=== PATIENT | male | born 1940 | race American Indian/Alaskan Native ===

== ENCOUNTER 2022-05-14 04:16 | Inpatient (IN) | payer MEDICARE ==
[2022-05-14] MEDS ORDERED: SODIUM CHLORIDE 0.9% 1000 ML 1,000 ML IV ONE (05:24)
[2022-05-14] MEDS ORDERED: cefTRIAXone/NS 2 GM/100 ML 2 GM/100 ML BAG IV ONE (06:40)
[2022-05-14] MEDS ORDERED: SODIUM CHLORIDE 0.9% 1000 ML IV SOLN IV ONE (06:40)
[2022-05-14 07:14] LABS: Basophils % (Auto) 0.1 % (0.0-1.8); Lymphocytes # (Auto) 0.6 K/mm3 (1.2-5.4); Lymphocytes % (Auto) 4.7 % (13.4-35.0); Mean Corpuscular HGB Conc 32 % (32-34); Mean Corpuscular Volume 96 fl (84-94); Monocytes # (Auto) 1.5 K/mm3 (0.0-0.8); Monocytes % (Auto) 11.9 % (0.0-7.3); Platelet Count 253 K/mm3 (140-440); Red Blood Count 1.95 M/mm3 (3.65-5.03)
[2022-05-14 07:23] LABS: Hematocrit 18.7 % (35.5-45.6); INR 1.19 (0.87-1.13)
[2022-05-14] MEDS ORDERED: SODIUM CHLORIDE 0.9% 500 ML 500 ML IV ONE (07:24)
--- NOTE | 2022-05-14 07:28 | XRay Report ---
CHEST 1 VIEW INDICATION / CLINICAL INFORMATION: AMS. COMPARISON: None available. FINDINGS: SUPPORT DEVICES: None. HEART / MEDIASTINUM: Heart size is within normal limits. Mediastinal contour demonstrates no signific ant abnormality. LUNGS / PLEURA: No significant pulmonary abnormality. BONES: No significant osseous abnormality. ADDITIONAL FINDINGS: No significant additional findings. IMPRESSION: 1. No active cardiopulmonary disease. Signer Name: Don Gillespie II, MD Signed: 05/14/2022 7:23 AM Workstation Name: [id number]
[2022-05-14 07:40] LABS: Alanine Aminotransferase 23 units/L (7-56); Albumin 3.2 g/dL (3.9-5); BUN/Creatinine Ratio 22; Blood Urea Nitrogen 29 mg/dL (9-20); Calcium 8.3 mg/dL (8.4-10.2); Hemolysis Index 2
[2022-05-14 08:02] LABS: C-Reactive Protein 23.8 mg/dL (0.00-1.30)
[2022-05-14 08:12] LABS: Bilirubin,Urine Color Interference (Negative); Color,Urine Red (Yellow)
[2022-05-14 08:14] LABS: Blood,Urine Color Interference (Negative); Protein,Urine Color Interference mg/dL (Negative)
--- NOTE | 2022-05-14 08:42 | Cat Scan Report ---
CT HEAD WITHOUT CONTRAST INDICATION / CLINICAL INFORMATION: AMS. TECHNIQUE: All CT scans at this location are performed using CT dose reduction for ALARA by means of automated exposure control. COMPARISON: None available. FINDINGS: HEMORRHAGE: None. EXTRA-AXIAL SPACES: Mildly prominent likely related to cortical atrophy. VENTRICULAR SYSTEM: Mildly enlarged likely related to central atrophy. CEREBRAL PARENCHYMA: There are moderate small vessel ischemic changes, most prominent in the perivent ricular white matter. No acute territorial infarct. MIDLINE SHIFT / HERNIATION: None. CEREBELLUM / BRAINSTEM: No significant abnormality. ORBITS: There is prior bilateral cataract surgery. SOFT TISSUES: No significant abnormality. SKULL: No significant abnormality. PARANASAL SINUSES / MASTOID AIR CELLS: Normal as visualized. ADDITIONAL FINDINGS: None. IMPRESSION: No acute intracranial abnormality. Signer Name: Figueroa Garcia MD Signed: 05/14/2022 8:38 AM Workstation Name: [id number]
[2022-05-14] MEDS ORDERED: AMIODARONE 150 MG/100 ML-ED 150 MG/100 ML BAG IV ONE (10:27)
[2022-05-14] MEDS: AMIODARONE 900 MG in DEXTROSE 5% IN WATER 482 ML IV SCH (11:04)
--- NOTE | 2022-05-14 11:48 | History and Physical Report ---
History of Present Illness Chief complaint: He was found unresponsive History of present illness: 81 YO Male with Vascular Dementia, Cerebral Atherosclerosis, DM, HLD, HTN, GERD, Anemia chronic Disease, BPH with Chronic indwelling castillo catheter placed 1 week ago presents ED for evaluation. Patient is confused and lethargic at time of evaluation and is unable to provide history. Patient history taken by EMS staff, ED staff, as well as the patient's family was at the bedside during exam and interview. Patient was in his usual state of health upon awakening from sleep this morning around 0900 hrs. The patient was found unresponsive while sitting on his sofa. EMS was notified and upon arrival the patient was found to be in distress and subsequent transported to [facility] for further care and evaluation of the aforementioned symptoms. The patient was seen and evaluated in the emergency department. All lab and imaging studies reviewed. Patient found to be hypotensive with a systolic blood pressure in the 80s with a heart rate in the 150s. Patient found to have sepsis suspected secondary to urinary tract infection, toxic metabolic encephalopathy, as well as new onset atrial fibrillation with rapid ventricular response. Patient admitted to ICU due to increased risk of worsening symptoms after medical stabilization. Patient initiated on amiodarone drip in the emergency department. Critical care team consulted in ED. Cardiology team consulted in ED. patient has diminished cognition but has a positive gag reflex and is able to protect his airway at time of my evaluation. No prior admission for review. All medication listed at time of admission has been reconciled. Advanced care planning conducted in ED. Past History Past Medical History: diabetes, GERD, hypertension, hyperlipidemia, other (See HPI) Past Surgical History: No surgical history, Other (Reviewed) Social history: . denies: smoking, alcohol abuse, prescription drug abuse Family history: hypertension Medications and Allergies Allergies Allergy/AdvReac Type Severity Reaction Status Date / Time No Known Allergies Allergy Verified 05/13/22 16:50 Home Medications Medication Instructions Recorded Confirmed Last Taken Type AtorvaSTATin [Lipitor] 20 mg PO QHS 05/13/22 05/14/22 Unknown History Cyanocobalamin (Vitamin B-12) 1,000 mcg PO QDAY 05/13/22 05/14/22 Unknown History [Vitamin B-12] Doxazosin [Cardura] 1 mg PO QHS 05/13/22 05/14/22 Unknown History Ferrous Sulfate [Iron 325 MG] 325 mg PO QDAY 05/13/22 05/14/22 Unknown History Metformin HCl [metFORMIN] 1,000 mg PO QDAY 05/13/22 05/14/22 Unknown History Omeprazole 20 mg PO QDAY 05/13/22 05/14/22 Unknown History amLODIPine [Norvasc] 5 mg PO DAILY 05/13/22 05/14/22 Unknown History lisinopriL [Lisinopril] 40 mg PO QDAY 05/13/22 05/14/22 Unknown History Active Meds: Active Medications Amiodarone HCl 900 mg/ (Dextrose) 500 mls @ 33.333 mls/hr IV DIRECT KARLA; Protocol Last Admin: 05/14/22 11:04 Dose: 1 mg/min, 33.333 mls/hr Review of Systems ROS unobtainable: due to mental status Exam - Constitutional Vitals: Temp Pulse Resp BP Pulse Ox 99.2 F 128 H 22 101/61 100 05/14/22 04:16 05/14/22 11:15 05/14/22 11:15 05/14/22 11:15 05/14/22 11:15 General appearance: Present: mild distress - EENT Eyes: Present: PERRL ENT: clear oral mucosa, hearing decreased - Respiratory Respiratory effort: normal Respiratory: bilateral: diminished - Cardiovascular Rhythm: irregularly irregular Heart Sounds: Present: S1 & S2. Absent: rub, click - Extremities Extremities: pulses symmetrical, No edema Peripheral Pulses: abnormal (Capillary refill greater than 3.5 seconds) - Abdominal General gastrointestinal: Present: soft, non-tender, non-distended, normal bowel sounds Male genitourinary: Present: normal - Integumentary Integumentary: Present: clear, dry, clammy, decreased turgor - Musculoskeletal Musculoskeletal: generalized weakness - Psychiatric Psychiatric: no appropriate mood/affect, no intact judgment & insight, no memory intact - Neurologic Neurologic: CNII-XII intact, no focal deficits, moves all extremities, no gait normal HEART Score - HEART Score Troponin: Troponin T < 0.010 ng/mL (0.00-0.029) 05/14/22 06:57 Results - Labs CBC & Chem 7: 05/14/22 06:57 05/14/22 06:57 Labs: Abnormal lab results 05/14/22 05/14/22 05/14/22 Range/Units 04:59 06:57 06:57 WBC 12.5 H (4.5-11.0) K/mm3 RBC 1.95 L (3.65-5.03) M/mm3 Hgb 6.0 L (11.8-15.2) gm/dl Hct 18.7 L* (35.5-45.6) % MCV 96 H (84-94) fl RDW 13.0 L (13.2-15.2) % Lymph % (Auto) 4.7 L (13.4-35.0) % Wharton % (Auto) 11.9 H (0.0-7.3) % Lymph # (Auto) 0.6 L (1.2-5.4) K/mm3 Wharton # (Auto) 1.5 H (0.0-0.8) K/mm3 Seg Neutrophils % 83.3 H (40.0-70.0) % Seg Neutrophils # 10.4 H (1.8-7.7) K/mm3 PT (12.2-14.9) Sec. INR (0.87-1.13) Chloride 108.3 H (98-107) mmol/L Carbon Dioxide 18 L (22-30) mmol/L BUN 29 H (9-20) mg/dL Glucose 275 H (75-100) mg/dL POC Glucose 245 H (70-105) mg/dL Lactic Acid (0.7-2.0) mmol/L Calcium 8.3 L (8.4-10.2) mg/dL Total Creatine Kinase (55-170) units/L C-Reactive Protein (0.00-1.30) mg/dL Albumin 3.2 L (3.9-5) g/dL Crossmatch 05/14/22 05/14/22 05/14/22 Range/Units 06:57 06:57 06:57 WBC (4.5-11.0) K/mm3 RBC (3.65-5.03) M/mm3 Hgb (11.8-15.2) gm/dl Hct (35.5-45.6) % MCV (84-94) fl RDW (13.2-15.2) % Lymph % (Auto) (13.4-35.0) % Wharton % (Auto) (0.0-7.3) % Lymph # (Auto) (1.2-5.4) K/mm3 Wharton # (Auto) (0.0-0.8) K/mm3 Seg Neutrophils % (40.0-70.0) % Seg Neutrophils # (1.8-7.7) K/mm3 PT 16.5 H (12.2-14.9) Sec. INR 1.19 H (0.87-1.13) Chloride (98-107) mmol/L Carbon Dioxide (22-30) mmol/L BUN (9-20) mg/dL Glucose (75-100) mg/dL POC Glucose (70-105) mg/dL Lactic Acid 2.10 H* (0.7-2.0) mmol/L Calcium (8.4-10.2) mg/dL Total Creatine Kinase 774 H (55-170) units/L C-Reactive Protein 23.80 H (0.00-1.30) mg/dL Albumin (3.9-5) g/dL Crossmatch 05/14/22 Range/Units 09:54 WBC (4.5-11.0) K/mm3 RBC (3.65-5.03) M/mm3 Hgb (11.8-15.2) gm/dl Hct (35.5-45.6) % MCV (84-94) fl RDW (13.2-15.2) % Lymph % (Auto) (13.4-35.0) % Wharton % (Auto) (0.0-7.3) % Lymph # (Auto) (1.2-5.4) K/mm3 Wharton # (Auto) (0.0-0.8) K/mm3 Seg Neutrophils % (40.0-70.0) % Seg Neutrophils # (1.8-7.7) K/mm3 PT (12.2-14.9) Sec. INR (0.87-1.13) Chloride (98-107) mmol/L Carbon Dioxide (22-30) mmol/L BUN (9-20) mg/dL Glucose (75-100) mg/dL POC Glucose (70-105) mg/dL Lactic Acid (0.7-2.0) mmol/L Calcium (8.4-10.2) mg/dL Total Creatine Kinase (55-170) units/L C-Reactive Protein (0.00-1.30) mg/dL Albumin (3.9-5) g/dL Crossmatch See Detail Assessment and Plan - Patient Problems (1) Sepsis Current Visit: Yes Status: Acute Qualifiers: Severe sepsis acute organ dysfunction type: encephalopathy Plan to address problem: Sepsis protocol: Chest x-ray, CBC, urinalysis, IV antibiotic therapy, blood culture, serial lactic acid level, IV fluid resuscitation therapy, monitor fluid balance, maintain mean arterial pressure greater than equal to 65, blood culture, The high probability of a clinically significant, sudden or life threatening deterioration of the [cardiac, pulmonary, renal, , ID] system(s) required my full and direct attention, intervention and personal management. The aggregate critical care time was [95] minutes. This time is in addition to time spent performing reported procedures but includes the following: [x] Data Review and interpretation [x] Patient assessment and monitoring of vital signs [x] Documentation [x] Medication orders and management (2) Toxic metabolic encephalopathy Current Visit: Yes Status: Acute Plan to address problem: IV fluid resuscitation therapy, treat sepsis, supportive care. (3) Atrial fibrillation with RVR Current Visit: Yes Status: Acute Plan to address problem: Amiodarone drip, admit to ICU, cardiology team consulted, thyroid panel, supportive care, further care and evaluation as per cardiology team. Rate controlled. (4) UTI (urinary tract infection) Current Visit: Yes Status: Acute Qualifiers: Encounter type: initial encounter Plan to address problem: Urinalysis, CBC, IV antibiotic therapy, supportive care. (5) Diabetes Current Visit: Yes Status: Acute Plan to address problem: Consistent carbohydrate diet when awake and alert only, Accu-Chek, insulin protocol, hypoglycemia protocol. (6) Hyperlipidemia Current Visit: Yes Status: Acute Qualifiers: Hyperlipidemia type: mixed hyperlipidemia Qualified Code(s): E78.2 - Mixed hyperlipidemia Plan to address problem: Statin therapy, supportive care. (7) GERD (gastroesophageal reflux disease) Current Visit: Yes Status: Acute Qualifiers: Esophagitis presence: without esophagitis Qualified Code(s): K21.9 - Gastro-esophageal reflux disease without esophagitis Plan to address problem: PPI therapy, supportive care. (8) Obstructive uropathy Current Visit: Yes Status: Acute Plan to address problem: Outpatient urology follow-up. Patient has chronic indwelling Castillo catheter placement. Supportive care. (9) Vascular dementia Current Visit: Yes Status: Acute Qualifiers: Dementia behavioral disturbance: without behavioral disturbance Qualified Code(s): F01.50 - Vascular dementia without behavioral disturbance Plan to address problem: Verbal prompting, verbal redirection, benzodiazepine therapy as clinically indicated. (10) Cerebral atherosclerosis Current Visit: Yes Status: Acute Plan to address problem: Risk factor reduction, supportive care. Antiplatelet therapy as clinically i ndicated. (11) DVT prophylaxis Current Visit: Yes Status: Acute Plan to address problem: SCD to bilateral lower extremities while in bed (12) Advance care planning Current Visit: Yes Status: Acute Plan to address problem: Disease education data, care plan discussed, diagnoses discussed, prognosis discussed, patient is full code at this time. Patient family knowledges understanding and agreement with care plan, +30 minutes. (13) Preventative health care Current Visit: Yes Status: Acute Plan to address problem: Patient family counseled regarding prognosis, home health safety, risk factor reduction, outpatient follow-up with primary care physician regarding all age and risk factor related screening test. +30 minutes.
[2022-05-14] MEDS ORDERED: PANTOPRAZOLE 40 MG INJ IV ONE (11:52)
--- NOTE | 2022-05-14 11:54 | Emergency Department Report ---
ED General Adult HPI - General Chief complaint: Dyspnea/Respdistress Stated complaint: AMS PUI?: No Time Seen by Provider: 05/14/22 06:24 Source: family, EMS Mode of arrival: Stretcher Limitations: No Limitations - History of Present Illness Initial comments: er family got up to go to the bathroom and was found on sofa unresponsive. Arrived being bagged by EMS. Alert. Castillo was placed on Monday and gross hematuria noted. -: hour(s) Associated Symptoms: confusion, malaise, shortness of breath, weakness - Related Data Home Medications Medication Instructions Recorded Confirmed Last Taken AtorvaSTATin [Lipitor] 20 mg PO QHS 05/13/22 05/13/22 Unknown Cyanocobalamin (Vitamin B-12) 1,000 mcg PO QDAY 05/13/22 05/13/22 Unknown [Vitamin B-12] Doxazosin [Cardura] 1 mg PO QHS 05/13/22 05/13/22 Unknown Ferrous Sulfate [Iron 325 MG] 325 mg PO QDAY 05/13/22 05/13/22 Unknown Metformin HCl [metFORMIN] 1,000 mg PO QDAY 05/13/22 05/13/22 Unknown Omeprazole 20 mg PO QDAY 05/13/22 05/13/22 Unknown amLODIPine [Norvasc] 5 mg PO DAILY 05/13/22 05/13/22 Unknown lisinopriL [Lisinopril] 40 mg PO QDAY 05/13/22 05/13/22 Unknown Allergies Allergy/AdvReac Type Severity Reaction Status Date / Time No Known Allergies Allergy Verified 05/13/22 16:50 ED Review of Systems ROS: Stated complaint: AMS Other details as noted in HPI Comment: Unobtainable due to pts medical conditions ED Past Medical Hx - Past Medical History Previous Medical History?: Yes Hx Hypertension: Yes Hx Diabetes: Yes Hx GERD: Yes Hx Sickle Cell Disease: No Hx HIV: No Additional medical history: Prostate problems. High cholesterol - Surgical History Past Surgical History?: No - Social History Smoking Status: Never Smoker Substance Use Type: None - Medications Home Medications: Home Medications Medication Instructions Recorded Confirmed Last Taken Type AtorvaSTATin [Lipitor] 20 mg PO QHS 05/13/22 05/13/22 Unknown History Cyanocobalamin (Vitamin B-12) 1,000 mcg PO QDAY 05/13/22 05/13/22 Unknown History [Vitamin B-12] Doxazosin [Cardura] 1 mg PO QHS 05/13/22 05/13/22 Unknown History Ferrous Sulfate [Iron 325 MG] 325 mg PO QDAY 05/13/22 05/13/22 Unknown History Metformin HCl [metFORMIN] 1,000 mg PO QDAY 05/13/22 05/13/22 Unknown History Omeprazole 20 mg PO QDAY 05/13/22 05/13/22 Unknown History amLODIPine [Norvasc] 5 mg PO DAILY 05/13/22 05/13/22 Unknown History lisinopriL [Lisinopril] 40 mg PO QDAY 05/13/22 05/13/22 Unknown History ED Physical Exam - General Limitations: No Limitations General appearance: lethargic, in distress, cachectic, other (weak confused ) - Head Head exam: Present: atraumatic, normocephalic - Eye Eye exam: Present: normal appearance - ENT ENT exam: Present: mucous membranes moist - Neck Neck exam: Present: normal inspection - Respiratory Respiratory exam: Present: rales. Absent: respiratory distress - Cardiovascular Cardiovascular Exam: Present: tachycardia, irregular rhythm. Absent: systolic murmur, diastolic murmur, rubs, gallop - GI/Abdominal GI/Abdominal exam: Present: soft, normal bowel sounds - Rectal Rectal exam: Present: deferred, heme (+) stool - Extremities Exam Extremities exam: Present: normal inspection - Back Exam Back exam: Present: normal inspection - Expanded Neurological Exam Expanded Best Eye Response (Harjit): (3) open to voice Best Motor Response (Harjit): (6) obeys commands Best Verbal Response ([place]): (3) inappropriate words Harjit Total: 12 - Skin Skin exam: Present: intact, normal color, pallor. Absent: rash ED Course Vital Signs 05/14/22 05/14/22 05/14/22 04:16 05:05 05:16 Temperature 99.2 F Pulse Rate 147 H 142 H 141 H Respiratory 20 20 16 Rate Blood Pressure 110/62 110/62 110/62 Blood Pressure [Left] O2 Sat by Pulse 99 99 100 Oximetry 05/14/22 05/14/22 05/14/22 05:30 05:46 06:00 Temperature Pulse Rate 139 H 155 H 144 H Respiratory 16 19 17 Rate Blood Pressure 110/62 83/56 83/56 Blood Pressure [Left] O2 Sat by Pulse 100 100 100 Oximetry 05/14/22 05/14/22 05/14/22 06:16 06:30 06:37 Temperature Pulse Rate 148 H 136 H 139 H Respiratory 17 18 20 Rate Blood Pressure 88/58 88/58 Blood Pressure 90/60 [Left] O2 Sat by Pulse 100 100 100 Oximetry 05/14/22 05/14/22 05/14/22 06:46 07:00 07:16 Temperature Pulse Rate 126 H 121 H Respiratory 20 13 20 Rate Blood Pressure 90/60 90/60 89/62 Blood Pressure [Left] O2 Sat by Pulse 100 100 100 Oximetry 05/14/22 05/14/22 05/14/22 07:28 07:30 07:46 Temperature Pulse Rate 148 H 142 H Respiratory 20 22 23 Rate Blood Pressure 94/70 100/73 Blood Pressure [Left] O2 Sat by Pulse 97 99 98 Oximetry 05/14/22 05/14/22 05/14/22 08:00 08:26 08:30 Temperature Pulse Rate 147 H 143 H 144 H Respiratory 22 24 19 Rate Blood Pressure 104/76 108/70 108/70 Blood Pressure [Left] O2 Sat by Pulse 99 97 Oximetry 05/14/22 05/14/22 05/14/22 08:46 09:05 09:15 Temperature Pulse Rate 142 H 140 H 138 H Respiratory 20 25 H 16 Rate Blood Pressure 119/59 108/70 119/68 Blood Pressure [Left] O2 Sat by Pulse 99 100 Oximetry 05/14/22 05/14/22 05/14/22 09:31 09:45 10:01 Temperature Pulse Rate 132 H 141 H 128 H Respiratory 20 20 16 Rate Blood Pressure 101/67 101/67 110/58 Blood Pressure [Left] O2 Sat by Pulse 99 100 99 Oximetry 05/14/22 05/14/22 05/14/22 10:15 10:31 10:45 Temperature Pulse Rate 127 H 136 H 142 H Respiratory 19 24 24 Rate Blood Pressure 110/58 103/64 103/64 Blood Pressure [Left] O2 Sat by Pulse 98 97 100 Oximetry 05/14/22 05/14/22 11:01 11:15 Temperature Pulse Rate 109 H 128 H Respiratory 22 22 Rate Blood Pressure 99/70 101/61 Blood Pressure [Left] O2 Sat by Pulse 98 100 Oximetry ED Medical Decision Making - Lab Data Result diagrams: 05/14/22 06:57 05/14/22 06:57 - EKG Data -: EKG Interpreted by Me - EKG Data Interpretation: other (Afib rvr rate of 150 ) - Radiology Data Radiology results: report reviewed, image reviewed - Medical Decision Making sepsis work up ; - Sepsis : cultures alctic, abx and fluids - Hypotension : fluids 30 per KG - Afib rvr : Amiodarone - Anemia : PRBcs , 2 units - GI bleed : PPI dripa nd bolus - hematuria : castillo changed Critical care attestation.: If time is entered above; I have spent that time in minutes in the direct care of this critically ill patient, excluding procedure time. ED Disposition Clinical Impression: Altered mental status, Weakness, Sepsis, Hypotension, Atrial fibrillation with RVR, Anemia, Heme positive stool Disposition: ADMITTED INPATIENT Is pt being admited?: Yes Does the pt Need Aspirin: No Condition: Critical Referrals: KRISTIAN DAS MD [Primary Care Provider] - 3-5 Days
[2022-05-14] MEDS ORDERED: ACETAMINOPHEN 325 MG TAB PO PRN ×2 (12:06→12:08)
[2022-05-14] MEDS ORDERED: ALBUTEROL 2.5 MG/3 ML NEBU IH PRN (12:06)
[2022-05-14] MEDS ORDERED: HYDROmorphone 0.5 MG/0.5 ML INJ IV PRN ×2 (12:06→12:08)
[2022-05-14] MEDS ORDERED: SODIUM CHLORIDE 0.9% 500 ML 500 ML ONE (12:11)
--- NOTE | 2022-05-14 13:22 | Procedure Note ---
Date of procedure: 05/14/22 Pre-op diagnosis: Sepsis Post-op diagnosis: same Procedure: Right internal jugular vein central lumen catheter under ultrasound guidance The patient was prepped and draped in the usual sterile fashion. A timeout was taken with the patient's nurse at bedside to verify the correct patient, the correct procedure and the correct operative site. Local anesthesia obtained with 1% lidocaine. The Seldinger technique was utilized with ultrasound guidance to advance a seeker needle into the right internal jugular vein without difficulty. A guidewire was then advanced via the seeker needle into the right internal jugular vein and the seeker needle removed over the guidewire. A scalpel was used to incise the skin at the insertion site. A dilator was then passed over the guidewire into the right internal jugular vein without difficulty and subsequently removed. A preflush triple-lumen catheter was then advanced over the guidewire into the right internal jugular vein. All 3 ports flush and drawl with ease. A Biopatch was placed at the insertion site. 3-0 silk suture was utilized to suture the triple-lumen catheter in place. A sterile dressing was placed over the triple-lumen catheter. Estimated blood loss minimal complications none. Postoperative chest x-ray reveals triple-lumen catheter in expected position. No evidence of pneumothorax.
--- NOTE | 2022-05-14 15:02 | Consultation ---
History of Present Illness Consult date: 05/14/22 Requesting physician: SALMA WHITE Reason for consult: other (Sepsis with Shock; Gross Hematuria) [facility]Full dictation # [id number]) Please see dictated notes for full details Medications and Allergies Allergies Allergy/AdvReac Type Severity Reaction Status Date / Time No Known Allergies Allergy Verified 05/13/22 16:50 Home Medications Medication Instructions Recorded Confirmed Last Taken Type AtorvaSTATin [Lipitor] 20 mg PO QHS 05/13/22 05/14/22 Unknown History Cyanocobalamin (Vitamin B-12) 1,000 mcg PO QDAY 05/13/22 05/14/22 Unknown History [Vitamin B-12] Doxazosin [Cardura] 1 mg PO QHS 05/13/22 05/14/22 Unknown History Ferrous Sulfate [Iron 325 MG] 325 mg PO QDAY 05/13/22 05/14/22 Unknown History Metformin HCl [metFORMIN] 1,000 mg PO QDAY 05/13/22 05/14/22 Unknown History Omeprazole 20 mg PO QDAY 05/13/22 05/14/22 Unknown History amLODIPine [Norvasc] 5 mg PO DAILY 05/13/22 05/14/22 Unknown History lisinopriL [Lisinopril] 40 mg PO QDAY 05/13/22 05/14/22 Unknown History Active Meds: Active Medications Acetaminophen (Acetaminophen 325 Mg Tab) 650 mg PO Q6H PRN PRN Reason: Pain, Mild (1-3) Albuterol (Albuterol 2.5 Mg/3 Ml Nebu) 2.5 mg IH Q3HRT PRN PRN Reason: Shortness Of Breath Atorvastatin Calcium (Atorvastatin 20 Mg Tab) 20 mg PO QHS KARLA Cyanocobalamin (Cyanocobalamin (Vit B-12) 1000 Mcg Tab) 1,000 mcg PO QDAY KARLA Doxazosin Mesylate (Doxazosin 1 Mg Tab) 1 mg PO QHS KARLA Ferrous Sulfate (Ferrous Sulfate 325 Mg Tab) 325 mg PO QDAY KARLA Hydromorphone HCl (Hydromorphone 0.5 Mg/0.5 Ml Inj) 0.25 mg IV Q13H PRN PRN Reason: Pain, Moderate (4-6) Hydromorphone HCl (Hydromorphone 0.5 Mg/0.5 Ml Inj) 0.25 mg IV Q4H PRN PRN Reason: Pain , Severe (7-10) Amiodarone HCl 900 mg/ (Dextrose) 500 mls @ 33.333 mls/hr IV DIRECT KARLA; Protocol Last Admin: 05/14/22 11:04 Dose: 1 mg/min, 33.333 mls/hr Levofloxacin/Dextrose (Levaquin 750mg/150ml) 750 mg in 150 mls @ 100 mls/hr IV Q48H KARLA; Protocol Oxycodone/Acetaminophen (Oxycodone /Acetaminophen 5-325mg Tab) 1 tab PO Q6H PRN PRN Reason: Pain, Moderate (4-6) Pantoprazole Sodium (Pantoprazole 20 Mg Tab) 20 mg PO QDAY KARLA Sodium Chloride (Sodium Chloride 0.9% 10 Ml Flush Syringe) 10 ml IV BID KARLA Sodium Chloride (Sodium Chloride 0.9% 10 Ml Flush Syringe) 10 ml IV PRN PRN PRN Reason: LINE FLUSH Physical Examination Vital signs: Vital Signs Temp Pulse Resp BP Pulse Ox 99.2 F 147 H 20 110/62 99 05/14/22 04:16 05/14/22 04:16 05/14/22 04:16 05/14/22 04:16 05/14/22 04:16 Results - Laboratory Findings CBC and BMP: 05/14/22 06:57 05/14/22 06:57 PT/INR, D-dimer PT 16.5 Sec. (12.2-14.9) H 05/14/22 06:57 INR 1.19 (0.87-1.13) H 05/14/22 06:57 Abnormal lab findings: Abnormal Labs 05/14/22 05/14/22 05/14/22 04:59 06:57 06:57 WBC 12.5 H RBC 1.95 L Hgb 6.0 L Hct 18.7 L* MCV 96 H RDW 13.0 L Lymph % (Auto) 4.7 L Lar[place] % (Auto) 11.9 H Lymph # (Auto) 0.6 L [place] # (Auto) 1.5 H Seg Neutrophils % 83.3 H Seg Neutrophils # 10.4 H PT INR Chloride 108.3 H Carbon Dioxide 18 L BUN 29 H Glucose 275 H POC Glucose 245 H Lactic Acid Calcium 8.3 L Total Creatine Kinase C-Reactive Protein Albumin 3.2 L Crossmatch 05/14/22 05/14/22 05/14/22 06:57 06:57 06:57 WBC RBC Hgb Hct MCV RDW Lymph % (Auto) [place] % (Auto) Lymph # (Auto) [place] # (Auto) Seg Neutrophils % Seg Neutrophils # PT 16.5 H INR 1.19 H Chloride Carbon Dioxide BUN Glucose POC Glucose Lactic Acid 2.10 H* Calcium Total Creatine Kinase 774 H C-Reactive Protein 23.80 H Albumin Crossmatch 05/14/22 09:54 WBC RBC Hgb Hct MCV RDW Lymph % (Auto) [place] % (Auto) Lymph # (Auto) [place] # (Auto) Seg Neutrophils % Seg Neutrophils # PT INR Chloride Carbon Dioxide BUN Glucose POC Glucose Lactic Acid Calcium Total Creatine Kinase C-Reactive Protein Albumin Crossmatch See Detail
[2022-05-14] MEDS ORDERED: DEXTROSE 50% IN WATER (25GM) 50 ML SYRINGE IV PRN (15:19)
[2022-05-14] MEDS: INSULIN LISPRO 100 UNIT/ML SUB-Q SCH (17:41)
[2022-05-14 17:56] LABS: Bacteria,Urine 3+ /HPF (Negative); RBC,Urine > 182.0 /HPF (0.0-6.0); WBC,Urine > 182.0 /HPF (0.0-6.0)
--- NOTE | 2022-05-14 18:39 | XRay Report ---
CHEST 1 VIEW 05/14/2022 6:16 PM INDICATION / CLINICAL INFORMATION: Central line placement. COMPARISON: Earlier today at 7:06 AM. FINDINGS: SUPPORT DEVICES: There is a new right jugular CVL with the tip overlying the proximal to mid SVC. HEART / MEDIASTINUM: Unchanged. LUNGS / PLEURA: There is minimal bibasilar subsegmental atelectasis. No pleural effusion. No pneumoth orax. ADDITIONAL FINDINGS: No significant additional findings. IMPRESSION: Right jugular CVL placement without complication. Signer Name: Figueroa Garcia MD Signed: 05/14/2022 6:35 PM Workstation Name: [id number]
[2022-05-14 23:27] LABS: Hematocrit 22.9 % (35.5-45.6); Hemoglobin 7.8 gm/dl (11.8-15.2)
[2022-05-14 23:48] LABS: Free T4 (Free Thyroxine) 1.59 ng/dL (0.76-1.46)
[2022-05-15] MEDS: DOXAZOSIN 1 MG TAB PO SCH ×2 (00:12→21:48)
[2022-05-15 05:32] LABS: Basophils % (Auto) 0.1 % (0.0-1.8); Eosinophils % (Auto) 0.3 % (0.0-4.3); Hematocrit 22.8 % (35.5-45.6); Hemoglobin 7.5 gm/dl (11.8-15.2); Lymphocytes % (Auto) 8.8 % (13.4-35.0); Mean Corpuscular HGB Conc 33 % (32-34); Mean Corpuscular Volume 92 fl (84-94); Monocytes # (Auto) 1.5 K/mm3 (0.0-0.8); Monocytes % (Auto) 13.1 % (0.0-7.3); Platelet Count 216 K/mm3 (140-440); Red Blood Count 2.49 M/mm3 (3.65-5.03); Red Cell Distribution Width 14.4 % (13.2-15.2)
[2022-05-15 05:45] LABS: Alanine Aminotransferase 21 units/L (7-56); Albumin 2.7 g/dL (3.9-5); BUN/Creatinine Ratio 19; Blood Urea Nitrogen 15 mg/dL (9-20); Calcium 8.2 mg/dL (8.4-10.2); Hemolysis Index 1
[2022-05-15] MEDS: INSULIN LISPRO 100 UNIT/ML SUB-Q SCH ×4 (06:45→21:48)
[2022-05-15] MEDS ORDERED: MAGNESIUM SULFATE 4 GM/100 ML BAG IV SCH (08:00)
[2022-05-15] MEDS: CYANOCOBALAMIN (VIT B-12) 1000 MCG TAB PO SCH (09:00)
[2022-05-15] MEDS: FERROUS SULFATE 325 MG TAB PO SCH (09:00)
[2022-05-15] MEDS ORDERED: PANTOPRAZOLE 20 MG TAB PO SCH (10:00)
[2022-05-15] MEDS ORDERED: NON-FORMULARY EACH (Omeprazole [Omeprazole] 20 MG Tablet.Dr) PO SCH (10:00)
[2022-05-15] MEDS ORDERED: PANTOPRAZOLE 40 MG INJ IV SCH (10:00)
--- NOTE | 2022-05-15 10:31 | Progress Note ---
<THOM DAMON - Last Filed: 05/15/22 15:51> Assessment and Plan Assessment and plan: This is a 81-year-old male with known past medical history of vascular dementia, cerebral atherosclerosis, DM, HLD, HTN, GERD, anemia of chronic disease, and BPH and hematuria with Chronic indwelling castillo catheter placed 1 week ago admitted for AMS, acute blood loss anemia, new onset Afib with RVR, and UTI. Hospital Course to Date: 05/15: Fully AAO this am, stable on RA. With persistent gross hematuria this am, s/p 2units of PRBCs. H&H stable this am. Remains on Amiodarone gtt, SR noted on the monitor, VSS. D/W Cardio, plan to transition to PO Amio today. 2D Echo pending. Continue to trend H&H, Urology consulted. Assessment and Plan #Acute Blood Loss Anemia 2/2 #Gross Hematuria with Clots - Presented with gross hematuria and low H&H - S/p 2units of PRBCs - Gross hematuria persist, H&H stable - Per family recent castillo inserted about a week ago, hematuria noted post insertion - Patient follows with Dr. Alexander outpatient for hematuria, was scheduled for possible procedure on 05/18 - Urology consulted - Continue to trend H&H - Transfuse for Hgb less than 7 #New Onset Atrial Fibrillation #H/o HTN and HLD #Hypotension-resolved - Presented with hypotension and Afib RVR, HR in the 150s in the ED - No previous history of afib reported, probably reactive due to hypovolemia 2/2 to above - s/p blood products and IVF and Amiodarone gtt initiated in the ED - Patient converted to SR, remains in SR this am, VSS - Cardiology consulted, appreciated recommendations - D/W Cardio plan to transition to PO Amio today - Patient not candidate for AC due to active bleeding - Continue blood pressure monitor per protocol - Maintain MAP above 65 - Home statin resumed #UTI (Urinary Tract Infection) #Obstructive Uropathy #H/o BPH with Chronic Castillo Catheter #Gross Hematuria with Clots - UA significant for blood with elevated wbcs - Patient presented with hypotension, tachycardia, gross hematuria, no leukocytosis, and afebrile - Per family recent castillo inserted about a week ago, hematuria noted post insertion - Empiric IV Abx initiated - Urine and blood culture with NGTD - Urology consulted - F/U on cultures - Daily CBC monitor #Acute Metabolic Acidosis #Vascular Dementia - Probably due to acute blood loss vs infectious process - s/p blood products and IVF, empiric IV Abx initiated - Mentation improved this am. AAO, calm, and appropriate - CT head/Brain with no acute intracranial abnormality - Avoid benzodiazepine to reduce the possibility of delirium - PRN Analgesia for pain control - Maintenance of sleep-wake cycle - Verbal prompting, verbal redirection - Fall precaution #GERD (Gastroesophageal Reflux Disease) - Supportive care. - PPI- Protonix #Type 2 Diabetes Mellitus - Cardiac/Consistent carbohydrate diet - BG check and SSI ACHS - Avoid hypoglycemia #GI/DVT Prophylaxis - PPI- Protonix - SCD to bilateral lower extremities while in bed #Advance Care Planning - Disease education data, care plan, diagnoses, and prognosis were discussed with patient and patient's daughter at the bedside. Patient is a FULL code. They acknowledged understanding and agreed with current care plan. The high probability of a clinically significant, sudden or life threatening deterioration of the [multiple] system(s) required my full and direct attention, intervention and personal management. The aggregate critical care time was [60] minutes. This time is in addition to time spent performing reported procedures but includes the following: [x] Data Review and interpretation [x] Patient assessment and monitoring of vital signs [x] Documentation [x] Medication orders and management Disposition Plan: ICU Total Time Spent with Patient (Minutes): 60 History Interval history: Patient seen and examined at the bedside. Fully AAO, on RA, denied any pain nor any discomfort at this time. SR, HR in the 60- 80s noted on the monitor, VSS. Gross hematuria with clots noted in castillo bag. SOFYA overnight Hospitalist Physical - Constitutional Vitals: Temp Pulse Resp BP Pulse Ox 98.2 F 78 18 124/70 99 05/15/22 07:40 05/15/22 10:00 05/15/22 08:00 05/15/22 00:12 05/15/22 08:00 General appearance: Present: no acute distress - EENT Eyes: Present: PERRL ENT: hearing intact - Neck Neck: Present: normal ROM - Respiratory Respiratory effort: normal Respiratory: bilateral: diminished - Cardiovascular Rhythm: regular Heart Sounds: Present: S1 & S2 - Extremities Extremities: no ischemia, pulses intact, pulses symmetrical Peripheral Pulses: within normal limits - Abdominal General gastrointestinal: soft, non-distended, normal bowel sounds - Integumentary Integumentary: Present: clear, warm, dry - Psychiatric Psychiatric: appropriate mood/affect, cooperative - Neurologic Neurologic: CNII-XII intact, moves all extremities - Allied Health Allied health notes reviewed: nursing HEART Score - HEART Score Troponin: Troponin T < 0.010 ng/mL (0.00-0.029) 05/14/22 06:57 Results - Labs CBC & Chem 7: 05/15/22 05:00 05/15/22 05:00 Labs: Laboratory Last Values WBC 11.1 K/mm3 (4.5-11.0) H 05/15/22 05:00 RBC 2.49 M/mm3 (3.65-5.03) L 05/15/22 05:00 Hgb 7.5 gm/dl (11.8-15.2) L 05/15/22 05:00 Hct 22.8 % (35.5-45.6) L 05/15/22 05:00 MCV 92 fl (84-94) 05/15/22 05:00 MCH 30 pg (28-32) 05/15/22 05:00 MCHC 33 % (32-34) 05/15/22 05:00 RDW 14.4 % (13.2-15.2) 05/15/22 05:00 Plt Count 216 K/mm3 (140-440) 05/15/22 05:00 Lymph % (Auto) 8.8 % (13.4-35.0) L 05/15/22 05:00 Carter % (Auto) 13.1 % (0.0-7.3) H 05/15/22 05:00 Eos % (Auto) 0.3 % (0.0-4.3) 05/15/22 05:00 Baso % (Auto) 0.1 % (0.0-1.8) 05/15/22 05:00 Lymph # (Auto) 1.0 K/mm3 (1.2-5.4) L 05/15/22 05:00 Carter # (Auto) 1.5 K/mm3 (0.0-0.8) H 05/15/22 05:00 Eos # (Auto) 0.0 K/mm3 (0.0-0.4) 05/15/22 05:00 Baso # (Auto) 0.0 K/mm3 (0.0-0.1) 05/15/22 05:00 Seg Neutrophils % 77.7 % (40.0-70.0) H 05/15/22 05:00 Seg Neutrophils # 8.6 K/mm3 (1.8-7.7) H 05/15/22 05:00 PT 16.5 Sec. (12.2-14.9) H 05/14/22 06:57 INR 1.19 (0.87-1.13) H 05/14/22 06:57 Sodium 137 mmol/L (137-145) 05/15/22 05:00 Potassium 3.6 mmol/L (3.6-5.0) 05/15/22 05:00 Chloride 108.5 mmol/L (98-107) H 05/15/22 05:00 Carbon Dioxide 20 mmol/L (22-30) L 05/15/22 05:00 Anion Gap 12 mmol/L 05/15/22 05:00 BUN 15 mg/dL (9-20) 05/15/22 05:00 Creatinine 0.8 mg/dL (0.8-1.3) 05/15/22 05:00 Estimated GFR > 60 ml/min 05/15/22 05:00 BUN/Creatinine Ratio 19 % 05/15/22 05:00 Glucose 188 mg/dL (75-100) H 05/15/22 05:00 POC Glucose 205 mg/dL (70-105) H 05/15/22 05:52 Lactic Acid 1.00 mmol/L (0.7-2.0) 05/14/22 22:40 Calcium 8.2 mg/dL (8.4-10.2) L 05/15/22 05:00 Magnesium 1.60 mg/dL (1.7-2.3) L 05/14/22 22:40 Total Bilirubin 0.50 mg/dL (0.1-1.2) 05/15/22 05:00 AST 31 units/L (5-40) 05/15/22 05:00 ALT 21 units/L (7-56) 05/15/22 05:00 Alkaline Phosphatase 53 units/L (35-129) 05/15/22 05:00 Total Creatine Kinase 774 units/L (55-170) H 05/14/22 06:57 Troponin T < 0.010 ng/mL (0.00-0.029) 05/14/22 06:57 C-Reactive Protein 23.80 mg/dL (0.00-1.30) H 05/14/22 06:57 NT-Pro-B Natriuret Pep 705.7 pg/mL (0-900) 05/14/22 06:57 Total Protein 5.7 g/dL (6.3-8.2) L 05/15/22 05:00 Albumin 2.7 g/dL (3.9-5) L 05/15/22 05:00 Albumin/Globulin Ratio 0.9 % 05/15/22 05:00 Lipase 20 units/L (13-60) 05/14/22 06:57 TSH 1.040 mlU/mL (0.270-4.200) 05/14/22 22:40 Free T4 1.59 ng/dL (0.76-1.46) H 05/14/22 22:40 Urine Color Red (Yellow) 05/14/22 07:28 Urine Turbidity Bloody (Clear) 05/14/22 07:28 Urine Protein Color interference mg/dL (Negative) 05/14/22 07:28 Urine Glucose (UA) Color interference mg/dL (Negative) 05/14/22 07:28 Urine Ketones Color interference mg/dL (Negative) 05/14/22 07:28 Urine Blood Color interference (Negative) 05/14/22 07:28 Urine Nitrite Color interference (Negative) 05/14/22 07:28 Urine Bilirubin Color interference (Negative) 05/14/22 07:28 Urine Ictotest Not Reportable 05/14/22 07:28 Ur Leukocyte Esterase Color interference (Negative) 05/14/22 07:28 Urine WBC (Auto) > 182.0 /HPF (0.0-6.0) H 05/14/22 07:28 Urine RBC (Auto) > 182.0 /HPF (0.0-6.0) 05/14/22 07:28 U Epithel Cells (Auto) 5.0 /HPF (0-13.0) 05/14/22 07:28 Urine Bacteria (Auto) 3+ /HPF (Negative) 05/14/22 07:28 Blood Type O POSITIVE 05/14/22 09:54 Antibody Screen Negative 05/14/22 09:54 Crossmatch See Detail 05/14/22 09:54 Microbiology: Microbiology 05/14/22 06:57 Peripheral/Venous Blood Culture - Preliminary NO GROWTH AFTER 24 HOURS 05/14/22 06:57 Peripheral/Venous Blood Culture - Preliminary NO GROWTH AFTER 24 HOURS Castillo/IV: Voiding Method Indwelling Catheter Active Medications - Current Medications Current Medications: Generic Name Dose Route Start Last Admin Trade Name Freq PRN Reason Stop Dose Admin Acetaminophen 650 mg 05/14/22 12:08 Acetaminophen 325 Mg Tab PO Q6H PRN Pain, Mild (1-3) Albuterol 2.5 mg 05/14/22 12:06 Albuterol 2.5 Mg/3 Ml Nebu IH Q3HRT PRN Shortness Of Breath Atorvastatin Calcium 20 mg 05/14/22 22:00 05/15/22 00:12 Atorvastatin 20 Mg Tab PO 20 mg QHS KARLA Administration Cyanocobalamin 1,000 mcg 05/15/22 10:00 05/15/22 09:00 Cyanocobalamin (Vit B-12) 1000 Mcg Tab PO 1,000 mcg QDAY KARLA Administration Dextrose 50 ml 05/14/22 15:19 Dextrose 50% In Water (25gm) 50 Ml Syringe IV Q30MIN PRN Hypoglycemia Protocol Doxazosin Mesylate 1 mg 05/14/22 22:00 05/15/22 00:12 Doxazosin 1 Mg Tab PO 1 mg QHS KARAL Administration Ferrous Sulfate 325 mg 05/15/22 10:00 05/15/22 09:00 Ferrous Sulfate 325 Mg Tab PO 325 mg QDAY KARLA Administration Hydromorphone HCl 0.25 mg 05/14/22 12:06 Hydromorphone 0.5 Mg/0.5 Ml Inj IV Q13H PRN Pain, Moderate (4-6) Hydromorphone HCl 0.25 mg 05/14/22 12:08 Hydromorphone 0.5 Mg/0.5 Ml Inj IV Q4H PRN Pain , Severe (7-10) Amiodarone HCl 900 mg/ 500 mls @ 33.333 mls/hr 05/14/22 11:00 05/14/22 17:00 Dextrose IV 0.5 mg/min DIRECT KARLA 16.667 mls/hr Titration Protocol 1 MG/MIN Levofloxacin/Dextrose 750 mg in 150 mls @ 100 mls/hr 05/15/22 13:00 Levaquin 750mg/150ml IV Q24H KARLA Protocol Magnesium Sulfate 4 gm in 100 mls @ 25 mls/hr 05/15/22 08:00 05/15/22 08:52 Magnesium Sulfate 4gm/100ml IV 05/15/22 12:00 25 mls/hr ONCE@0800 KARLA Administration Insulin Human Lispro 0 unit 05/14/22 18:00 05/15/22 06:45 Insulin Lispro 100 Unit/Ml SUB-Q 3 unit Q6HR KARLA Administration Protocol Oxycodone/Acetaminophen 1 tab 05/14/22 12:06 Oxycodone /Acetaminophen 5-325mg Tab PO Q6H PRN Pain, Moderate (4-6) Pantoprazole Sodium 40 mg 05/15/22 10:00 05/15/22 09:00 Pantoprazole 40 Mg Inj IV 05/15/22 23:59 40 mg QDAY KARLA Administration Pantoprazole Sodium 20 mg 05/16/22 10:00 Pantoprazole 20 Mg Tab PO QDAY KARLA Sodium Chloride 10 ml 05/14/22 22:00 05/15/22 09:00 Sodium Chloride 0.9% 10 Ml Flush Syringe IV 10 ml BID KARLA Administration Sodium Chloride 10 ml 05/14/22 12:06 Sodium Chloride 0.9% 10 Ml Flush Syringe IV PRN PRN LINE FLUSH <KELVIN AGUILA - Last Filed: 05/16/22 07:06> Assessment and Plan Assessment and plan: I saw and evaluated the patient. I agree with the findings and the plan of care as documented in the Nurse Practitioner's~note, with the following corrections and additions. Hospitalist Physical - Constitutional Vitals: Temp Pulse Resp BP Pulse Ox 98.8 F 66 18 124/70 99 05/16/22 05:17 05/16/22 04:00 05/15/22 16:00 05/15/22 00:12 05/16/22 04:00 HEART Score - HEART Score Troponin: Troponin T < 0.010 ng/mL (0.00-0.029) 05/14/22 06:57 Results - Labs CBC & Chem 7: 05/16/22 04:00 05/16/22 04:00 Labs: Laboratory Last Values WBC 8.2 K/mm3 (4.5-11.0) 05/16/22 04:00 RBC 2.54 M/mm3 (3.65-5.03) L 05/16/22 04:00 Hgb 7.7 gm/dl (11.8-15.2) L 05/16/22 04:00 Hct 22.9 % (35.5-45.6) L 05/16/22 04:00 MCV 90 fl (84-94) 05/16/22 04:00 MCH 31 pg (28-32) 05/16/22 04:00 MCHC 34 % (32-34) 05/16/22 04:00 RDW 14.7 % (13.2-15.2) 05/16/22 04:00 Plt Count 207 K/mm3 (140-440) 05/16/22 04:00 Lymph % (Auto) 8.8 % (13.4-35.0) L 05/15/22 05:00 Carter % (Auto) 13.1 % (0.0-7.3) H 05/15/22 05:00 Eos % (Auto) 0.3 % (0.0-4.3) 05/15/22 05:00 Baso % (Auto) 0.1 % (0.0-1.8) 05/15/22 05:00 Lymph # (Auto) 1.0 K/mm3 (1.2-5.4) L 05/15/22 05:00 Carter # (Auto) 1.5 K/mm3 (0.0-0.8) H 05/15/22 05:00 Eos # (Auto) 0.0 K/mm3 (0.0-0.4) 05/15/22 05:00 Baso # (Auto) 0.0 K/mm3 (0.0-0.1) 05/15/22 05:00 Add Manual Diff Complete 05/15/22 19:10 Total Counted 100 05/15/22 19:10 Seg Neutrophils % 77.7 % (40.0-70.0) H 05/15/22 05:00 Seg Neuts % (Manual) 79.0 % (40.0-70.0) H 05/15/22 19:10 Band Neutrophils % 0 % 05/15/22 19:10 Lymphocytes % (Manual) 8.0 % (13.4-35.0) L 05/15/22 19:10 Reactive Lymphs % (Man) 0 % 05/15/22 19:10 Monocytes % (Manual) 13.0 % (0.0-7.3) H 05/15/22 19:10 Eosinophils % (Manual) 0 % (0.0-4.3) 05/15/22 19:10 Basophils % (Manual) 0 % (0.0-1.8) 05/15/22 19:10 Metamyelocytes % 0 % 05/15/22 19:10 Myelocytes % 0 % 05/15/22 19:10 Promyelocytes % 0 % 05/15/22 19:10 Blast Cells % 0 % 05/15/22 19:10 Nucleated RBC % Not Reportable 05/15/22 19:10 Seg Neutrophils # 8.6 K/mm3 (1.8-7.7) H 05/15/22 05:00 Seg Neutrophils # Man 6.9 K/mm3 (1.8-7.7) 05/15/22 19:10 Band Neutrophils # 0.0 K/mm3 05/15/22 19:10 Lymphocytes # (Manual) 0.7 K/mm3 (1.2-5.4) L 05/15/22 19:10 Abs React Lymphs (Man) 0.0 K/mm3 05/15/22 19:10 Monocytes # (Manual) 1.1 K/mm3 (0.0-0.8) H 05/15/22 19:10 Eosinophils # (Manual) 0.0 K/mm3 (0.0-0.4) 05/15/22 19:10 Basophils # (Manual) 0.0 K/mm3 (0.0-0.1) 05/15/22 19:10 Metamyelocytes # 0.0 K/mm3 05/15/22 19:10 Myelocytes # 0.0 K/mm3 05/15/22 19:10 Promyelocytes # 0.0 K/mm3 05/15/22 19:10 Blast Cells # 0.0 K/mm3 05/15/22 19:10 WBC Morphology Not Reportable 05/15/22 19:10 Hypersegmented Neuts Not Reportable 05/15/22 19:10 Hyposegmented Neuts Not Reportable 05/15/22 19:10 Hypogranular Neuts Not Reportable 05/15/22 19:10 Smudge Cells Not Reportable 05/15/22 19:10 Toxic Granulation Not Reportable 05/15/22 19:10 Toxic Vacuolation Not Reportable 05/15/22 19:10 Dohle Bodies Not Reportable 05/15/22 19:10 Pelger-Huet Anomaly Not Reportable 05/15/22 19:10 Jorge Rods Not Reportable 05/15/22 19:10 Platelet Estimate Consistent w auto 05/15/22 19:10 Clumped Platelets Not Reportable 05/15/22 19:10 Plt Clumps, EDTA Not Reportable 05/15/22 19:10 Large Platelets Not Reportable 05/15/22 19:10 Giant Platelets Not Reportable 05/15/22 19:10 Platelet Satelliting Not Reportable 05/15/22 19:10 Plt Morphology Comment Not Reportable 05/15/22 19:10 RBC Morphology Not Reportable 05/15/22 19:10 Dimorphic RBCs Not Reportable 05/15/22 19:10 Polychromasia Not Reportable 05/15/22 19:10 Hypochromasia Not Reportable 05/15/22 19:10 Poikilocytosis Not Reportable 05/15/22 19:10 Anisocytosis 1+ 05/15/22 19:10 Microcytosis Not Reportable 05/15/22 19:10 Macrocytosis Not Reportable 05/15/22 19:10 Spherocytes Not Reportable 05/15/22 19:10 Pappenheimer Bodies Not Reportable 05/15/22 19:10 Sickle Cells Not Reportable 05/15/22 19:10 Target Cells Not Reportable 05/15/22 19:10 Tear Drop Cells Not Reportable 05/15/22 19:10 Ovalocytes Not Reportable 05/15/22 19:10 Helmet Cells Not Reportable 05/15/22 19:10 Greene-H[place] Bodies Not Reportable 05/15/22 19:10 [place] Rings Not Reportable 05/15/22 19:10 Flip Cells Not Reportable 05/15/22 19:10 Bite Cells Not Reportable 05/15/22 19:10 Crenated Cell Not Reportable 05/15/22 19:10 Elliptocytes Not Reportable 05/15/22 19:10 Acanthocytes (Spur) Not Reportable 05/15/22 19:10 Rouleaux Not Reportable 05/15/22 19:10 Hemoglobin C Crystals Not Reportable 05/15/22 19:10 Schistocytes Not Reportable 05/15/22 19:10 Malaria parasites Not Reportable 05/15/22 19:10 Miguel Bodies Not Reportable 05/15/22 19:10 Hem Pathologist Commnt No 05/15/22 19:10 PT 16.5 Sec. (12.2-14.9) H 05/14/22 06:57 INR 1.19 (0.87-1.13) H 05/14/22 06:57 Sodium 138 mmol/L (137-145) 05/16/22 04:00 Potassium 3.6 mmol/L (3.6-5.0) 05/16/22 04:00 Chloride 105.7 mmol/L (98-107) 05/16/22 04:00 Carbon Dioxide 20 mmol/L (22-30) L 05/16/22 04:00 Anion Gap 16 mmol/L 05/16/22 04:00 BUN 9 mg/dL (9-20) 05/16/22 04:00 Creatinine 0.8 mg/dL (0.8-1.3) 05/16/22 04:00 Estimated GFR > 60 ml/min 05/16/22 04:00 BUN/Creatinine Ratio 11 % 05/16/22 04:00 Glucose 191 mg/dL (75-100) H 05/16/22 04:00 POC Glucose 222 mg/dL (70-105) H 05/15/22 21:46 Lactic Acid 1.00 mmol/L (0.7-2.0) 05/14/22 22:40 Calcium 8.3 mg/dL (8.4-10.2) L 05/16/22 04:00 Phosphorus 2.30 mg/dL (2.5-4.5) L 05/16/22 04:00 Magnesium 1.90 mg/dL (1.7-2.3) 05/16/22 04:00 Total Bilirubin 0.50 mg/dL (0.1-1.2) 05/15/22 05:00 AST 31 units/L (5-40) 05/15/22 05:00 ALT 21 units/L (7-56) 05/15/22 05:00 Alkaline Phosphatase 53 units/L (35-129) 05/15/22 05:00 Total Creatine Kinase 774 units/L (55-170) H 05/14/22 06:57 Troponin T < 0.010 ng/mL (0.00-0.029) 05/14/22 06:57 C-Reactive Protein 23.80 mg/dL (0.00-1.30) H 05/14/22 06:57 NT-Pro-B Natriuret Pep 705.7 pg/mL (0-900) 05/14/22 06:57 Total Protein 5.7 g/dL (6.3-8.2) L 05/15/22 05:00 Albumin 2.7 g/dL (3.9-5) L 05/15/22 05:00 Albumin/Globulin Ratio 0.9 % 05/15/22 05:00 Lipase 20 units/L (13-60) 05/14/22 06:57 TSH 1.040 mlU/mL (0.270-4.200) 05/14/22 22:40 Free T4 1.59 ng/dL (0.76-1.46) H 05/14/22 22:40 Urine Color Red (Yellow) 05/14/22 07:28 Urine Turbidity Bloody (Clear) 05/14/22 07:28 Urine Protein Color interference mg/dL (Negative) 05/14/22 07:28 Urine Glucose (UA) Color interference mg/dL (Negative) 05/14/22 07:28 Urine Ketones Color interference mg/dL (Negative) 05/14/22 07:28 Urine Blood Color interference (Negative) 05/14/22 07:28 Urine Nitrite Color interference (Negative) 05/14/22 07:28 Urine Bilirubin Color interference (Negative) 05/14/22 07:28 Urine Ictotest Not Reportable 05/14/22 07:28 Ur Leukocyte Esterase Color interference (Negative) 05/14/22 07:28 Urine WBC (Auto) > 182.0 /HPF (0.0-6.0) H 05/14/22 07:28 Urine RBC (Auto) > 182.0 /HPF (0.0-6.0) 05/14/22 07:28 U Epithel Cells (Auto) 5.0 /HPF (0-13.0) 05/14/22 07:28 Urine Bacteria (Auto) 3+ /HPF (Negative) 05/14/22 07:28 Blood Type O POSITIVE 05/14/22 09:54 Antibody Screen Negative 05/14/22 09:54 Crossmatch See Detail 05/14/22 09:54 Microbiology: Microbiology 05/14/22 Unknown Urine,Clean Catch Urine Culture - Preliminary NO GROWTH AFTER 24 HOURS 05/14/22 06:57 Peripheral/Venous Blood Culture - Preliminary NO GROWTH AFTER 24 HOURS 05/14/22 06:57 Peripheral/Venous Blood Culture - Preliminary NO GROWTH AFTER 24 HOURS Castillo/IV: Voiding Method Indwelling Catheter Active Medications - Current Medications Current Medications: Generic Name Dose Route Start Last Admin Trade Name Freq PRN Reason Stop Dose Admin Acetaminophen 650 mg 05/14/22 12:08 Acetaminophen 325 Mg Tab PO Q6H PRN Pain, Mild (1-3) Albuterol 2.5 mg 05/14/22 12:06 Albuterol 2.5 Mg/3 Ml Nebu IH Q3HRT PRN Shortness Of Breath Amiodarone HCl 200 mg 05/15/22 15:00 05/15/22 14:18 Amiodarone 200 Mg Tab PO 200 mg QDAY AKRLA Administration Atorvastatin Calcium 80 mg 05/15/22 22:00 05/15/22 21:49 Atorvastatin 40 Mg Tab PO 80 mg QHS KARLA Administration Cyanocobalamin 1,000 mcg 05/15/22 10:00 05/15/22 09:00 Cyanocobalamin (Vit B-12) 1000 Mcg Tab PO 1,000 mcg QDAY KARLA Administration Dextrose 50 ml 05/14/22 15:19 Dextrose 50% In Water (25gm) 50 Ml Syringe IV Q30MIN PRN Hypoglycemia Protocol Doxazosin Mesylate 1 mg 05/14/22 22:00 05/15/22 21:48 Doxazosin 1 Mg Tab PO 1 mg QHS KARLA Administration Ferrous Sulfate 325 mg 05/15/22 10:00 05/15/22 09:00 Ferrous Sulfate 325 Mg Tab PO 325 mg QDAY KARLA Administration Levofloxacin/Dextrose 750 mg in 150 mls @ 100 mls/hr 05/15/22 13:00 05/15/22 12:01 Levaquin 750mg/150ml IV 100 mls/hr Q24H KARLA Administration Protocol Insulin Human Lispro 0 unit 05/15/22 16:30 05/15/22 21:48 Insulin Lispro 100 Unit/Ml SUB-Q 3 unit ACHS KARLA Administration Protocol Metoprolol Tartrate 25 mg 05/15/22 15:00 05/16/22 06:11 Metoprolol Tartrate 25 Mg Tab PO 25 mg Q8H KARLA Administration Oxycodone/Acetaminophen 1 tab 05/14/22 12:06 Oxycodone /Acetaminophen 5-325mg Tab PO Q6H PRN Pain, Moderate (4-6) Pantoprazole Sodium 20 mg 05/16/22 10:00 Pantoprazole 20 Mg Tab PO QDAY KARLA Sodium Chloride 10 ml 05/14/22 22:00 05/15/22 21:49 Sodium Chloride 0.9% 10 Ml Flush Syringe IV 10 ml BID KARLA Administration Sodium Chloride 10 ml 05/14/22 12:06 Sodium Chloride 0.9% 10 Ml Flush Syringe IV PRN PRN LINE FLUSH Nutrition/Malnutrition Assess - Dietary Evaluation Nutrition/Malnutrition Findings: Nutrition Notes Start: 05/15/22 14:55 Freq: Status: Active Protocol: Document 05/15/22 14:55 RS (Rec: 05/15/22 15:31 RS [id number]) Nutrition Notes Need for Assessment generated from: MD Order Initial or Follow up Brief Note Current Diagnosis Diabetes,Sepsis,Hyperlipidemia Other Pertinent Diagnosis Dementia, metabolic encephalopathy, A-fib, UTI, GERD, Labs/Tests Cl: 108 CO2: 20 GlU:188 Ca:8.2 Pertinent Medications reviewed Height 5 ft 8 in Weight 81.7 kg [place] Body Weight (kg) 70.00 BMI 27.3 Weight change and time frame ELBERT wt hx Weight Status Appropriate Subjective/Other Information MD consult for malnutrition. RD noted some muscle wasting around temporal lobes w/ protroding clavical with some dark depressions around orbital region. Will need to f /u for caretakers present for intakes before adms. Pt has surgery scheduled on 05/18. Burn Absent Trauma Absent Nutrition Intervention Additional Comments F/U for intakes before adm, full nutrition assessment with caretakers
[2022-05-15] MEDS: AMIODARONE 900 MG in DEXTROSE 5% IN WATER 482 ML IV SCH (11:22)
--- NOTE | 2022-05-15 11:49 | Progress Note ---
Assessment and Plan Sepsis Acute toxic metabolic encephalopathy Possible urinary tract infection Atrial fibrillation with rapid ventricular response ABLA History of prostate enlargement Hypertension GERD DM II Leukocytosis Metabolic acidosis Lactic acidosis Elevated creatine kinase - continue to wean supplemental oxygen to keep O2 sats > 90% - bronchodilators (ADIN) with pulm hygiene per RT - urology evaluation pending - avoid nephrotoxins, renally dose all medications - continue mobility protocols to prevent pressure ulcers - PT/OT as tolerated - Wound care per RN/WCT - accuchecks with glycemic control per SSI for target blood glucose < 180 mg/dL - home oxygen evaluation at discharge - GI & VTE prophylaxis - Flu & pneumovax per protocol - Pulmonary out patient follow up for PFTs and optimization of respiratory status - prn analgesia per pain score - continue other care per attending / other consultants ... re-evaluate in am & prn Subjective Date of service: 05/15/22 Principal diagnosis: Sepsis; AMS; UTI; A-fib with RVR; ABLA; HTN; DM II; Gross Hematuria Interval history: Patient is seen today for: Sepsis; AMS; UTI; A-fib with RVR; ABLA; H/O prostate enlargement; HTN; GERD; DM II; Gross Hematuria Seen and examined at bedside; 24hour events reviewed; nursing and respiratory care staff consulted; no adverse overnight events reported to me; resting peacefully in bed; doing better clinically but still with gross hematuria; remains on IV amiodarone drip; denies N/V/F/C Objective Vital Signs - 12hr 05/15/22 05/15/22 05/15/22 00:00 00:12 04:00 Temperature Pulse Rate 82 Pulse Rate [ 87 81 From Monitor] Respiratory 21 19 Rate Blood Pressure 124/70 O2 Sat by Pulse 98 99 Oximetry 05/15/22 05/15/22 05/15/22 07:40 08:00 10:00 Temperature 98.2 F Pulse Rate 78 Pulse Rate [ 71 From Monitor] Respiratory 18 Rate Blood Pressure O2 Sat by Pulse 99 Oximetry 05/15/22 11:42 Temperature 98.1 F Pulse Rate Pulse Rate [ From Monitor] Respiratory Rate Blood Pressure O2 Sat by Pulse Oximetry Constitutional: no acute distress Eyes: non-icteric ENT: oropharynx moist Neck: supple, no lymphadenopathy, no JVD Effort: normal Ascultation: Bilateral: clear Percussion: Bilateral: not dull Cardiovascular: irregular rhythm Gastrointestinal: normoactive bowel sounds, soft, non-tender, non-distended Integumentary: normal Extremities: no cyanosis, no edema, pulses normal, no ischemia or petechiae Neurologic: normal mental status, non-focal exam (grossly), pupils equal and round, motor strength normal and Psychiatric: mood appropriate, affect normal CBC and BMP: 05/16/22 04:00 05/16/22 04:00 ABG, PT/INR, D-dimer: PT/INR, D-dimer PT 16.5 Sec. (12.2-14.9) H 05/14/22 06:57 INR 1.19 (0.87-1.13) H 05/14/22 06:57 Abnormal lab findings: Abnormal Labs 05/14/22 05/14/22 05/14/22 04:59 06:57 06:57 WBC 12.5 H RBC 1.95 L Hgb 6.0 L Hct 18.7 L* MCV 96 H RDW 13.0 L Lymph % (Auto) 4.7 L Mccormick % (Auto) 11.9 H Lymph # (Auto) 0.6 L M[place]ormick # (Auto) 1.5 H Seg Neutrophils % 83.3 H Seg Neutrophils # 10.4 H PT INR Chloride 108.3 H Carbon Dioxide 18 L BUN 29 H Glucose 275 H POC Glucose 245 H Lactic Acid Calcium 8.3 L Magnesium Total Creatine Kinase C-Reactive Protein Total Protein Albumin 3.2 L Free T4 Urine WBC (Auto) Crossmatch 05/14/22 05/14/22 05/14/22 06:57 06:57 06:57 WBC RBC Hgb Hct MCV RDW Lymph % (Auto) Mccormick % (Auto) Lymph # (Auto) M[place]ormick # (Auto) Seg Neutrophils % Seg Neutrophils # PT 16.5 H INR 1.19 H Chloride Carbon Dioxide BUN Glucose POC Glucose Lactic Acid 2.10 H* Calcium Magnesium Total Creatine Kinase 774 H C-Reactive Protein 23.80 H Total Protein Albumin Free T4 Urine WBC (Auto) Crossmatch 05/14/22 05/14/22 05/14/22 07:28 09:54 17:30 WBC RBC Hgb Hct MCV RDW Lymph % (Auto) M[place]ormick % (Auto) Lymph # (Auto) [place] # (Auto) Seg Neutrophils % Seg Neutrophils # PT INR Chloride Carbon Dioxide BUN Glucose POC Glucose 206 H Lactic Acid Calcium Magnesium Total Creatine Kinase C-Reactive Protein Total Protein Albumin Free T4 Urine WBC (Auto) > 182.0 H Crossmatch See Detail 05/14/22 05/14/22 05/14/22 22:40 22:40 22:40 WBC RBC Hgb 7.8 L Hct 22.9 L MCV RDW Lymph % (Auto) M[place]ick % (Auto) Lymph # (Auto) M[place]ormick # (Auto) Seg Neutrophils % Seg Neutrophils # PT INR Chloride Carbon Dioxide BUN Glucose POC Glucose Lactic Acid Calcium Magnesium 1.60 L Total Creatine Kinase C-Reactive Protein Total Protein Albumin Free T4 1.59 H Urine WBC (Auto) Crossmatch 05/15/22 05/15/22 05/15/22 00:10 05:00 05:00 WBC 11.1 H RBC 2.49 L Hgb 7.5 L Hct 22.8 L MCV RDW Lymph % (Auto) 8.8 L M[place]ormick % (Auto) 13.1 H Lymph # (Auto) 1.0 L [place] # (Auto) 1.5 H Seg Neutrophils % 77.7 H Seg Neutrophils # 8.6 H PT INR Chloride 108.5 H Carbon Dioxide 20 L BUN Glucose 188 H POC Glucose 218 H Lactic Acid Calcium 8.2 L Magnesium Total Creatine Kinase C-Reactive Protein Total Protein 5.7 L Albumin 2.7 L Free T4 Urine WBC (Auto) Crossmatch 05/15/22 05/15/22 05:52 11:34 WBC RBC Hgb Hct MCV RDW Lymph % (Auto) M[place]ormick % (Auto) Lymph # (Auto) [place] # (Auto) Seg Neutrophils % Seg Neutrophils # PT INR Chloride Carbon Dioxide BUN Glucose POC Glucose 205 H 163 H Lactic Acid Calcium Magnesium Total Creatine Kinase C-Reactive Protein Total Protein Albumin Free T4 Urine WBC (Auto) Crossmatch Allied health notes reviewed: nursing
[2022-05-15] MEDS: AMIODARONE 200 MG TAB PO SCH (14:18)
[2022-05-15] MEDS: METOPROLOL TARTRATE 25 MG TAB PO SCH ×2 (14:18→22:42)
--- NOTE | 2022-05-15 14:18 | Consultation ---
DATE OF CONSULTATION: 05/14/2022 PULMONARY CRITICAL CARE CONSULT NOTE CONSULTING PHYSICIAN: Dr. Renard Barrios. REASON FOR CONSULTATION: 1. Severe sepsis. 2. Acute blood loss anemia. 3. Altered mental status. CHIEF COMPLAINT AND HISTORY OF PRESENT ILLNESS: The patient is a now 81-year-old male with past medical history as far as I can tell from the records significant amongst other things for a diagnosis of diabetes, hypertension, but also I believe prostate enlargement, unclear if it is benign prostatic hyperplasia or prostate cancer who had an indwelling Sprague catheter brought into the Emergency Room after he was found on the sofa unresponsive. He arrived to the Emergency Room, elliott bagged by the [facility]. According to the Emergency Room physician, he was alert. He was not really following commands appropriately. A Sprague catheter had been placed on Monday, which is about 3-4 days before presentation and the family noted that he did have gross hematuria. He was confused. He was short of breath. We do not have any history of vomiting or overt aspiration. Evaluation in the Emergency Room quickly revealed him to be septic with lactic acidosis and the altered mental status. He was given aggressive volume resuscitation. Currently, the registered nurse says he received about 4 liters of IV fluids. He also was receiving blood transfusion at the time I presented to see him. He is also status post a right IJ central venous catheter placement. When I stopped by to see him, he was resting in bed. He was in atrial fibrillation with a rapid response. He answered my questions with yes or no answers or shaking his head. He denied any acute chest pain. Denied any other pain elsewhere. Again, very poor historian. Now, with regard to the patient's tobacco use/abuse history, that history is unknown, but he is described as a never smoker in the charts. This really is as much of the history of presentation as I have. PAST MEDICAL HISTORY: Again, significant for history of diabetes, history of prostate enlargement and history of hypertension, history of gastroesophageal reflux disease, history of hyperlipidemia. PAST SURGICAL HISTORY: Unclear. He did have an indwelling Sprague. MEDICATIONS: He was on at the time I stopped by to see him, according to the medication administration record included the following: Tylenol 650 mg p.o. q. 6 hours p.r.n. mild pain or fevers, albuterol 2.5 mg nebulized q. 3 hours p.r.n. shortness of breath, amiodarone drip was going at 1 mg per minute, Lipitor 20 mg p.o. at bedtime, vitamin B12 1000 mcg p.o. daily, doxazosin 1 mg p.o. at bedtime, ferrous sulfate 325 mg p.o. daily, Dilaudid 0.25 mg IV q. 4 hours p.r.n. severe pain, insulin via sliding scale, Levaquin 750 mg IV q. 48 hours, Percocet 1 tablet p.o. q. 6 hours p.r.n. moderate pain, 5/325 mg tablet, Protonix 20 mg p.o. daily. ALLERGIES: No known drug allergies. DIET: Well built gentleman, acute weight loss or gain history is unknown. FAMILY AND SOCIAL HISTORY: Apparently lived in the community. According to the records, no current alcohol, tobacco or illicit drug use or abuse. Remote history is unknown. FAMILY HISTORY: Otherwise unknown. REVIEW OF SYSTEMS: Unobtainable secondary to the patient's medical and mental condition. Since he has been in the Emergency Room, no gross hematochezia or melena. He had gross hematuria, no hematemesis, no hemoptysis, no witnessed seizures. Review of systems otherwise unobtainable or as in the body of history above. PHYSICAL EXAMINATION: VITAL SIGNS: At presentation in the Emergency Room, he had a low-grade fever of 99.2 degrees Fahrenheit rectally with a pulse of 147, respiratory rate of 20, blood pressure as low as 83/56, O2 sats were 99% at initial presentation on room air; however, when I saw him, O2 sats were fluctuating between 84% and 100%. GENERAL: Again, he is an elderly looking male. Normocephalic, atraumatic. Resting in bed with mildly increased respiratory effort at rest. HEAD, EYES, EARS, NOSE AND THROAT: Anicteric. No conjunctival erythema. Oropharynx was moist. NECK: No gross jugular venous distention, no thyromegaly. Grossly, there were no palpable lymph nodes in the supraclavicular or submandibular lymph node chains. He had a right IJ central venous catheter in place without significant bleeding or exudation around the stoma. No gross jugular venous distention, no thyromegaly. LUNGS: Auscultation of both lung cummings unremarkable. Good bilateral air movement. No wheezing. At the time I evaluated him, no rales. HEART: Sounds 1 and 2 are heard, irregularly irregular in rate and rhythm at the time I saw him. No rubs or murmurs. ABDOMEN: Soft, full, protuberant. Bowel sounds are positive, nontender. No palpable hepatosplenomegaly, no suprapubic fullness. EXTREMITIES: Without overt digital clubbing or cyanosis, no pedal edema. Pedal pulses were 2+ bilaterally. NEUROLOGIC: Pupils were equal, round, about 4 mm, reactive to light. Extraocular muscle movements were intact. He moves all 4 extremities spontaneously. SKIN: Normal turgor without overt cellulitis or rash in the areas I examined. Please see the wound care nurses' notes for full description of his skin. PSYCHIATRIC: Mood was normal. Affect was flat. He did not seem to have intact judgment and insight. LABORATORY DATA: From my review are as follows: Admission white cell count 12,500, hemoglobin 6000, hematocrit 18.7, and a platelet count of 253. No manual differential. INR 1.19. Serum sodium 138, potassium 4.1, chloride 108, bicarbonate 18, BUN 29, creatinine 1.3, glucose was 275. Lactic acid level was 2.1. Liver function tests essentially within normal limits. CPK was up at 774. Troponin within normal limits. CRP was elevated at 23.8. Lipase within normal limits. Urinalysis showed color interference and all other aspects were pending, it was bloody. It was red in color. It looks like gross hematuria of the urine. Two sets of blood cultures are no growth to date at this point. He had a chest x-ray as well as a CT of his head. I have reviewed the chest x-ray. Really no acute pulmonary disease, some enlargement of the right main pulmonary trunk that may suggest an element of pulmonary hypertension. His aorta appears uncoiled. A CT of the head was read as no acute intracranial abnormality. ASSESSMENT: 1. Sepsis. 2. Acute toxic metabolic encephalopathy. 3. Possible urinary tract infection. 4. Atrial fibrillation with rapid ventricular response. 5. Anemia, likely acute blood loss anemia. 6. History of prostate enlargement. 7. History of hypertension. 8. History of gastroesophageal reflux disease. 9. History of diabetes. 10. Leukocytosis. 11. Metabolic acidosis, mild. 12. Lactic acidosis. 13. Elevated creatine kinase. PLAN: I do agree with empiric antibiotic therapy. He has been treated via the sepsis protocol, received 30 mL per kilogram body weight of volume resuscitation. He has been started on amiodarone drip and is tolerating that. I have instructed the nurse to call Respiratory to put him on supplemental oxygen at 2 liters flow if his O2 sats continued to fluctuate. He has received 4 liters. He is receiving a blood transfusion and there is always the possibility of volume overload. Otherwise, oxygen will be weaned to keep as necessary to keep sats greater than or equal to 90%. Aspiration precautions will be maintained. He is having gross hematuria at this time. We will trend his H and H. Urology consultation will be in order. He may end up needing a Woo drip. He is going to be on DVT prophylaxis with SCDs. He is on GI prophylaxis with Protonix. Cardiology evaluation is in order. Flu and pneumonia vaccination will be addressed per protocol. He will be admitted to the Intensive Care Unit. He is critically ill, at risk of from cardiopulmonary and renal system decompensation. At this time, I spent about 35-40 minutes of critical care time without overlap and excluding any procedural time that may be necessary. A procalcitonin level will also be ordered to help guide clinical decision making and antibiotic de-escalation. TID: [id number] RECEIPT: [id number] SAMSON/SERGIO/SANDRA
--- NOTE | 2022-05-15 15:28 | Consultation ---
History of Present Illness Consult date: 05/15/22 Consult reason: atrial fibrillation History of present illness: The patient is an 81-year-old man with no prior cardiac history. A week ago, he was seen at [facility] where he had a Sprague catheter inserted for urinary retention. He was to follow-up with urologist later this week for a cystoscopy procedure. The patient presents now to the hospital following an episode of unresponsiveness at home, his daughter found his blood sugar was in the 300s, and there was evidence of marked bleeding with clots in his Sprague catheter. On presentation here he was more responsive, but his hematocrit was markedly decreased at 18. Blood sugar was 275 on presentation. He was also noted with rapid atrial fibrillation, heart rate 139. He was hemodynamically stable with a blood pressure in the 120s. Patient reports no prior history of atrial fibrillation, denies any chest pain, shortness of breath or palpitations. He was placed on intravenous amiodarone from the emergency room, and has reverted to a stable sinus rhythm. He has also received blood transfusion and his hematocrit is more stable in the mid 20s. His ECG in sinus rhythm is normal with no ST or T wave changes of ischemia. Chest x-ray shows normal-sized cardiac silhouette and clear lungs. TSH level is normal at 1.04. Past History Past Medical History: diabetes, GERD, hypertension, hyperlipidemia, other (See HPI) Past Surgical History: No surgical history, Other (Reviewed) Social history: . denies: smoking, alcohol abuse, prescription drug abuse Family history: hypertension Medications and Allergies Allergies Allergy/AdvReac Type Severity Reaction Status Date / Time No Known Allergies Allergy Verified 05/13/22 16:50 Home Medications Medication Instructions Recorded Confirmed Last Taken Type AtorvaSTATin [Lipitor] 20 mg PO QHS 05/13/22 05/14/22 Unknown History Cyanocobalamin (Vitamin B-12) 1,000 mcg PO QDAY 05/13/22 05/14/22 Unknown History [Vitamin B-12] Doxazosin [Cardura] 1 mg PO QHS 05/13/22 05/14/22 Unknown History Ferrous Sulfate [Iron 325 MG] 325 mg PO QDAY 05/13/22 05/14/22 Unknown History Metformin HCl [metFORMIN] 1,000 mg PO QDAY 05/13/22 05/14/22 Unknown History Omeprazole 20 mg PO QDAY 05/13/22 05/14/22 Unknown History amLODIPine [Norvasc] 5 mg PO DAILY 05/13/22 05/14/22 Unknown History lisinopriL [Lisinopril] 40 mg PO QDAY 05/13/22 05/14/22 Unknown History Active Meds: Active Medications Acetaminophen (Acetaminophen 325 Mg Tab) 650 mg PO Q6H PRN PRN Reason: Pain, Mild (1-3) Albuterol (Albuterol 2.5 Mg/3 Ml Nebu) 2.5 mg IH Q3HRT PRN PRN Reason: Shortness Of Breath Amiodarone HCl (Amiodarone 200 Mg Tab) 200 mg PO QDAY [facility] Last Admin: 05/15/22 14:18 Dose: 200 mg Atorvastatin Calcium (Atorvastatin 20 Mg Tab) 20 mg PO QHS [facility] Last Admin: 05/15/22 00:12 Dose: 20 mg Cyanocobalamin (Cyanocobalamin (Vit B-12) 1000 Mcg Tab) 1,000 mcg PO QDAY [facility] Last Admin: 05/15/22 09:00 Dose: 1,000 mcg Dextrose (Dextrose 50% In Water (25gm) 50 Ml Syringe) 50 ml IV Q30MIN PRN; Protocol PRN Reason: Hypoglycemia Doxazosin Mesylate (Doxazosin 1 Mg Tab) 1 mg PO QHS [facility] Last Admin: 05/15/22 00:12 Dose: 1 mg Ferrous Sulfate (Ferrous Sulfate 325 Mg Tab) 325 mg PO QDAY [facility] Last Admin: 05/15/22 09:00 Dose: 325 mg Hydromorphone HCl (Hydromorphone 0.5 Mg/0.5 Ml Inj) 0.25 mg IV Q13H PRN PRN Reason: Pain, Moderate (4-6) Hydromorphone HCl (Hydromorphone 0.5 Mg/0.5 Ml Inj) 0.25 mg IV Q4H PRN PRN Reason: Pain , Severe (7-10) Levofloxacin/Dextrose (Levaquin 750mg/150ml) 750 mg in 150 mls @ 100 mls/hr IV Q24H [facility]; Protocol Last Admin: 05/15/22 12:01 Dose: 100 mls/hr Insulin Human Lispro (Insulin Lispro 100 Unit/Ml) 0 unit SUB-Q Q6HR [facility]; Protocol Last Admin: 05/15/22 11:55 Dose: 2 unit Metoprolol Tartrate (Metoprolol Tartrate 25 Mg Tab) 25 mg PO Q8H [facility] Last Admin: 05/15/22 14:18 Dose: 25 mg Oxycodone/Acetaminophen (Oxycodone /Acetaminophen 5-325mg Tab) 1 tab PO Q6H PRN PRN Reason: Pain, Moderate (4-6) Pantoprazole Sodium (Pantoprazole 40 Mg Inj) 40 mg IV QDAY [facility] Stop: 05/15/22 23:59 Last Admin: 05/15/22 09:00 Dose: 40 mg Pantoprazole Sodium (Pantoprazole 20 Mg Tab) 20 mg PO QDAY [facility] Sodium Chloride (Sodium Chloride 0.9% 10 Ml Flush Syringe) 10 ml IV BID [facility] Last Admin: 05/15/22 09:00 Dose: 10 ml Sodium Chloride (Sodium Chloride 0.9% 10 Ml Flush Syringe) 10 ml IV PRN PRN PRN Reason: LINE FLUSH Review of Systems Cardiovascular: syncope, no chest pain, no orthopnea, no palpitations, no rapid/irregular heart beat, no edema, no lightheadedness, no shortness of breath Physical Examination Vital Signs Temp Pulse Resp BP Pulse Ox 99.2 F 147 H 20 110/62 99 05/14/22 04:16 05/14/22 04:16 05/14/22 04:16 05/14/22 04:16 05/14/22 04:16 General appearance: no acute distress HEENT: Positive: PERRL Neck: Positive: neck supple Cardiac: Positive: Reg Rate and Rhythm Lungs: Positive: Decreased Breath Sounds Neuro: Positive: Grossly Intact Abdomen: Positive: Soft Male genitourinary: Positive: deferred Skin: Positive: Clear Extremities: Absent: edema Results 05/15/22 05:00 05/15/22 05:00 Cardiac Enzymes 05/15/22 Range/Units 05:00 AST 31 (5-40) units/L CBC 05/14/22 05/15/22 Range/Units 22:40 05:00 WBC 11.1 H (4.5-11.0) K/mm3 RBC 2.49 L (3.65-5.03) M/mm3 Hgb 7.8 L 7.5 L (11.8-15.2) gm/dl Hct 22.9 L 22.8 L (35.5-45.6) % Plt Count 216 (140-440) K/mm3 Lymph # (Auto) 1.0 L (1.2-5.4) K/mm3 [place] # (Auto) 1.5 H (0.0-0.8) K/mm3 Eos # (Auto) 0.0 (0.0-0.4) K/mm3 Baso # (Auto) 0.0 (0.0-0.1) K/mm3 Comprehensive Metabolic Panel 05/15/22 Range/Units 05:00 Sodium 137 (137-145) mmol/L Potassium 3.6 (3.6-5.0) mmol/L Chloride 108.5 H (98-107) mmol/L Carbon Dioxide 20 L (22-30) mmol/L BUN 15 (9-20) mg/dL Creatinine 0.8 (0.8-1.3) mg/dL Glucose 188 H (75-100) mg/dL Calcium 8.2 L (8.4-10.2) mg/dL AST 31 (5-40) units/L ALT 21 (7-56) units/L Alkaline Phosphatase 53 (35-129) units/L Total Protein 5.7 L (6.3-8.2) g/dL Albumin 2.7 L (3.9-5) g/dL EKG interpretations - Telemetry EKG Rhythm: Atrial Fibrillation (With rapid ventricular rate) Assessment and Plan - Patient Problems (1) Atrial fibrillation with RVR Current Visit: Yes Status: Acute Plan to address problem: 81-year-old man who presents with profound anemia, hematocrit of 18, resulting from severe hematuria. Rapid atrial fibrillation was noted on presentation, now corrected to a stable sinus rhythm following blood transfusions and intravenous amiodarone. Will switch to amiodarone 200 mg orally daily, and add low-dose metoprolol. An echocardiogram has been ordered for left ventricular function assessment. Otherwise, conservative cardiac management of paroxysmal atrial fibrillation. Patient is not a candidate for antiplatelet therapy or anticoagulation therapy in the setting of his severe anemia and hematuria.
[2022-05-15 19:33] LABS: Hemoglobin 7.7 gm/dl (11.8-15.2); Mean Corpuscular HGB Conc 33 % (32-34); Mean Corpuscular Volume 92 fl (84-94); Platelet Count 212 K/mm3 (140-440); Red Blood Count 2.51 M/mm3 (3.65-5.03); Red Cell Distribution Width 14.7 % (13.2-15.2)
[2022-05-15 21:24] LABS: Anisocytosis 1+; Basophils % (Manual) 0 % (0.0-1.8); Eosinophils % (Manual) 0 % (0.0-4.3); Platelet Estimate Consistent w Auto; Total Cells Counted 100
[2022-05-16 05:34] LABS: Hematocrit 22.9 % (35.5-45.6); Hemoglobin 7.7 gm/dl (11.8-15.2); Mean Corpuscular HGB Conc 34 % (32-34); Mean Corpuscular Volume 90 fl (84-94); Platelet Count 207 K/mm3 (140-440); Red Blood Count 2.54 M/mm3 (3.65-5.03); Red Cell Distribution Width 14.7 % (13.2-15.2)
[2022-05-16 05:52] LABS: BUN/Creatinine Ratio 11; Blood Urea Nitrogen 9 mg/dL (9-20); Calcium 8.3 mg/dL (8.4-10.2); Hemolysis Index 3
[2022-05-16] MEDS: METOPROLOL TARTRATE 25 MG TAB PO SCH ×3 (06:11→22:17)
[2022-05-16] MEDS ORDERED: POTASSIUM PHOSPHATE 30 MMOL in SODIUM CHLORIDE 0.9% 500 ML 500 ML IV SCH (09:30)
--- NOTE | 2022-05-16 09:59 | Electrocardiograph Report ---
[facility] Test Date: 2022-05-14 Test Time: 04:31:43 Pat Name: GEORGIA LEA Department: Room: A267 Gender: M Back Stayer: HUYEN : 1940 Requested By: LAVELLE FERRO Order Number: [id number] Reading MD: Oj Stratton Measurements Intervals [place] Rate: 139 P: ID: QRS: 15 QRSD: 84 T: 52 QT: 293 QTc: 447 Interpretive Statements Atrial fibrillation No previous ECG available for comparison Electronically Signed On 05-16-2022 9:59:01 EDT by Oj Stratton
--- NOTE | 2022-05-16 10:00 | Electrocardiograph Report ---
[facility] Test Date: 2022-05-14 Test Time: 15:51:10 Pat Name: GEORGIA LEA Department: Room: A267 Gender: M Educational Technologist: MANDEEP : 1940 Requested By: THOM DAMON Order Number: [id number] Reading MD: Oj Stratton Measurements Intervals [place] Rate: 74 P: 34 IN: 188 QRS: 30 QRSD: 92 T: 36 QT: 375 QTc: 416 Interpretive Statements Sinus rhythm Left ventricular hypertrophy Compared to ECG 05/14/2022 04:31:43 Left ventricular hypertrophy now present Atrial fibrillation no longer present Electronically Signed On 05-16-2022 10:00:01 EDT by Oj Stratton
[2022-05-16] MEDS: CYANOCOBALAMIN (VIT B-12) 1000 MCG TAB PO SCH (10:11)
[2022-05-16] MEDS: AMIODARONE 200 MG TAB PO SCH (10:12)
[2022-05-16] MEDS: INSULIN LISPRO 100 UNIT/ML SUB-Q SCH ×4 (10:12→21:46)
[2022-05-16] MEDS: PANTOPRAZOLE 20 MG TAB PO SCH (10:12)
[2022-05-16] MEDS: FERROUS SULFATE 325 MG TAB PO SCH (10:12)
--- NOTE | 2022-05-16 10:52 | Progress Note ---
Assessment and Plan bleeding restarted monday admitted 2 units needs 2 more schedulled for cysto ct needed Subjective Date of service: 05/16/22 Principal diagnosis: gross heme Objective - Constitutional Vitals: Vital Signs - 12hr 05/15/22 05/16/22 05/16/22 23:09 00:07 04:00 Temperature 98.9 F Pulse Rate [ 66 66 From Monitor] O2 Sat by Pulse 99 99 Oximetry 05/16/22 05/16/22 05:17 07:18 Temperature 98.8 F 98.5 F Pulse Rate [ From Monitor] O2 Sat by Pulse Oximetry General appearance: Present: no acute distress - Neck Neck: supple - Respiratory Respiratory effort: normal Extremities: no ischemia - Gastrointestinal General gastrointestinal: Present: soft, non-tender - Genitourinary Male genitourinary: normal (castillo) - Labs CBC & Chem 7: 05/16/22 04:00 05/16/22 04:00 Labs: Abnormal lab results 05/15/22 05/15/22 05/15/22 Range/Units 11:34 16:24 19:10 RBC 2.51 L (3.65-5.03) M/mm3 Hgb 7.7 L (11.8-15.2) gm/dl Hct 23.0 L (35.5-45.6) % Seg Neuts % (Manual) 79.0 H (40.0-70.0) % Lymphocytes % (Manual) 8.0 L (13.4-35.0) % Monocytes % (Manual) 13.0 H (0.0-7.3) % Lymphocytes # (Manual) 0.7 L (1.2-5.4) K/mm3 Monocytes # (Manual) 1.1 H (0.0-0.8) K/mm3 Carbon Dioxide (22-30) mmol/L Glucose (75-100) mg/dL POC Glucose 163 H 163 H (70-105) mg/dL Calcium (8.4-10.2) mg/dL Phosphorus (2.5-4.5) mg/dL 05/15/22 05/16/22 05/16/22 Range/Units 21:46 04:00 04:00 RBC 2.54 L (3.65-5.03) M/mm3 Hgb 7.7 L (11.8-15.2) gm/dl Hct 22.9 L (35.5-45.6) % Seg Neuts % (Manual) (40.0-70.0) % Lymphocytes % (Manual) (13.4-35.0) % Monocytes % (Manual) (0.0-7.3) % Lymphocytes # (Manual) (1.2-5.4) K/mm3 Monocytes # (Manual) (0.0-0.8) K/mm3 Carbon Dioxide 20 L (22-30) mmol/L Glucose 191 H (75-100) mg/dL POC Glucose 222 H (70-105) mg/dL Calcium 8.3 L (8.4-10.2) mg/dL Phosphorus 2.30 L (2.5-4.5) mg/dL Medications & Allergies - Medications Allergies/Adverse Reactions: Allergies No Known Allergies Allergy (Verified 05/13/22 16:50) Home Medications: Home Medications Medication Instructions Recorded Confirmed Last Taken Type AtorvaSTATin [Lipitor] 80 mg PO QHS 05/13/22 05/15/22 Unknown History Cyanocobalamin (Vitamin B-12) 1,000 mcg PO QDAY 05/13/22 05/14/22 Unknown History [Vitamin B-12] Doxazosin [Cardura] 1 mg PO QHS 05/13/22 05/14/22 Unknown History Ferrous Sulfate [Iron 325 MG] 325 mg PO QDAY 05/13/22 05/14/22 Unknown History Metformin HCl [metFORMIN] 1,000 mg PO QDAY 05/13/22 05/14/22 Unknown History Omeprazole 20 mg PO QDAY 05/13/22 05/14/22 Unknown History amLODIPine [Norvasc] 5 mg PO DAILY 05/13/22 05/14/22 Unknown History lisinopriL [Lisinopril] 40 mg PO QDAY 05/13/22 05/14/22 Unknown History Active Medications: Generic Name Dose Route Start Last Admin Trade Name Freq PRN Reason Stop Dose Admin Acetaminophen 650 mg 05/14/22 12:08 Acetaminophen 325 Mg Tab PO Q6H PRN Pain, Mild (1-3) Albuterol 2.5 mg 05/14/22 12:06 Albuterol 2.5 Mg/3 Ml Nebu IH Q3HRT PRN Shortness Of Breath Amiodarone HCl 200 mg 05/15/22 15:00 05/16/22 10:12 Amiodarone 200 Mg Tab PO 200 mg QDAY KARLA Administration Atorvastatin Calcium 80 mg 05/15/22 22:00 05/15/22 21:49 Atorvastatin 40 Mg Tab PO 80 mg QHS KARLA Administration Cyanocobalamin 1,000 mcg 05/15/22 10:00 05/16/22 10:11 Cyanocobalamin (Vit B-12) 1000 Mcg Tab PO 1,000 mcg QDAY KARLA Administration Dextrose 50 ml 05/14/22 15:19 Dextrose 50% In Water (25gm) 50 Ml Syringe IV Q30MIN PRN Hypoglycemia Protocol Doxazosin Mesylate 1 mg 05/14/22 22:00 05/15/22 21:48 Doxazosin 1 Mg Tab PO 1 mg QHS KARLA Administration Ferrous Sulfate 325 mg 05/15/22 10:00 05/16/22 10:12 Ferrous Sulfate 325 Mg Tab PO 325 mg QDAY KARLA Administration Levofloxacin/Dextrose 750 mg in 150 mls @ 100 mls/hr 05/15/22 13:00 05/15/22 12:01 Levaquin 750mg/150ml IV 100 mls/hr Q24H KARLA Administration Protocol Potassium Phosphate 30 mmol/ 510 mls @ 85 mls/hr 05/16/22 09:30 05/16/22 10:34 Sodium Chloride IV 05/16/22 13:30 85 mls/hr [id number] KARLA Administration Insulin Human Lispro 0 unit 05/15/22 16:30 05/16/22 10:12 Insulin Lispro 100 Unit/Ml SUB-Q 4 unit ACHS KARLA Administration Protocol Metoprolol Tartrate 25 mg 05/15/22 15:00 05/16/22 06:11 Metoprolol Tartrate 25 Mg Tab PO 25 mg Q8H KARLA Administration Oxycodone/Acetaminophen 1 tab 05/14/22 12:06 Oxycodone /Acetaminophen 5-325mg Tab PO Q6H PRN Pain, Moderate (4-6) Pantoprazole Sodium 20 mg 05/16/22 10:00 05/16/22 10:12 Pantoprazole 20 Mg Tab PO 20 mg QDAY KARLA Administration Sodium Chloride 10 ml 05/14/22 22:00 05/16/22 10:12 Sodium Chloride 0.9% 10 Ml Flush Syringe IV 10 ml BID KARLA Administration Sodium Chloride 10 ml 07/23/22 12:06 Sodium Chloride 0.9% 10 Ml Flush Syringe IV PRN PRN LINE FLUSH HEART Score - HEART Score Troponin: Troponin T < 0.010 ng/mL (0.00-0.029) 05/14/22 06:57
[2022-05-16] MEDS ORDERED: SODIUM CHLORIDE 0.9% 500 ML 500 ML IV SCH (11:00)
--- NOTE | 2022-05-16 14:29 | Progress Note ---
Assessment and Plan Sepsis Acute toxic metabolic encephalopathy Possible urinary tract infection Atrial fibrillation with rapid ventricular response ABLA History of prostate enlargement Hypertension GERD DM II Leukocytosis Metabolic acidosis Lactic acidosis Elevated creatine kinase - continue to wean supplemental oxygen to keep O2 sats > 90% - bronchodilators (ADIN) with pulm hygiene per RT - urology evaluation pending - avoid nephrotoxins, renally dose all medications - continue mobility protocols to prevent pressure ulcers - PT/OT as tolerated - Wound care per RN/WCT - accuchecks with glycemic control per SSI for target blood glucose < 180 mg/dL - home oxygen evaluation at discharge - GI & VTE prophylaxis - Flu & pneumovax per protocol - Pulmonary out patient follow up for PFTs and optimization of respiratory status - prn analgesia per pain score - continue other care per attending / other consultants ... re-evaluate in am & prn Subjective Date of service: 05/16/22 Principal diagnosis: Sepsis; AMS; UTI; A-fib with RVR; ABLA; HTN; DM II; Gross Hematuria Interval history: Patient is seen today for: Sepsis; AMS; UTI; A-fib with RVR; ABLA; H/O prostate enlargement; HTN; GERD; DM II; Gross Hematuria Seen and examined at bedside; 24hour events reviewed; nursing and respiratory care staff consulted; no adverse overnight events reported to me; resting peacefully in bed; seen by urology and tentatively for cystoscopy; no N/V/F/C; now in sinus rhythm Objective Vital Signs - 12hr 05/16/22 05/16/22 05/16/22 04:00 05:17 07:18 Temperature 98.8 F 98.5 F Pulse Rate Pulse Rate [ 66 From Monitor] Respiratory Rate Blood Pressure O2 Sat by Pulse 99 Oximetry 05/16/22 05/16/22 05/16/22 08:00 10:00 11:48 Temperature 98.1 F Pulse Rate 70 Pulse Rate [ 68 From Monitor] Respiratory Rate Blood Pressure O2 Sat by Pulse 99 Oximetry 05/16/22 05/16/22 05/16/22 12:00 13:48 14:03 Temperature 98.6 F 98.6 F Pulse Rate 70 68 Pulse Rate [ 70 From Monitor] Respiratory 18 17 Rate Blood Pressure 121/70 127/69 O2 Sat by Pulse 99 100 99 Oximetry Constitutional: no acute distress Eyes: non-icteric ENT: oropharynx moist Neck: supple, no lymphadenopathy, no JVD Effort: normal Ascultation: Bilateral: clear Percussion: Bilateral: not dull Cardiovascular: irregular rhythm Gastrointestinal: normoactive bowel sounds, soft, non-tender, non-distended Integumentary: normal Extremities: no cyanosis, no edema, pulses normal, no ischemia or petechiae Neurologic: normal mental status, non-focal exam (grossly), pupils equal and round, motor strength normal and Psychiatric: mood appropriate, affect normal CBC and BMP: 05/17/22 04:58 05/17/22 04:37 ABG, PT/INR, D-dimer: PT/INR, D-dimer PT 16.5 Sec. (12.2-14.9) H 05/14/22 06:57 INR 1.19 (0.87-1.13) H 05/14/22 06:57 Abnormal lab findings: Abnormal Labs 05/14/22 05/14/22 05/14/22 04:59 06:57 06:57 WBC 12.5 H RBC 1.95 L Hgb 6.0 L Hct 18.7 L* MCV 96 H RDW 13.0 L Lymph % (Auto) 4.7 L Kane % (Auto) 11.9 H Lymph # (Auto) 0.6 L Kane # (Auto) 1.5 H Seg Neutrophils % 83.3 H Seg Neuts % (Manual) Lymphocytes % (Manual) Monocytes % (Manual) Seg Neutrophils # 10.4 H Lymphocytes # (Manual) Monocytes # (Manual) PT INR Chloride 108.3 H Carbon Dioxide 18 L BUN 29 H Glucose 275 H POC Glucose 245 H Lactic Acid Calcium 8.3 L Phosphorus Magnesium Total Creatine Kinase C-Reactive Protein Total Protein Albumin 3.2 L Free T4 Urine WBC (Auto) Crossmatch 05/14/22 05/14/22 05/14/22 06:57 06:57 06:57 WBC RBC Hgb Hct MCV RDW Lymph % (Auto) Kane % (Auto) Lymph # (Auto) Kane # (Auto) Seg Neutrophils % Seg Neuts % (Manual) Lymphocytes % (Manual) Monocytes % (Manual) Seg Neutrophils # Lymphocytes # (Manual) Monocytes # (Manual) PT 16.5 H INR 1.19 H Chloride Carbon Dioxide BUN Glucose POC Glucose Lactic Acid 2.10 H* Calcium Phosphorus Magnesium Total Creatine Kinase 774 H C-Reactive Protein 23.80 H Total Protein Albumin Free T4 Urine WBC (Auto) Crossmatch 05/14/22 05/14/22 05/14/22 07:28 09:54 17:30 WBC RBC Hgb Hct MCV RDW Lymph % (Auto) Kane % (Auto) Lymph # (Auto) Kane # (Auto) Seg Neutrophils % Seg Neuts % (Manual) Lymphocytes % (Manual) Monocytes % (Manual) Seg Neutrophils # Lymphocytes # (Manual) Monocytes # (Manual) PT INR Chloride Carbon Dioxide BUN Glucose POC Glucose 206 H Lactic Acid Calcium Phosphorus Magnesium Total Creatine Kinase C-Reactive Protein Total Protein Albumin Free T4 Urine WBC (Auto) > 182.0 H Crossmatch See Detail 05/14/22 05/14/22 05/14/22 22:40 22:40 22:40 WBC RBC Hgb 7.8 L Hct 22.9 L MCV RDW Lymph % (Auto) Kane % (Auto) Lymph # (Auto) Kane # (Auto) Seg Neutrophils % Seg Neuts % (Manual) Lymphocytes % (Manual) Monocytes % (Manual) Seg Neutrophils # Lymphocytes # (Manual) Monocytes # (Manual) PT INR Chloride Carbon Dioxide BUN Glucose POC Glucose Lactic Acid Calcium Phosphorus Magnesium 1.60 L Total Creatine Kinase C-Reactive Protein Total Protein Albumin Free T4 1.59 H Urine WBC (Auto) Crossmatch 05/15/22 05/15/22 05/15/22 00:10 05:00 05:00 WBC 11.1 H RBC 2.49 L Hgb 7.5 L Hct 22.8 L MCV RDW Lymph % (Auto) 8.8 L Kane % (Auto) 13.1 H Lymph # (Auto) 1.0 L Kane # (Auto) 1.5 H Seg Neutrophils % 77.7 H Seg Neuts % (Manual) Lymphocytes % (Manual) Monocytes % (Manual) Seg Neutrophils # 8.6 H Lymphocytes # (Manual) Monocytes # (Manual) PT INR Chloride 108.5 H Carbon Dioxide 20 L BUN Glucose 188 H POC Glucose 218 H Lactic Acid Calcium 8.2 L Phosphorus Magnesium Total Creatine Kinase C-Reactive Protein Total Protein 5.7 L Albumin 2.7 L Free T4 Urine WBC (Auto) Crossmatch 05/15/22 05/15/22 05/15/22 05:52 11:34 16:24 WBC RBC Hgb Hct MCV RDW Lymph % (Auto) Kane % (Auto) Lymph # (Auto) Kane # (Auto) Seg Neutrophils % Seg Neuts % (Manual) Lymphocytes % (Manual) Monocytes % (Manual) Seg Neutrophils # Lymphocytes # (Manual) Monocytes # (Manual) PT INR Chloride Carbon Dioxide BUN Glucose POC Glucose 205 H 163 H 163 H Lactic Acid Calcium Phosphorus Magnesium Total Creatine Kinase C-Reactive Protein Total Protein Albumin Free T4 Urine WBC (Auto) Crossmatch 05/15/22 05/15/22 05/16/22 19:10 21:46 04:00 WBC RBC 2.51 L 2.54 L Hgb 7.7 L 7.7 L Hct 23.0 L 22.9 L MCV RDW Lymph % (Auto) Kane % (Auto) Lymph # (Auto) Kane # (Auto) Seg Neutrophils % Seg Neuts % (Manual) 79.0 H Lymphocytes % (Manual) 8.0 L Monocytes % (Manual) 13.0 H Seg Neutrophils # Lymphocytes # (Manual) 0.7 L Monocytes # (Manual) 1.1 H PT INR Chloride Carbon Dioxide BUN Glucose POC Glucose 222 H Lactic Acid Calcium Phosphorus Magnesium Total Creatine Kinase C-Reactive Protein Total Protein Albumin Free T4 Urine WBC (Auto) Crossmatch 05/16/22 05/16/22 04:00 11:26 WBC RBC Hgb Hct MCV RDW Lymph % (Auto) Kane % (Auto) Lymph # (Auto) Kane # (Auto) Seg Neutrophils % Seg Neuts % (Manual) Lymphocytes % (Manual) Monocytes % (Manual) Seg Neutrophils # Lymphocytes # (Manual) Monocytes # (Manual) PT INR Chloride Carbon Dioxide 20 L BUN Glucose 191 H POC Glucose 204 H Lactic Acid Calcium 8.3 L Phosphorus 2.30 L Magnesium Total Creatine Kinase C-Reactive Protein Total Protein Albumin Free T4 Urine WBC (Auto) Crossmatch Allied health notes reviewed: nursing
--- NOTE | 2022-05-16 14:40 | Progress Note ---
Assessment and Plan - Patient Problems (1) Atrial fibrillation with RVR Current Visit: Yes Status: Acute Plan to address problem: 81-year-old man who presents with profound anemia, hematocrit of 18, resulting from severe hematuria. Rapid atrial fibrillation was noted on presentation, now corrected to a stable sinus rhythm following blood transfusions and intravenous amiodarone. Since the initial event, he has maintained a stable sinus rhythm, currently at 71. Echocardiogram today reported left ventricular ejection fraction well preserved at 50 to 55%. Continue rhythm control therapy. Patient is not a candidate for antiplatelet therapy or anticoagulation therapy in the setting of his severe anemia and hematuria. Subjective Date of service: 05/16/22 Principal diagnosis: Sepsis; AMS; UTI; A-fib with RVR; ABLA; HTN; DM II; Gross Hematuria Interval history: Patient is comfortable in no acute distress. On lunchroom monitor, he maintains a stable sinus rhythm currently at 71. Echocardiogram today reported left ventricular ejection fraction well preserved at 50 to 55%. Objective Vital Signs Temp Pulse Pulse Resp BP Pulse Ox 05/16/22 14:03 98.6 F 68 17 127/69 99 05/16/22 13:48 98.6 F 70 18 121/70 100 05/16/22 12:00 70 99 05/16/22 11:48 98.1 F 05/16/22 10:00 70 05/16/22 08:00 68 99 05/16/22 07:18 98.5 F 05/16/22 05:17 98.8 F 05/16/22 04:00 66 99 05/16/22 00:07 98.9 F 05/15/22 23:09 66 99 05/15/22 22:17 68 05/15/22 21:49 100 F H 05/15/22 20:00 66 99 05/15/22 16:36 98.5 F 05/15/22 16:00 66 18 99 - Physical Examination General: No Apparent Distress HEENT: Positive: PERRL Neck: Positive: neck supple Cardiac: Positive: Reg Rate and Rhythm Lungs: Positive: Decreased Breath Sounds Neuro: Positive: Grossly Intact Abdomen: Positive: Soft Skin: Positive: Clear Extremities: Absent: edema - Labs and Meds CBC 05/15/22 05/16/22 Range/Units 19:10 04:00 WBC 8.7 8.2 (4.5-11.0) K/mm3 RBC 2.51 L 2.54 L (3.65-5.03) M/mm3 Hgb 7.7 L 7.7 L (11.8-15.2) gm/dl Hct 23.0 L 22.9 L (35.5-45.6) % Plt Count 212 207 (140-440) K/mm3 Comprehensive Metabolic Panel 05/16/22 Range/Units 04:00 Sodium 138 (137-145) mmol/L Potassium 3.6 (3.6-5.0) mmol/L Chloride 105.7 (98-107) mmol/L Carbon Dioxide 20 L (22-30) mmol/L BUN 9 (9-20) mg/dL Creatinine 0.8 (0.8-1.3) mg/dL Glucose 191 H (75-100) mg/dL Calcium 8.3 L (8.4-10.2) mg/dL - Allied health notes Allied health notes reviewed: nursing
--- NOTE | 2022-05-16 15:01 | Cat Scan Report ---
CT ABDOMEN AND PELVIS WITHOUT CONTRAST INDICATION / CLINICAL INFORMATION: NEUROGENIC BLADDER LAT DEVIATION URETER. TECHNIQUE: Axial CT images were obtained through the abdomen and pelvis without IV contrast. All CT scans at [facility] location are performed using CT dose reduction for ALARA by means of automated exposure control. COMPARISON: None available. FINDINGS: LOWER CHEST: There are trace pleural effusions without other significant abnormalities. LIVER: A subcentimeter probable cyst is seen along the right hepatic lobe. No other significant abnor mality. GALLBLADDER: No significant abnormality. BILE DUCTS: No significant abnormality. PANCREAS: No significant abnormality. SPLEEN: No significant abnormality. ADRENALS: No significant abnormality. RIGHT KIDNEY/URETER: No significant abnormality. LEFT KIDNEY/URETER: No significant abnormality. STOMACH/SMALL BOWEL: No significant abnormality. COLON: No significant abnormality. APPENDIX: No significant abnormality. PERITONEUM: No free fluid. No free air. No fluid collection. LYMPH NODES: No significant adenopathy. VASCULATURE: There is mild generalized atherosclerosis. No other significant abnormality. URINARY BLADDER: The bladder is mostly decompressed by a Sprague catheter. Air within the bladder is li tara related to catheter placement. Hyperdense material in the bladder likely represents blood produc ts. A bladder mass cannot be entirely excluded. There is mild generalized bladder wall thickening. REPRODUCTIVE ORGANS: No significant abnormality. ADDITIONAL FINDINGS: None. BONES: No acute findings. There is moderate spondylosis with mild degenerative changes of the pelvis. IMPRESSION: 1. No significant abnormality of the ureters. 2. Probable blood products in the bladder. A bladder mass cannot be entirely excluded. Please correla te with cystoscopy. Mild bladder wall thickening is likely related to under distention and/or the pro vided history of neurogenic bladder. Signer Name: Johnnie Colmenares MD Signed: 05/16/2022 1:24 PM Workstation Name: [id number]
--- NOTE | 2022-05-16 19:13 | Progress Note ---
<YOELWILFRIDO - Last Filed: 05/16/22 19:12> Assessment and Plan Assessment and plan: This is a 81-year-old male with vascular dementia, cerebral arthrosclerosis, DM, HLD, HTN, GERD, anemia of chronic disease, BPH with chronic indwelling Sprague catheter and hematuria admitted with acute blood loss anemia, new onset A. fib with RVR and sepsis secondary to UTI Neuro: h/o vascular dementia, cerebral atherosclerosis -Reorientation as needed -Maintain sleep-wake cycle -aspiration/seizure precautions -As needed analgesia -CT head shows no acute intracranial abnormality -Continue supportive care Cardiac: New onset atrial fibrillation, h/o HTN and hyperlipidemia -Cardiology consulted, appreciate recommendations -Blood pressure monitoring per protocol -S/p IV amiodarone -Currently on p.o. amiodarone, p.o. metoprolol -Continue home Lipitor -Echocardiogram shows LVEF of 50 to 55%, impaired relaxation Respiratory: NAD -Pulmonary hygiene -SPO2 monitor per protocol -Supplemental oxygen as needed GI: Moderate protein calorie malnutrition, h/o GERD -24 hours -PPI -Mechanical soft diet with nutritional supplementation -BR: Colace : Obstructive uropathy, gross hematuria with clots, chronic indwelling Sprague catheter, hypophosphatemia, h/o BPH, ? Neurogenic bladder -Urology consulted, appreciate recommendations -CT abdomen/pelvis shows no significant abnormality of the ureters, probable blood products in the bladder, bladder mass cannot be entirely excluded -Cystogram pending -Continue home Cardura -Record intake and output -Renally dose medications -Avoid nephrotoxic medications -Trend BMP ID: Sepsis likely secondary to UTI (POA)- resolved -Presented with leukocytosis, hypotension, pyuria -CRP 23.8, procalcitonin 4.61 -Antibiotic therapy with Levaquin (05/11 4-04/2029) -05/14 blood cultures with no growth after 48 hours, urine culture with no growth after 48 hours -Monitor WBC and temperature curve Endo: h/o type 2 diabetes mellitus -Avoid hypoglycemia -SSI -Accu-Cheks AC at bedtime Heme: Acute on chronic anemia -Presented with H/H of 6.0/18.7 -S/p 2 units PRBC -2 units PRBC ordered 05/16 -Trend CBC -Transfuse hemoglobin less than 7 -Continue home iron -SCDs to BLE while in bed The high probability of a clinically significant, sudden or life threatening deterioration of the [multiple] system(s) required my full and direct attention, intervention and personal management. The aggregate critical care time was [60] minutes. This time is in addition to time spent performing reported procedures but includes the following: [x] Data Review and interpretation [x] Patient assessment and monitoring of vital signs [x] Documentation [x] Medication orders and management Disposition Plan: imcu Total Time Spent with Patient (Minutes): 60 History Interval history: This is 81 male with vascular dementia, cerebral arthrosclerosis, DM, HLD, HTN, GERD, anemia of chronic disease, BPH with chronic indwelling Sprague catheter placed 1 week prior to presentation who presented to the hospital on 05/14 via EMS after being found unresponsive while sitting on the sofa per family. Patient was hypotensive with systolic blood pressure in the 80s and heart rate in the 150s and lab work showed sepsis suspected secondary to UTI, toxic metabolic encephalopathy, new onset of fibrillation with RVR. Patient was admitted to the hospitalist service with consults to cardiology and [facility] [place] on amiodarone drip. Hospital Course to Date: 05/15: Fully AAO this am, stable on RA. With persistent gross hematuria this am, s/p 2units of PRBCs. H&H stable this am. Remains on Amiodarone gtt, SR noted on the monitor, VSS. D/W Cardio, plan to transition to PO Amio today. 2D Echo pending. Continue to trend H&H, Urology consulted. 05/16: Neurology will transfuse the patient with 2 units PRBC and plans to complete a CT abdomen and pelvis. Phosphorus repleted with K-Phos. Procalcitonin pending. Hospitalist Physical - Constitutional Vitals: Temp Pulse Resp BP Pulse Ox 98.8 F 82 20 150/75 100 05/16/22 18:42 05/16/22 18:42 05/16/22 18:42 05/16/22 18:42 05/16/22 18:42 General appearance: Present: no acute distress - EENT Eyes: Present: PERRL, EOM intact ENT: hearing decreased, poor dentition - Neck Neck: Present: normal ROM - Respiratory Respiratory effort: normal Respiratory: bilateral: CTA - Cardiovascular Rhythm: regular Heart Sounds: Present: S1 & S2. Absent: systolic murmur, diastolic murmur - Extremities Extremities: no ischemia, pulses intact, pulses symmetrical, No edema, normal temperature, normal color Peripheral Pulses: within normal limits - Abdominal General gastrointestinal: soft, non-tender, non-distended, normal bowel sounds - Integumentary Integumentary: Present: warm, dry - Psychiatric Psychiatric: cooperative - Neurologic Neurologic: CNII-XII intact, no focal deficits, moves all extremities - Allied Health Allied health notes reviewed: nursing, RT, social work HEART Score - HEART Score Troponin: Troponin T < 0.010 ng/mL (0.00-0.029) 05/14/22 06:57 Results - Labs CBC & Chem 7: 05/16/22 04:00 05/16/22 04:00 Labs: Laboratory Last Values WBC 8.2 K/mm3 (4.5-11.0) 05/16/22 04:00 RBC 2.54 M/mm3 (3.65-5.03) L 05/16/22 04:00 Hgb 7.7 gm/dl (11.8-15.2) L 05/16/22 04:00 Hct 22.9 % (35.5-45.6) L 05/16/22 04:00 MCV 90 fl (84-94) 05/16/22 04:00 MCH 31 pg (28-32) 05/16/22 04:00 MCHC 34 % (32-34) 05/16/22 04:00 RDW 14.7 % (13.2-15.2) 05/16/22 04:00 Plt Count 207 K/mm3 (140-440) 05/16/22 04:00 Lymph % (Auto) 8.8 % (13.4-35.0) L 05/15/22 05:00 Carroll % (Auto) 13.1 % (0.0-7.3) H 05/15/22 05:00 Eos % (Auto) 0.3 % (0.0-4.3) 05/15/22 05:00 Baso % (Auto) 0.1 % (0.0-1.8) 05/15/22 05:00 Lymph # (Auto) 1.0 K/mm3 (1.2-5.4) L 05/15/22 05:00 [place] # (Auto) 1.5 K/mm3 (0.0-0.8) H 05/15/22 05:00 Eos # (Auto) 0.0 K/mm3 (0.0-0.4) 05/15/22 05:00 Baso # (Auto) 0.0 K/mm3 (0.0-0.1) 05/15/22 05:00 Add Manual Diff Complete 05/15/22 19:10 Total Counted 100 05/15/22 19:10 Seg Neutrophils % 77.7 % (40.0-70.0) H 05/15/22 05:00 Seg Neuts % (Manual) 79.0 % (40.0-70.0) H 05/15/22 19:10 Band Neutrophils % 0 % 05/15/22 19:10 Lymphocytes % (Manual) 8.0 % (13.4-35.0) L 05/15/22 19:10 Reactive Lymphs % (Man) 0 % 05/15/22 19:10 Monocytes % (Manual) 13.0 % (0.0-7.3) H 05/15/22 19:10 Eosinophils % (Manual) 0 % (0.0-4.3) 05/15/22 19:10 Basophils % (Manual) 0 % (0.0-1.8) 05/15/22 19:10 Metamyelocytes % 0 % 05/15/22 19:10 Myelocytes % 0 % 05/15/22 19:10 Promyelocytes % 0 % 05/15/22 19:10 Blast Cells % 0 % 05/15/22 19:10 Nucleated RBC % Not Reportable 05/15/22 19:10 Seg Neutrophils # 8.6 K/mm3 (1.8-7.7) H 05/15/22 05:00 Seg Neutrophils # Man 6.9 K/mm3 (1.8-7.7) 05/15/22 19:10 Band Neutrophils # 0.0 K/mm3 05/15/22 19:10 Lymphocytes # (Manual) 0.7 K/mm3 (1.2-5.4) L 05/15/22 19:10 Abs React Lymphs (Man) 0.0 K/mm3 05/15/22 19:10 Monocytes # (Manual) 1.1 K/mm3 (0.0-0.8) H 05/15/22 19:10 Eosinophils # (Manual) 0.0 K/mm3 (0.0-0.4) 05/15/22 19:10 Basophils # (Manual) 0.0 K/mm3 (0.0-0.1) 05/15/22 19:10 Metamyelocytes # 0.0 K/mm3 05/15/22 19:10 Myelocytes # 0.0 K/mm3 05/15/22 19:10 Promyelocytes # 0.0 K/mm3 05/15/22 19:10 Blast Cells # 0.0 K/mm3 05/15/22 19:10 WBC Morphology Not Reportable 05/15/22 19:10 Hypersegmented Neuts Not Reportable 05/15/22 19:10 Hyposegmented Neuts Not Reportable 05/15/22 19:10 Hypogranular Neuts Not Reportable 05/15/22 19:10 Smudge Cells Not Reportable 05/15/22 19:10 Toxic Granulation Not Reportable 05/15/22 19:10 Toxic Vacuolation Not Reportable 05/15/22 19:10 Dohle Bodies Not Reportable 05/15/22 19:10 Pelger-Huet Anomaly Not Reportable 05/15/22 19:10 Jorge Rods Not Reportable 05/15/22 19:10 Platelet Estimate Consistent w auto 05/15/22 19:10 Clumped Platelets Not Reportable 05/15/22 19:10 Plt Clumps, EDTA Not Reportable 05/15/22 19:10 Large Platelets Not Reportable 05/15/22 19:10 Giant Platelets Not Reportable 05/15/22 19:10 Platelet Satelliting Not Reportable 05/15/22 19:10 Plt Morphology Comment Not Reportable 05/15/22 19:10 RBC Morphology Not Reportable 05/15/22 19:10 Dimorphic RBCs Not Reportable 05/15/22 19:10 Polychromasia Not Reportable 05/15/22 19:10 Hypochromasia Not Reportable 05/15/22 19:10 Poikilocytosis Not Reportable 05/15/22 19:10 Anisocytosis 1+ 05/15/22 19:10 Microcytosis Not Reportable 05/15/22 19:10 Macrocytosis Not Reportable 05/15/22 19:10 Spherocytes Not Reportable 05/15/22 19:10 Pappenheimer Bodies Not Reportable 05/15/22 19:10 Sickle Cells Not Reportable 05/15/22 19:10 Target Cells Not Reportable 05/15/22 19:10 Tear Drop Cells Not Reportable 05/15/22 19:10 Ovalocytes Not Reportable 05/15/22 19:10 Helmet Cells Not Reportable 05/15/22 19:10 [place] Bodies Not Reportable 05/15/22 19:10 [place] Rings Not Reportable 05/15/22 19:10 [place] Cells Not Reportable 05/15/22 19:10 Bite Cells Not Reportable 05/15/22 19:10 Crenated Cell Not Reportable 05/15/22 19:10 Elliptocytes Not Reportable 05/15/22 19:10 Acanthocytes (Spur) Not Reportable 05/15/22 19:10 Rouleaux Not Reportable 05/15/22 19:10 Hemoglobin C Crystals Not Reportable 05/15/22 19:10 Schistocytes Not Reportable 05/15/22 19:10 Malaria parasites Not Reportable 05/15/22 19:10 Miguel Bodies Not Reportable 05/15/22 19:10 Hem Pathologist Commnt No 05/15/22 19:10 PT 16.5 Sec. (12.2-14.9) H 05/14/22 06:57 INR 1.19 (0.87-1.13) H 05/14/22 06:57 Sodium 138 mmol/L (137-145) 05/16/22 04:00 Potassium 3.6 mmol/L (3.6-5.0) 05/16/22 04:00 Chloride 105.7 mmol/L (98-107) 05/16/22 04:00 Carbon Dioxide 20 mmol/L (22-30) L 05/16/22 04:00 Anion Gap 16 mmol/L 05/16/22 04:00 BUN 9 mg/dL (9-20) 05/16/22 04:00 Creatinine 0.8 mg/dL (0.8-1.3) 05/16/22 04:00 Estimated GFR > 60 ml/min 05/16/22 04:00 BUN/Creatinine Ratio 11 % 05/16/22 04:00 Glucose 191 mg/dL (75-100) H 05/16/22 04:00 POC Glucose 182 mg/dL (70-105) H 05/16/22 16:21 Lactic Acid 1.00 mmol/L (0.7-2.0) 05/14/22 22:40 Calcium 8.3 mg/dL (8.4-10.2) L 05/16/22 04:00 Phosphorus 2.30 mg/dL (2.5-4.5) L 05/16/22 04:00 Magnesium 1.90 mg/dL (1.7-2.3) 05/16/22 04:00 Total Bilirubin 0.50 mg/dL (0.1-1.2) 05/15/22 05:00 AST 31 units/L (5-40) 05/15/22 05:00 ALT 21 units/L (7-56) 05/15/22 05:00 Alkaline Phosphatase 53 units/L (35-129) 05/15/22 05:00 Total Creatine Kinase 774 units/L (55-170) H 05/14/22 06:57 Troponin T < 0.010 ng/mL (0.00-0.029) 05/14/22 06:57 C-Reactive Protein 23.80 mg/dL (0.00-1.30) H 05/14/22 06:57 NT-Pro-B Natriuret Pep 705.7 pg/mL (0-900) 05/14/22 06:57 Total Protein 5.7 g/dL (6.3-8.2) L 05/15/22 05:00 Albumin 2.7 g/dL (3.9-5) L 05/15/22 05:00 Albumin/Globulin Ratio 0.9 % 05/15/22 05:00 Lipase 20 units/L (13-60) 05/14/22 06:57 Procalcitonin 4.61 ng/mL (<0.15) 05/14/22 22:40 TSH 1.040 mlU/mL (0.270-4.200) 05/14/22 22:40 Free T4 1.59 ng/dL (0.76-1.46) H 05/14/22 22:40 Urine Color Red (Yellow) 05/14/22 07:28 Urine Turbidity Bloody (Clear) 05/14/22 07:28 Urine Protein Color interference mg/dL (Negative) 05/14/22 07:28 Urine Glucose (UA) Color interference mg/dL (Negative) 05/14/22 07:28 Urine Ketones Color interference mg/dL (Negative) 05/14/22 07:28 Urine Blood Color interference (Negative) 05/14/22 07:28 Urine Nitrite Color interference (Negative) 05/14/22 07:28 Urine Bilirubin Color interference (Negative) 05/14/22 07:28 Urine Ictotest Not Reportable 05/14/22 07:28 Ur Leukocyte Esterase Color interference (Negative) 05/14/22 07:28 Urine WBC (Auto) > 182.0 /HPF (0.0-6.0) H 05/14/22 07:28 Urine RBC (Auto) > 182.0 /HPF (0.0-6.0) 05/14/22 07:28 U Epithel Cells (Auto) 5.0 /HPF (0-13.0) 05/14/22 07:28 Urine Bacteria (Auto) 3+ /HPF (Negative) 05/14/22 07:28 Blood Type O POSITIVE 05/14/22 09:54 Antibody Screen Negative 05/14/22 09:54 Crossmatch See Detail 05/14/22 09:54 Microbiology: Microbiology 05/14/22 Unknown Urine,Clean Catch Urine Culture - Final NO GROWTH AFTER 48 HOURS 05/14/22 06:57 Peripheral/Venous Blood Culture - Preliminary NO GROWTH AFTER 48 HOURS 05/14/22 06:57 Peripheral/Venous Blood Culture - Preliminary NO GROWTH AFTER 48 HOURS Sprague/IV: Voiding Method Indwelling Catheter Active Medications - Current Medications Current Medications: Generic Name Dose Route Start Last Admin Trade Name Freq PRN Reason Stop Dose Admin Acetaminophen 650 mg 05/14/22 12:08 Acetaminophen 325 Mg Tab PO Q6H PRN Pain, Mild (1-3) Albuterol 2.5 mg 05/14/22 12:06 Albuterol 2.5 Mg/3 Ml Nebu IH Q3HRT PRN Shortness Of Breath Amiodarone HCl 200 mg 05/15/22 15:00 05/16/22 10:12 Amiodarone 200 Mg Tab PO 200 mg QDAY KARLA Administration Atorvastatin Calcium 80 mg 05/15/22 22:00 05/15/22 21:49 Atorvastatin 40 Mg Tab PO 80 mg QHS KARLA Administration Cyanocobalamin 1,000 mcg 05/15/22 10:00 05/16/22 10:11 Cyanocobalamin (Vit B-12) 1000 Mcg Tab PO 1,000 mcg QDAY KARLA Administration Dextrose 50 ml 05/14/22 15:19 Dextrose 50% In Water (25gm) 50 Ml Syringe IV Q30MIN PRN Hypoglycemia Protocol Docusate Sodium 100 mg 05/16/22 22:00 Docusate Sodium 100 Mg Cap PO BID KARLA Doxazosin Mesylate 1 mg 05/14/22 22:00 05/15/22 21:48 Doxazosin 1 Mg Tab PO 1 mg QHS KRALA Administration Ferrous Sulfate 325 mg 05/15/22 10:00 05/16/22 10:12 Ferrous Sulfate 325 Mg Tab PO 325 mg QDAY KARLA Administration Levofloxacin/Dextrose 750 mg in 150 mls @ 100 mls/hr 05/15/22 13:00 05/16/22 14:08 Levaquin 750mg/150ml IV 05/19/22 14:29 100 mls/hr Q24H KARLA Administration Protocol Insulin Human Lispro 0 unit 05/15/22 16:30 05/16/22 17:06 Insulin Lispro 100 Unit/Ml SUB-Q 2 unit ACHS KARLA Administration Protocol Metoprolol Tartrate 25 mg 05/15/22 15:00 05/16/22 17:05 Metoprolol Tartrate 25 Mg Tab PO 25 mg Q8H KARLA Administration Oxycodone/Acetaminophen 1 tab 05/14/22 12:06 Oxycodone /Acetaminophen 5-325mg Tab PO Q6H PRN Pain, Moderate (4-6) Pantoprazole Sodium 20 mg 05/16/22 10:00 05/16/22 10:12 Pantoprazole 20 Mg Tab PO 20 mg QDAY KARLA Administration Sodium Chloride 10 ml 05/14/22 22:00 05/16/22 10:12 Sodium Chloride 0.9% 10 Ml Flush Syringe IV 10 ml BID KARLA Administration Sodium Chloride 10 ml 05/14/22 12:06 Sodium Chloride 0.9% 10 Ml Flush Syringe IV PRN PRN LINE FLUSH Nutrition/Malnutrition Assess - Dietary Evaluation Nutrition/Malnutrition Findings: Nutrition Notes Start: 05/15/22 14:55 Freq: Status: Active Protocol: Document 05/15/22 14:55 RS (Rec: 07/24/22 15:31 RS [id number]) Nutrition Notes Need for Assessment generated from: MD Order Initial or Follow up Brief Note Current Diagnosis Diabetes,Sepsis,Hyperlipidemia Other Pertinent Diagnosis Dementia, metabolic encephalopathy, A-fib, UTI, GERD, Labs/Tests Cl: 108 CO2: 20 GlU:188 Ca:8.2 Pertinent Medications reviewed Height 5 ft 8 in Weight 81.7 kg [place] Body Weight (kg) 70.00 BMI 27.3 Weight change and time frame ELBERT wt hx Weight Status Appropriate Subjective/Other Information MD consult for malnutrition. RD noted some muscle wasting around temporal lobes w/ protroding clavical with some dark depressions around orbital region. Will need to f /u for caretakers present for intakes before adms. Pt has surgery scheduled on 05/18. Burn Absent Trauma Absent Nutrition Intervention Additional Comments F/U for intakes before adm, full nutrition assessment with caretakers <KELVIN AGUILA - Last Filed: 05/17/22 07:55> Assessment and Plan Assessment and plan: I saw and evaluated the patient. I agree with the findings and the plan of care as documented in the Nurse Practitioner's~note, with the following corrections and additions. Hospitalist Physical - Constitutional Vitals: Temp Pulse Resp BP Pulse Ox 98.2 F 51 L 11 L 141/73 97 05/17/22 07:14 05/17/22 06:00 05/17/22 06:00 05/17/22 06:00 05/17/22 06:00 HEART Score - HEART Score Troponin: Troponin T < 0.010 ng/mL (0.00-0.029) 05/14/22 06:57 Results - Labs CBC & Chem 7: 05/17/22 04:58 05/17/22 04:37 Labs: Laboratory Last Values WBC 8.6 K/mm3 (4.5-11.0) 05/17/22 04:58 RBC 3.46 M/mm3 (3.65-5.03) L 05/17/22 04:58 Hgb 10.6 gm/dl (11.8-15.2) L 05/17/22 04:58 Hct 31.2 % (35.5-45.6) L D 05/17/22 04:58 MCV 90 fl (84-94) 05/17/22 04:58 MCH 31 pg (28-32) 05/17/22 04:58 MCHC 34 % (32-34) 05/17/22 04:58 RDW 15.0 % (13.2-15.2) 05/17/22 04:58 Plt Count 204 K/mm3 (140-440) 05/17/22 04:58 Lymph % (Auto) 8.8 % (13.4-35.0) L 05/15/22 05:00 [place] % (Auto) 13.1 % (0.0-7.3) H 05/15/22 05:00 Eos % (Auto) 0.3 % (0.0-4.3) 05/15/22 05:00 Baso % (Auto) 0.1 % (0.0-1.8) 05/15/22 05:00 Lymph # (Auto) 1.0 K/mm3 (1.2-5.4) L 05/15/22 05:00 [place] # (Auto) 1.5 K/mm3 (0.0-0.8) H 05/15/22 05:00 Eos # (Auto) 0.0 K/mm3 (0.0-0.4) 05/15/22 05:00 Baso # (Auto) 0.0 K/mm3 (0.0-0.1) 05/15/22 05:00 Add Manual Diff Complete 05/15/22 19:10 Total Counted 100 05/15/22 19:10 Seg Neutrophils % 77.7 % (40.0-70.0) H 05/15/22 05:00 Seg Neuts % (Manual) 79.0 % (40.0-70.0) H 05/15/22 19:10 Band Neutrophils % 0 % 05/15/22 19:10 Lymphocytes % (Manual) 8.0 % (13.4-35.0) L 05/15/22 19:10 Reactive Lymphs % (Man) 0 % 05/15/22 19:10 Monocytes % (Manual) 13.0 % (0.0-7.3) H 05/15/22 19:10 Eosinophils % (Manual) 0 % (0.0-4.3) 05/15/22 19:10 Basophils % (Manual) 0 % (0.0-1.8) 05/15/22 19:10 Metamyelocytes % 0 % 05/15/22 19:10 Myelocytes % 0 % 05/15/22 19:10 Promyelocytes % 0 % 05/15/22 19:10 Blast Cells % 0 % 05/15/22 19:10 Nucleated RBC % Not Reportable 05/15/22 19:10 Seg Neutrophils # 8.6 K/mm3 (1.8-7.7) H 05/15/22 05:00 Seg Neutrophils # Man 6.9 K/mm3 (1.8-7.7) 05/15/22 19:10 Band Neutrophils # 0.0 K/mm3 05/15/22 19:10 Lymphocytes # (Manual) 0.7 K/mm3 (1.2-5.4) L 05/15/22 19:10 Abs React Lymphs (Man) 0.0 K/mm3 05/15/22 19:10 Monocytes # (Manual) 1.1 K/mm3 (0.0-0.8) H 05/15/22 19:10 Eosinophils # (Manual) 0.0 K/mm3 (0.0-0.4) 05/15/22 19:10 Basophils # (Manual) 0.0 K/mm3 (0.0-0.1) 05/15/22 19:10 Metamyelocytes # 0.0 K/mm3 05/15/22 19:10 Myelocytes # 0.0 K/mm3 05/15/22 19:10 Promyelocytes # 0.0 K/mm3 05/15/22 19:10 Blast Cells # 0.0 K/mm3 05/15/22 19:10 WBC Morphology Not Reportable 05/15/22 19:10 Hypersegmented Neuts Not Reportable 05/15/22 19:10 Hyposegmented Neuts Not Reportable 05/15/22 19:10 Hypogranular Neuts Not Reportable 05/15/22 19:10 Smudge Cells Not Reportable 05/15/22 19:10 Toxic Granulation Not Reportable 05/15/22 19:10 Toxic Vacuolation Not Reportable 05/15/22 19:10 Dohle Bodies Not Reportable 05/15/22 19:10 Pelger-Huet Anomaly Not Reportable 05/15/22 19:10 Jorge Rods Not Reportable 05/15/22 19:10 Platelet Estimate Consistent w auto 05/15/22 19:10 Clumped Platelets Not Reportable 05/15/22 19:10 Plt Clumps, EDTA Not Reportable 05/15/22 19:10 Large Platelets Not Reportable 05/15/22 19:10 Giant Platelets Not Reportable 05/15/22 19:10 Platelet Satelliting Not Reportable 05/15/22 19:10 Plt Morphology Comment Not Reportable 05/15/22 19:10 RBC Morphology Not Reportable 05/15/22 19:10 Dimorphic RBCs Not Reportable 05/15/22 19:10 Polychromasia Not Reportable 05/15/22 19:10 Hypochromasia Not Reportable 05/15/22 19:10 Poikilocytosis Not Reportable 05/15/22 19:10 Anisocytosis 1+ 05/15/22 19:10 Microcytosis Not Reportable 05/15/22 19:10 Macrocytosis Not Reportable 05/15/22 19:10 Spherocytes Not Reportable 05/15/22 19:10 Pappenheimer Bodies Not Reportable 05/15/22 19:10 Sickle Cells Not Reportable 05/15/22 19:10 Target Cells Not Reportable 05/15/22 19:10 Tear Drop Cells Not Reportable 05/15/22 19:10 Ovalocytes Not Reportable 05/15/22 19:10 Helmet Cells Not Reportable 05/15/22 19:10 [place] Bodies Not Reportable 05/15/22 19:10 [place] Not Reportable 05/15/22 19:10 Flip Cells Not Reportable 05/15/22 19:10 Bite Cells Not Reportable 05/15/22 19:10 Crenated Cell Not Reportable 05/15/22 19:10 Elliptocytes Not Reportable 05/15/22 19:10 Acanthocytes (Spur) Not Reportable 05/15/22 19:10 Rouleaux Not Reportable 05/15/22 19:10 Hemoglobin C Crystals Not Reportable 05/15/22 19:10 Schistocytes Not Reportable 05/15/22 19:10 Malaria parasites Not Reportable 05/15/22 19:10 Miguel Bodies Not Reportable 05/15/22 19:10 Hem Pathologist Commnt No 05/15/22 19:10 PT 16.5 Sec. (12.2-14.9) H 05/14/22 06:57 INR 1.19 (0.87-1.13) H 05/14/22 06:57 Sodium 135 mmol/L (137-145) L 05/17/22 04:37 Potassium 3.8 mmol/L (3.6-5.0) 05/17/22 04:37 Chloride 104.0 mmol/L (98-107) 05/17/22 04:37 Carbon Dioxide 22 mmol/L (22-30) 05/17/22 04:37 Anion Gap 13 mmol/L 05/17/22 04:37 BUN 11 mg/dL (9-20) 05/17/22 04:37 Creatinine 0.8 mg/dL (0.8-1.3) 05/17/22 04:37 Estimated GFR > 60 ml/min 05/17/22 04:37 BUN/Creatinine Ratio 14 % 05/17/22 04:37 Glucose 151 mg/dL (75-100) H 05/17/22 04:37 POC Glucose 124 mg/dL (70-105) H 05/17/22 07:26 Lactic Acid 1.00 mmol/L (0.7-2.0) 05/14/22 22:40 Calcium 8.8 mg/dL (8.4-10.2) 05/17/22 04:37 Phosphorus 2.80 mg/dL (2.5-4.5) D 05/17/22 04:37 Magnesium 1.80 mg/dL (1.7-2.3) 05/17/22 04:37 Total Bilirubin 0.50 mg/dL (0.1-1.2) 05/15/22 05:00 AST 31 units/L (5-40) 05/15/22 05:00 ALT 21 units/L (7-56) 05/15/22 05:00 Alkaline Phosphatase 53 units/L (35-129) 05/15/22 05:00 Total Creatine Kinase 774 units/L (55-170) H 05/14/22 06:57 Troponin T < 0.010 ng/mL (0.00-0.029) 05/14/22 06:57 C-Reactive Protein 23.80 mg/dL (0.00-1.30) H 05/14/22 06:57 NT-Pro-B Natriuret Pep 705.7 pg/mL (0-900) 05/14/22 06:57 Total Protein 5.7 g/dL (6.3-8.2) L 05/15/22 05:00 Albumin 2.7 g/dL (3.9-5) L 05/15/22 05:00 Albumin/Globulin Ratio 0.9 % 05/15/22 05:00 Lipase 20 units/L (13-60) 05/14/22 06:57 Procalcitonin 4.61 ng/mL (<0.15) 05/14/22 22:40 TSH 1.040 mlU/mL (0.270-4.200) 05/14/22 22:40 Free T4 1.59 ng/dL (0.76-1.46) H 05/14/22 22:40 Urine Color Red (Yellow) 05/14/22 07:28 Urine Turbidity Bloody (Clear) 05/14/22 07:28 Urine Protein Color interference mg/dL (Negative) 05/14/22 07:28 Urine Glucose (UA) Color interference mg/dL (Negative) 05/14/22 07:28 Urine Ketones Color interference mg/dL (Negative) 05/14/22 07:28 Urine Blood Color interference (Negative) 05/14/22 07:28 Urine Nitrite Color interference (Negative) 05/14/22 07:28 Urine Bilirubin Color interference (Negative) 05/14/22 07:28 Urine Ictotest Not Reportable 05/14/22 07:28 Ur Leukocyte Esterase Color interference (Negative) 05/14/22 07:28 Urine WBC (Auto) > 182.0 /HPF (0.0-6.0) H 05/14/22 07:28 Urine RBC (Auto) > 182.0 /HPF (0.0-6.0) 05/14/22 07:28 U Epithel Cells (Auto) 5.0 /HPF (0-13.0) 05/14/22 07:28 Urine Bacteria (Auto) 3+ /HPF (Negative) 05/14/22 07:28 Blood Type O POSITIVE 05/14/22 09:54 Antibody Screen Negative 05/14/22 09:54 Crossmatch See Detail 05/14/22 09:54 Microbiology: Microbiology 05/14/22 06:57 Peripheral/Venous Blood Culture - Preliminary NO GROWTH AFTER 72 HOURS 05/14/22 06:57 Peripheral/Venous Blood Culture - Preliminary NO GROWTH AFTER 72 HOURS 05/14/22 Unknown Urine,Clean Catch Urine Culture - Final NO GROWTH AFTER 48 HOURS Sprague/IV: Voiding Method Indwelling Catheter Active Medications - Current Medications Current Medications: Generic Name Dose Route Start Last Admin Trade Name Freq PRN Reason Stop Dose Admin Acetaminophen 650 mg 05/14/22 12:08 Acetaminophen 325 Mg Tab PO Q6H PRN Pain, Mild (1-3) Albuterol 2.5 mg 05/14/22 12:06 Albuterol 2.5 Mg/3 Ml Nebu IH Q3HRT PRN Shortness Of Breath Amiodarone HCl 200 mg 05/15/22 15:00 05/16/22 10:12 Amiodarone 200 Mg Tab PO 200 mg QDAY KARLA Administration Atorvastatin Calcium 80 mg 05/15/22 22:00 05/16/22 21:08 Atorvastatin 40 Mg Tab PO 80 mg QHS KARLA Administration Cyanocobalamin 1,000 mcg 05/15/22 10:00 05/16/22 10:11 Cyanocobalamin (Vit B-12) 1000 Mcg Tab PO 1,000 mcg QDAY KARLA Administration Dextrose 50 ml 05/14/22 15:19 Dextrose 50% In Water (25gm) 50 Ml Syringe IV Q30MIN PRN Hypoglycemia Protocol Docusate Sodium 100 mg 05/16/22 22:00 05/16/22 21:08 Docusate Sodium 100 Mg Cap PO Not Given BID KARLA Doxazosin Mesylate 1 mg 05/14/22 22:00 05/16/22 21:07 Doxazosin 1 Mg Tab PO 1 mg QHS KARLA Administration Ferrous Sulfate 325 mg 05/15/22 10:00 05/16/22 10:12 Ferrous Sulfate 325 Mg Tab PO 325 mg QDAY KARLA Administration Levofloxacin/Dextrose 750 mg in 150 mls @ 100 mls/hr 05/15/22 13:00 05/16/22 14:08 Levaquin 750mg/150ml IV 05/19/22 14:29 100 mls/hr Q24H KARLA Administration Protocol Insulin Human Lispro 0 unit 05/15/22 16:30 05/16/22 21:46 Insulin Lispro 100 Unit/Ml SUB-Q 2 unit ACHS KARLA Administration Protocol Metoprolol Tartrate 25 mg 05/15/22 15:00 05/16/22 22:17 Metoprolol Tartrate 25 Mg Tab PO 25 mg Q8H KARLA Administration Morphine Sulfate 2 mg 05/16/22 22:25 05/17/22 04:51 Morphine 2 Mg/1 Ml Inj IV 2 mg Q4H PRN Administration Pain, Moderate (4-6) Oxycodone/Acetaminophen 1 tab 05/14/22 12:06 05/16/22 20:10 Oxycodone /Acetaminophen 5-325mg Tab PO 1 tab Q6H PRN Administration Pain, Moderate (4-6) Pantoprazole Sodium 20 mg 05/16/22 10:00 05/16/22 10:12 Pantoprazole 20 Mg Tab PO 20 mg QDAY KARLA Administration Sodium Chloride 10 ml 05/14/22 22:00 05/16/22 21:08 Sodium Chloride 0.9% 10 Ml Flush Syringe IV 10 ml BID KARLA Administration Sodium Chloride 10 ml 05/14/22 12:06 Sodium Chloride 0.9% 10 Ml Flush Syringe IV PRN PRN LINE FLUSH Nutrition/Malnutrition Assess - Dietary Evaluation Nutrition/Malnutrition Findings: Nutrition Notes Start: 05/15/22 14:55 Freq: Status: Active Protocol: Document 05/15/22 14:55 RS (Rec: 05/15/22 15:31 RS [id number]) Nutrition Notes Need for Assessment generated from: MD Order Initial or Follow up Brief Note Current Diagnosis Diabetes,Sepsis,Hyperlipidemia Other Pertinent Diagnosis Dementia, metabolic encephalopathy, A-fib, UTI, GERD, Labs/Tests Cl: 108 CO2: 20 GlU:188 Ca:8.2 Pertinent Medications reviewed Height 5 ft 8 in Weight 81.7 kg [place] Body Weight (kg) 70.00 BMI 27.3 Weight change and time frame ELBERT wt hx Weight Status Appropriate Subjective/Other Information MD consult for malnutrition. RD noted some muscle wasting around temporal lobes w/ protroding clavical with some dark depressions around orbital region. Will need to f /u for caretakers present for intakes before adms. Pt has surgery scheduled on 05/18. Burn Absent Trauma Absent Nutrition Intervention Additional Comments F/U for intakes before adm, full nutrition assessment with caretakers
[2022-05-16] MEDS: oxyCODONE /ACETAMINOPHEN 5-325MG TAB PO PRN (20:10)
[2022-05-16] MEDS: DOXAZOSIN 1 MG TAB PO SCH (21:07)
[2022-05-16] MEDS: DOCUSATE SODIUM 100 MG CAP PO SCH (21:08)
[2022-05-16] MEDS: MORPHINE 2 MG/1 ML INJ IV PRN (22:42)
[2022-05-17] MEDS: MORPHINE 2 MG/1 ML INJ IV PRN ×4 (04:51→21:03)
[2022-05-17 05:25] LABS: Hematocrit 31.2 % (35.5-45.6); Hemoglobin 10.6 gm/dl (11.8-15.2); Mean Corpuscular HGB Conc 34 % (32-34); Mean Corpuscular Volume 90 fl (84-94); Platelet Count 204 K/mm3 (140-440); Red Blood Count 3.46 M/mm3 (3.65-5.03)
[2022-05-17 05:42] LABS: BUN/Creatinine Ratio 14; Blood Urea Nitrogen 11 mg/dL (9-20); Calcium 8.8 mg/dL (8.4-10.2); Hemolysis Index 3
[2022-05-17] MEDS: METOPROLOL TARTRATE 25 MG TAB PO SCH ×3 (08:26→22:09)
[2022-05-17] MEDS: INSULIN LISPRO 100 UNIT/ML SUB-Q SCH ×4 (08:31→21:21)
[2022-05-17] MEDS ORDERED: HYDROmorphone 0.5 MG/0.5 ML INJ IV PRN (08:38)
--- NOTE | 2022-05-17 08:47 | Progress Note ---
Assessment and Plan blood tinged improved for cysto tomorrow Subjective Date of service: 05/17/22 Principal diagnosis: Sepsis; AMS; UTI; A-fib with RVR; ABLA; HTN; DM II; Gross Hematuria Objective - Constitutional Vitals: Vital Signs - 12hr 05/16/22 05/16/22 05/16/22 20:51 21:00 21:11 Temperature Pulse Rate 68 68 63 Respiratory 19 18 16 Rate Blood Pressure 126/64 122/62 122/62 O2 Sat by Pulse 99 97 98 Oximetry 05/16/22 05/16/22 05/16/22 21:21 21:31 21:41 Temperature Pulse Rate 59 L 58 L 64 Respiratory 14 14 14 Rate Blood Pressure 126/62 124/65 124/65 O2 Sat by Pulse 98 98 100 Oximetry 05/16/22 05/16/22 05/16/22 21:51 22:01 22:11 Temperature Pulse Rate 86 91 H 71 Respiratory 20 16 21 Rate Blood Pressure 134/67 132/95 132/95 O2 Sat by Pulse 97 97 99 Oximetry 05/16/22 05/16/22 05/16/22 22:21 22:30 22:41 Temperature Pulse Rate 63 64 62 Respiratory 15 17 10 L Rate Blood Pressure 132/87 133/91 133/91 O2 Sat by Pulse 99 97 100 Oximetry 05/16/22 05/16/22 05/16/22 22:51 23:00 23:11 Temperature Pulse Rate 59 L 59 L 57 L Respiratory 14 12 11 L Rate Blood Pressure 134/68 128/69 128/69 O2 Sat by Pulse 98 99 99 Oximetry 05/16/22 05/16/22 05/16/22 23:21 23:30 23:33 Temperature 98.2 F Pulse Rate 59 L 61 Respiratory 12 13 Rate Blood Pressure 123/67 122/72 O2 Sat by Pulse 100 97 Oximetry 05/16/22 05/16/22 05/17/22 23:40 23:51 00:00 Temperature Pulse Rate 60 56 L 55 L Respiratory 13 12 13 Rate Blood Pressure 122/72 124/69 127/70 O2 Sat by Pulse 99 98 95 Oximetry 05/17/22 05/17/22 05/17/22 00:11 00:21 00:30 Temperature Pulse Rate 53 L 54 L 55 L Respiratory 11 L 11 L 10 L Rate Blood Pressure 127/70 124/70 132/69 O2 Sat by Pulse 98 99 97 Oximetry 05/17/22 05/17/22 05/17/22 00:41 00:51 01:00 Temperature Pulse Rate 55 L 55 L 55 L Respiratory 15 13 13 Rate Blood Pressure 132/69 133/71 134/73 O2 Sat by Pulse 99 100 97 Oximetry 05/17/22 05/17/22 05/17/22 01:11 01:21 01:31 Temperature Pulse Rate 55 L 52 L 53 L Respiratory 11 L 11 L 11 L Rate Blood Pressure 134/73 118/72 135/69 O2 Sat by Pulse 99 99 97 Oximetry 05/17/22 05/17/22 05/17/22 01:41 01:51 02:00 Temperature Pulse Rate 52 L 52 L 52 L Respiratory 12 12 12 Rate Blood Pressure 135/69 143/70 133/72 O2 Sat by Pulse 100 99 97 Oximetry 05/17/22 05/17/22 05/17/22 02:11 02:21 02:30 Temperature Pulse Rate 54 L 54 L 62 Respiratory 11 L 12 13 Rate Blood Pressure 133/72 129/69 134/73 O2 Sat by Pulse 99 99 98 Oximetry 05/17/22 05/17/22 05/17/22 02:41 02:51 03:01 Temperature Pulse Rate 60 54 L 57 L Respiratory 10 L 10 L 13 Rate Blood Pressure 133/72 135/75 140/72 O2 Sat by Pulse 99 99 98 Oximetry 05/17/22 05/17/22 05/17/22 03:11 03:21 03:30 Temperature Pulse Rate 54 L 55 L 59 L Respiratory 10 L 11 L 14 Rate Blood Pressure 140/72 140/72 145/69 O2 Sat by Pulse 99 99 98 Oximetry 05/17/22 05/17/22 05/17/22 03:41 03:51 04:00 Temperature Pulse Rate 60 61 Respiratory 14 14 Rate Blood Pressure 145/69 132/72 O2 Sat by Pulse 99 99 99 Oximetry 05/17/22 05/17/22 05/17/22 04:01 04:11 04:21 Temperature Pulse Rate 63 59 L 56 L Respiratory 14 15 9 L Rate Blood Pressure 141/78 141/78 139/76 O2 Sat by Pulse 97 99 99 Oximetry 05/17/22 05/17/22 05/17/22 04:30 04:41 04:50 Temperature 97.7 F Pulse Rate 54 L 56 L Respiratory 12 9 L Rate Blood Pressure 135/68 135/68 O2 Sat by Pulse 99 99 Oximetry 05/17/22 05/17/22 05/17/22 04:51 05:00 05:11 Temperature Pulse Rate 55 L 55 L 55 L Respiratory 13 12 11 L Rate Blood Pressure 150/80 132/75 132/75 O2 Sat by Pulse 100 98 99 Oximetry 05/17/22 05/17/22 05/17/22 05:21 05:30 05:41 Temperature Pulse Rate 54 L 53 L 53 L Respiratory 11 L 11 L 10 L Rate Blood Pressure 138/71 143/72 143/72 O2 Sat by Pulse 99 97 99 Oximetry 05/17/22 05/17/22 05/17/22 05:51 06:00 07:14 Temperature 98.2 F Pulse Rate 52 L 51 L Respiratory 10 L 11 L Rate Blood Pressure 143/73 141/73 O2 Sat by Pulse 99 97 Oximetry General appearance: Present: no acute distress - Neck Neck: supple - Gastrointestinal General gastrointestinal: Present: soft, non-tender - Labs CBC & Chem 7: 05/17/22 04:58 05/17/22 04:37 Labs: Abnormal lab results 05/14/22 05/16/22 05/16/22 Range/Units 09:54 11:26 16:21 RBC (3.65-5.03) M/mm3 Hgb (11.8-15.2) gm/dl Hct (35.5-45.6) % Sodium (137-145) mmol/L Glucose (75-100) mg/dL POC Glucose 204 H 182 H (70-105) mg/dL Crossmatch See Detail 05/16/22 05/17/22 05/17/22 Range/Units 21:29 04:37 04:58 RBC 3.46 L (3.65-5.03) M/mm3 Hgb 10.6 L (11.8-15.2) gm/dl Hct 31.2 L D (35.5-45.6) % Sodium 135 L (137-145) mmol/L Glucose 151 H (75-100) mg/dL POC Glucose 162 H (70-105) mg/dL Crossmatch 05/17/22 Range/Units 07:26 RBC (3.65-5.03) M/mm3 Hgb (11.8-15.2) gm/dl Hct (35.5-45.6) % Sodium (137-145) mmol/L Glucose (75-100) mg/dL POC Glucose 124 H (70-105) mg/dL Crossmatch Medications & Allergies - Medications Allergies/Adverse Reactions: Allergies No Known Allergies Allergy (Verified 05/13/22 16:50) Home Medications: Home Medications Medication Instructions Recorded Confirmed Last Taken Type AtorvaSTATin [Lipitor] 80 mg PO QHS 05/13/22 05/15/22 Unknown History Cyanocobalamin (Vitamin B-12) 1,000 mcg PO QDAY 05/13/22 05/14/22 Unknown History [Vitamin B-12] Doxazosin [Cardura] 1 mg PO QHS 05/13/22 05/14/22 Unknown History Ferrous Sulfate [Iron 325 MG] 325 mg PO QDAY 05/13/22 05/14/22 Unknown History Metformin HCl [metFORMIN] 1,000 mg PO QDAY 05/13/22 05/14/22 Unknown History Omeprazole 20 mg PO QDAY 05/13/22 05/14/22 Unknown History amLODIPine [Norvasc] 5 mg PO DAILY 05/13/22 05/14/22 Unknown History lisinopriL [Lisinopril] 40 mg PO QDAY 05/13/22 05/14/22 Unknown History Active Medications: Generic Name Dose Route Start Last Admin Trade Name Freq PRN Reason Stop Dose Admin Acetaminophen 650 mg 05/14/22 12:08 Acetaminophen 325 Mg Tab PO Q6H PRN Pain, Mild (1-3) Albuterol 2.5 mg 05/14/22 12:06 Albuterol 2.5 Mg/3 Ml Nebu IH Q3HRT PRN Shortness Of Breath Amiodarone HCl 200 mg 05/15/22 15:00 05/16/22 10:12 Amiodarone 200 Mg Tab PO 200 mg QDAY KARLA Administration Atorvastatin Calcium 80 mg 05/15/22 22:00 05/16/22 21:08 Atorvastatin 40 Mg Tab PO 80 mg QHS KARLA Administration Cyanocobalamin 1,000 mcg 05/15/22 10:00 05/16/22 10:11 Cyanocobalamin (Vit B-12) 1000 Mcg Tab PO 1,000 mcg QDAY KARLA Administration Dextrose 50 ml 05/14/22 15:19 Dextrose 50% In Water (25gm) 50 Ml Syringe IV Q30MIN PRN Hypoglycemia Protocol Docusate Sodium 100 mg 05/16/22 22:00 05/16/22 21:08 Docusate Sodium 100 Mg Cap PO Not Given BID KARLA Doxazosin Mesylate 1 mg 05/14/22 22:00 05/16/22 21:07 Doxazosin 1 Mg Tab PO 1 mg QHS KARLA Administration Ferrous Sulfate 325 mg 05/15/22 10:00 05/16/22 10:12 Ferrous Sulfate 325 Mg Tab PO 325 mg QDAY KARLA Administration Hydromorphone HCl 0.5 mg 05/17/22 08:38 Hydromorphone 0.5 Mg/0.5 Ml Inj IV Q4H PRN Pain , Severe (7-10) Levofloxacin/Dextrose 750 mg in 150 mls @ 100 mls/hr 05/15/22 13:00 05/16/22 14:08 Levaquin 750mg/150ml IV 05/19/22 14:29 100 mls/hr Q24H KARLA Administration Protocol Insulin Human Lispro 0 unit 05/15/22 16:30 05/17/22 08:31 Insulin Lispro 100 Unit/Ml SUB-Q Not Given ACHS [facility] Protocol Metoprolol Tartrate 25 mg 05/15/22 15:00 05/17/22 08:26 Metoprolol Tartrate 25 Mg Tab PO Not Given Q8H [facility] Morphine Sulfate 2 mg 05/16/22 22:25 05/17/22 04:51 Morphine 2 Mg/1 Ml Inj IV 2 mg Q4H PRN Administration Pain, Moderate (4-6) Oxycodone/Acetaminophen 1 tab 05/14/22 12:06 05/16/22 20:10 Oxycodone /Acetaminophen 5-325mg Tab PO 1 tab Q6H PRN Administration Pain, Moderate (4-6) Pantoprazole Sodium 20 mg 05/16/22 10:00 05/16/22 10:12 Pantoprazole 20 Mg Tab PO 20 mg QDAY KARLA Administration Sodium Chloride 10 ml 05/14/22 22:00 05/16/22 21:08 Sodium Chloride 0.9% 10 Ml Flush Syringe IV 10 ml BID KARLA Administration Sodium Chloride 10 ml 05/14/22 12:06 Sodium Chloride 0.9% 10 Ml Flush Syringe IV PRN PRN LINE FLUSH HEART Score - HEART Score Troponin: Troponin T < 0.010 ng/mL (0.00-0.029) 05/14/22 06:57
[2022-05-17] MEDS: DOCUSATE SODIUM 100 MG CAP PO SCH ×2 (09:18→21:01)
[2022-05-17] MEDS: AMIODARONE 200 MG TAB PO SCH (09:50)
[2022-05-17] MEDS: FERROUS SULFATE 325 MG TAB PO SCH (09:50)
[2022-05-17] MEDS: CYANOCOBALAMIN (VIT B-12) 1000 MCG TAB PO SCH (09:50)
[2022-05-17] MEDS: PANTOPRAZOLE 20 MG TAB PO SCH (09:50)
--- NOTE | 2022-05-17 11:17 | Progress Note ---
Assessment and Plan - Patient Problems (1) Atrial fibrillation with RVR Current Visit: Yes Status: Acute Plan to address problem: 81-year-old man who presents with profound anemia, hematocrit of 18, resulting from severe hematuria. Rapid atrial fibrillation was noted on presentation, now corrected to a stable sinus rhythm following blood transfusions and intravenous amiodarone. Since the initial event, he has maintained a stable sinus rhythm, currently at 70. Echocardiogram today reported left ventricular ejection fraction well preserved at 50 to 55%. Continue rhythm control therapy. Patient is not a candidate for antiplatelet therapy or anticoagulation therapy in the setting of his severe anemia and hematuria. Subjective Date of service: 05/17/22 Principal diagnosis: Sepsis; AMS; UTI; A-fib with RVR; ABLA; HTN; DM II; Gross Hematuria Interval history: Patient is comfortable, sitting up in a chair in his room, no acute distress. 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 Objective Vital Signs Temp Pulse Pulse Resp BP Pulse Ox 05/17/22 10:31 72 11 L 134/65 97 05/17/22 10:21 61 12 119/83 98 05/17/22 10:11 64 14 131/83 98 05/17/22 10:01 67 16 131/83 97 05/17/22 09:51 71 14 138/76 99 05/17/22 09:41 65 13 147/73 99 05/17/22 09:30 68 14 147/73 98 05/17/22 09:21 72 12 156/79 100 05/17/22 09:12 78 05/17/22 09:11 96 H 18 160/79 05/17/22 09:01 69 12 160/79 99 05/17/22 08:51 69 13 160/79 99 05/17/22 08:41 64 12 160/79 99 05/17/22 08:30 69 15 160/79 98 05/17/22 08:21 59 L 14 151/75 99 05/17/22 08:11 65 13 152/98 99 05/17/22 08:01 64 15 147/78 98 05/17/22 08:00 78 15 100 05/17/22 07:51 75 17 152/98 98 05/17/22 07:40 76 16 152/98 100 05/17/22 07:31 76 15 152/98 99 05/17/22 07:21 55 L 12 147/76 99 05/17/22 07:14 98.2 F 05/17/22 07:11 57 L 12 134/104 99 05/17/22 07:00 82 17 134/104 99 05/17/22 06:51 52 L 11 L 140/68 99 05/17/22 06:41 50 L 9 L 138/93 99 05/17/22 06:30 52 L 10 L 138/93 98 05/17/22 06:21 55 L 10 L 146/80 100 05/17/22 06:11 54 L 11 L 141/73 98 05/17/22 06:00 51 L 11 L 141/73 97 05/17/22 05:51 52 L 10 L 143/73 99 05/17/22 05:41 53 L 10 L 143/72 99 05/17/22 05:30 53 L 11 L 143/72 97 05/17/22 05:21 54 L 11 L 138/71 99 05/17/22 05:11 55 L 11 L 132/75 99 05/17/22 05:00 55 L 12 132/75 98 05/17/22 04:51 55 L 13 150/80 100 05/17/22 04:50 97.7 F 05/17/22 04:41 56 L 9 L 135/68 99 05/17/22 04:30 54 L 12 135/68 99 05/17/22 04:21 56 L 9 L 139/76 99 05/17/22 04:11 59 L 15 141/78 99 05/17/22 04:01 63 14 141/78 97 05/17/22 04:00 99 05/17/22 03:51 61 14 132/72 99 05/17/22 03:41 60 14 145/69 99 05/17/22 03:30 59 L 14 145/69 98 05/17/22 03:21 55 L 11 L 140/72 99 05/17/22 03:11 54 L 10 L 140/72 99 05/17/22 03:01 57 L 13 140/72 98 05/17/22 02:51 54 L 10 L 135/75 99 05/17/22 02:41 60 10 L 133/72 99 05/17/22 02:30 62 13 134/73 98 05/17/22 02:21 54 L 12 129/69 99 07/26/22 02:11 54 L 11 L 133/72 99 05/17/22 02:00 52 L 12 133/72 97 05/17/22 01:51 52 L 12 143/70 99 05/17/22 01:41 52 L 12 135/69 100 05/17/22 01:31 53 L 11 L 135/69 97 05/17/22 01:21 52 L 11 L 118/72 99 05/17/22 01:11 55 L 11 L 134/73 99 05/17/22 01:00 55 L 13 134/73 97 05/17/22 00:51 55 L 13 133/71 100 05/17/22 00:41 55 L 15 132/69 99 05/17/22 00:30 55 L 10 L 132/69 97 05/17/22 00:21 54 L 11 L 124/70 99 05/17/22 00:11 53 L 11 L 127/70 98 05/17/22 00:00 55 L 13 127/70 95 05/16/22 23:51 56 L 12 124/69 98 05/16/22 23:40 60 13 122/72 99 05/16/22 23:33 98.2 F 05/16/22 23:30 61 13 122/72 97 05/16/22 23:21 59 L 12 123/67 100 05/16/22 23:11 57 L 11 L 128/69 99 05/16/22 23:00 59 L 12 128/69 99 05/16/22 22:51 59 L 14 134/68 98 05/16/22 22:41 62 10 L 133/91 100 05/16/22 22:30 64 17 133/91 97 05/16/22 22:21 63 15 132/87 99 05/16/22 22:11 71 21 132/95 99 05/16/22 22:01 91 H 16 132/95 97 05/16/22 21:51 86 20 134/67 97 05/16/22 21:41 64 14 124/65 100 05/16/22 21:31 58 L 14 124/65 98 05/16/22 21:21 59 L 14 126/62 98 05/16/22 21:11 63 16 122/62 98 05/16/22 21:00 68 18 122/62 97 05/16/22 20:51 68 19 126/64 99 05/16/22 20:41 66 19 117/59 99 05/16/22 20:30 69 18 117/59 96 05/16/22 20:27 70 17 137/70 99 05/16/22 20:21 71 18 137/70 99 05/16/22 20:11 79 23 174/93 99 05/16/22 20:01 83 28 H 174/93 96 05/16/22 20:00 100.2 F H 99 05/16/22 19:51 85 18 143/79 99 05/16/22 19:41 64 21 166/88 100 05/16/22 19:31 81 23 166/88 97 05/16/22 19:21 69 23 136/73 100 05/16/22 19:11 64 19 127/73 100 05/16/22 19:00 88 19 127/73 98 05/16/22 18:51 65 23 123/73 99 05/16/22 18:42 98.8 F 82 20 150/75 100 05/16/22 18:41 66 20 127/63 100 05/16/22 18:31 80 15 127/63 98 05/16/22 18:21 69 18 112/65 100 05/16/22 18:12 98.8 F 78 20 145/80 100 05/16/22 18:11 66 17 116/71 100 05/16/22 18:05 67 20 116/71 100 05/16/22 18:03 67 18 116/71 100 05/16/22 18:01 68 19 116/71 100 05/16/22 18:00 70 22 116/71 100 05/16/22 17:59 67 18 120/66 99 05/16/22 17:57 66 18 120/66 99 05/16/22 17:55 67 18 120/66 99 05/16/22 17:53 67 18 120/66 99 05/16/22 17:51 69 17 120/66 99 05/16/22 17:49 66 15 120/66 100 05/16/22 17:47 65 15 120/66 99 05/16/22 17:46 66 17 120/66 100 05/16/22 17:45 67 19 120/66 99 05/16/22 17:43 67 18 108/73 99 05/16/22 17:41 67 19 108/73 100 05/16/22 17:39 68 17 108/73 100 05/16/22 17:37 70 19 108/73 99 05/16/22 17:35 67 21 108/73 99 05/16/22 17:33 84 18 108/73 100 05/16/22 17:31 97 H 14 108/73 99 05/16/22 17:29 70 16 151/54 99 05/16/22 17:27 69 20 151/54 100 05/16/22 17:25 74 16 151/54 99 05/16/22 17:23 71 21 151/54 98 05/16/22 17:21 69 21 151/54 99 05/16/22 17:19 77 21 151/54 99 05/16/22 17:17 72 16 151/54 98 05/16/22 17:15 80 25 H 151/54 100 05/16/22 17:13 78 18 151/54 95 05/16/22 17:11 81 16 151/54 100 05/16/22 17:09 83 18 151/54 99 05/16/22 17:07 87 22 151/54 99 05/16/22 17:05 83 22 151/54 99 05/16/22 17:03 98 H 22 151/54 97 05/16/22 17:01 76 19 151/54 99 05/16/22 16:59 76 15 149/85 99 05/16/22 16:57 98.7 F 77 17 149/85 100 05/16/22 16:55 79 14 149/85 99 05/16/22 16:53 80 15 149/85 100 05/16/22 16:51 78 20 149/85 100 05/16/22 16:49 76 18 149/85 99 05/16/22 16:47 76 18 149/85 100 05/16/22 16:45 78 22 149/85 100 05/16/22 16:43 74 14 147/88 99 05/16/22 16:41 79 11 L 147/88 99 05/16/22 16:39 76 16 147/88 100 05/16/22 16:37 77 17 147/88 100 05/16/22 16:35 70 23 147/88 99 05/16/22 16:33 77 22 147/88 100 05/16/22 16:31 76 22 147/88 98 05/16/22 16:29 75 15 143/77 100 05/16/22 16:27 77 19 143/77 98 05/16/22 16:25 77 15 143/77 98 05/16/22 16:23 84 12 143/77 100 05/16/22 16:21 65 21 143/77 100 05/16/22 16:19 65 18 143/77 99 05/16/22 16:17 62 19 143/77 99 05/16/22 16:15 65 19 143/77 99 05/16/22 16:13 66 19 141/81 99 05/16/22 16:11 65 19 141/81 99 05/16/22 16:09 75 20 141/81 100 05/16/22 16:07 71 14 141/81 100 05/16/22 16:05 75 12 141/81 100 05/16/22 16:03 81 21 141/81 100 05/16/22 16:01 72 17 141/81 99 05/16/22 16:00 98.0 F 63 67 19 141/81 100 05/16/22 15:59 62 18 140/79 100 05/16/22 15:57 64 17 140/79 100 05/16/22 15:55 67 16 140/79 100 05/16/22 15:53 69 13 140/79 100 05/16/22 15:51 61 16 140/79 100 05/16/22 15:49 67 12 140/79 100 05/16/22 15:47 62 17 141/79 100 05/16/22 15:45 67 12 141/79 100 05/16/22 15:43 67 21 146/81 100 05/16/22 15:41 66 23 146/81 100 05/16/22 15:39 61 16 146/81 100 05/16/22 15:37 62 14 146/81 100 05/16/22 15:35 64 16 146/81 100 05/16/22 15:33 63 16 146/81 100 05/16/22 15:31 65 16 146/81 100 05/16/22 15:30 66 18 146/81 100 05/16/22 15:29 65 17 139/79 100 05/16/22 15:27 65 17 139/79 100 05/16/22 15:25 63 17 139/79 100 07 15:23 63 18 139/79 100 05/16/22 15:21 62 18 139/79 100 05/16/22 15:19 63 19 139/79 100 05/16/22 15:18 63 18 140/79 100 05/16/22 15:17 63 17 139/79 100 05/16/22 15:16 63 18 140/79 100 05/16/22 15:15 64 17 140/79 100 05/16/22 15:13 64 17 139/79 100 05/16/22 15:12 66 18 139/79 100 05/16/22 15:11 65 19 139/79 100 05/16/22 15:09 66 19 139/79 100 05/16/22 15:07 65 18 139/79 100 05/16/22 15:05 65 17 139/79 05/16/22 15:03 64 17 139/79 05/16/22 14:33 98.7 F 65 16 131/69 100 05/16/22 14:03 98.6 F 68 17 127/69 99 05/16/22 13:48 98.6 F 70 18 121/70 05/16/22 12:00 70 99 05/16/22 11:48 98.1 F - Physical Examination General: No Apparent Distress HEENT: Positive: PERRL Neck: Positive: neck supple Cardiac: Positive: Reg Rate and Rhythm Lungs: Positive: Decreased Breath Sounds Neuro: Positive: Grossly Intact Abdomen: Positive: Soft Skin: Positive: Clear Extremities: Absent: edema - Labs and Meds CBC 05/17/22 Range/Units 04:58 WBC 8.6 (4.5-11.0) K/mm3 RBC 3.46 L (3.65-5.03) M/mm3 Hgb 10.6 L (11.8-15.2) gm/dl Hct 31.2 L D (35.5-45.6) % Plt Count 204 (140-440) K/mm3 Comprehensive Metabolic Panel 05/17/22 Range/Units 04:37 Sodium 135 L (137-145) mmol/L Potassium 3.8 (3.6-5.0) mmol/L Chloride 104.0 (98-107) mmol/L Carbon Dioxide 22 (22-30) mmol/L BUN 11 (9-20) mg/dL Creatinine 0.8 (0.8-1.3) mg/dL Glucose 151 H (75-100) mg/dL Calcium 8.8 (8.4-10.2) mg/dL - Allied health notes Allied health notes reviewed: nursing
--- NOTE | 2022-05-17 11:37 | Progress Note ---
Assessment and Plan Sepsis Acute toxic metabolic encephalopathy Possible urinary tract infection Atrial fibrillation with rapid ventricular response ABLA History of prostate enlargement Hypertension GERD DM II Leukocytosis Metabolic acidosis Lactic acidosis Elevated creatine kinase - awaiting cystoscopy - discontinue RIJ post procedure - rate control per cardiology - prn supplemental oxygen to keep O2 sats > 90% - prn bronchodilators (ADIN) with pulm hygiene per RT - urology evaluation pending - avoid nephrotoxins, renally dose all medications - continue mobility protocols to prevent pressure ulcers - PT/OT as tolerated - Wound care per RN/WCT - accuchecks with glycemic control per SSI for target blood glucose < 180 mg/dL - home oxygen evaluation at discharge - GI & VTE prophylaxis - Flu & pneumovax per protocol - Pulmonary out patient follow up for PFTs and optimization of respiratory status - prn analgesia per pain score - continue other care per attending / other consultants ... re-evaluate in am & prn Subjective Date of service: 05/17/22 Principal diagnosis: Sepsis; AMS; UTI; A-fib with RVR; ABLA; HTN; DM II; Gross Hematuria Interval history: Patient is seen today for: Sepsis; AMS; UTI; A-fib with RVR; ABLA; H/O prostate enlargement; HTN; GERD; DM II; Gross Hematuria Seen and examined at bedside; 24hour events reviewed; nursing and respiratory care staff consulted; no adverse overnight events reported to me; resting peacefully in bed; doing better; awaiting cystoscopy; No N/V/F/C Objective Vital Signs - 12hr 05/16/22 05/16/22 05/17/22 23:40 23:51 00:00 Temperature Pulse Rate 60 56 L 55 L Pulse Rate [ From Monitor] Respiratory 13 12 13 Rate Blood Pressure 122/72 124/69 127/70 O2 Sat by Pulse 99 98 95 Oximetry 05/17/22 05/17/22 05/17/22 00:11 00:21 00:30 Temperature Pulse Rate 53 L 54 L 55 L Pulse Rate [ From Monitor] Respiratory 11 L 11 L 10 L Rate Blood Pressure 127/70 124/70 132/69 O2 Sat by Pulse 98 99 97 Oximetry 05/17/22 05/17/22 05/17/22 00:41 00:51 01:00 Temperature Pulse Rate 55 L 55 L 55 L Pulse Rate [ From Monitor] Respiratory 15 13 13 Rate Blood Pressure 132/69 133/71 134/73 O2 Sat by Pulse 99 100 97 Oximetry 05/17/22 05/17/22 05/17/22 01:11 01:21 01:31 Temperature Pulse Rate 55 L 52 L 53 L Pulse Rate [ From Monitor] Respiratory 11 L 11 L 11 L Rate Blood Pressure 134/73 118/72 135/69 O2 Sat by Pulse 99 99 97 Oximetry 05/17/22 05/17/22 05/17/22 01:41 01:51 02:00 Temperature Pulse Rate 52 L 52 L 52 L Pulse Rate [ From Monitor] Respiratory 12 12 12 Rate Blood Pressure 135/69 143/70 133/72 O2 Sat by Pulse 100 99 97 Oximetry 05/17/22 05/17/22 05/17/22 02:11 02:21 02:30 Temperature Pulse Rate 54 L 54 L 62 Pulse Rate [ From Monitor] Respiratory 11 L 12 13 Rate Blood Pressure 133/72 129/69 134/73 O2 Sat by Pulse 99 99 98 Oximetry 05/17/22 05/17/22 05/17/22 02:41 02:51 03:01 Temperature Pulse Rate 60 54 L 57 L Pulse Rate [ From Monitor] Respiratory 10 L 10 L 13 Rate Blood Pressure 133/72 135/75 140/72 O2 Sat by Pulse 99 99 98 Oximetry 05/17/22 05/17/22 05/17/22 03:11 03:21 03:30 Temperature Pulse Rate 54 L 55 L 59 L Pulse Rate [ From Monitor] Respiratory 10 L 11 L 14 Rate Blood Pressure 140/72 140/72 145/69 O2 Sat by Pulse 99 99 98 Oximetry 05/17/22 05/17/22 05/17/22 03:41 03:51 04:00 Temperature Pulse Rate 60 61 Pulse Rate [ From Monitor] Respiratory 14 14 Rate Blood Pressure 145/69 132/72 O2 Sat by Pulse 99 99 99 Oximetry 05/17/22 05/17/22 05/17/22 04:01 04:11 04:21 Temperature Pulse Rate 63 59 L 56 L Pulse Rate [ From Monitor] Respiratory 14 15 9 L Rate Blood Pressure 141/78 141/78 139/76 O2 Sat by Pulse 97 99 99 Oximetry 05/17/22 05/17/22 05/17/22 04:30 04:41 04:50 Temperature 97.7 F Pulse Rate 54 L 56 L Pulse Rate [ From Monitor] Respiratory 12 9 L Rate Blood Pressure 135/68 135/68 O2 Sat by Pulse 99 99 Oximetry 05/17/22 05/17/22 05/17/22 04:51 05:00 05:11 Temperature Pulse Rate 55 L 55 L 55 L Pulse Rate [ From Monitor] Respiratory 13 12 11 L Rate Blood Pressure 150/80 132/75 132/75 O2 Sat by Pulse 100 98 99 Oximetry 05/17/22 05/17/22 05/17/22 05:21 05:30 05:41 Temperature Pulse Rate 54 L 53 L 53 L Pulse Rate [ From Monitor] Respiratory 11 L 11 L 10 L Rate Blood Pressure 138/71 143/72 143/72 O2 Sat by Pulse 99 97 99 Oximetry 05/17/22 05/17/22 05/17/22 05:51 06:00 06:11 Temperature Pulse Rate 52 L 51 L 54 L Pulse Rate [ From Monitor] Respiratory 10 L 11 L 11 L Rate Blood Pressure 143/73 141/73 141/73 O2 Sat by Pulse 99 97 98 Oximetry 05/17/22 05/17/22 05/17/22 06:21 06:30 06:41 Temperature Pulse Rate 55 L 52 L 50 L Pulse Rate [ From Monitor] Respiratory 10 L 10 L 9 L Rate Blood Pressure 146/80 138/93 138/93 O2 Sat by Pulse 100 98 99 Oximetry 05/17/22 05/17/22 05/17/22 06:51 07:00 07:11 Temperature Pulse Rate 52 L 82 57 L Pulse Rate [ From Monitor] Respiratory 11 L 17 12 Rate Blood Pressure 140/68 134/104 134/104 O2 Sat by Pulse 99 99 99 Oximetry 05/17/22 05/17/22 05/17/22 07:14 07:21 07:31 Temperature 98.2 F Pulse Rate 55 L 76 Pulse Rate [ From Monitor] Respiratory 12 15 Rate Blood Pressure 147/76 152/98 O2 Sat by Pulse 99 99 Oximetry 05/17/22 05/17/22 05/17/22 07:40 07:51 08:00 Temperature Pulse Rate 76 75 Pulse Rate [ 78 From Monitor] Respiratory 16 17 15 Rate Blood Pressure 152/98 152/98 O2 Sat by Pulse 100 98 100 Oximetry 05/17/22 05/17/22 05/17/22 08:01 08:11 08:21 Temperature Pulse Rate 64 65 59 L Pulse Rate [ From Monitor] Respiratory 15 13 14 Rate Blood Pressure 147/78 152/98 151/75 O2 Sat by Pulse 98 99 99 Oximetry 05/17/22 05/17/22 05/17/22 08:30 08:41 08:51 Temperature Pulse Rate 69 64 69 Pulse Rate [ From Monitor] Respiratory 15 12 13 Rate Blood Pressure 160/79 160/79 160/79 O2 Sat by Pulse 98 99 99 Oximetry 05/17/22 05/17/22 05/17/22 09:01 09:11 09:12 Temperature Pulse Rate 69 96 H 78 Pulse Rate [ From Monitor] Respiratory 12 18 Rate Blood Pressure 160/79 160/79 O2 Sat by Pulse 99 Oximetry 05/17/22 05/17/22 05/17/22 09:21 09:30 09:41 Temperature Pulse Rate 72 68 65 Pulse Rate [ From Monitor] Respiratory 12 14 13 Rate Blood Pressure 156/79 147/73 147/73 O2 Sat by Pulse 100 98 99 Oximetry 05/17/22 05/17/22 05/17/22 09:51 10:01 10:11 Temperature Pulse Rate 71 67 64 Pulse Rate [ From Monitor] Respiratory 14 16 14 Rate Blood Pressure 138/76 131/83 131/83 O2 Sat by Pulse 99 97 98 Oximetry 05/17/22 05/17/22 05/17/22 10:21 10:31 10:41 Temperature Pulse Rate 61 72 94 H Pulse Rate [ From Monitor] Respiratory 12 11 L 15 Rate Blood Pressure 119/83 134/65 134/65 O2 Sat by Pulse 98 97 99 Oximetry 05/17/22 05/17/22 05/17/22 10:50 11:00 11:11 Temperature Pulse Rate 61 68 67 Pulse Rate [ From Monitor] Respiratory 13 16 14 Rate Blood Pressure 154/82 150/80 150/80 O2 Sat by Pulse 99 100 100 Oximetry Constitutional: no acute distress Eyes: non-icteric ENT: oropharynx moist Neck: supple, no lymphadenopathy, no JVD Effort: normal Ascultation: Bilateral: clear Percussion: Bilateral: not dull Cardiovascular: regular rate and rhythm Gastrointestinal: normoactive bowel sounds, soft, non-tender, non-distended Integumentary: normal Extremities: no cyanosis, no edema, pulses normal, no ischemia or petechiae Neurologic: normal mental status, non-focal exam (grossly), pupils equal and round, motor strength normal and Psychiatric: mood appropriate, affect normal CBC and BMP: 05/17/22 04:58 05/17/22 04:37 ABG, PT/INR, D-dimer: PT/INR, D-dimer PT 16.5 Sec. (12.2-14.9) H 05/14/22 06:57 INR 1.19 (0.87-1.13) H 05/14/22 06:57 Abnormal lab findings: Abnormal Labs 05/14/22 05/14/22 05/14/22 04:59 06:57 06:57 WBC 12.5 H RBC 1.95 L Hgb 6.0 L Hct 18.7 L* MCV 96 H RDW 13.0 L Lymph % (Auto) 4.7 L Walton % (Auto) 11.9 H Lymph # (Auto) 0.6 L Walton # (Auto) 1.5 H Seg Neutrophils % 83.3 H Seg Neuts % (Manual) Lymphocytes % (Manual) Monocytes % (Manual) Seg Neutrophils # 10.4 H Lymphocytes # (Manual) Monocytes # (Manual) PT INR Sodium Chloride 108.3 H Carbon Dioxide 18 L BUN 29 H Glucose 275 H POC Glucose 245 H Lactic Acid Calcium 8.3 L Phosphorus Magnesium Total Creatine Kinase C-Reactive Protein Total Protein Albumin 3.2 L Free T4 Urine WBC (Auto) Crossmatch 05/14/22 05/14/22 05/14/22 06:57 06:57 06:57 WBC RBC Hgb Hct MCV RDW Lymph % (Auto) Walton % (Auto) Lymph # (Auto) Walton # (Auto) Seg Neutrophils % Seg Neuts % (Manual) Lymphocytes % (Manual) Monocytes % (Manual) Seg Neutrophils # Lymphocytes # (Manual) Monocytes # (Manual) PT 16.5 H INR 1.19 H Sodium Chloride Carbon Dioxide BUN Glucose POC Glucose Lactic Acid 2.10 H* Calcium Phosphorus Magnesium Total Creatine Kinase 774 H C-Reactive Protein 23.80 H Total Protein Albumin Free T4 Urine WBC (Auto) Crossmatch 05/14/22 05/14/22 05/14/22 07:28 09:54 17:30 WBC RBC Hgb Hct MCV RDW Lymph % (Auto) Walton % (Auto) Lymph # (Auto) Walton # (Auto) Seg Neutrophils % Seg Neuts % (Manual) Lymphocytes % (Manual) Monocytes % (Manual) Seg Neutrophils # Lymphocytes # (Manual) Monocytes # (Manual) PT INR Sodium Chloride Carbon Dioxide BUN Glucose POC Glucose 206 H Lactic Acid Calcium Phosphorus Magnesium Total Creatine Kinase C-Reactive Protein Total Protein Albumin Free T4 Urine WBC (Auto) > 182.0 H Crossmatch See Detail 05/14/22 05/14/22 05/14/22 22:40 22:40 22:40 WBC RBC Hgb 7.8 L Hct 22.9 L MCV RDW Lymph % (Auto) Walton % (Auto) Lymph # (Auto) Walton # (Auto) Seg Neutrophils % Seg Neuts % (Manual) Lymphocytes % (Manual) Monocytes % (Manual) Seg Neutrophils # Lymphocytes # (Manual) Monocytes # (Manual) PT INR Sodium Chloride Carbon Dioxide BUN Glucose POC Glucose Lactic Acid Calcium Phosphorus Magnesium 1.60 L Total Creatine Kinase C-Reactive Protein Total Protein Albumin Free T4 1.59 H Urine WBC (Auto) Crossmatch 05/15/22 05/15/22 05/15/22 00:10 05:00 05:00 WBC 11.1 H RBC 2.49 L Hgb 7.5 L Hct 22.8 L MCV RDW Lymph % (Auto) 8.8 L Walton % (Auto) 13.1 H Lymph # (Auto) 1.0 L Walton # (Auto) 1.5 H Seg Neutrophils % 77.7 H Seg Neuts % (Manual) Lymphocytes % (Manual) Monocytes % (Manual) Seg Neutrophils # 8.6 H Lymphocytes # (Manual) Monocytes # (Manual) PT INR Sodium Chloride 108.5 H Carbon Dioxide 20 L BUN Glucose 188 H POC Glucose 218 H Lactic Acid Calcium 8.2 L Phosphorus Magnesium Total Creatine Kinase C-Reactive Protein Total Protein 5.7 L Albumin 2.7 L Free T4 Urine WBC (Auto) Crossmatch 05/15/22 05/15/22 05/15/22 05:52 11:34 16:24 WBC RBC Hgb Hct MCV RDW Lymph % (Auto) Walton % (Auto) Lymph # (Auto) Walton # (Auto) Seg Neutrophils % Seg Neuts % (Manual) Lymphocytes % (Manual) Monocytes % (Manual) Seg Neutrophils # Lymphocytes # (Manual) Monocytes # (Manual) PT INR Sodium Chloride Carbon Dioxide BUN Glucose POC Glucose 205 H 163 H 163 H Lactic Acid Calcium Phosphorus Magnesium Total Creatine Kinase C-Reactive Protein Total Protein Albumin Free T4 Urine WBC (Auto) Crossmatch 05/15/22 05/15/22 05/16/22 19:10 21:46 04:00 WBC RBC 2.51 L 2.54 L Hgb 7.7 L 7.7 L Hct 23.0 L 22.9 L MCV RDW Lymph % (Auto) Walton % (Auto) Lymph # (Auto) [place] # (Auto) Seg Neutrophils % Seg Neuts % (Manual) 79.0 H Lymphocytes % (Manual) 8.0 L Monocytes % (Manual) 13.0 H Seg Neutrophils # Lymphocytes # (Manual) 0.7 L Monocytes # (Manual) 1.1 H PT INR Sodium Chloride Carbon Dioxide BUN Glucose POC Glucose 222 H Lactic Acid Calcium Phosphorus Magnesium Total Creatine Kinase C-Reactive Protein Total Protein Albumin Free T4 Urine WBC (Auto) Crossmatch 05/16/22 05/16/22 05/16/22 04:00 11:26 16:21 WBC RBC Hgb Hct MCV RDW Lymph % (Auto) Walton % (Auto) Lymph # (Auto) [place] # (Auto) Seg Neutrophils % Seg Neuts % (Manual) Lymphocytes % (Manual) Monocytes % (Manual) Seg Neutrophils # Lymphocytes # (Manual) Monocytes # (Manual) PT INR Sodium Chloride Carbon Dioxide 20 L BUN Glucose 191 H POC Glucose 204 H 182 H Lactic Acid Calcium 8.3 L Phosphorus 2.30 L Magnesium Total Creatine Kinase C-Reactive Protein Total Protein Albumin Free T4 Urine WBC (Auto) Crossmatch 05/16/22 05/17/22 05/17/22 21:29 04:37 04:58 WBC RBC 3.46 L Hgb 10.6 L Hct 31.2 L D MCV RDW Lymph % (Auto) Walton % (Auto) Lymph # (Auto) [place] # (Auto) Seg Neutrophils % Seg Neuts % (Manual) Lymphocytes % (Manual) Monocytes % (Manual) Seg Neutrophils # Lymphocytes # (Manual) Monocytes # (Manual) PT INR Sodium 135 L Chloride Carbon Dioxide BUN Glucose 151 H POC Glucose 162 H Lactic Acid Calcium Phosphorus Magnesium Total Creatine Kinase C-Reactive Protein Total Protein Albumin Free T4 Urine WBC (Auto) Crossmatch 05/17/22 05/17/22 07:26 11:31 WBC RBC Hgb Hct MCV RDW Lymph % (Auto) [place] % (Auto) Lymph # (Auto) [place] # (Auto) Seg Neutrophils % Seg Neuts % (Manual) Lymphocytes % (Manual) Monocytes % (Manual) Seg Neutrophils # Lymphocytes # (Manual) Monocytes # (Manual) PT INR Sodium Chloride Carbon Dioxide BUN Glucose POC Glucose 124 H 201 H Lactic Acid Calcium Phosphorus Magnesium Total Creatine Kinase C-Reactive Protein Total Protein Albumin Free T4 Urine WBC (Auto) Crossmatch Allied health notes reviewed: nursing
--- NOTE | 2022-05-17 15:37 | Progress Note ---
Assessment and Plan Assessment and plan: This is a 81-year-old male with vascular dementia, cerebral arthrosclerosis, DM, HLD, HTN, GERD, anemia of chronic disease, BPH with chronic indwelling Sprague catheter and hematuria admitted with acute blood loss anemia, new onset A. fib with RVR and sepsis secondary to UTI Neuro: h/o vascular dementia, cerebral atherosclerosis -Reorientation as needed -Maintain sleep-wake cycle -aspiration/seizure precautions -As needed analgesia -CT head shows no acute intracranial abnormality -Continue supportive care Cardiac: New onset atrial fibrillation, h/o HTN and hyperlipidemia -Cardiology consulted, appreciate recommendations -Blood pressure monitoring per protocol -S/p IV amiodarone -Currently on p.o. amiodarone, p.o. metoprolol -Continue home Lipitor -Echocardiogram shows LVEF of 50 to 55%, impaired relaxation -No anticoagulation in setting of a ABLA/hematuria Respiratory: NAD -Pulmonary hygiene -SPO2 monitor per protocol -Supplemental oxygen as needed GI: Moderate protein calorie malnutrition, h/o GERD -24 hours -1150 ml -PPI -Mechanical soft diet with nutritional supplementation -BR: Colace : Obstructive uropathy, gross hematuria with clots, chronic indwelling Sprague catheter, h/o BPH, ? Neurogenic bladder -Urology consulted, appreciate recommendations -CT abdomen/pelvis shows no significant abnormality of the ureters, probable blood products in the bladder, bladder mass cannot be entirely excluded -Cystogram pending -Continue home Cardura -Record intake and output -Renally dose medications -Avoid nephrotoxic medications -Trend BMP ID: Sepsis likely secondary to UTI (POA) -Presented with leukocytosis, hypotension, pyuria -CRP 23.8, procalcitonin 4.61 -Antibiotic therapy with Levaquin (05/15-) -05/14 blood cultures with no growth after 48 hours, urine culture with no growth after 48 hours -Monitor WBC and temperature curve Endo: h/o type 2 diabetes mellitus -Avoid hypoglycemia -SSI -Accu-Cheks AC at bedtime Heme: Acute on chronic anemia, ABLA -Presented with H/H of 6.0/18.7 -S/p 4 units PRBC -Trend CBC -Transfuse hemoglobin less than 7 -Continue home iron -No anticoagulation in setting of ABLA -SCDs to BLE while in bed The high probability of a clinically significant, sudden or life threatening deterioration of the [multiple] system(s) required my full and direct attention, intervention and personal management. The aggregate critical care time was [60] minutes. This time is in addition to time spent performing reported procedures but includes the following: [x] Data Review and interpretation [x] Patient assessment and monitoring of vital signs [x] Documentation [x] Medication orders and management Disposition Plan: imcu Total Time Spent with Patient (Minutes): 60 History Interval history: This is 81 male with vascular dementia, cerebral arthrosclerosis, DM, HLD, HTN, GERD, anemia of chronic disease, BPH with chronic indwelling Sprague catheter marii nereida 1 week prior to presentation who presented to the hospital on 05/14 via EMS after being found unresponsive while sitting on the sofa per family. Patient was hypotensive with systolic blood pressure in the 80s and heart rate in the 150s and lab work showed sepsis suspected secondary to UTI, toxic metabolic encephalopathy, new onset of fibrillation with RVR. Patient was admitted to the hospitalist service with consults to cardiology and CCM on amiodarone drip. Hospital Course to Date: 05/15: Fully AAO this am, stable on RA. With persistent gross hematuria this am, s/p 2units of PRBCs. H&H stable this am. Remains on Amiodarone gtt, SR noted on the monitor, VSS. D/W Cardio, plan to transition to PO Amio today. 2D Echo pending. Continue to trend H&H, Urology consulted. 05/16: Neurology will transfuse the patient with 2 units PRBC and plans to complete a CT abdomen and pelvis. Phosphorus repleted with Joaquín. Procalcitonin pending. 05/17: Hemoglobin has responded appropriately to blood transfusion yesterday, urology will possibly perform cysto tomorrow. We will continue right IJ 12 and a cystoscopy. Procalcitonin elevated therefore we will continue antibiotic for Hospitalist Physical - Constitutional Vitals: Temp Pulse Resp BP Pulse Ox 97.8 F 62 12 143/73 100 05/17/22 11:42 05/17/22 12:51 05/17/22 12:51 05/17/22 12:51 05/17/22 12:51 General appearance: Present: no acute distress - EENT Eyes: Present: PERRL, EOM intact ENT: hearing intact, poor dentition - Neck Neck: Present: normal ROM - Respiratory Respiratory effort: normal Respiratory: bilateral: diminished - Cardiovascular Rhythm: regular Heart Sounds: Present: S1 & S2. Absent: systolic murmur, diastolic murmur - Extremities Extremities: no ischemia, pulses intact, pulses symmetrical, No edema, normal temperature, normal color Peripheral Pulses: within normal limits - Abdominal General gastrointestinal: soft, non-tender, non-distended, normal bowel sounds - Integumentary Integumentary: Present: warm, dry - Psychiatric Psychiatric: cooperative - Neurologic Neurologic: CNII-XII intact, no focal deficits, moves all extremities - Allied Health Allied health notes reviewed: nursing, social work HEART Score - HEART Score Troponin: Troponin T < 0.010 ng/mL (0.00-0.029) 05/14/22 06:57 Results - Labs CBC & Chem 7: 05/17/22 04:58 05/17/22 04:37 Labs: Laboratory Last Values WBC 8.6 K/mm3 (4.5-11.0) 05/17/22 04:58 RBC 3.46 M/mm3 (3.65-5.03) L 05/17/22 04:58 Hgb 10.6 gm/dl (11.8-15.2) L 05/17/22 04:58 Hct 31.2 % (35.5-45.6) L D 05/17/22 04:58 MCV 90 fl (84-94) 05/17/22 04:58 MCH 31 pg (28-32) 05/17/22 04:58 MCHC 34 % (32-34) 05/17/22 04:58 RDW 15.0 % (13.2-15.2) 05/17/22 04:58 Plt Count 204 K/mm3 (140-440) 05/17/22 04:58 Lymph % (Auto) 8.8 % (13.4-35.0) L 05/15/22 05:00 [place] % (Auto) 13.1 % (0.0-7.3) H 05/15/22 05:00 Eos % (Auto) 0.3 % (0.0-4.3) 05/15/22 05:00 Baso % (Auto) 0.1 % (0.0-1.8) 05/15/22 05:00 Lymph # (Auto) 1.0 K/mm3 (1.2-5.4) L 05/15/22 05:00 [place] # (Auto) 1.5 K/mm3 (0.0-0.8) H 05/15/22 05:00 Eos # (Auto) 0.0 K/mm3 (0.0-0.4) 05/15/22 05:00 Baso # (Auto) 0.0 K/mm3 (0.0-0.1) 05/15/22 05:00 Add Manual Diff Complete 05/15/22 19:10 Total Counted 100 05/15/22 19:10 Seg Neutrophils % 77.7 % (40.0-70.0) H 05/15/22 05:00 Seg Neuts % (Manual) 79.0 % (40.0-70.0) H 05/15/22 19:10 Band Neutrophils % 0 % 05/15/22 19:10 Lymphocytes % (Manual) 8.0 % (13.4-35.0) L 05/15/22 19:10 Reactive Lymphs % (Man) 0 % 05/15/22 19:10 Monocytes % (Manual) 13.0 % (0.0-7.3) H 05/15/22 19:10 Eosinophils % (Manual) 0 % (0.0-4.3) 05/15/22 19:10 Basophils % (Manual) 0 % (0.0-1.8) 05/15/22 19:10 Metamyelocytes % 0 % 05/15/22 19:10 Myelocytes % 0 % 05/15/22 19:10 Promyelocytes % 0 % 05/15/22 19:10 Blast Cells % 0 % 05/15/22 19:10 Nucleated RBC % Not Reportable 05/15/22 19:10 Seg Neutrophils # 8.6 K/mm3 (1.8-7.7) H 05/15/22 05:00 Seg Neutrophils # Man 6.9 K/mm3 (1.8-7.7) 05/15/22 19:10 Band Neutrophils # 0.0 K/mm3 05/15/22 19:10 Lymphocytes # (Manual) 0.7 K/mm3 (1.2-5.4) L 05/15/22 19:10 Abs React Lymphs (Man) 0.0 K/mm3 07/24/22 19:10 Monocytes # (Manual) 1.1 K/mm3 (0.0-0.8) H 05/15/22 19:10 Eosinophils # (Manual) 0.0 K/mm3 (0.0-0.4) 05/15/22 19:10 Basophils # (Manual) 0.0 K/mm3 (0.0-0.1) 05/15/22 19:10 Metamyelocytes # 0.0 K/mm3 05/15/22 19:10 Myelocytes # 0.0 K/mm3 05/15/22 19:10 Promyelocytes # 0.0 K/mm3 05/15/22 19:10 Blast Cells # 0.0 K/mm3 05/15/22 19:10 WBC Morphology Not Reportable 05/15/22 19:10 Hypersegmented Neuts Not Reportable 05/15/22 19:10 Hyposegmented Neuts Not Reportable 05/15/22 19:10 Hypogranular Neuts Not Reportable 05/15/22 19:10 Smudge Cells Not Reportable 05/15/22 19:10 Toxic Granulation Not Reportable 05/15/22 19:10 Toxic Vacuolation Not Reportable 05/15/22 19:10 Dohle Bodies Not Reportable 05/15/22 19:10 Pelger-Huet Anomaly Not Reportable 05/15/22 19:10 Jorge Rods Not Reportable 05/15/22 19:10 Platelet Estimate Consistent w auto 05/15/22 19:10 Clumped Platelets Not Reportable 05/15/22 19:10 Plt Clumps, EDTA Not Reportable 05/15/22 19:10 Large Platelets Not Reportable 05/15/22 19:10 Giant Platelets Not Reportable 05/15/22 19:10 Platelet Satelliting Not Reportable 05/15/22 19:10 Plt Morphology Comment Not Reportable 05/15/22 19:10 RBC Morphology Not Reportable 05/15/22 19:10 Dimorphic RBCs Not Reportable 05/15/22 19:10 Polychromasia Not Reportable 05/15/22 19:10 Hypochromasia Not Reportable 05/15/22 19:10 Poikilocytosis Not Reportable 05/15/22 19:10 Anisocytosis 1+ 05/15/22 19:10 Microcytosis Not Reportable 05/15/22 19:10 Macrocytosis Not Reportable 05/15/22 19:10 Spherocytes Not Reportable 05/15/22 19:10 Pappenheimer Bodies Not Reportable 05/15/22 19:10 Sickle Cells Not Reportable 05/15/22 19:10 Target Cells Not Reportable 05/15/22 19:10 Tear Drop Cells Not Reportable 05/15/22 19:10 Ovalocytes Not Reportable 05/15/22 19:10 Helmet Cells Not Reportable 05/15/22 19:10 Greene-Combs Bodies Not Reportable 05/15/22 19:10 [place] Rings Not Reportable 05/15/22 19:10 Wright Cells Not Reportable 05/15/22 19:10 Bite Cells Not Reportable 05/15/22 19:10 Crenated Cell Not Reportable 05/15/22 19:10 Elliptocytes Not Reportable 05/15/22 19:10 Acanthocytes (Spur) Not Reportable 05/15/22 19:10 Rouleaux Not Reportable 05/15/22 19:10 Hemoglobin C Crystals Not Reportable 05/15/22 19:10 Schistocytes Not Reportable 05/15/22 19:10 Malaria parasites Not Reportable 05/15/22 19:10 Miguel Bodies Not Reportable 05/15/22 19:10 Hem Pathologist Commnt No 05/15/22 19:10 PT 16.5 Sec. (12.2-14.9) H 05/14/22 06:57 INR 1.19 (0.87-1.13) H 05/14/22 06:57 Sodium 135 mmol/L (137-145) L 05/17/22 04:37 Potassium 3.8 mmol/L (3.6-5.0) 05/17/22 04:37 Chloride 104.0 mmol/L (98-107) 05/17/22 04:37 Carbon Dioxide 22 mmol/L (22-30) 05/17/22 04:37 Anion Gap 13 mmol/L 05/17/22 04:37 BUN 11 mg/dL (9-20) 05/17/22 04:37 Creatinine 0.8 mg/dL (0.8-1.3) 05/17/22 04:37 Estimated GFR > 60 ml/min 05/17/22 04:37 BUN/Creatinine Ratio 14 % 05/17/22 04:37 Glucose 151 mg/dL (75-100) H 05/17/22 04:37 POC Glucose 201 mg/dL (70-105) H 05/17/22 11:31 Lactic Acid 1.00 mmol/L (0.7-2.0) 05/14/22 22:40 Calcium 8.8 mg/dL (8.4-10.2) 05/17/22 04:37 Phosphorus 2.80 mg/dL (2.5-4.5) D 05/17/22 04:37 Magnesium 1.80 mg/dL (1.7-2.3) 05/17/22 04:37 Total Bilirubin 0.50 mg/dL (0.1-1.2) 05/15/22 05:00 AST 31 units/L (5-40) 05/15/22 05:00 ALT 21 units/L (7-56) 05/15/22 05:00 Alkaline Phosphatase 53 units/L (35-129) 05/15/22 05:00 Total Creatine Kinase 774 units/L (55-170) H 05/14/22 06:57 Troponin T < 0.010 ng/mL (0.00-0.029) 05/14/22 06:57 C-Reactive Protein 23.80 mg/dL (0.00-1.30) H 05/14/22 06:57 NT-Pro-B Natriuret Pep 705.7 pg/mL (0-900) 05/14/22 06:57 Total Protein 5.7 g/dL (6.3-8.2) L 05/15/22 05:00 Albumin 2.7 g/dL (3.9-5) L 05/15/22 05:00 Albumin/Globulin Ratio 0.9 % 05/15/22 05:00 Lipase 20 units/L (13-60) 05/14/22 06:57 Procalcitonin 4.61 ng/mL (<0.15) 05/14/22 22:40 TSH 1.040 mlU/mL (0.270-4.200) 05/14/22 22:40 Free T4 1.59 ng/dL (0.76-1.46) H 05/14/22 22:40 Urine Color Red (Yellow) 05/14/22 07:28 Urine Turbidity Bloody (Clear) 05/14/22 07:28 Urine Protein Color interference mg/dL (Negative) 05/14/22 07:28 Urine Glucose (UA) Color interference mg/dL (Negative) 05/14/22 07:28 Urine Ketones Color interference mg/dL (Negative) 05/14/22 07:28 Urine Blood Color interference (Negative) 05/14/22 07:28 Urine Nitrite Color interference (Negative) 05/14/22 07:28 Urine Bilirubin Color interference (Negative) 05/14/22 07:28 Urine Ictotest Not Reportable 05/14/22 07:28 Ur Leukocyte Esterase Color interference (Negative) 05/14/22 07:28 Urine WBC (Auto) > 182.0 /HPF (0.0-6.0) H 05/14/22 07:28 Urine RBC (Auto) > 182.0 /HPF (0.0-6.0) 05/14/22 07:28 U Epithel Cells (Auto) 5.0 /HPF (0-13.0) 05/14/22 07:28 Urine Bacteria (Auto) 3+ /HPF (Negative) 05/14/22 07:28 Blood Type O POSITIVE 05/14/22 09:54 Antibody Screen Negative 05/14/22 09:54 Crossmatch See Detail 05/14/22 09:54 Microbiology: Microbiology 05/14/22 06:57 Peripheral/Venous Blood Culture - Preliminary NO GROWTH AFTER 72 HOURS 05/14/22 06:57 Peripheral/Venous Blood Culture - Preliminary NO GROWTH AFTER 72 HOURS 05/14/22 Unknown Urine,Clean Catch Urine Culture - Final NO GROWTH AFTER 48 HOURS Sprague/IV: Voiding Method Indwelling Catheter Active Medications - Current Medications Current Medications: Generic Name Dose Route Start Last Admin Trade Name Freq PRN Reason Stop Dose Admin Acetaminophen 650 mg 05/14/22 12:08 Acetaminophen 325 Mg Tab PO Q6H PRN Pain, Mild (1-3) Albuterol 2.5 mg 05/14/22 12:06 Albuterol 2.5 Mg/3 Ml Nebu IH Q3HRT PRN Shortness Of Breath Amiodarone HCl 200 mg 05/15/22 15:00 05/17/22 09:50 Amiodarone 200 Mg Tab PO 200 mg QDAY KARLA Administration Atorvastatin Calcium 80 mg 05/15/22 22:00 05/16/22 21:08 Atorvastatin 40 Mg Tab PO 80 mg QHS KARLA Administration Cyanocobalamin 1,000 mcg 05/15/22 10:00 05/17/22 09:50 Cyanocobalamin (Vit B-12) 1000 Mcg Tab PO 1,000 mcg QDAY KARLA Administration Dextrose 50 ml 05/14/22 15:19 Dextrose 50% In Water (25gm) 50 Ml Syringe IV Q30MIN PRN Hypoglycemia Protocol Docusate Sodium 100 mg 05/16/22 22:00 05/17/22 09:18 Docusate Sodium 100 Mg Cap PO Not Given BID [facility] Doxazosin Mesylate 1 mg 05/14/22 22:00 05/16/22 21:07 Doxazosin 1 Mg Tab PO 1 mg QHS KARLA Administration Ferrous Sulfate 325 mg 05/15/22 10:00 05/17/22 09:50 Ferrous Sulfate 325 Mg Tab PO 325 mg QDAY [facility] Administration Hydromorphone HCl 0.5 mg 05/17/22 08:38 Hydromorphone 0.5 Mg/0.5 Ml Inj IV Q4H PRN Pain , Severe (7-10) Levofloxacin/Dextrose 750 mg in 150 mls @ 100 mls/hr 05/15/22 13:00 05/17/22 14:18 Levaquin 750mg/150ml IV 05/19/22 14:29 Infused Q24H [facility] Infusion Protocol Insulin Human Lispro 0 unit 05/15/22 16:30 05/17/22 12:48 Insulin Lispro 100 Unit/Ml SUB-Q 3 unit ACHS [facility] Administration Protocol Metoprolol Tartrate 25 mg 05/15/22 15:00 05/17/22 08:26 Metoprolol Tartrate 25 Mg Tab PO Not Given Q8H [facility] Morphine Sulfate 2 mg 05/16/22 22:25 05/17/22 09:48 Morphine 2 Mg/1 Ml Inj IV 2 mg Q4H PRN Administration Pain, Moderate (4-6) Oxycodone/Acetaminophen 1 tab 05/14/22 12:06 05/16/22 20:10 Oxycodone /Acetaminophen 5-325mg Tab PO 1 tab Q6H PRN Administration Pain, Moderate (4-6) Pantoprazole Sodium 20 mg 05/16/22 10:00 05/17/22 09:50 Pantoprazole 20 Mg Tab PO 20 mg QDAY KARLA Administration Sodium Chloride 10 ml 05/14/22 22:00 05/17/22 09:49 Sodium Chloride 0.9% 10 Ml Flush Syringe IV 10 ml BID KARLA Administration Sodium Chloride 10 ml 05/14/22 12:06 Sodium Chloride 0.9% 10 Ml Flush Syringe IV PRN PRN LINE FLUSH Nutrition/Malnutrition Assess - Dietary Evaluation Nutrition/Malnutrition Findings: Nutrition Notes Start: 05/15/22 14:55 Freq: Status: Active Protocol: Document 05/15/22 14:55 RS (Rec: 05/15/22 15:31 RS [id number]) Nutrition Notes Need for Assessment generated from: MD Order Initial or Follow up Brief Note Current Diagnosis Diabetes,Sepsis,Hyperlipidemia Other Pertinent Diagnosis Dementia, metabolic encephalopathy, A-fib, UTI, GERD, Labs/Tests Cl: 108 CO2: 20 GlU:188 Ca:8.2 Pertinent Medications reviewed Height 5 ft 8 in Weight 81.7 kg [place] Body Weight (kg) 70.00 BMI 27.3 Weight change and time frame ELBERT wt hx Weight Status Appropriate Subjective/Other Information MD consult for malnutrition. RD noted some muscle wasting around temporal lobes w/ protroding clavical with some dark depressions around orbital region. Will need to f /u for caretakers present for intakes before adms. Pt has surgery scheduled on 05/18. Burn Absent Trauma Absent Nutrition Intervention Additional Comments F/U for intakes before adm, full nutrition assessment with caretakers
[2022-05-17] MEDS: oxyCODONE /ACETAMINOPHEN 5-325MG TAB PO PRN (19:20)
[2022-05-17] MEDS: DOXAZOSIN 1 MG TAB PO SCH (21:02)
[2022-05-18 04:29] LABS: Hematocrit 31.5 % (35.5-45.6); Hemoglobin 10.8 gm/dl (11.8-15.2); Mean Corpuscular HGB Conc 34 % (32-34); Mean Corpuscular Volume 89 fl (84-94); Platelet Count 229 K/mm3 (140-440); Red Blood Count 3.53 M/mm3 (3.65-5.03); Red Cell Distribution Width 14.4 % (13.2-15.2)
[2022-05-18 04:37] LABS: Blood Urea Nitrogen 10 mg/dL (9-20); Calcium 8.7 mg/dL (8.4-10.2); Hemolysis Index 10
[2022-05-18 05:05] LABS: BUN/Creatinine Ratio 14
[2022-05-18] MEDS: METOPROLOL TARTRATE 25 MG TAB PO SCH ×3 (08:24→23:14)
[2022-05-18] MEDS: INSULIN LISPRO 100 UNIT/ML SUB-Q SCH ×4 (08:24→22:03)
--- NOTE | 2022-05-18 11:55 | Anesthesia Consultation ---
Anesthesia Consult and Med Hx Date of service: 05/18/22 - Airway Anesthetic Teeth Evaluation: Edentulous ROM Head & Neck: Adequate Mental/Hyoid Distance: Adequate Mallampati Class: Class II Intubation Access Assessment: Probably Good - Pulmonary Exam CTA: Yes - Cardiac Exam Cardiac Exam: RRR - Pre-Operative Health Status ASA Pre-Surgery Classification: ASA3 Proposed Anesthetic Plan: General - Pulmonary Hx Smoking: No Hx Asthma: No Hx Sleep Apnea: No - Cardiovascular System Hx Hypertension: Yes (EF 50-55%) Hx Coronary Artery Disease: No Hx Cardia Arrhythmia: Yes (new onset AFib w/ RVR this admission. Currently in NSR) - Central Nervous System Hx Neuromuscular Disorder: Yes (vasscular dementia) Hx Seizures: No CVA: No Hx Psychiatric Problems: No - Gastrointestinal Hx Gastroesophageal Reflux Disease: Yes - Endocrine Hx Renal Disease: No Hx Liver Disease: No Hx Insulin Dependent Diabetes: Yes Hx Thyroid Disease: No - Hematic Hx Anemia: Yes Hx Sickle Cell Disease: No - Other Systems Hx Alcohol Use: No Hx Substance Use: No Hx Cancer: No Hx Obesity: No - Additional Comments Anesthesia Medical History Comments: no hx of anesthetic complications
--- NOTE | 2022-05-18 12:03 | Anesthesia Day of Surgery ---
Anesthesia Day of Surgery - Day of Surgery Patient Examined: Yes Patient H&P Reviewed: Yes Patient is NPO: Yes
[2022-05-18] MEDS ORDERED: LACTATED RINGERS 1,000 ML ONE (12:15)
--- NOTE | 2022-05-18 12:49 | Progress Note ---
Assessment and Plan Assessment and plan: History Interval history: This is 81 male with vascular dementia, cerebral arthrosclerosis, DM, HLD, HTN, GERD, anemia of chronic disease, BPH with chronic indwelling Sprague catheter placed 1 week prior to presentation who presented to the hospital on 05/14 via EMS after being found unresponsive while sitting on the sofa per family. Patient was hypotensive with systolic blood pressure in the 80s and heart rate in the 150s and lab work showed sepsis suspected secondary to UTI, toxic metabolic encephalopathy, new onset of fibrillation with RVR. Patient was admitted to the hospitalist service with consults to cardiology and CCM on amiodarone drip. Hospital Course to Date: 05/15: Fully AAO this am, stable on RA. With persistent gross hematuria this am, s/p 2units of PRBCs. H&H stable this am. Remains on Amiodarone gtt, SR noted on the monitor, VSS. D/W Cardio, plan to transition to PO Amio today. 2D Echo pending. Continue to trend H&H, Urology consulted. 05/16: Neurology will transfuse the patient with 2 units PRBC and plans to complete a CT abdomen and pelvis. Phosphorus repleted with K-Phos. Procalcitonin pending. 05/17: Hemoglobin has responded appropriately to blood transfusion yesterday, urology will possibly perform cysto tomorrow. We will continue right IJ 12 and a cystoscopy. Procalcitonin elevated therefore we will continue antibiotic . 05/18: To OR for cystoscopy. Will follow up post op. Sprague bag remains very blood y. Will check H/H tomorrow AM Assessment and plan: Neuro: h/o vascular dementia, cerebral atherosclerosis -Reorientation as needed -Maintain sleep-wake cycle -aspiration/seizure precautions -As needed analgesia -CT head shows no acute intracranial abnormality -Continue supportive care Cardiac: New onset atrial fibrillation, h/o HTN and hyperlipidemia -Cardiology consulted, appreciate recommendations -Blood pressure monitoring per protocol -S/p IV amiodarone -Currently on p.o. amiodarone, p.o. metoprolol -Continue home Lipitor -Echocardiogram shows LVEF of 50 to 55%, impaired relaxation -No anticoagulation in setting of a ABLA/hematuria Respiratory: NAD -Pulmonary hygiene -SPO2 monitor per protocol -Supplemental oxygen as needed GI: Moderate protein calorie malnutrition, h/o GERD -24 hours -1150 ml -PPI -Mechanical soft diet with nutritional supplementation -BR: Colace : Obstructive uropathy, gross hematuria with clots, chronic indwelling Sprague catheter, h/o BPH, ? Neurogenic bladder -Urology consulted, appreciate recommendations -CT abdomen/pelvis shows no significant abnormality of the ureters, probable blood products in the bladder, bladder mass cannot be entirely excluded -Cystogram pending -Continue home Cardura -Record intake and output -Renally dose medications -Avoid nephrotoxic medications -Trend BMP ID: Sepsis likely secondary to UTI (POA) -Presented with leukocytosis, hypotension, pyuria -CRP 23.8, procalcitonin 4.61 -Antibiotic therapy with Levaquin (05/15-) -05/14 blood cultures with no growth after 48 hours, urine culture with no growth after 48 hours -Monitor WBC and temperature curve Endo: h/o type 2 diabetes mellitus -Avoid hypoglycemia -SSI -Accu-Cheks AC at bedtime Heme: Acute on chronic anemia, ABLA -Presented with H/H of 6.0/18.7 -S/p 4 units PRBC -Trend CBC -Transfuse hemoglobin less than 7 -Continue home iron -No anticoagulation in setting of ABLA -SCDs to BLE while in bed The high probability of a clinically significant, sudden or life threatening deterioration of the [multiple] system(s) required my full and direct attention, intervention and personal management. The aggregate critical care time was [60] minutes. This time is in addition to time spent performing reported procedures but includes the following: [x] Data Review and interpretation [x] Patient assessment and monitoring of vital signs [x] Documentation [x] Medication orders and management Disposition Plan: imcu Total Time Spent with Patient (Minutes): 60 History Interval history: No acute complaints. Awaiting procedure. Hospitalist Physical - Physical exam Narrative exam: General appearance: Present: no acute distress - EENT Eyes: Present: PERRL, EOM intact ENT: hearing intact, poor dentition - Neck Neck: Present: normal ROM - Respiratory Respiratory effort: normal Respiratory: bilateral: diminished - Cardiovascular Rhythm: regular Heart Sounds: Present: S1 & S2. Absent: systolic murmur, diastolic murmur - Extremities Extremities: no ischemia, pulses intact, pulses symmetrical, No edema, normal temperature, normal color Peripheral Pulses: within normal limits - Abdominal General gastrointestinal: soft, non-tender, non-distended, normal bowel sounds - Integumentary Integumentary: Present: warm, dry - Psychiatric Psychiatric: cooperative - Neurologic Neurologic: CNII-XII intact, no focal deficits, moves all extremities - Allied Health Allied health notes reviewed: nursing, social work - Constitutional Vitals: Temp Pulse Resp BP Pulse Ox 98.2 F 64 14 146/77 100 05/18/22 08:00 05/18/22 08:00 05/18/22 08:00 05/18/22 08:00 05/18/22 08:00 General appearance: Present: no acute distress HEART Score - HEART Score Troponin: Troponin T < 0.010 ng/mL (0.00-0.029) 05/14/22 06:57 Results - Labs CBC & Chem 7: 05/18/22 04:00 05/18/22 04:00 Labs: Laboratory Last Values WBC 9.1 K/mm3 (4.5-11.0) 05/18/22 04:00 RBC 3.53 M/mm3 (3.65-5.03) L 05/18/22 04:00 Hgb 10.8 gm/dl (11.8-15.2) L 05/18/22 04:00 Hct 31.5 % (35.5-45.6) L 05/18/22 04:00 MCV 89 fl (84-94) 05/18/22 04:00 MCH 31 pg (28-32) 05/18/22 04:00 MCHC 34 % (32-34) 05/18/22 04:00 RDW 14.4 % (13.2-15.2) 05/18/22 04:00 Plt Count 229 K/mm3 (140-440) 05/18/22 04:00 Lymph % (Auto) 8.8 % (13.4-35.0) L 05/15/22 05:00 [place] % (Auto) 13.1 % (0.0-7.3) H 05/15/22 05:00 Eos % (Auto) 0.3 % (0.0-4.3) 05/15/22 05:00 Baso % (Auto) 0.1 % (0.0-1.8) 05/15/22 05:00 Lymph # (Auto) 1.0 K/mm3 (1.2-5.4) L 05/15/22 05:00 [place] # (Auto) 1.5 K/mm3 (0.0-0.8) H 05/15/22 05:00 Eos # (Auto) 0.0 K/mm3 (0.0-0.4) 05/15/22 05:00 Baso # (Auto) 0.0 K/mm3 (0.0-0.1) 05/15/22 05:00 Add Manual Diff Complete 05/15/22 19:10 Total Counted 100 05/15/22 19:10 Seg Neutrophils % 77.7 % (40.0-70.0) H 05/15/22 05:00 Seg Neuts % (Manual) 79.0 % (40.0-70.0) H 05/15/22 19:10 Band Neutrophils % 0 % 05/15/22 19:10 Lymphocytes % (Manual) 8.0 % (13.4-35.0) L 05/15/22 19:10 Reactive Lymphs % (Man) 0 % 05/15/22 19:10 Monocytes % (Manual) 13.0 % (0.0-7.3) H 05/15/22 19:10 Eosinophils % (Manual) 0 % (0.0-4.3) 05/15/22 19:10 Basophils % (Manual) 0 % (0.0-1.8) 05/15/22 19:10 Metamyelocytes % 0 % 05/15/22 19:10 Myelocytes % 0 % 05/15/22 19:10 Promyelocytes % 0 % 05/15/22 19:10 Blast Cells % 0 % 05/15/22 19:10 Nucleated RBC % Not Reportable 05/15/22 19:10 Seg Neutrophils # 8.6 K/mm3 (1.8-7.7) H 05/15/22 05:00 Seg Neutrophils # Man 6.9 K/mm3 (1.8-7.7) 05/15/22 19:10 Band Neutrophils # 0.0 K/mm3 05/15/22 19:10 Lymphocytes # (Manual) 0.7 K/mm3 (1.2-5.4) L 05/15/22 19:10 Abs React Lymphs (Man) 0.0 K/mm3 05/15/22 19:10 Monocytes # (Manual) 1.1 K/mm3 (0.0-0.8) H 05/15/22 19:10 Eosinophils # (Manual) 0.0 K/mm3 (0.0-0.4) 05/15/22 19:10 Basophils # (Manual) 0.0 K/mm3 (0.0-0.1) 05/15/22 19:10 Metamyelocytes # 0.0 K/mm3 05/15/22 19:10 Myelocytes # 0.0 K/mm3 05/15/22 19:10 Promyelocytes # 0.0 K/mm3 05/15/22 19:10 Blast Cells # 0.0 K/mm3 05/15/22 19:10 WBC Morphology Not Reportable 05/15/22 19:10 Hypersegmented Neuts Not Reportable 05/15/22 19:10 Hyposegmented Neuts Not Reportable 05/15/22 19:10 Hypogranular Neuts Not Reportable 05/15/22 19:10 Smudge Cells Not Reportable 05/15/22 19:10 Toxic Granulation Not Reportable 05/15/22 19:10 Toxic Vacuolation Not Reportable 05/15/22 19:10 Dohle Bodies Not Reportable 05/15/22 19:10 Pelger-Huet Anomaly Not Reportable 05/15/22 19:10 Jorge Rods Not Reportable 05/15/22 19:10 Platelet Estimate Consistent w auto 05/15/22 19:10 Clumped Platelets Not Reportable 05/15/22 19:10 Plt Clumps, EDTA Not Reportable 05/15/22 19:10 Large Platelets Not Reportable 05/15/22 19:10 Giant Platelets Not Reportable 05/15/22 19:10 Platelet Satelliting Not Reportable 05/15/22 19:10 Plt Morphology Comment Not Reportable 05/15/22 19:10 RBC Morphology Not Reportable 05/15/22 19:10 Dimorphic RBCs Not Reportable 05/15/22 19:10 Polychromasia Not Reportable 05/15/22 19:10 Hypochromasia Not Reportable 05/15/22 19:10 Poikilocytosis Not Reportable 05/15/22 19:10 Anisocytosis 1+ 05/15/22 19:10 Microcytosis Not Reportable 05/15/22 19:10 Macrocytosis Not Reportable 05/15/22 19:10 Spherocytes Not Reportable 05/15/22 19:10 Pappenheimer Bodies Not Reportable 05/15/22 19:10 Sickle Cells Not Reportable 05/15/22 19:10 Target Cells Not Reportable 05/15/22 19:10 Tear Drop Cells Not Reportable 05/15/22 19:10 Ovalocytes Not Reportable 05/15/22 19:10 Helmet Cells Not Reportable 05/15/22 19:10 [place] Bodies Not Reportable 05/15/22 19:10 [place] Rings Not Reportable 05/15/22 19:10 Flip Cells Not Reportable 05/15/22 19:10 Bite Cells Not Reportable 05/15/22 19:10 Crenated Cell Not Reportable 05/15/22 19:10 Elliptocytes Not Reportable 05/15/22 19:10 Acanthocytes (Spur) Not Reportable 05/15/22 19:10 Rouleaux Not Reportable 05/15/22 19:10 Hemoglobin C Crystals Not Reportable 05/15/22 19:10 Schistocytes Not Reportable 05/15/22 19:10 Malaria parasites Not Reportable 05/15/22 19:10 Miguel Bodies Not Reportable 05/15/22 19:10 Hem Pathologist Commnt No 05/15/22 19:10 PT 16.5 Sec. (12.2-14.9) H 05/14/22 06:57 INR 1.19 (0.87-1.13) H 05/14/22 06:57 Sodium 133 mmol/L (137-145) L 05/18/22 04:00 Potassium 3.7 mmol/L (3.6-5.0) 05/18/22 04:00 Chloride 102.1 mmol/L (98-107) 05/18/22 04:00 Carbon Dioxide 23 mmol/L (22-30) 05/18/22 04:00 Anion Gap 12 mmol/L 05/18/22 04:00 BUN 10 mg/dL (9-20) 05/18/22 04:00 Creatinine 0.7 mg/dL (0.8-1.3) L 05/18/22 04:00 Estimated GFR > 60 ml/min 05/18/22 04:00 BUN/Creatinine Ratio 14 % 05/18/22 04:00 Glucose 149 mg/dL (75-100) H 05/18/22 04:00 POC Glucose 158 mg/dL (70-105) H 05/18/22 12:07 Lactic Acid 1.00 mmol/L (0.7-2.0) 05/14/22 22:40 Calcium 8.7 mg/dL (8.4-10.2) 05/18/22 04:00 Phosphorus 2.80 mg/dL (2.5-4.5) D 05/17/22 04:37 Magnesium 1.80 mg/dL (1.7-2.3) 05/17/22 04:37 Total Bilirubin 0.50 mg/dL (0.1-1.2) 05/15/22 05:00 AST 31 units/L (5-40) 05/15/22 05:00 ALT 21 units/L (7-56) 05/15/22 05:00 Alkaline Phosphatase 53 units/L (35-129) 05/15/22 05:00 Total Creatine Kinase 774 units/L (55-170) H 05/14/22 06:57 Troponin T < 0.010 ng/mL (0.00-0.029) 05/14/22 06:57 C-Reactive Protein 23.80 mg/dL (0.00-1.30) H 05/14/22 06:57 NT-Pro-B Natriuret Pep 705.7 pg/mL (0-900) 05/14/22 06:57 Total Protein 5.7 g/dL (6.3-8.2) L 05/15/22 05:00 Albumin 2.7 g/dL (3.9-5) L 05/15/22 05:00 Albumin/Globulin Ratio 0.9 % 05/15/22 05:00 Lipase 20 units/L (13-60) 05/14/22 06:57 Procalcitonin 4.61 ng/mL (<0.15) 05/14/22 22:40 TSH 1.040 mlU/mL (0.270-4.200) 05/14/22 22:40 Free T4 1.59 ng/dL (0.76-1.46) H 05/14/22 22:40 Urine Color Red (Yellow) 05/14/22 07:28 Urine Turbidity Bloody (Clear) 05/14/22 07:28 Urine Protein Color interference mg/dL (Negative) 05/14/22 07:28 Urine Glucose (UA) Color interference mg/dL (Negative) 05/14/22 07:28 Urine Ketones Color interference mg/dL (Negative) 05/14/22 07:28 Urine Blood Color interference (Negative) 05/14/22 07:28 Urine Nitrite Color interference (Negative) 05/14/22 07:28 Urine Bilirubin Color interference (Negative) 05/14/22 07:28 Urine Ictotest Not Reportable 05/14/22 07:28 Ur Leukocyte Esterase Color interference (Negative) 05/14/22 07:28 Urine WBC (Auto) > 182.0 /HPF (0.0-6.0) H 05/14/22 07:28 Urine RBC (Auto) > 182.0 /HPF (0.0-6.0) 05/14/22 07:28 U Epithel Cells (Auto) 5.0 /HPF (0-13.0) 05/14/22 07:28 Urine Bacteria (Auto) 3+ /HPF (Negative) 05/14/22 07:28 Blood Type O POSITIVE 05/14/22 09:54 Antibody Screen Negative 05/14/22 09:54 Crossmatch See Detail 05/14/22 09:54 Microbiology: Microbiology 05/14/22 06:57 Peripheral/Venous Blood Culture - Preliminary NO GROWTH AFTER 4 DAYS 05/14/22 06:57 Peripheral/Venous Blood Culture - Preliminary NO GROWTH AFTER 4 DAYS Sprague/IV: Voiding Method Indwelling Catheter Active Medications - Current Medications Current Medications: Generic Name Dose Route Start Last Admin Trade Name Freq PRN Reason Stop Dose Admin Acetaminophen 650 mg 05/14/22 12:08 Acetaminophen 325 Mg Tab PO Q6H PRN Pain, Mild (1-3) Albuterol 2.5 mg 05/14/22 12:06 Albuterol 2.5 Mg/3 Ml Nebu IH Q3HRT PRN Shortness Of Breath Amiodarone HCl 200 mg 05/15/22 15:00 05/17/22 09:50 Amiodarone 200 Mg Tab PO 200 mg QDAY KARLA Administration Atorvastatin Calcium 80 mg 05/15/22 22:00 05/17/22 21:02 Atorvastatin 40 Mg Tab PO 80 mg QHS KARLA Administration Cyanocobalamin 1,000 mcg 05/15/22 10:00 05/17/22 09:50 Cyanocobalamin (Vit B-12) 1000 Mcg Tab PO 1,000 mcg QDAY KARLA Administration Dextrose 50 ml 05/14/22 15:19 Dextrose 50% In Water (25gm) 50 Ml Syringe IV Q30MIN PRN Hypoglycemia Protocol Docusate Sodium 100 mg 05/16/22 22:00 05/17/22 21:01 Docusate Sodium 100 Mg Cap PO Not Given BID KARLA Doxazosin Mesylate 1 mg 05/14/22 22:00 05/17/22 21:02 Doxazosin 1 Mg Tab PO 1 mg QHS [facility] Administration Ferrous Sulfate 325 mg 05/15/22 10:00 05/17/22 09:50 Ferrous Sulfate 325 Mg Tab PO 325 mg QDAY [facility] Administration Hydromorphone HCl 0.5 mg 05/17/22 08:38 Hydromorphone 0.5 Mg/0.5 Ml Inj IV Q4H PRN Pain , Severe (7-10) Levofloxacin/Dextrose 750 mg in 150 mls @ 100 mls/hr 05/15/22 13:00 05/17/22 14:18 Levaquin 750mg/150ml IV 05/19/22 14:29 Infused Q24H [facility] Infusion Protocol Insulin Human Lispro 0 unit 05/15/22 16:30 05/18/22 08:24 Insulin Lispro 100 Unit/Ml SUB-Q Not Given ACHS [facility] Protocol Metoprolol Tartrate 25 mg 05/15/22 15:00 05/18/22 08:24 Metoprolol Tartrate 25 Mg Tab PO Not Given Q8H [facility] Morphine Sulfate 2 mg 05/16/22 22:25 05/17/22 21:03 Morphine 2 Mg/1 Ml Inj IV 2 mg Q4H PRN Administration Pain, Moderate (4-6) Oxycodone/Acetaminophen 1 tab 05/14/22 12:06 05/17/22 19:20 Oxycodone /Acetaminophen 5-325mg Tab PO 1 tab Q6H PRN Administration Pain, Moderate (4-6) Pantoprazole Sodium 20 mg 05/16/22 10:00 05/17/22 09:50 Pantoprazole 20 Mg Tab PO 20 mg QDAY KARLA Administration Sodium Chloride 10 ml 05/14/22 22:00 05/17/22 21:02 Sodium Chloride 0.9% 10 Ml Flush Syringe IV 10 ml BID KARLA Administration Sodium Chloride 10 ml 05/14/22 12:06 Sodium Chloride 0.9% 10 Ml Flush Syringe IV PRN PRN LINE FLUSH Nutrition/Malnutrition Assess - Dietary Evaluation Nutrition/Malnutrition Findings: Nutrition Notes Start: 05/15/22 14:55 Freq: Status: Active Protocol: Document 05/15/22 14:55 RS (Rec: 05/15/22 15:31 RS [id number]) Nutrition Notes Need for Assessment generated from: MD Order Initial or Follow up Brief Note Current Diagnosis Diabetes,Sepsis,Hyperlipidemia Other Pertinent Diagnosis Dementia, metabolic encephalopathy, A-fib, UTI, GERD, Labs/Tests Cl: 108 CO2: 20 GlU:188 Ca:8.2 Pertinent Medications reviewed Height 5 ft 8 in Weight 81.7 kg [place] Body Weight (kg) 70.00 BMI 27.3 Weight change and time frame ELBERT wt hx Weight Status Appropriate Subjective/Other Information MD consult for malnutrition. RD noted some muscle wasting around temporal lobes w/ protroding clavical with some dark depressions around orbital region. Will need to f /u for caretakers present for intakes before adms. Pt has surgery scheduled on 05/18. Burn Absent Trauma Absent Nutrition Intervention Additional Comments F/U for intakes before adm, full nutrition assessment with caretakers
--- NOTE | 2022-05-18 13:19 | Progress Note ---
Assessment and Plan - Patient Problems (1) Atrial fibrillation with RVR Current Visit: Yes Status: Acute Plan to address problem: 81-year-old man who presented with profound anemia, hematocrit of 18, resulting from severe hematuria. Rapid atrial fibrillation was noted on presentation, now corrected to a stable sinus rhythm following blood transfusions and intravenous amiodarone. Since the initial event, he has maintained a stable sinus rhythm, currently at 7 0. Echocardiogram today reported left ventricular ejection fraction well preserved at 50 to 55%. Continue rhythm control management. Patient is not a candidate for antiplatelet therapy or anticoagulation therapy in the setting of his severe anemia and hematuria. Subjective Date of service: 05/18/22 Principal diagnosis: Sepsis; AMS; UTI; A-fib with RVR; ABLA; HTN; DM II; Gross Hematuria Interval history: Patient is planned for his urological procedure today, no cardiac complaints. Objective Vital Signs Temp Pulse Pulse Resp BP Pulse Ox 05/18/22 08:00 98.2 F 64 64 16 146/77 97 05/18/22 07:00 64 13 146/77 95 05/18/22 06:00 91 H 13 163/124 88 05/18/22 05:00 81 14 137/75 99 05/18/22 04:00 98.0 F 61 61 12 137/75 99 05/18/22 03:00 63 10 L 147/81 98 05/18/22 02:00 62 12 144/85 97 05/18/22 01:00 60 14 140/78 97 05/18/22 00:30 60 11 L 143/80 99 05/18/22 00:00 98.3 F 61 60 10 L 143/80 99 05/17/22 23:35 60 05/17/22 23:30 60 12 148/79 100 05/17/22 23:00 58 L 11 L 148/82 97 05/17/22 22:30 66 11 L 140/78 97 05/17/22 22:00 66 13 152/78 97 05/17/22 21:32 66 12 122/80 99 05/17/22 21:30 62 15 122/80 98 05/17/22 21:20 62 13 135/84 99 05/17/22 21:10 68 13 139/83 99 05/17/22 21:00 62 12 139/83 99 05/17/22 20:50 62 11 L 148/82 100 05/17/22 20:40 67 13 144/79 100 05/17/22 20:30 64 13 144/79 100 05/17/22 20:20 63 16 132/74 100 05/17/22 20:10 65 18 140/67 99 05/17/22 20:00 67 16 140/67 97 05/17/22 19:50 68 14 156/79 99 05/17/22 19:45 98.2 F 05/17/22 19:44 100 05/17/22 19:40 64 13 158/86 100 05/17/22 19:30 64 16 158/86 98 05/17/22 19:20 64 16 163/88 99 05/17/22 19:10 59 L 15 99 05/17/22 19:00 59 L 15 169/98 99 05/17/22 18:50 61 17 134/69 100 05/17/22 18:41 61 16 134/69 100 05/17/22 18:30 61 12 134/69 98 05/17/22 18:21 60 15 135/71 100 05/17/22 18:11 64 14 124/68 97 05/17/22 18:00 63 15 124/68 99 05/17/22 17:51 63 11 L 121/64 99 05/17/22 17:41 62 12 128/66 100 05/17/22 17:31 64 14 128/66 100 05/17/22 17:21 64 14 144/80 98 05/17/22 17:11 74 17 149/90 97 05/17/22 17:01 74 16 149/90 97 05/17/22 16:51 72 17 154/89 99 05/17/22 16:41 77 13 144/90 99 05/17/22 16:36 99.6 F 05/17/22 16:31 73 11 L 144/90 99 05/17/22 16:21 64 16 139/82 100 05/17/22 16:11 100 H 14 147/90 100 05/17/22 16:01 65 15 147/90 98 05/17/22 16:00 63 17 100 05/17/22 15:51 63 14 144/87 100 05/17/22 15:41 64 12 167/88 100 05/17/22 15:31 64 15 167/88 97 05/17/22 15:21 65 15 145/82 100 05/17/22 15:11 66 14 145/86 05/17/22 15:00 66 15 145/86 99 05/17/22 14:51 62 13 162/94 100 05/17/22 14:41 61 12 133/79 05/17/22 14:30 63 12 133/79 05/17/22 14:21 64 14 145/81 05/17/22 14:11 66 13 154/84 05/17/22 14:01 67 13 154/84 05/17/22 13:51 67 11 L 139/77 100 05/17/22 13:41 66 12 138/78 05/17/22 13:30 65 15 138/78 05/17/22 13:21 67 12 130/72 100 - Physical Examination General: No Apparent Distress HEENT: Positive: PERRL Neck: Positive: neck supple Cardiac: Positive: Reg Rate and Rhythm Lungs: Positive: Decreased Breath Sounds Neuro: Positive: Grossly Intact Abdomen: Positive: Soft Skin: Positive: Clear Extremities: Absent: edema - Labs and Meds CBC 05/18/22 Range/Units 04:00 WBC 9.1 (4.5-11.0) K/mm3 RBC 3.53 L (3.65-5.03) M/mm3 Hgb 10.8 L (11.8-15.2) gm/dl Hct 31.5 L (35.5-45.6) % Plt Count 229 (140-440) K/mm3 Comprehensive Metabolic Panel 05/18/22 Range/Units 04:00 Sodium 133 L (137-145) mmol/L Potassium 3.7 (3.6-5.0) mmol/L Chloride 102.1 (98-107) mmol/L Carbon Dioxide 23 (22-30) mmol/L BUN 10 (9-20) mg/dL Creatinine 0.7 L (0.8-1.3) mg/dL Glucose 149 H (75-100) mg/dL Calcium 8.7 (8.4-10.2) mg/dL - Allied health notes Allied health notes reviewed: nursing
--- NOTE | 2022-05-18 13:32 | Progress Note ---
Assessment and Plan 81 YO Male with Vascular Dementia, Cerebral Atherosclerosis, DM, HLD, HTN, GERD, Anemia chronic Disease, BPH with Chronic indwelling castillo catheter placed 1 week ago presents ED for evaluation. Patient is confused and lethargic at time of evaluation and is unable to provide history. Patient history taken by EMS staff, ED staff, as well as the patient's family . Patient was in his usual state of health upon awakening from sleep this morning around 0900 hrs. The patient was found unresponsive while sitting on his sofa. EMS was notified and upon arrival the patient was found to be in distress and subsequent transported to [facility] for further care and evaluation of the aforementioned symptoms. The patient was seen and evaluated in the emergency department. All lab and imaging studies reviewed. Patient found to be hypotensive with a systolic blood pressure in the 80s with a heart rate in the 150s. Patient found to have sepsis suspected secondary to urinary tract infection, toxic metabolic encephalopathy, as well as new onset atrial fibrillation with rapid ventricular response. Patient admitted to ICU due to increased risk of worsening symptoms after medical stabilization. Patient initiated on amiodarone drip in the emergency department. Critical care team consulted in ED. Cardiology team consulted in ED. patient has diminished cognition but has a positive gag reflex and is able to protect his airway . Patient has no history of smoking, alcohol or drug abuse. 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 Patient . Children 1. No known drug allergies. Patient treated for sepsis with Levafloxacin and I/V fluids. Patient started on Amiodarone for atrial fibrillation with rapid ventricular response. Patient came from Operating room. Patient undergone cystoscopy. Patient alert, awake. Eating his supper. Patient is on room air and O2 saturation running 98%. No acute respiratory distress. Denies chest pain, shortness of breath or cough. Patient afebrile. No leukocytosis. Blood pressure 165/90 , Pulse 65 Respirations 16. Chest xray reported minimal bibasilar subsegmental atelectasis. No pleural effusion. No pneumothorax. Right jugular CVL placement without complication. Patient is on albuterol inhaler, Protonix and Levaquin. Patient was seen in IMCU. Daughter is at bed side. Explained to her patients respiratory status. I spent critical care time of 40 minutes, obtaining history, review the chart, Examine the patient , review lab results, review chest xray, talking to the nursing staff and work up plan of treatment in this critically ill patient. - Patient Problems (1) Atrial fibrillation with RVR Current Visit: Yes Status: Acute Plan to address problem: Patient is on Amiodarone. Management as per cardiology. (2) Diabetes Current Visit: Yes Status: Acute Plan to address problem: Management as per primary care. (3) GERD (gastroesophageal reflux disease) Current Visit: Yes Status: Acute Qualifiers: Esophagitis presence: without esophagitis Qualified Code(s): K21.9 - Gastro-esophageal reflux disease without esophagitis Plan to address problem: Patient is on Protonix. (4) Toxic metabolic encephalopathy Current Visit: Yes Status: Acute Plan to address problem: Management as per primary care and neurology. (5) Sepsis Current Visit: Yes Status: Acute Plan to address problem: Patient is on I/V Levaquin and I/V fluids. (6) Obstructive uropathy Current Visit: Yes Status: Acute Plan to address problem: Management as per urology. Subjective Date of service: 05/18/22 Principal diagnosis: Sepsis; AMS; UTI; A-fib with RVR; ABLA; HTN; DM II; Gross Hematuria Interval history: 81 YO Male with Vascular Dementia, Cerebral Atherosclerosis, DM, HLD, HTN, GERD, Anemia chronic Disease, BPH with Chronic indwelling castillo catheter placed 1 week ago presents ED for evaluation. Patient is confused and lethargic at time of evaluation and is unable to provide history. Patient history taken by EMS staff, ED staff, as well as the patient's family . Patient was in his usual state of health upon awakening from sleep this morning around 0900 hrs. The patient was found unresponsive while sitting on his sofa. EMS was notified and upon arrival the patient was found to be in distress and subsequent transported to [facility] for further care and evaluation of the aforementioned symptoms. The patient was seen and evaluated in the emergency department. All lab and imaging studies reviewed. Patient found to be hypotensive with a systolic blood pressure in the 80s with a heart rate in the 150s. Patient found to have sepsis suspected secondary to urinary tract infection, toxic metabolic encephalopathy, as well as new onset atrial fibrillation with rapid ventricular response. Patient admitted to ICU due to increased risk of worsening symptoms after medical stabilization. Patient initiated on amiodarone drip in the emergency d epartment. Critical care team consulted in ED. Cardiology team consulted in ED. patient has diminished cognition but has a positive gag reflex and is able to protect his airway . Patient has no history of smoking, alcohol or drug abuse. 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 Patient . Children 1. No known drug allergies. Patient treated for sepsis with Levafloxacin and I/V fluids. Patient started on Amiodarone for atrial fibrillation with rapid ventricular response. Patient came from Operating room. Patient undergone cystoscopy. Patient alert, awake. Eating his supper. Patient is on room air and O2 saturation running 98%. No acute respiratory distress. Denies chest pain, shortness of breath or cough. Patient afebrile. No leukocytosis. Blood pressure 165/90 , Pulse 65 Respirations 16. Chest xray reported minimal bibasilar subsegmental atelectasis. No pleural effusion. No pneumothorax. Right jugular CVL placement without complication. Patient is on albuterol inhaler, Protonix and Levaquin. Objective Vital Signs - 12hr 05/18/22 05/18/22 05/18/22 02:00 03:00 04:00 Temperature 98.0 F Pulse Rate 62 63 61 Pulse Rate [ 61 From Monitor] Respiratory 12 10 L 12 Rate Blood Pressure 144/85 147/81 137/75 O2 Sat by Pulse 97 98 99 Oximetry 05/18/22 05/18/22 05/18/22 05:00 06:00 07:00 Temperature Pulse Rate 81 91 H 64 Pulse Rate [ From Monitor] Respiratory 14 13 13 Rate Blood Pressure 137/75 163/124 146/77 O2 Sat by Pulse 99 88 95 Oximetry 05/18/22 05/18/22 08:00 11:46 Temperature 98.2 F 99.3 F Pulse Rate 64 64 Pulse Rate [ 64 From Monitor] Respiratory 16 16 Rate Blood Pressure 146/77 148/81 O2 Sat by Pulse 97 100 Oximetry Constitutional: no acute distress, alert Eyes: non-icteric ENT: oropharynx moist Neck: supple, no lymphadenopathy, no JVD Effort: normal Ascultation: Bilateral: diminished breath sounds Percussion: Bilateral: not dull Cardiovascular: irregular rhythm Gastrointestinal: normoactive bowel sounds, soft, non-tender, non-distended Integumentary: normal Extremities: no cyanosis, no edema, pulses normal, no ischemia or petechiae Neurologic: normal mental status, non-focal exam (grossly), pupils equal and round, motor strength normal and Psychiatric: mood appropriate, affect normal CBC and BMP: 05/18/22 04:00 05/18/22 Unknown ABG, PT/INR, D-dimer: PT/INR, D-dimer PT 16.5 Sec. (12.2-14.9) H 05/14/22 06:57 INR 1.19 (0.87-1.13) H 05/14/22 06:57 Abnormal lab findings: Abnormal Labs 05/14/22 05/14/22 05/14/22 04:59 06:57 06:57 WBC 12.5 H RBC 1.95 L Hgb 6.0 L Hct 18.7 L* MCV 96 H RDW 13.0 L Lymph % (Auto) 4.7 L [place] % (Auto) 11.9 H Lymph # (Auto) 0.6 L [place] # (Auto) 1.5 H Seg Neutrophils % 83.3 H Seg Neuts % (Manual) Lymphocytes % (Manual) Monocytes % (Manual) Seg Neutrophils # 10.4 H Lymphocytes # (Manual) Monocytes # (Manual) PT INR Sodium Chloride 108.3 H Carbon Dioxide 18 L BUN 29 H Creatinine Glucose 275 H POC Glucose 245 H Lactic Acid Calcium 8.3 L Phosphorus Magnesium Total Creatine Kinase C-Reactive Protein Total Protein Albumin 3.2 L Free T4 Urine WBC (Auto) Crossmatch 05/14/22 05/14/22 05/14/22 06:57 06:57 06:57 WBC RBC Hgb Hct MCV RDW Lymph % (Auto) [place] % (Auto) Lymph # (Auto) [place] # (Auto) Seg Neutrophils % Seg Neuts % (Manual) Lymphocytes % (Manual) Monocytes % (Manual) Seg Neutrophils # Lymphocytes # (Manual) Monocytes # (Manual) PT 16.5 H INR 1.19 H Sodium Chloride Carbon Dioxide BUN Creatinine Glucose POC Glucose Lactic Acid 2.10 H* Calcium Phosphorus Magnesium Total Creatine Kinase 774 H C-Reactive Protein 23.80 H Total Protein Albumin Free T4 Urine WBC (Auto) Crossmatch 05/14/22 05/14/22 05/14/22 07:28 09:54 17:30 WBC RBC Hgb Hct MCV RDW Lymph % (Auto) [place] % (Auto) Lymph # (Auto) [place] # (Auto) Seg Neutrophils % Seg Neuts % (Manual) Lymphocytes % (Manual) Monocytes % (Manual) Seg Neutrophils # Lymphocytes # (Manual) Monocytes # (Manual) PT INR Sodium Chloride Carbon Dioxide BUN Creatinine Glucose POC Glucose 206 H Lactic Acid Calcium Phosphorus Magnesium Total Creatine Kinase C-Reactive Protein Total Protein Albumin Free T4 Urine WBC (Auto) > 182.0 H Crossmatch See Detail 05/14/22 05/14/22 05/14/22 22:40 22:40 22:40 WBC RBC Hgb 7.8 L Hct 22.9 L MCV RDW Lymph % (Auto) [place] % (Auto) Lymph # (Auto) [place] # (Auto) Seg Neutrophils % Seg Neuts % (Manual) Lymphocytes % (Manual) Monocytes % (Manual) Seg Neutrophils # Lymphocytes # (Manual) Monocytes # (Manual) PT INR Sodium Chloride Carbon Dioxide BUN Creatinine Glucose POC Glucose Lactic Acid Calcium Phosphorus Magnesium 1.60 L Total Creatine Kinase C-Reactive Protein Total Protein Albumin Free T4 1.59 H Urine WBC (Auto) Crossmatch 05/15/22 05/15/22 05/15/22 00:10 05:00 05:00 WBC 11.1 H RBC 2.49 L Hgb 7.5 L Hct 22.8 L MCV RDW Lymph % (Auto) 8.8 L [place] % (Auto) 13.1 H Lymph # (Auto) 1.0 L [place] # (Auto) 1.5 H Seg Neutrophils % 77.7 H Seg Neuts % (Manual) Lymphocytes % (Manual) Monocytes % (Manual) Seg Neutrophils # 8.6 H Lymphocytes # (Manual) Monocytes # (Manual) PT INR Sodium Chloride 108.5 H Carbon Dioxide 20 L BUN Creatinine Glucose 188 H POC Glucose 218 H Lactic Acid Calcium 8.2 L Phosphorus Magnesium Total Creatine Kinase C-Reactive Protein Total Protein 5.7 L Albumin 2.7 L Free T4 Urine WBC (Auto) Crossmatch 05/15/22 05/15/22 05/15/22 05:52 11:34 16:24 WBC RBC Hgb Hct MCV RDW Lymph % (Auto) [place] % (Auto) Lymph # (Auto) [place] # (Auto) Seg Neutrophils % Seg Neuts % (Manual) Lymphocytes % (Manual) Monocytes % (Manual) Seg Neutrophils # Lymphocytes # (Manual) Monocytes # (Manual) PT INR Sodium Chloride Carbon Dioxide BUN Creatinine Glucose POC Glucose 205 H 163 H 163 H Lactic Acid Calcium Phosphorus Magnesium Total Creatine Kinase C-Reactive Protein Total Protein Albumin Free T4 Urine WBC (Auto) Crossmatch 05/15/22 05/15/22 05/16/22 19:10 21:46 04:00 WBC RBC 2.51 L 2.54 L Hgb 7.7 L 7.7 L Hct 23.0 L 22.9 L MCV RDW Lymph % (Auto) [place] % (Auto) Lymph # (Auto) [place] # (Auto) Seg Neutrophils % Seg Neuts % (Manual) 79.0 H Lymphocytes % (Manual) 8.0 L Monocytes % (Manual) 13.0 H Seg Neutrophils # Lymphocytes # (Manual) 0.7 L Monocytes # (Manual) 1.1 H PT INR Sodium Chloride Carbon Dioxide BUN Creatinine Glucose POC Glucose 222 H Lactic Acid Calcium Phosphorus Magnesium Total Creatine Kinase C-Reactive Protein Total Protein Albumin Free T4 Urine WBC (Auto) Crossmatch 05/16/22 05/16/22 05/16/22 04:00 11:26 16:21 WBC RBC Hgb Hct MCV RDW Lymph % (Auto) [place] % (Auto) Lymph # (Auto) [place] # (Auto) Seg Neutrophils % Seg Neuts % (Manual) Lymphocytes % (Manual) Monocytes % (Manual) Seg Neutrophils # Lymphocytes # (Manual) Monocytes # (Manual) PT INR Sodium Chloride Carbon Dioxide 20 L BUN Creatinine Glucose 191 H POC Glucose 204 H 182 H Lactic Acid Calcium 8.3 L Phosphorus 2.30 L Magnesium Total Creatine Kinase C-Reactive Protein Total Protein Albumin Free T4 Urine WBC (Auto) Crossmatch 05/16/22 05/17/22 05/17/22 21:29 04:37 04:58 WBC RBC 3.46 L Hgb 10.6 L Hct 31.2 L D MCV RDW Lymph % (Auto) [place] % (Auto) Lymph # (Auto) [place] # (Auto) Seg Neutrophils % Seg Neuts % (Manual) Lymphocytes % (Manual) Monocytes % (Manual) Seg Neutrophils # Lymphocytes # (Manual) Monocytes # (Manual) PT INR Sodium 135 L Chloride Carbon Dioxide BUN Creatinine Glucose 151 H POC Glucose 162 H Lactic Acid Calcium Phosphorus Magnesium Total Creatine Kinase C-Reactive Protein Total Protein Albumin Free T4 Urine WBC (Auto) Crossmatch 05/17/22 05/17/22 05/17/22 07:26 11:31 16:21 WBC RBC Hgb Hct MCV RDW Lymph % (Auto) [place] % (Auto) Lymph # (Auto) [place] # (Auto) Seg Neutrophils % Seg Neuts % (Manual) Lymphocytes % (Manual) Monocytes % (Manual) Seg Neutrophils # Lymphocytes # (Manual) Monocytes # (Manual) PT INR Sodium Chloride Carbon Dioxide BUN Creatinine Glucose POC Glucose 124 H 201 H 141 H Lactic Acid Calcium Phosphorus Magnesium Total Creatine Kinase C-Reactive Protein Total Protein Albumin Free T4 Urine WBC (Auto) Crossmatch 05/17/22 05/18/22 05/18/22 21:09 04:00 04:00 WBC RBC 3.53 L Hgb 10.8 L Hct 31.5 L MCV RDW Lymph % (Auto) [place] % (Auto) Lymph # (Auto) [place] # (Auto) Seg Neutrophils % Seg Neuts % (Manual) Lymphocytes % (Manual) Monocytes % (Manual) Seg Neutrophils # Lymphocytes # (Manual) Monocytes # (Manual) PT INR Sodium 133 L Chloride Carbon Dioxide BUN Creatinine 0.7 L Glucose 149 H POC Glucose 193 H Lactic Acid Calcium Phosphorus Magnesium Total Creatine Kinase C-Reactive Protein Total Protein Albumin Free T4 Urine WBC (Auto) Crossmatch 05/18/22 05/18/22 05/18/22 08:13 11:38 12:07 WBC RBC Hgb Hct MCV RDW Lymph % (Auto) [place] % (Auto) Lymph # (Auto) [place] # (Auto) Seg Neutrophils % Seg Neuts % (Manual) Lymphocytes % (Manual) Monocytes % (Manual) Seg Neutrophils # Lymphocytes # (Manual) Monocytes # (Manual) PT INR Sodium Chloride Carbon Dioxide BUN Creatinine Glucose POC Glucose 147 H 177 H 158 H Lactic Acid Calcium Phosphorus Magnesium Total Creatine Kinase C-Reactive Protein Total Protein Albumin Free T4 Urine WBC (Auto) Crossmatch Chest x-ray: report reviewed, image reviewed Additional Studies: CHEST 1 VIEW 05/14/2022 6:16 PM INDICATION / CLINICAL INFORMATION: Central line placement. COMPARISON: Earlier today at 7:06 AM. FINDINGS: SUPPORT DEVICES: There is a new right jugular CVL with the tip overlying the proximal to mid SVC. HEART / MEDIASTINUM: Unchanged. LUNGS / PLEURA: There is minimal bibasilar subsegmental atelectasis. No pleural effusion. No pneumothorax. ADDITIONAL FINDINGS: No significant additional findings. IMPRESSION: Right jugular CVL placement without complication. Allied health notes reviewed: nursing
[2022-05-18] MEDS ORDERED: LACTATED RINGERS 1,000 ML IV SCH (13:35)
[2022-05-18] MEDS ORDERED: WATER FOR IRRIG STERILE 1,000 ML BOTTLE IR ONE (14:36)
[2022-05-18] MEDS ORDERED: SODIUM CHLORIDE 0.9% IRRIG SOLN 3000 ML IR ONE ×2 (14:36)
--- NOTE | 2022-05-18 15:48 | Post Operative Note ---
Pre-op diagnosis: hematuria Post-op diagnosis: same Findings: bladder cancer Procedure: cysto evac clots rpgs turbt Anesthesia: GETA Surgeon: MARCIO WASHINGTON Estimated blood loss: minimal Pathology: none (bladder tumot prostae and clots) Specimen disposition: to lab Disposition: PACU
[2022-05-18] MEDS ORDERED: ACETAMINOPHEN 325 MG TAB PO PRN (16:00)
[2022-05-18] MEDS ORDERED: oxyCODONE /ACETAMINOPHEN 5-325MG TAB PO PRN (16:00)
--- NOTE | 2022-05-18 16:32 | Fluoroscopy Report ---
4 fluoroscopic images submitted Indication: Intraoperative localization Impression: 4 images of the abdomen were submitted for documentation purposes with radiology involve ment. Bilateral retrograde pyelograms. Please refer to the operative note for complete details. Fluoroscopic time: 0.4 minutes Signer Name: Ernesto Dutton MD Signed: 05/18/2022 4:27 PM Workstation Name: [id number]
--- NOTE | 2022-05-18 16:50 | Operative Report ---
DATE OF SURGERY: 05/18/2022 PREOPERATIVE DIAGNOSES: Severe hematuria, hemorrhage, anemia. POSTOPERATIVE DIAGNOSES: Severe hematuria, hemorrhage, anemia with bladder tumor, bleeding. PROCEDURES: Cystoscopy, evacuation of clots, transurethral resection of large bladder tumor, transurethral biopsy of the prostatic urethra, retrograde. SURGEON: Damon Alexander MD ANESTHESIA: General. FINDINGS: This is a gentleman who I think had radiation for prostate cancer. He now presents with gross hematuria, large amount of clots and anemia. DESCRIPTION OF PROCEDURE: The patient was brought to operating room and placed on the operating table. Following induction of anesthesia, placed in lithotomy position, prepped and draped in usual sterile fashion. Large amount of clots approximately half a unit were obtained from the bladder. Once we cleared that out, we could see retrograde showed some J-hooking, especially on the left with little lateral deviation. We correlated this with the CT. There were no obvious masses there. Posterior wall of the bladder had a large bladder tumor, which was bleeding. There were multifocal 2 smaller tumors, which were very small at this point. We used the bipolar set at 120 and initially 30 went up to approximately 70. Resection of the tumor was meticulous because it was posterior and towards the dome. We did not want to have a big hole in the bladder. He is 81 years old. We stopped the bleeding. We resected the tumor, fulgurated any of the small papillary tumors, which were less than 4 mm. Specimen sent to pathology. Irrigation was clear. Three-way catheter was placed, it was clear. He was brought to recovery room, minimal blood loss, in stable condition. TID: [id number] RECEIPT: [id number] GREY/IDALMIS
[2022-05-18] MEDS: FERROUS SULFATE 325 MG TAB PO SCH (17:18)
[2022-05-18] MEDS: DOCUSATE SODIUM 100 MG CAP PO SCH ×2 (17:18→21:44)
[2022-05-18] MEDS: AMIODARONE 200 MG TAB PO SCH (17:19)
[2022-05-18] MEDS: CYANOCOBALAMIN (VIT B-12) 1000 MCG TAB PO SCH (17:20)
[2022-05-18 17:22] LABS: BUN/Creatinine Ratio 13; Blood Urea Nitrogen 10 mg/dL (9-20); Calcium 8.8 mg/dL (8.4-10.2); Hemolysis Index 1
[2022-05-18] MEDS: PANTOPRAZOLE 20 MG TAB PO SCH (17:23)
[2022-05-18] MEDS: D5W/0.45% NACL/KCL 20 MEQ 20 MEQ/1,000 ML BAG IV SCH ×2 (17:24→23:17)
--- NOTE | 2022-05-18 17:34 | Post Anesthesia Evaluation ---
- Post Anesthesia Evaluation Patient Participated: Yes Airway Patent: Yes Stable Respiratory Function: Yes Nausea/Vomiting: No Temp > 96.8F: Yes Pain Manageable: Yes Adequeate Hydration: Yes Anesthesia Complications: No Block Receding Appropriately: Not Applicable Patient on Ventilator: No
[2022-05-18] MEDS: SODIUM CHLORIDE 0.9% IRRIG SOLN 2000 ML IR SCH ×6 (19:07→23:17)
[2022-05-18] MEDS: MORPHINE 2 MG/1 ML INJ IV PRN (21:42)
[2022-05-18] MEDS: DOXAZOSIN 1 MG TAB PO SCH (21:43)
[2022-05-19] MEDS: SODIUM CHLORIDE 0.9% IRRIG SOLN 2000 ML IR SCH ×8 (01:12→17:32)
[2022-05-19 04:51] LABS: Basophils # (Auto) 0.1 K/mm3 (0.0-0.1); Basophils % (Auto) 0.6 % (0.0-1.8); Eosinophils % (Auto) 0.1 % (0.0-4.3); Hematocrit 32.5 % (35.5-45.6); Lymphocytes % (Auto) 9.8 % (13.4-35.0); Mean Corpuscular HGB Conc 34 % (32-34); Mean Corpuscular Volume 91 fl (84-94); Monocytes # (Auto) 0.5 K/mm3 (0.0-0.8); Platelet Count 252 K/mm3 (140-440); Red Blood Count 3.59 M/mm3 (3.65-5.03); Red Cell Distribution Width 14.5 % (13.2-15.2)
[2022-05-19] MEDS: METOPROLOL TARTRATE 25 MG TAB PO SCH ×3 (06:44→22:45)
[2022-05-19] MEDS: D5W/0.45% NACL/KCL 20 MEQ 20 MEQ/1,000 ML BAG IV SCH (09:31)
[2022-05-19] MEDS: CYANOCOBALAMIN (VIT B-12) 1000 MCG TAB PO SCH (09:35)
[2022-05-19] MEDS: DOCUSATE SODIUM 100 MG CAP PO SCH ×2 (09:35→22:37)
[2022-05-19] MEDS: FERROUS SULFATE 325 MG TAB PO SCH (09:35)
[2022-05-19] MEDS: PANTOPRAZOLE 20 MG TAB PO SCH (09:35)
[2022-05-19] MEDS: AMIODARONE 200 MG TAB PO SCH (09:36)
[2022-05-19] MEDS: INSULIN LISPRO 100 UNIT/ML SUB-Q SCH ×4 (09:38→22:42)
--- NOTE | 2022-05-19 11:26 | Progress Note ---
Assessment and Plan - Patient Problems (1) Atrial fibrillation with RVR Current Visit: Yes Status: Acute Plan to address problem: 81-year-old man who presented with profound anemia, hematocrit of 18, resulting from severe hematuria. Rapid atrial fibrillation was noted on presentation, now corrected to a stable sinus rhythm following blood transfusions and intravenous amiodarone. Since the initial event, he has maintained a stable sinus rhythm, currently at 7 0. Echocardiogram today reported left ventricular ejection fraction well preserved at 50 to 55%. Continue rhythm control management. Patient is not a candidate for antiplatelet therapy or anticoagulation therapy in the setting of his severe anemia and hematuria. Subjective Date of service: 05/19/22 Principal diagnosis: Sepsis; AMS; UTI; A-fib with RVR; ABLA; HTN; DM II; Gross Hematuria Interval history: Patient is comfortable, no cardiac complaints. Objective Vital Signs Temp Pulse Pulse Resp BP Pulse Ox 05/19/22 06:44 56 L 129/75 05/19/22 06:43 97.8 F 05/19/22 05:20 57 L 05/19/22 05:00 56 L 10 L 125/67 98 05/19/22 04:00 57 L 57 L 12 135/75 98 05/19/22 03:00 59 L 11 L 120/77 98 05/19/22 02:00 58 L 12 123/71 98 05/19/22 01:00 65 11 L 119/68 97 05/19/22 00:05 63 05/19/22 00:00 98.2 F 63 12 128/75 98 05/18/22 23:50 97 05/18/22 23:22 63 15 134/73 97 05/18/22 23:14 71 134/73 05/18/22 23:00 65 12 134/73 99 05/18/22 22:12 13 05/18/22 22:00 64 13 130/70 97 05/18/22 21:43 73 124/77 05/18/22 21:42 14 05/18/22 21:00 77 11 L 155/80 97 05/18/22 20:05 62 05/18/22 20:00 98.0 F 65 12 155/80 98 05/18/22 19:00 65 12 154/90 96 05/18/22 18:00 78 16 154/90 95 05/18/22 17:19 70 166/94 05/18/22 17:00 61 14 166/94 97 05/18/22 16:57 69 97 05/18/22 16:30 97.4 F L 65 16 165/90 98 05/18/22 16:15 63 16 164/87 97 05/18/22 16:10 68 12 163/88 98 05/18/22 16:05 65 12 152/89 97 05/18/22 15:58 97.2 F L 57 L 10 L 143/79 99 05/18/22 12:45 99.3 F 64 16 148/81 100 05/18/22 11:46 99.3 F 64 16 148/81 100 - Physical Examination General: No Apparent Distress HEENT: Positive: PERRL Neck: Positive: neck supple Cardiac: Positive: Reg Rate and Rhythm Lungs: Positive: Decreased Breath Sounds Neuro: Positive: Grossly Intact Abdomen: Positive: Soft Skin: Positive: Clear Extremities: Absent: edema - Labs and Meds CBC 05/19/22 Range/Units 04:30 WBC 9.7 (4.5-11.0) K/mm3 RBC 3.59 L (3.65-5.03) M/mm3 Hgb 11.0 L (11.8-15.2) gm/dl Hct 32.5 L (35.5-45.6) % Plt Count 252 (140-440) K/mm3 Lymph # (Auto) 1.0 L (1.2-5.4) K/mm3 [place] # (Auto) 0.5 (0.0-0.8) K/mm3 Eos # (Auto) 0.0 (0.0-0.4) K/mm3 Baso # (Auto) 0.1 (0.0-0.1) K/mm3 Comprehensive Metabolic Panel 05/18/22 Range/Units Unknown Sodium 136 L (137-145) mmol/L Potassium 3.9 (3.6-5.0) mmol/L Chloride 102.7 (98-107) mmol/L Carbon Dioxide 23 (22-30) mmol/L BUN 10 (9-20) mg/dL Creatinine 0.8 (0.8-1.3) mg/dL Glucose 165 H (75-100) mg/dL Calcium 8.8 (8.4-10.2) mg/dL - Allied health notes Allied health notes reviewed: nursing
--- NOTE | 2022-05-19 11:57 | Progress Note ---
Assessment and Plan unine clear path poending home with cast[facility] Date of service: 05/19/22 Principal diagnosis: Sepsis; AMS; UTI; A-fib with RVR; ABLA; HTN; DM II; Gross Hematuria Objective - Constitutional Vitals: Vital Signs - 12hr 05/19/22 05/19/22 05/19/22 00:00 00:05 01:00 Temperature 98.2 F Pulse Rate 63 63 65 Pulse Rate [ From Monitor] Respiratory 12 11 L Rate Blood Pressure 128/75 119/68 O2 Sat by Pulse 98 97 Oximetry 05/19/22 05/19/22 05/19/22 02:00 03:00 04:00 Temperature Pulse Rate 58 L 59 L 57 L Pulse Rate [ 57 L From Monitor] Respiratory 12 11 L 12 Rate Blood Pressure 123/71 120/77 135/75 O2 Sat by Pulse 98 98 98 Oximetry 05/19/22 05/19/22 05/19/22 05:00 05:20 06:43 Temperature 97.8 F Pulse Rate 56 L 57 L Pulse Rate [ From Monitor] Respiratory 10 L Rate Blood Pressure 125/67 O2 Sat by Pulse 98 Oximetry 05/19/22 06:44 Temperature Pulse Rate 56 L Pulse Rate [ From Monitor] Respiratory Rate Blood Pressure 129/75 O2 Sat by Pulse Oximetry General appearance: Present: no acute distress - Neck Neck: supple - Respiratory Respiratory effort: normal Extremities: no ischemia - Gastrointestinal General gastrointestinal: Present: soft, non-tender - Labs CBC & Chem 7: 05/19/22 04:30 05/18/22 Unknown Labs: Abnormal lab results 05/18/22 05/18/22 05/18/22 Range/Units 12:07 16:06 21:52 RBC (3.65-5.03) M/mm3 Hgb (11.8-15.2) gm/dl Hct (35.5-45.6) % Lymph % (Auto) (13.4-35.0) % Lymph # (Auto) (1.2-5.4) K/mm3 Seg Neutrophils % (40.0-70.0) % Seg Neutrophils # (1.8-7.7) K/mm3 Sodium (137-145) mmol/L Glucose (75-100) mg/dL POC Glucose 158 H 172 H 310 H (70-105) mg/dL 07/05/19/22 05/19/22 Range/Units Unknown 04:30 08:38 RBC 3.59 L (3.65-5.03) M/mm3 Hgb 11.0 L (11.8-15.2) gm/dl Hct 32.5 L (35.5-45.6) % Lymph % (Auto) 9.8 L (13.4-35.0) % Lymph # (Auto) 1.0 L (1.2-5.4) K/mm3 Seg Neutrophils % 84.5 H (40.0-70.0) % Seg Neutrophils # 8.2 H (1.8-7.7) K/mm3 Sodium 136 L (137-145) mmol/L Glucose 165 H (75-100) mg/dL POC Glucose 263 H (70-105) mg/dL 05/19/22 Range/Units 11:34 RBC (3.65-5.03) M/mm3 Hgb (11.8-15.2) gm/dl Hct (35.5-45.6) % Lymph % (Auto) (13.4-35.0) % Lymph # (Auto) (1.2-5.4) K/mm3 Seg Neutrophils % (40.0-70.0) % Seg Neutrophils # (1.8-7.7) K/mm3 Sodium (137-145) mmol/L Glucose (75-100) mg/dL POC Glucose 245 H (70-105) mg/dL Medications & Allergies - Medications Allergies/Adverse Reactions: Allergies No Known Allergies Allergy (Verified 05/13/22 16:50) Home Medications: Home Medications Medication Instructions Recorded Confirmed Last Taken Type AtorvaSTATin [Lipitor] 80 mg PO QHS 05/13/22 05/15/22 Unknown History Cyanocobalamin (Vitamin B-12) 1,000 mcg PO QDAY 05/13/22 05/14/22 Unknown History [Vitamin B-12] Doxazosin [Cardura] 1 mg PO QHS 05/13/22 05/14/22 Unknown History Ferrous Sulfate [Iron 325 MG] 325 mg PO QDAY 05/13/22 05/14/22 Unknown History Metformin HCl [metFORMIN] 1,000 mg PO QDAY 05/13/22 05/14/22 Unknown History Omeprazole 20 mg PO QDAY 05/13/22 05/14/22 Unknown History amLODIPine [Norvasc] 5 mg PO DAILY 05/13/22 05/14/22 Unknown History lisinopriL [Lisinopril] 40 mg PO QDAY 05/13/22 05/14/22 Unknown History Active Medications: Generic Name Dose Route Start Last Admin Trade Name Freq PRN Reason Stop Dose Admin Acetaminophen 650 mg 05/18/22 16:00 Acetaminophen 325 Mg Tab PO Q4H PRN Pain MILD(1-3)/Fever >100.5/NARVAEZ Albuterol 2.5 mg 05/14/22 12:06 Albuterol 2.5 Mg/3 Ml Nebu IH Q3HRT PRN Shortness Of Breath Amiodarone HCl 200 mg 05/15/22 15:00 05/19/22 09:36 Amiodarone 200 Mg Tab PO 200 mg QDAY KARLA Administration Atorvastatin Calcium 80 mg 05/15/22 22:00 05/18/22 21:43 Atorvastatin 40 Mg Tab PO 80 mg QHS KARLA Administration Cyanocobalamin 1,000 mcg 05/15/22 10:00 05/19/22 09:35 Cyanocobalamin (Vit B-12) 1000 Mcg Tab PO 1,000 mcg QDAY KARLA Administration Dextrose 50 ml 05/14/22 15:19 Dextrose 50% In Water (25gm) 50 Ml Syringe IV Q30MIN PRN Hypoglycemia Protocol Docusate Sodium 100 mg 05/16/22 22:00 05/19/22 09:35 Docusate Sodium 100 Mg Cap PO 100 mg BID KARLA Administration Doxazosin Mesylate 1 mg 05/14/22 22:00 05/18/22 21:43 Doxazosin 1 Mg Tab PO 1 mg QHS KARLA Administration Ferrous Sulfate 325 mg 05/15/22 10:00 05/19/22 09:35 Ferrous Sulfate 325 Mg Tab PO 325 mg QDAY KARLA Administration Hydromorphone HCl 0.5 mg 05/17/22 08:38 Hydromorphone 0.5 Mg/0.5 Ml Inj IV Q4H PRN Pain , Severe (7-10) Levofloxacin/Dextrose 750 mg in 150 mls @ 100 mls/hr 05/15/22 13:00 05/18/22 17:20 Levaquin 750mg/150ml IV 05/19/22 14:29 Not Given Q24H KARLA Protocol Potassium Chloride/Dextrose/Sod Cl 20 meq in 1,000 mls @ 125 mls/hr 05/18/22 17:00 05/19/22 09:31 D5w/0.45% Nacl/Kcl 20 Meq IV 125 mls/hr DIRECT KARLA Administration Insulin Glargine 15 units 05/19/22 22:00 Insulin Glargine 100 Units/Ml SUB-Q QHS KARLA Insulin Human Lispro 0 unit 05/15/22 16:30 05/19/22 09:38 Insulin Lispro 100 Unit/Ml SUB-Q 4 unit ACHS KARLA Administration Protocol Metoprolol Tartrate 25 mg 05/15/22 15:00 05/19/22 06:44 Metoprolol Tartrate 25 Mg Tab PO Not Given Q8H KARLA Morphine Sulfate 2 mg 05/16/22 22:25 05/18/22 21:42 Morphine 2 Mg/1 Ml Inj IV 2 mg Q4H PRN Administration Pain, Moderate (4-6) Oxycodone/Acetaminophen 1 tab 05/18/22 16:00 Oxycodone /Acetaminophen 5-325mg Tab PO Q6H PRN Pain, Moderate (4-6) Pantoprazole Sodium 20 mg 05/16/22 10:00 05/19/22 09:35 Pantoprazole 20 Mg Tab PO 20 mg QDAY KARLA Administration Sodium Chloride 10 ml 05/14/22 22:00 05/18/22 21:45 Sodium Chloride 0.9% 10 Ml Flush Syringe IV 10 ml BID KARLA Administration Sodium Chloride 10 ml 05/14/22 12:06 Sodium Chloride 0.9% 10 Ml Flush Syringe IV PRN PRN LINE FLUSH Sodium Chloride 2,000 ml 05/18/22 18:00 05/19/22 10:59 Sodium Chloride 0.9% Irrig Soln 2000 Ml IR 2,000 ml DIRECT KARLA Administration HEART Score - HEART Score Troponin: Troponin T < 0.010 ng/mL (0.00-0.029) 05/14/22 06:57
--- NOTE | 2022-05-19 13:05 | Progress Note ---
Assessment and Plan 81 YO Male with Vascular Dementia, Cerebral Atherosclerosis, DM, HLD, HTN, GERD, Anemia chronic Disease, BPH with Chronic indwelling castillo catheter placed 1 week ago presents ED for evaluation. Patient is confused and lethargic at time of evaluation and is unable to provide history. Patient history taken by EMS staff, ED staff, as well as the patient's family . Patient was in his usual state of health upon awakening from sleep this morning around 0900 hrs. The patient was found unresponsive while sitting on his sofa. EMS was notified and upon arrival the patient was found to be in distress and subsequent transported to [facility] for further care and evaluation of the aforementioned symptoms. The patient was seen and evaluated in the emergency department. All lab and imaging studies reviewed. Patient found to be hypotensive with a systolic blood pressure in the 80s with a heart rate in the 150s. Patient found to have sepsis suspected secondary to urinary tract infection, toxic metabolic encephalopathy, as well as new onset atrial fibrillation with rapid ventricular response. Patient admitted to ICU due to increased risk of worsening symptoms after medical stabilization. Patient initiated on amiodarone drip in the emergency department. Critical care team consulted in ED. Cardiology team consulted in ED. patient has diminished cognition but has a positive gag reflex and is able to protect his airway . Patient has no history of smoking, alcohol or drug abuse. 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 Also was in the . Patient . Children 1. No known drug allergies. Patient treated for sepsis with Levafloxacin and I/V fluids. Patient started on Amiodarone for atrial fibrillation with rapid ventricular response. Patient undergone cystoscopy yesterday. pathology report still pending. Patient alert, awake, resting in bed. Patient is on room air and O2 saturation running 98%. No acute respiratory distress. Denies chest pain, shortness of breath or cough. Patient afebrile. No leukocytosis. Blood pressure 139/70, Pulse 76 Respirations 16. Chest xray 04/24/22 reported minimal bibasilar subsegmental atelectasis. No pleural effusion. No pneumothorax. Right jugular CVL placement without complication. Patient is on albuterol inhaler, Protonix and Levaquin. I spent critical care time of 35 minutes, obtaining history, review the chart, Examine the patient , review lab results, review chest xray, talking to the nursing staff and work up plan of treatment in this critically ill patient. - Patient Problems (1) Atrial fibrillation with RVR Current Visit: Yes Status: Acute Plan to address problem: Patient is on Amiodarone. Management as per cardiology. (2) Diabetes Current Visit: Yes Status: Acute Plan to address problem: Management as per primary care. (3) GERD (gastroesophageal reflux disease) Current Visit: Yes Status: Acute Qualifiers: Esophagitis presence: without esophagitis Qualified Code(s): K21.9 - Gastro-esophageal reflux disease without esophagitis Plan to address problem: Patient is on Protonix. (4) Toxic metabolic encephalopathy Current Visit: Yes Status: Acute Plan to address problem: Management as per primary care and neurology. (5) Sepsis Current Visit: Yes Status: Acute Plan to address problem: Patient is on I/V Levaquin and I/V fluids. (6) Obstructive uropathy Current Visit: Yes Status: Acute Plan to address problem: Management as per urology. Subjective Date of service: 05/19/22 Principal diagnosis: Sepsis; AMS; UTI; A-fib with RVR; ABLA; HTN; DM II; Gross Hematuria Interval history: 81 YO Male with Vascular Dementia, Cerebral Atherosclerosis, DM, HLD, HTN, GERD, Anemia chronic Disease, BPH with Chronic indwelling castillo catheter placed 1 week ago presents ED for evaluation. Patient is confused and lethargic at time of evaluation and is unable to provide history. Patient history taken by EMS staff, ED staff, as well as the patient's family . Patient was in his usual state of health upon awakening from sleep this morning around 0900 hrs. The patient was found unresponsive while sitting on his sofa. EMS was notified and upon arrival the patient was found to be in distress and subsequent transported to [facility] for further care and evaluation of the aforementioned symptoms. The patient was seen and evaluated in the emergency department. All lab and imaging studies reviewed. Patient found to be hypotensive with a systolic blood pressure in the 80s with a heart rate in the 150s. Patient found to have sepsis suspected secondary to urinary tract infection, toxic metabolic encephalopathy, as well as new onset atrial fibrillation with rapid ventricular response. Patient admitted to ICU due to increased risk of worsening symptoms after medical stabilization. Patient initiated on amiodarone drip in the emergency department. Critical care team consulted in ED. Cardiology team consulted in ED. patient has diminished cognition but has a positive gag reflex and is able to protect his airway . Patient has no history of smoking, alcohol or drug abuse. 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 Also was in the . Patient . Children 1. No known drug allergies. Patient treated for sepsis with Levafloxacin and I/V fluids. Patient started on Amiodarone for atrial fibrillation with rapid ventricular response. Patient undergone cystoscopy yesterday. pathology report still pending. Patient alert, awake, resting in bed. Patient is on room air and O2 saturation running 98%. No acute respiratory distress. Denies chest pain, shortness of breath or cough. Patient afebrile. No leukocytosis. Blood pressure 139/70, Pulse 76 Respirations 16. Chest xray 04/24/22 reported minimal bibasilar subsegmental atelectasis. No pleural effusion. No pneumothorax. Right jugular CVL placement without complication. Patient is on albuterol inhaler, Protonix and Levaquin. Objective Vital Signs - 12hr 05/19/22 05/19/22 05/19/22 02:00 03:00 04:00 Temperature Pulse Rate 58 L 59 L 57 L Pulse Rate [ 57 L From Monitor] Respiratory 12 11 L 12 Rate Blood Pressure 123/71 120/77 135/75 O2 Sat by Pulse 98 98 98 Oximetry 05/19/22 05/19/22 05/19/22 05:00 05:20 06:43 Temperature 97.8 F Pulse Rate 56 L 57 L Pulse Rate [ From Monitor] Respiratory 10 L Rate Blood Pressure 125/67 O2 Sat by Pulse 98 Oximetry 05/19/22 06:44 Temperature Pulse Rate 56 L Pulse Rate [ From Monitor] Respiratory Rate Blood Pressure 129/75 O2 Sat by Pulse Oximetry Constitutional: no acute distress, alert Eyes: non-icteric ENT: oropharynx moist Neck: supple, no lymphadenopathy, no JVD Effort: normal Ascultation: Bilateral: clear Percussion: Bilateral: not dull Cardiovascular: irregular rhythm Gastrointestinal: normoactive bowel sounds, soft, non-tender, non-distended Integumentary: normal Extremities: no cyanosis, no edema, pulses normal, no ischemia or petechiae Neurologic: normal mental status, non-focal exam (grossly), pupils equal and round, motor strength normal and Psychiatric: mood appropriate, affect normal CBC and BMP: 05/19/22 04:30 05/18/22 Unknown ABG, PT/INR, D-dimer: PT/INR, D-dimer PT 16.5 Sec. (12.2-14.9) H 05/14/22 06:57 INR 1.19 (0.87-1.13) H 05/14/22 06:57 Abnormal lab findings: Abnormal Labs 05/14/22 05/14/22 05/14/22 04:59 06:57 06:57 WBC 12.5 H RBC 1.95 L Hgb 6.0 L Hct 18.7 L* MCV 96 H RDW 13.0 L Lymph % (Auto) 4.7 L [place] % (Auto) 11.9 H Lymph # (Auto) 0.6 L [place] # (Auto) 1.5 H Seg Neutrophils % 83.3 H Seg Neuts % (Manual) Lymphocytes % (Manual) Monocytes % (Manual) Seg Neutrophils # 10.4 H Lymphocytes # (Manual) Monocytes # (Manual) PT INR Sodium Chloride 108.3 H Carbon Dioxide 18 L BUN 29 H Creatinine Glucose 275 H POC Glucose 245 H Lactic Acid Calcium 8.3 L Phosphorus Magnesium Total Creatine Kinase C-Reactive Protein Total Protein Albumin 3.2 L Free T4 Urine WBC (Auto) Crossmatch 05/14/22 05/14/22 05/14/22 06:57 06:57 06:57 WBC RBC Hgb Hct MCV RDW Lymph % (Auto) [place] % (Auto) Lymph # (Auto) [place] # (Auto) Seg Neutrophils % Seg Neuts % (Manual) Lymphocytes % (Manual) Monocytes % (Manual) Seg Neutrophils # Lymphocytes # (Manual) Monocytes # (Manual) PT 16.5 H INR 1.19 H Sodium Chloride Carbon Dioxide BUN Creatinine Glucose POC Glucose Lactic Acid 2.10 H* Calcium Phosphorus Magnesium Total Creatine Kinase 774 H C-Reactive Protein 23.80 H Total Protein Albumin Free T4 Urine WBC (Auto) Crossmatch 05/14/22 05/14/22 05/14/22 07:28 09:54 17:30 WBC RBC Hgb Hct MCV RDW Lymph % (Auto) [place] % (Auto) Lymph # (Auto) [place] # (Auto) Seg Neutrophils % Seg Neuts % (Manual) Lymphocytes % (Manual) Monocytes % (Manual) Seg Neutrophils # Lymphocytes # (Manual) Monocytes # (Manual) PT INR Sodium Chloride Carbon Dioxide BUN Creatinine Glucose POC Glucose 206 H Lactic Acid Calcium Phosphorus Magnesium Total Creatine Kinase C-Reactive Protein Total Protein Albumin Free T4 Urine WBC (Auto) > 182.0 H Crossmatch See Detail 05/14/22 05/14/22 05/14/22 22:40 22:40 22:40 WBC RBC Hgb 7.8 L Hct 22.9 L MCV RDW Lymph % (Auto) [place] % (Auto) Lymph # (Auto) [place] # (Auto) Seg Neutrophils % Seg Neuts % (Manual) Lymphocytes % (Manual) Monocytes % (Manual) Seg Neutrophils # Lymphocytes # (Manual) Monocytes # (Manual) PT INR Sodium Chloride Carbon Dioxide BUN Creatinine Glucose POC Glucose Lactic Acid Calcium Phosphorus Magnesium 1.60 L Total Creatine Kinase C-Reactive Protein Total Protein Albumin Free T4 1.59 H Urine WBC (Auto) Crossmatch 05/15/22 05/15/22 05/15/22 00:10 05:00 05:00 WBC 11.1 H RBC 2.49 L Hgb 7.5 L Hct 22.8 L MCV RDW Lymph % (Auto) 8.8 L [place] % (Auto) 13.1 H Lymph # (Auto) 1.0 L [place] # (Auto) 1.5 H Seg Neutrophils % 77.7 H Seg Neuts % (Manual) Lymphocytes % (Manual) Monocytes % (Manual) Seg Neutrophils # 8.6 H Lymphocytes # (Manual) Monocytes # (Manual) PT INR Sodium Chloride 108.5 H Carbon Dioxide 20 L BUN Creatinine Glucose 188 H POC Glucose 218 H Lactic Acid Calcium 8.2 L Phosphorus Magnesium Total Creatine Kinase C-Reactive Protein Total Protein 5.7 L Albumin 2.7 L Free T4 Urine WBC (Auto) Crossmatch 05/15/22 05/15/22 05/15/22 05:52 11:34 16:24 WBC RBC Hgb Hct MCV RDW Lymph % (Auto) [place] % (Auto) Lymph # (Auto) [place] # (Auto) Seg Neutrophils % Seg Neuts % (Manual) Lymphocytes % (Manual) Monocytes % (Manual) Seg Neutrophils # Lymphocytes # (Manual) Monocytes # (Manual) PT INR Sodium Chloride Carbon Dioxide BUN Creatinine Glucose POC Glucose 205 H 163 H 163 H Lactic Acid Calcium Phosphorus Magnesium Total Creatine Kinase C-Reactive Protein Total Protein Albumin Free T4 Urine WBC (Auto) Crossmatch 05/15/22 05/15/22 05/16/22 19:10 21:46 04:00 WBC RBC 2.51 L 2.54 L Hgb 7.7 L 7.7 L Hct 23.0 L 22.9 L MCV RDW Lymph % (Auto) [place] % (Auto) Lymph # (Auto) [place] # (Auto) Seg Neutrophils % Seg Neuts % (Manual) 79.0 H Lymphocytes % (Manual) 8.0 L Monocytes % (Manual) 13.0 H Seg Neutrophils # Lymphocytes # (Manual) 0.7 L Monocytes # (Manual) 1.1 H PT INR Sodium Chloride Carbon Dioxide BUN Creatinine Glucose POC Glucose 222 H Lactic Acid Calcium Phosphorus Magnesium Total Creatine Kinase C-Reactive Protein Total Protein Albumin Free T4 Urine WBC (Auto) Crossmatch 05/16/22 05/16/22 05/16/22 04:00 11:26 16:21 WBC RBC Hgb Hct MCV RDW Lymph % (Auto) [place] % (Auto) Lymph # (Auto) [place] # (Auto) Seg Neutrophils % Seg Neuts % (Manual) Lymphocytes % (Manual) Monocytes % (Manual) Seg Neutrophils # Lymphocytes # (Manual) Monocytes # (Manual) PT INR Sodium Chloride Carbon Dioxide 20 L BUN Creatinine Glucose 191 H POC Glucose 204 H 182 H Lactic Acid Calcium 8.3 L Phosphorus 2.30 L Magnesium Total Creatine Kinase C-Reactive Protein Total Protein Albumin Free T4 Urine WBC (Auto) Crossmatch 05/16/22 05/17/22 05/17/22 21:29 04:37 04:58 WBC RBC 3.46 L Hgb 10.6 L Hct 31.2 L D MCV RDW Lymph % (Auto) [place] % (Auto) Lymph # (Auto) [place] # (Auto) Seg Neutrophils % Seg Neuts % (Manual) Lymphocytes % (Manual) Monocytes % (Manual) Seg Neutrophils # Lymphocytes # (Manual) Monocytes # (Manual) PT INR Sodium 135 L Chloride Carbon Dioxide BUN Creatinine Glucose 151 H POC Glucose 162 H Lactic Acid Calcium Phosphorus Magnesium Total Creatine Kinase C-Reactive Protein Total Protein Albumin Free T4 Urine WBC (Auto) Crossmatch 05/17/22 05/17/22 05/17/22 07:26 11:31 16:21 WBC RBC Hgb Hct MCV RDW Lymph % (Auto) [place] % (Auto) Lymph # (Auto) [place] # (Auto) Seg Neutrophils % Seg Neuts % (Manual) Lymphocytes % (Manual) Monocytes % (Manual) Seg Neutrophils # Lymphocytes # (Manual) Monocytes # (Manual) PT INR Sodium Chloride Carbon Dioxide BUN Creatinine Glucose POC Glucose 124 H 201 H 141 H Lactic Acid Calcium Phosphorus Magnesium Total Creatine Kinase C-Reactive Protein Total Protein Albumin Free T4 Urine WBC (Auto) Crossmatch 05/17/22 05/18/22 05/18/22 21:09 04:00 04:00 WBC RBC 3.53 L Hgb 10.8 L Hct 31.5 L MCV RDW Lymph % (Auto) [place] % (Auto) Lymph # (Auto) [place] # (Auto) Seg Neutrophils % Seg Neuts % (Manual) Lymphocytes % (Manual) Monocytes % (Manual) Seg Neutrophils # Lymphocytes # (Manual) Monocytes # (Manual) PT INR Sodium 133 L Chloride Carbon Dioxide BUN Creatinine 0.7 L Glucose 149 H POC Glucose 193 H Lactic Acid Calcium Phosphorus Magnesium Total Creatine Kinase C-Reactive Protein Total Protein Albumin Free T4 Urine WBC (Auto) Crossmatch 05/18/22 05/18/22 05/18/22 08:13 11:38 12:07 WBC RBC Hgb Hct MCV RDW Lymph % (Auto) [place] % (Auto) Lymph # (Auto) [place] # (Auto) Seg Neutrophils % Seg Neuts % (Manual) Lymphocytes % (Manual) Monocytes % (Manual) Seg Neutrophils # Lymphocytes # (Manual) Monocytes # (Manual) PT INR Sodium Chloride Carbon Dioxide BUN Creatinine Glucose POC Glucose 147 H 177 H 158 H Lactic Acid Calcium Phosphorus Magnesium Total Creatine Kinase C-Reactive Protein Total Protein Albumin Free T4 Urine WBC (Auto) Crossmatch 05/18/22 05/18/22 05/18/22 16:06 21:52 Unknown WBC RBC Hgb Hct MCV RDW Lymph % (Auto) [place] % (Auto) Lymph # (Auto) [place] # (Auto) Seg Neutrophils % Seg Neuts % (Manual) Lymphocytes % (Manual) Monocytes % (Manual) Seg Neutrophils # Lymphocytes # (Manual) Monocytes # (Manual) PT INR Sodium 136 L Chloride Carbon Dioxide BUN Creatinine Glucose 165 H POC Glucose 172 H 310 H Lactic Acid Calcium Phosphorus Magnesium Total Creatine Kinase C-Reactive Protein Total Protein Albumin Free T4 Urine WBC (Auto) Crossmatch 05/19/22 05/19/22 05/19/22 04:30 08:38 11:34 WBC RBC 3.59 L Hgb 11.0 L Hct 32.5 L MCV RDW Lymph % (Auto) 9.8 L [place] % (Auto) Lymph # (Auto) 1.0 L [place] # (Auto) Seg Neutrophils % 84.5 H Seg Neuts % (Manual) Lymphocytes % (Manual) Monocytes % (Manual) Seg Neutrophils # 8.2 H Lymphocytes # (Manual) Monocytes # (Manual) PT INR Sodium Chloride Carbon Dioxide BUN Creatinine Glucose POC Glucose 263 H 245 H Lactic Acid Calcium Phosphorus Magnesium Total Creatine Kinase C-Reactive Protein Total Protein Albumin Free T4 Urine WBC (Auto) Crossmatch Allied health notes reviewed: nursing
--- NOTE | 2022-05-19 14:31 | Post Anesthesia Evaluation ---
- Post Anesthesia Evaluation Patient Participated: Yes Airway Patent: Yes Stable Respiratory Function: Yes Nausea/Vomiting: No Temp > 96.8F: Yes Pain Manageable: Yes Adequeate Hydration: Yes Anesthesia Complications: No Block Receding Appropriately: Not Applicable Patient on Ventilator: No Other Comments: Patient is still in ICU, stable, minimal bleeding. Comfortable
--- NOTE | 2022-05-19 15:23 | Progress Note ---
Assessment and Plan Assessment and plan: This is a 81-year-old male with vascular dementia, cerebral arthrosclerosis, DM, HLD, HTN, GERD, anemia of chronic disease, BPH with chronic indwelling Sprague catheter and hematuria admitted with acute blood loss anemia, new onset A. fib with RVR and sepsis secondary to UTI Neuro: h/o vascular dementia, cerebral atherosclerosis -Reorientation as needed -Maintain sleep-wake cycle -aspiration/seizure precautions -As needed analgesia -CT head shows no acute intracranial abnormality -Continue supportive care Cardiac: New onset atrial fibrillation, h/o HTN and hyperlipidemia -Cardiology consulted, appreciate recommendations -Blood pressure monitoring per protocol -S/p IV amiodarone -Currently on p.o. amiodarone, p.o. metoprolol -Continue home Lipitor -Echocardiogram shows LVEF of 50 to 55%, impaired relaxation -No anticoagulation in setting of a ABLA/hematuria Respiratory: NAD -Pulmonary hygiene -SPO2 monitor per protocol -Supplemental oxygen as needed GI: Moderate protein calorie malnutrition, h/o GERD -24 hours -2137 ml -PPI -Mechanical soft diet with nutritional supplementation -BR: Colace : Obstructive uropathy, gross hematuria with clots, chronic indwelling Sprague catheter, h/o BPH, ? Neurogenic bladder -Urology consulted, appreciate recommendations -CT abdomen/pelvis shows no significant abnormality of the ureters, probable blood products in the bladder, bladder mass cannot be entirely excluded -Cystogram completed -[place] drip -Continue home Cardura -Record intake and output -Renally dose medications -Avoid nephrotoxic medications -Trend BMP ID: Sepsis likely secondary to UTI (POA) -Presented with leukocytosis, hypotension, pyuria -CRP 23.8, procalcitonin 4.61 -Antibiotic therapy with Levaquin (05/15-) -05/14 blood cultures with no growth after 48 hours, urine culture with no growth after 48 hours -Monitor WBC and temperature curve Endo: h/o type 2 diabetes mellitus -Avoid hypoglycemia -SSI -Accu-Cheks AC at bedtime Heme: Acute on chronic anemia, ABLA -Presented with H/H of 6.0/18.7 -S/p 4 units PRBC -Trend CBC -Transfuse hemoglobin less than 7 -Continue home iron -No anticoagulation in setting of ABLA -SCDs to BLE while in bed Oncology: ? Bladder Cancer -s/p TURB -Cytology pending -Will need to follow up outpatient with urology and oncology The high probability of a clinically significant, sudden or life threatening deterioration of the [multiple] system(s) required my full and direct attention, intervention and personal management. The aggregate critical care time was [60] minutes. This time is in addition to time spent performing reported procedures but includes the following: [x] Data Review and interpretation [x] Patient assessment and monitoring of vital signs [x] Documentation [x] Medication orders and management Disposition Plan: transfer to floor Total Time Spent with Patient (Minutes): 60 History Interval history: This is 81 male with vascular dementia, cerebral arthrosclerosis, DM, HLD, HTN, GERD, anemia of chronic disease, BPH with chronic indwelling Sprague catheter placed 1 week prior to presentation who presented to the hospital on 05/14 via EMS after being found unresponsive while sitting on the sofa per family. Patient was hypotensive with systolic blood pressure in the 80s and heart rate in the 150s and lab work showed sepsis suspected secondary to UTI, toxic metabolic encephalopathy, new onset of fibrillation with RVR. Patient was admitted to the hospitalist service with consults to cardiology and CCM on amiodarone drip. Hospital Course to Date: 05/15: Fully AAO this am, stable on RA. With persistent gross hematuria this am, s/p 2units of PRBCs. H&H stable this am. Remains on Amiodarone gtt, SR noted on the monitor, VSS. D/W Cardio, plan to transition to PO Amio today. 2D Echo pending. Continue to trend H&H, Urology consulted. 05/16: Neurology will transfuse the patient with 2 units PRBC and plans to complete a CT abdomen and pelvis. Phosphorus repleted with Namita-Pepe. Procalcitonin pending. 05/17: Hemoglobin has responded appropriately to blood transfusion yesterday, urology will possibly perform cysto tomorrow. We will continue right IJ 12 and a cystoscopy. Procalcitonin elevated therefore we will continue antibiotic for 05/18: To OR for cystoscopy. Will follow up post op. Sprague bag remains very bloody. Will check H/H tomorrow AM 05/19: Patient had a cystoscopy yesterday and has clots with some hematuria. Still on Woo's drip. Urology will like to send the patient home with Sprague bag. Patient will be transition to the floor. Hospitalist Physical - Constitutional Vitals: Temp Pulse Resp BP Pulse Ox 97.8 F 68 14 137/73 98 05/19/22 06:43 05/19/22 14:00 05/19/22 14:00 05/19/22 14:00 05/19/22 14:00 General appearance: Present: no acute distress - EENT Eyes: Present: PERRL, EOM intact ENT: hearing intact, poor dentition - Neck Neck: Present: normal ROM - Respiratory Respiratory effort: normal Respiratory: bilateral: diminished - Cardiovascular Rhythm: regular Heart Sounds: Present: S1 & S2. Absent: systolic murmur, diastolic murmur - Extremities Extremities: no ischemia, pulses intact, pulses symmetrical, normal temperature, normal color Peripheral Pulses: within normal limits - Abdominal General gastrointestinal: soft, non-tender, non-distended, normal bowel sounds - Integumentary Integumentary: Present: warm, dry - Psychiatric Psychiatric: cooperative - Neurologic Neurologic: CNII-XII intact, no focal deficits, moves all extremities - Allied Health Allied health notes reviewed: nursing, social work HEART Score - HEART Score Troponin: Troponin T < 0.010 ng/mL (0.00-0.029) 05/14/22 06:57 Results - Labs CBC & Chem 7: 05/19/22 04:30 05/18/22 Unknown Labs: Laboratory Last Values WBC 9.7 K/mm3 (4.5-11.0) 05/19/22 04:30 RBC 3.59 M/mm3 (3.65-5.03) L 05/19/22 04:30 Hgb 11.0 gm/dl (11.8-15.2) L 05/19/22 04:30 Hct 32.5 % (35.5-45.6) L 05/19/22 04:30 MCV 91 fl (84-94) 05/19/22 04:30 MCH 31 pg (28-32) 05/19/22 04:30 MCHC 34 % (32-34) 05/19/22 04:30 RDW 14.5 % (13.2-15.2) 05/19/22 04:30 Plt Count 252 K/mm3 (140-440) 05/19/22 04:30 Lymph % (Auto) 9.8 % (13.4-35.0) L 05/19/22 04:30 Lam[place] % (Auto) 5.0 % (0.0-7.3) 05/19/22 04:30 Eos % (Auto) 0.1 % (0.0-4.3) 05/19/22 04:30 Baso % (Auto) 0.6 % (0.0-1.8) 05/19/22 04:30 Lymph # (Auto) 1.0 K/mm3 (1.2-5.4) L 05/19/22 04:30 Lam[place] # (Auto) 0.5 K/mm3 (0.0-0.8) 05/19/22 04:30 Eos # (Auto) 0.0 K/mm3 (0.0-0.4) 05/19/22 04:30 Baso # (Auto) 0.1 K/mm3 (0.0-0.1) 05/19/22 04:30 Add Manual Diff Complete 05/15/22 19:10 Total Counted 100 05/15/22 19:10 Seg Neutrophils % 84.5 % (40.0-70.0) H 05/19/22 04:30 Seg Neuts % (Manual) 79.0 % (40.0-70.0) H 05/15/22 19:10 Band Neutrophils % 0 % 05/15/22 19:10 Lymphocytes % (Manual) 8.0 % (13.4-35.0) L 05/15/22 19:10 Reactive Lymphs % (Man) 0 % 05/15/22 19:10 Monocytes % (Manual) 13.0 % (0.0-7.3) H 05/15/22 19:10 Eosinophils % (Manual) 0 % (0.0-4.3) 05/15/22 19:10 Basophils % (Manual) 0 % (0.0-1.8) 05/15/22 19:10 Metamyelocytes % 0 % 05/15/22 19:10 Myelocytes % 0 % 05/15/22 19:10 Promyelocytes % 0 % 05/15/22 19:10 Blast Cells % 0 % 05/15/22 19:10 Nucleated RBC % Not Reportable 05/15/22 19:10 Seg Neutrophils # 8.2 K/mm3 (1.8-7.7) H 05/19/22 04:30 Seg Neutrophils # Man 6.9 K/mm3 (1.8-7.7) 05/15/22 19:10 Band Neutrophils # 0.0 K/mm3 05/15/22 19:10 Lymphocytes # (Manual) 0.7 K/mm3 (1.2-5.4) L 05/15/22 19:10 Abs React Lymphs (Man) 0.0 K/mm3 05/15/22 19:10 Monocytes # (Manual) 1.1 K/mm3 (0.0-0.8) H 05/15/22 19:10 Eosinophils # (Manual) 0.0 K/mm3 (0.0-0.4) 05/15/22 19:10 Basophils # (Manual) 0.0 K/mm3 (0.0-0.1) 05/15/22 19:10 Metamyelocytes # 0.0 K/mm3 05/15/22 19:10 Myelocytes # 0.0 K/mm3 05/15/22 19:10 Promyelocytes # 0.0 K/mm3 05/15/22 19:10 Blast Cells # 0.0 K/mm3 05/15/22 19:10 WBC Morphology Not Reportable 05/15/22 19:10 Hypersegmented Neuts Not Reportable 05/15/22 19:10 Hyposegmented Neuts Not Reportable 05/15/22 19:10 Hypogranular Neuts Not Reportable 05/15/22 19:10 Smudge Cells Not Reportable 05/15/22 19:10 Toxic Granulation Not Reportable 05/15/22 19:10 Toxic Vacuolation Not Reportable 05/15/22 19:10 Dohle Bodies Not Reportable 05/15/22 19:10 Pelger-Huet Anomaly Not Reportable 05/15/22 19:10 Jorge Rods Not Reportable 05/15/22 19:10 Platelet Estimate Consistent w auto 05/15/22 19:10 Clumped Platelets Not Reportable 05/15/22 19:10 Plt Clumps, EDTA Not Reportable 05/15/22 19:10 Large Platelets Not Reportable 05/15/22 19:10 Giant Platelets Not Reportable 05/15/22 19:10 Platelet Satelliting Not Reportable 05/15/22 19:10 Plt Morphology Comment Not Reportable 05/15/22 19:10 RBC Morphology Not Reportable 05/15/22 19:10 Dimorphic RBCs Not Reportable 05/15/22 19:10 Polychromasia Not Reportable 05/15/22 19:10 Hypochromasia Not Reportable 05/15/22 19:10 Poikilocytosis Not Reportable 05/15/22 19:10 Anisocytosis 1+ 05/15/22 19:10 Microcytosis Not Reportable 05/15/22 19:10 Macrocytosis Not Reportable 05/15/22 19:10 Spherocytes Not Reportable 05/15/22 19:10 Pappenheimer Bodies Not Reportable 05/15/22 19:10 Sickle Cells Not Reportable 05/15/22 19:10 Target Cells Not Reportable 05/15/22 19:10 Tear Drop Cells Not Reportable 05/15/22 19:10 Ovalocytes Not Reportable 05/15/22 19:10 Helmet Cells Not Reportable 05/15/22 19:10 [place] Bodies Not Reportable 05/15/22 19:10 [place] Rings Not Reportable 05/15/22 19:10 [place] Cells Not Reportable 05/15/22 19:10 Bite Cells Not Reportable 05/15/22 19:10 Crenated Cell Not Reportable 05/15/22 19:10 Elliptocytes Not Reportable 05/15/22 19:10 Acanthocytes (Spur) Not Reportable 05/15/22 19:10 Rouleaux Not Reportable 05/15/22 19:10 Hemoglobin C Crystals Not Reportable 05/15/22 19:10 Schistocytes Not Reportable 05/15/22 19:10 Malaria parasites Not Reportable 05/15/22 19:10 Miguel Bodies Not Reportable 05/15/22 19:10 Hem Pathologist Commnt No 05/15/22 19:10 PT 16.5 Sec. (12.2-14.9) H 05/14/22 06:57 INR 1.19 (0.87-1.13) H 05/14/22 06:57 Sodium 136 mmol/L (137-145) L 05/18/22 Unknown Potassium 3.9 mmol/L (3.6-5.0) 05/18/22 Unknown Chloride 102.7 mmol/L (98-107) 05/18/22 Unknown Carbon Dioxide 23 mmol/L (22-30) 05/18/22 Unknown Anion Gap 14 mmol/L 05/18/22 Unknown BUN 10 mg/dL (9-20) 05/18/22 Unknown Creatinine 0.8 mg/dL (0.8-1.3) 05/18/22 Unknown Estimated GFR > 60 ml/min 05/18/22 Unknown BUN/Creatinine Ratio 13 % 05/18/22 Unknown Glucose 165 mg/dL (75-100) H 05/18/22 Unknown POC Glucose 245 mg/dL (70-105) H 05/19/22 11:34 Lactic Acid 1.00 mmol/L (0.7-2.0) 05/14/22 22:40 Calcium 8.8 mg/dL (8.4-10.2) 05/18/22 Unknown Phosphorus 2.80 mg/dL (2.5-4.5) D 05/17/22 04:37 Magnesium 1.80 mg/dL (1.7-2.3) 05/17/22 04:37 Total Bilirubin 0.50 mg/dL (0.1-1.2) 05/15/22 05:00 AST 31 units/L (5-40) 05/15/22 05:00 ALT 21 units/L (7-56) 05/15/22 05:00 Alkaline Phosphatase 53 units/L (35-129) 05/15/22 05:00 Total Creatine Kinase 774 units/L (55-170) H 05/14/22 06:57 Troponin T < 0.010 ng/mL (0.00-0.029) 05/14/22 06:57 C-Reactive Protein 23.80 mg/dL (0.00-1.30) H 05/14/22 06:57 NT-Pro-B Natriuret Pep 705.7 pg/mL (0-900) 05/14/22 06:57 Total Protein 5.7 g/dL (6.3-8.2) L 05/15/22 05:00 Albumin 2.7 g/dL (3.9-5) L 05/15/22 05:00 Albumin/Globulin Ratio 0.9 % 05/15/22 05:00 Lipase 20 units/L (13-60) 05/14/22 06:57 Procalcitonin 4.61 ng/mL (<0.15) 05/14/22 22:40 TSH 1.040 mlU/mL (0.270-4.200) 05/14/22 22:40 Free T4 1.59 ng/dL (0.76-1.46) H 05/14/22 22:40 Urine Color Red (Yellow) 05/14/22 07:28 Urine Turbidity Bloody (Clear) 05/14/22 07:28 Urine Protein Color interference mg/dL (Negative) 05/14/22 07:28 Urine Glucose (UA) Color interference mg/dL (Negative) 05/14/22 07:28 Urine Ketones Color interference mg/dL (Negative) 05/14/22 07:28 Urine Blood Color interference (Negative) 05/14/22 07:28 Urine Nitrite Color interference (Negative) 05/14/22 07:28 Urine Bilirubin Color interference (Negative) 05/14/22 07:28 Urine Ictotest Not Reportable 05/14/22 07:28 Ur Leukocyte Esterase Color interference (Negative) 05/14/22 07:28 Urine WBC (Auto) > 182.0 /HPF (0.0-6.0) H 05/14/22 07:28 Urine RBC (Auto) > 182.0 /HPF (0.0-6.0) 05/14/22 07:28 U Epithel Cells (Auto) 5.0 /HPF (0-13.0) 05/14/22 07:28 Urine Bacteria (Auto) 3+ /HPF (Negative) 05/14/22 07:28 Blood Type O POSITIVE 05/14/22 09:54 Antibody Screen Negative 05/14/22 09:54 Crossmatch See Detail 05/14/22 09:54 Microbiology: Microbiology 05/14/22 06:57 Peripheral/Venous Blood Culture - Final NO GROWTH AFTER 5 DAYS 05/14/22 06:57 Peripheral/Venous Blood Culture - Final NO GROWTH AFTER 5 DAYS Sprague/IV: Voiding Method Indwelling Catheter Active Medications - Current Medications Current Medications: Generic Name Dose Route Start Last Admin Trade Name Freq PRN Reason Stop Dose Admin Acetaminophen 650 mg 05/18/22 16:00 Acetaminophen 325 Mg Tab PO Q4H PRN Pain MILD(1-3)/Fever >100.5/NARVAEZ Albuterol 2.5 mg 05/14/22 12:06 Albuterol 2.5 Mg/3 Ml Nebu IH Q3HRT PRN Shortness Of Breath Amiodarone HCl 200 mg 05/15/22 15:00 05/19/22 09:36 Amiodarone 200 Mg Tab PO 200 mg QDAY KARLA Administration Atorvastatin Calcium 80 mg 05/15/22 22:00 05/18/22 21:43 Atorvastatin 40 Mg Tab PO 80 mg QHS KARLA Administration Cyanocobalamin 1,000 mcg 05/15/22 10:00 05/19/22 09:35 Cyanocobalamin (Vit B-12) 1000 Mcg Tab PO 1,000 mcg QDAY KARLA Administration Dextrose 50 ml 05/14/22 15:19 Dextrose 50% In Water (25gm) 50 Ml Syringe IV Q30MIN PRN Hypoglycemia Protocol Docusate Sodium 100 mg 05/16/22 22:00 05/19/22 09:35 Docusate Sodium 100 Mg Cap PO 100 mg BID KARLA Administration Doxazosin Mesylate 1 mg 05/14/22 22:00 05/18/22 21:43 Doxazosin 1 Mg Tab PO 1 mg QHS KARLA Administration Ferrous Sulfate 325 mg 05/15/22 10:00 05/19/22 09:35 Ferrous Sulfate 325 Mg Tab PO 325 mg QDAY KARLA Administration Hydromorphone HCl 0.5 mg 05/17/22 08:38 Hydromorphone 0.5 Mg/0.5 Ml Inj IV Q4H PRN Pain , Severe (7-10) Insulin Glargine 15 units 05/19/22 22:00 Insulin Glargine 100 Units/Ml SUB-Q QHS [facility] Insulin Human Lispro 0 unit 05/15/22 16:30 05/19/22 12:30 Insulin Lispro 100 Unit/Ml SUB-Q 3 unit ACHS KARLA Administration Protocol Metoprolol Tartrate 25 mg 05/15/22 15:00 05/19/22 06:44 Metoprolol Tartrate 25 Mg Tab PO Not Given Q8H [facility] Morphine Sulfate 2 mg 05/16/22 22:25 05/18/22 21:42 Morphine 2 Mg/1 Ml Inj IV 2 mg Q4H PRN Administration Pain, Moderate (4-6) Oxycodone/Acetaminophen 1 tab 05/18/22 16:00 Oxycodone /Acetaminophen 5-325mg Tab PO Q6H PRN Pain, Moderate (4-6) Pantoprazole Sodium 20 mg 05/16/22 10:00 05/19/22 09:35 Pantoprazole 20 Mg Tab PO 20 mg QDAY KARLA Administration Sodium Chloride 10 ml 05/14/22 22:00 05/18/22 21:45 Sodium Chloride 0.9% 10 Ml Flush Syringe IV 10 ml BID KARLA Administration Sodium Chloride 10 ml 05/14/22 12:06 Sodium Chloride 0.9% 10 Ml Flush Syringe IV PRN PRN LINE FLUSH Sodium Chloride 2,000 ml 05/18/22 18:00 05/19/22 10:59 Sodium Chloride 0.9% Irrig Soln 2000 Ml IR 2,000 ml DIRECT KARLA Administration Nutrition/Malnutrition Assess - Dietary Evaluation Nutrition/Malnutrition Findings: Nutrition Notes Start: 05/15/22 14:55 Freq: Status: Active Protocol: Document 05/15/22 14:55 RS (Rec: 05/15/22 15:31 RS [id number]) Nutrition Notes Need for Assessment generated from: MD Order Initial or Follow up Brief Note Current Diagnosis Diabetes,Sepsis,Hyperlipidemia Other Pertinent Diagnosis Dementia, metabolic encephalopathy, A-fib, UTI, GERD, Labs/Tests Cl: 108 CO2: 20 GlU:188 Ca:8.2 Pertinent Medications reviewed Height 5 ft 8 in Weight 81.7 kg [place] Body Weight (kg) 70.00 BMI 27.3 Weight change and time frame ELBERT wt hx Weight Status Appropriate Subjective/Other Information MD consult for malnutrition. RD noted some muscle wasting around temporal lobes w/ protroding clavical with some dark depressions around orbital region. Will need to f /u for caretakers present for intakes before adms. Pt has surgery scheduled on 05/18. Burn Absent Trauma Absent Nutrition Intervention Additional Comments F/U for intakes before adm, full nutrition assessment with caretakers
[2022-05-19] MEDS ORDERED: INSULIN GLARGINE 100 UNITS/ML SUB-Q SCH (22:00)
[2022-05-19] MEDS: MORPHINE 2 MG/1 ML INJ IV PRN (22:37)
[2022-05-19] MEDS: DOXAZOSIN 1 MG TAB PO SCH (23:03)
[2022-05-20] MEDS: SODIUM CHLORIDE 0.9% IRRIG SOLN 2000 ML IR SCH ×2 (03:10→07:00)
[2022-05-20 06:19] LABS: Hematocrit 34.2 % (35.5-45.6); Hemoglobin 11.5 gm/dl (11.8-15.2); Mean Corpuscular HGB Conc 34 % (32-34); Mean Corpuscular Volume 91 fl (84-94); Platelet Count 302 K/mm3 (140-440); Red Blood Count 3.76 M/mm3 (3.65-5.03); Red Cell Distribution Width 14.4 % (13.2-15.2)
[2022-05-20] MEDS: MORPHINE 2 MG/1 ML INJ IV PRN ×2 (06:43→12:39)
[2022-05-20] MEDS: METOPROLOL TARTRATE 25 MG TAB PO SCH ×2 (06:43→18:31)
--- NOTE | 2022-05-20 06:44 | Discharge Summary ---
Providers - Providers Date of Admission: 05/14/22 14:13 Date of discharge: 05/20/22 Attending physician: MORALES HOLLAND MD 05/14/22 13:19 Consult to Physician [CONS] Routine Comment: Consulting Provider: JAMES LOCKHART Physician Instructions: Reason For Exam: sepsis, atrial fib/rvr 05/14/22 15:19 Consult to Dietitian/Nutrition [CONS] Routine Physician Instructions: Reason For Exam: Reason for Consult: Malnutrition 05/14/22 15:50 Consult to Physician [CONS] Routine Comment: Consulting Provider: YUNIEL HILTON Physician Instructions: Reason For Exam: Atrial fibrillation with RVR 05/15/22 10:29 Consult to Physician [CONS] Routine Comment: Consulting Provider: MARCIO WASHINGTON Physician Instructions: Reason For Exam: Hematuria with clots 05/19/22 19:49 Occupational Therapy Evaluate and Treat [CONS] Routine Comment: Reason For Exam: weakness Physical Therapy Evaluation and Treat [CONS] Routine Comment: Reason For Exam: weakness Primary care physician: KRISTIAN DAS Hospitalization Reason for admission: blood in urine Condition: Critical Hospital course: History Interval history: This is 81 male with vascular dementia, cerebral arthrosclerosis, DM, HLD, HTN, GERD, anemia of chronic disease, BPH with chronic indwelling Castillo catheter placed 1 week prior to presentation who presented to the hospital on 05/14 via EMS after being found unresponsive while sitting on the sofa per family. Patient was hypotensive with systolic blood pressure in the 80s and heart rate in the 150s and lab work showed sepsis suspected secondary to UTI, toxic metabolic encephalopathy, new onset of fibrillation with RVR. Patient was admitted to the hospitalist service with consults to cardiology and CCM on amiodarone drip. Hospital Course to Date: 05/15: Fully AAO this am, stable on RA. With persistent gross hematuria this am, s/p 2units of PRBCs. H&H stable this am. Remains on Amiodarone gtt, SR noted on the monitor, VSS. D/W Cardio, plan to transition to PO Amio today. 2D Echo pending. Continue to trend H&H, Urology consulted. 05/16: Neurology will transfuse the patient with 2 units PRBC and plans to complete a CT abdomen and pelvis. Phosphorus repleted with K-Phos. Procalcitonin pending. 05/17: Hemoglobin has responded appropriately to blood transfusion yesterday, urology will possibly perform cysto tomorrow. We will continue right IJ 12 and a cystoscopy. Procalcitonin elevated therefore we will continue antibiotic for 05/18: To OR for cystoscopy. Will follow up post op. Castillo bag remains very bloody. Will check H/H tomorrow AM 05/19: Patient had a cystoscopy yesterday and has clots with some hematuria. Still on Woo's drip. Urology will like to send the patient home with Castillo bag. Patient will be transition to the floor. 05/20: Findings consistent with bladder CA in cytoscopy op report. Hemoglobin stable at the time of d/c. VSS. Ok to d/c from urology standpoint with castillo bag. Follow up OP with urology. Assessment and plan: This is a 81-year-old male with vascular dementia, cerebral arthrosclerosis, DM, HLD, HTN, GERD, anemia of chronic disease, BPH with chronic indwelling Castillo catheter and hematuria admitted with acute blood loss anemia, new onset A. fib with RVR and sepsis secondary to UTI Neuro: h/o vascular dementia, cerebral atherosclerosis -Reorientation as needed -Maintain sleep-wake cycle -aspiration/seizure precautions -As needed analgesia -CT head shows no acute intracranial abnormality -Continue supportive care Cardiac: New onset atrial fibrillation, h/o HTN and hyperlipidemia -Cardiology consulted, appreciate recommendations -Blood pressure monitoring per protocol -S/p IV amiodarone -Currently on p.o. amiodarone, p.o. metoprolol -Continue home Lipitor -Echocardiogram shows LVEF of 50 to 55%, impaired relaxation -No anticoagulation in setting of a ABLA/hematuria Respiratory: NAD -Pulmonary hygiene -SPO2 monitor per protocol -Supplemental oxygen as needed GI: Moderate protein calorie malnutrition, h/o GERD -24 hours -2137 ml -PPI -Mechanical soft diet with nutritional supplementation -BR: Colace : Obstructive uropathy, gross hematuria with clots, chronic indwelling Castillo catheter, h/o BPH, ? Neurogenic bladder -Urology consulted, appreciate recommendations -CT abdomen/pelvis shows no significant abnormality of the ureters, probable blood products in the bladder, bladder mass cannot be entirely excluded -Cystogram completed -Luz drip -Continue home Cardura -Record intake and output -Renally dose medications -Avoid nephrotoxic medications -Trend BMP ID: Sepsis likely secondary to UTI (POA) -Presented with leukocytosis, hypotension, pyuria -CRP 23.8, procalcitonin 4.61 -Antibiotic therapy with Levaquin (05/15-) -05/14 blood cultures with no growth after 48 hours, urine culture with no growth after 48 hours -Monitor WBC and temperature curve Endo: h/o type 2 diabetes mellitus -Avoid hypoglycemia -SSI -Accu-Cheks AC at bedtime Heme: Acute on chronic anemia, ABLA -Presented with H/H of 6.0/18.7 -S/p 4 units PRBC -Trend CBC -Transfuse hemoglobin less than 7 -Continue home iron -No anticoagulation in setting of ABLA -SCDs to BLE while in bed Oncology: ? Bladder Cancer -s/p TURB -Cytology pending -Will need to follow up outpatient with urology and oncology Disposition: 01 HOME / SELF CARE / HOMELESS Final Discharge Diagnosis (Prints w/discharge instructions): Hematuria, Bladder malignancy Time spent for discharge: 35 Core Measure Documentation - Palliative Care Palliative Care/ Comfort Measures: Not Applicable - Core Measures Any of the following diagnoses?: none Exam - Physical Exam Narrative exam: General appearance: Present: no acute distress - EENT Eyes: Present: PERRL, EOM intact ENT: hearing intact, poor dentition - Neck Neck: Present: normal ROM - Respiratory Respiratory effort: normal Respiratory: bilateral: diminished - Cardiovascular Rhythm: regular Heart Sounds: Present: S1 & S2. Absent: systolic murmur, diastolic murmur - Extremities Extremities: no ischemia, pulses intact, pulses symmetrical, No edema, normal temperature, normal color Peripheral Pulses: within normal limits - Abdominal General gastrointestinal: soft, non-tender, non-distended, normal bowel sounds - Integumentary Integumentary: Present: warm, dry - Psychiatric Psychiatric: cooperative - Neurologic Neurologic: CNII-XII intact, no focal deficits, moves all extremities - Allied Health Allied health notes reviewed: nursing, social work - Constitutional Vitals: Temp Pulse Resp BP Pulse Ox 97.6 F 60 20 174/89 97 05/20/22 05:18 05/20/22 05:18 05/20/22 05:18 05/20/22 05:18 05/20/22 05:18 Plan Follow up with: KRISTIAN DAS MD [Primary Care Provider] - 3-5 Days
--- NOTE | 2022-05-20 09:12 | Progress Note ---
Assessment and Plan - Patient Problems (1) Atrial fibrillation with RVR Current Visit: Yes Status: Acute Plan to address problem: 81-year-old man who presented with profound anemia, hematocrit of 18, resulting from severe hematuria. Rapid atrial fibrillation was noted on presentation, now corrected to a stable sinus rhythm following blood transfusions and intravenous amiodarone. Since the initial event, he has maintained a stable sinus rhythm. Echocardiogra m reported left ventricular ejection fraction well preserved at 50 to 55%. Continue rhythm control management. Patient is not a candidate for antiplatelet therapy or anticoagulation therapy in the setting of his severe anemia and hematuria. Subjective Date of service: 05/20/22 Principal diagnosis: Sepsis; AMS; UTI; A-fib with RVR; ABLA; HTN; DM II; Gross Hematuria Interval history: Patient is comfortable, no acute distress, looks and feels well. 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 Objective Vital Signs Temp Pulse Pulse Resp BP Pulse Ox 05/20/22 06:43 61 171/91 05/20/22 05:18 97.6 F 60 20 174/89 97 05/20/22 01:00 65 05/20/22 00:00 98 05/19/22 23:03 65 153/75 05/19/22 22:45 65 153/75 05/19/22 21:39 98.9 F 65 20 153/75 99 05/19/22 21:00 65 05/19/22 18:02 98.8 F 72 22 140/89 95 05/19/22 17:30 68 18 144/86 95 05/19/22 17:20 68 13 144/86 100 05/19/22 17:10 76 17 144/86 98 05/19/22 17:00 77 17 144/86 97 05/19/22 16:58 60 135/72 05/19/22 16:00 64 10 L 141/77 99 05/19/22 15:00 65 13 141/77 98 05/19/22 14:00 98.2 F 68 14 137/73 98 05/19/22 13:00 61 18 139/70 98 05/19/22 12:00 70 61 13 119/68 98 05/19/22 11:00 64 12 121/68 98 05/19/22 10:00 98.0 F 61 11 L 125/66 97 - Physical Examination General: No Apparent Distress HEENT: Positive: PERRL Neck: Positive: neck supple Cardiac: Positive: Reg Rate and Rhythm Lungs: Positive: Decreased Breath Sounds Neuro: Positive: Grossly Intact Abdomen: Positive: Soft Skin: Positive: Clear Extremities: Absent: edema - Labs and Meds CBC 05/20/22 Range/Units 05:42 WBC 11.7 H (4.5-11.0) K/mm3 RBC 3.76 (3.65-5.03) M/mm3 Hgb 11.5 L (11.8-15.2) gm/dl Hct 34.2 L (35.5-45.6) % Plt Count 302 (140-440) K/mm3 - Allied health notes Allied health notes reviewed: nursing
[2022-05-20] MEDS: AMIODARONE 200 MG TAB PO SCH (10:09)
[2022-05-20] MEDS: DOCUSATE SODIUM 100 MG CAP PO SCH (10:09)
[2022-05-20] MEDS: FERROUS SULFATE 325 MG TAB PO SCH (10:09)
[2022-05-20] MEDS: PANTOPRAZOLE 20 MG TAB PO SCH (10:09)
[2022-05-20] MEDS: CYANOCOBALAMIN (VIT B-12) 1000 MCG TAB PO SCH (10:09)
--- NOTE | 2022-05-20 12:51 | Progress Note ---
Assessment and Plan 81 YO Male with Vascular Dementia, Cerebral Atherosclerosis, DM, HLD, HTN, GERD, Anemia chronic Disease, BPH with Chronic indwelling castillo catheter placed 1 week ago presents ED for evaluation. Patient is confused and lethargic at time of evaluation and is unable to provide history. Patient history taken by EMS staff, ED staff, as well as the patient's family . Patient was in his usual state of health upon awakening from sleep this morning around 0900 hrs. The patient was found unresponsive while sitting on his sofa. EMS was notified and upon arrival the patient was found to be in distress and subsequent transported to [facility] for further care and evaluation of the aforementioned symptoms. The patient was seen and evaluated in the emergency department. All lab and imaging studies reviewed. Patient found to be hypotensive with a systolic blood pressure in the 80s with a heart rate in the 150s. Patient found to have sepsis suspected secondary to urinary tract infection, toxic metabolic encephalopathy, as well as new onset atrial fibrillation with rapid ventricular response. Patient admitted to ICU due to increased risk of worsening symptoms after medical stabilization. Patient initiated on amiodarone drip in the emergency department. Critical care team consulted in ED. Cardiology team consulted in ED. patient has diminished cognition but has a positive gag reflex and is able to protect his airway . Patient has no history of smoking, alcohol or drug abuse. 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 Patient . Children 1. No known drug allergies. Patient treated for sepsis with Levafloxacin and I/V fluids. Patient started on Amiodarone for atrial fibrillation with rapid ventricular response. Patient undergone cystoscopy yesterday. pathology report still pending. Patient complaining of pain in his lower abdomen today. Patient still on bladder irrigation. Daughter was siting bedside. Patient is on room air and O2 saturation running 96%. No acute respiratory distress. Denies chest pain, shortness of breath or cough. talked to the nurse taking care of the patient and asked her to provide pain medication and also told her to contact the urologist on the case. Patient afebrile. mild leukocytosis. Blood pressure 136/79, Pulse 57 Respirations 22. Chest xray 04/24/22 reported minimal bibasilar subsegmental atelectasis. No pleural effusion. No pneumothorax. Right jugular CVL placement without complication. Patient is on albuterol inhaler, Protonix - Patient Problems (1) Atrial fibrillation with RVR Current Visit: Yes Status: Acute Plan to address problem: Patient is on Amiodarone. Management as per cardiology. (2) Diabetes Current Visit: Yes Status: Acute Plan to address problem: Management as per primary care. (3) GERD (gastroesophageal reflux disease) Current Visit: Yes Status: Acute Qualifiers: Esophagitis presence: without esophagitis Qualified Code(s): K21.9 - Gastro-esophageal reflux disease without esophagitis Plan to address problem: Patient is on Protonix. (4) Toxic metabolic encephalopathy Current Visit: Yes Status: Acute Plan to address problem: Management as per primary care and neurology. (5) Sepsis Current Visit: Yes Status: Acute Plan to address problem: Patient was on I/V Levaquin and I/V fluids. (6) Obstructive uropathy Current Visit: Yes Status: Acute Plan to address problem: Management as per urology. Subjective Date of service: 05/20/22 Principal diagnosis: Sepsis; AMS; UTI; A-fib with RVR; ABLA; HTN; DM II; Gross Hematuria Interval history: 81 YO Male with Vascular Dementia, Cerebral Atherosclerosis, DM, HLD, HTN, GERD, Anemia chronic Disease, BPH with Chronic indwelling castillo catheter placed 1 week ago presents ED for evaluation. Patient is confused and lethargic at time of evaluation and is unable to provide history. Patient history taken by EMS staff, ED staff, as well as the patient's family . Patient was in his usual state of health upon awakening from sleep this morning around 0900 hrs. The patient was found unresponsive while sitting on his sofa. EMS was notified and upon arrival the patient was found to be in distress and subsequent transported to [facility] for further care and evaluation of the aforementioned symptoms. The patient was seen and evaluated in the emergency department. All lab and imaging studies reviewed. Patient found to be hypotensive with a systolic blood pressure in the 80s with a heart rate in the 150s. Patient found to have sepsis suspected secondary to urinary tract infection, toxic metabolic encephalopathy, as well as new onset atrial fibrillation with rapid ventricular response. Patient admitted to ICU due to increased risk of worsening symptoms after medical stabilization. Patient initiated on amiodarone drip in the emergency de partment. Critical care team consulted in ED. Cardiology team consulted in ED. patient has diminished cognition but has a positive gag reflex and is able to protect his airway . Patient has no history of smoking, alcohol or drug abuse. 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 Patient . Children 1. No known drug allergies. Patient treated for sepsis with Levafloxacin and I/V fluids. Patient started on Amiodarone for atrial fibrillation with rapid ventricular response. Patient undergone cystoscopy yesterday. pathology report still pending. Patient complaining of pain in his lower abdomen today. Patient still on bladder irrigation. Daughter was siting bedside. Patient is on room air and O2 saturation running 96%. No acute respiratory distress. Denies chest pain, shortness of breath or cough. talked to the nurse taking care of the patient and asked her to provide pain medication and also told her to contact the urologist on the case. Patient afebrile. mild leukocytosis. Blood pressure 136/79, Pulse 57 Respirations 22. Chest xray 04/24/22 reported minimal bibasilar subsegmental atelectasis. No pleural effusion. No pneumothorax. Right jugular CVL placement without complication. Patient is on albuterol inhaler, Protonix Objective Vital Signs - 12hr 05/20/22 05/20/22 05/20/22 01:00 05:18 06:43 Temperature 97.6 F Pulse Rate 65 60 61 Respiratory 20 Rate Blood Pressure 174/89 171/91 O2 Sat by Pulse 97 Oximetry Constitutional: alert, appears uncomfortable Eyes: non-icteric ENT: oropharynx moist Neck: supple, no lymphadenopathy, no JVD Effort: normal Ascultation: Bilateral: diminished breath sounds Percussion: Bilateral: not dull Cardiovascular: irregular rhythm Gastrointestinal: normoactive bowel sounds, soft, non-tender, non-distended Integumentary: normal Extremities: no cyanosis, no edema, pulses normal, no ischemia or petechiae Neurologic: normal mental status, non-focal exam (grossly), pupils equal and round, motor strength normal and Psychiatric: anxious, other (complaining of pain in his lower abdomen) CBC and BMP: 05/20/22 05:42 05/18/22 Unknown ABG, PT/INR, D-dimer: PT/INR, D-dimer PT 16.5 Sec. (12.2-14.9) H 05/14/22 06:57 INR 1.19 (0.87-1.13) H 05/14/22 06:57 Abnormal lab findings: Abnormal Labs 05/14/22 05/14/22 05/14/22 04:59 06:57 06:57 WBC 12.5 H RBC 1.95 L Hgb 6.0 L Hct 18.7 L* MCV 96 H RDW 13.0 L Lymph % (Auto) 4.7 L Ramsey % (Auto) 11.9 H Lymph # (Auto) 0.6 L Ramsey # (Auto) 1.5 H Seg Neutrophils % 83.3 H Seg Neuts % (Manual) Lymphocytes % (Manual) Monocytes % (Manual) Seg Neutrophils # 10.4 H Lymphocytes # (Manual) Monocytes # (Manual) PT INR Sodium Chloride 108.3 H Carbon Dioxide 18 L BUN 29 H Creatinine Glucose 275 H POC Glucose 245 H Lactic Acid Calcium 8.3 L Phosphorus Magnesium Total Creatine Kinase C-Reactive Protein Total Protein Albumin 3.2 L Free T4 Urine WBC (Auto) Crossmatch 05/14/22 05/14/22 05/14/22 06:57 06:57 06:57 WBC RBC Hgb Hct MCV RDW Lymph % (Auto) Ramsey % (Auto) Lymph # (Auto) Ramsey # (Auto) Seg Neutrophils % Seg Neuts % (Manual) Lymphocytes % (Manual) Monocytes % (Manual) Seg Neutrophils # Lymphocytes # (Manual) Monocytes # (Manual) PT 16.5 H INR 1.19 H Sodium Chloride Carbon Dioxide BUN Creatinine Glucose POC Glucose Lactic Acid 2.10 H* Calcium Phosphorus Magnesium Total Creatine Kinase 774 H C-Reactive Protein 23.80 H Total Protein Albumin Free T4 Urine WBC (Auto) Crossmatch 05/14/22 05/14/22 05/14/22 07:28 09:54 17:30 WBC RBC Hgb Hct MCV RDW Lymph % (Auto) Ramsey % (Auto) Lymph # (Auto) Ramsey # (Auto) Seg Neutrophils % Seg Neuts % (Manual) Lymphocytes % (Manual) Monocytes % (Manual) Seg Neutrophils # Lymphocytes # (Manual) Monocytes # (Manual) PT INR Sodium Chloride Carbon Dioxide BUN Creatinine Glucose POC Glucose 206 H Lactic Acid Calcium Phosphorus Magnesium Total Creatine Kinase C-Reactive Protein Total Protein Albumin Free T4 Urine WBC (Auto) > 182.0 H Crossmatch See Detail 05/14/22 05/14/22 05/14/22 22:40 22:40 22:40 WBC RBC Hgb 7.8 L Hct 22.9 L MCV RDW Lymph % (Auto) Ramsey % (Auto) Lymph # (Auto) Ramsey # (Auto) Seg Neutrophils % Seg Neuts % (Manual) Lymphocytes % (Manual) Monocytes % (Manual) Seg Neutrophils # Lymphocytes # (Manual) Monocytes # (Manual) PT INR Sodium Chloride Carbon Dioxide BUN Creatinine Glucose POC Glucose Lactic Acid Calcium Phosphorus Magnesium 1.60 L Total Creatine Kinase C-Reactive Protein Total Protein Albumin Free T4 1.59 H Urine WBC (Auto) Crossmatch 05/15/22 05/15/22 05/15/22 00:10 05:00 05:00 WBC 11.1 H RBC 2.49 L Hgb 7.5 L Hct 22.8 L MCV RDW Lymph % (Auto) 8.8 L Ramsey % (Auto) 13.1 H Lymph # (Auto) 1.0 L Ramsey # (Auto) 1.5 H Seg Neutrophils % 77.7 H Seg Neuts % (Manual) Lymphocytes % (Manual) Monocytes % (Manual) Seg Neutrophils # 8.6 H Lymphocytes # (Manual) Monocytes # (Manual) PT INR Sodium Chloride 108.5 H Carbon Dioxide 20 L BUN Creatinine Glucose 188 H POC Glucose 218 H Lactic Acid Calcium 8.2 L Phosphorus Magnesium Total Creatine Kinase C-Reactive Protein Total Protein 5.7 L Albumin 2.7 L Free T4 Urine WBC (Auto) Crossmatch 05/15/22 05/15/22 05/15/22 05:52 11:34 16:24 WBC RBC Hgb Hct MCV RDW Lymph % (Auto) Ramsey % (Auto) Lymph # (Auto) Ramsey # (Auto) Seg Neutrophils % Seg Neuts % (Manual) Lymphocytes % (Manual) Monocytes % (Manual) Seg Neutrophils # Lymphocytes # (Manual) Monocytes # (Manual) PT INR Sodium Chloride Carbon Dioxide BUN Creatinine Glucose POC Glucose 205 H 163 H 163 H Lactic Acid Calcium Phosphorus Magnesium Total Creatine Kinase C-Reactive Protein Total Protein Albumin Free T4 Urine WBC (Auto) Crossmatch 05/15/22 05/15/22 05/16/22 19:10 21:46 04:00 WBC RBC 2.51 L 2.54 L Hgb 7.7 L 7.7 L Hct 23.0 L 22.9 L MCV RDW Lymph % (Auto) Ramsey % (Auto) Lymph # (Auto) Ramsey # (Auto) Seg Neutrophils % Seg Neuts % (Manual) 79.0 H Lymphocytes % (Manual) 8.0 L Monocytes % (Manual) 13.0 H Seg Neutrophils # Lymphocytes # (Manual) 0.7 L Monocytes # (Manual) 1.1 H PT INR Sodium Chloride Carbon Dioxide BUN Creatinine Glucose POC Glucose 222 H Lactic Acid Calcium Phosphorus Magnesium Total Creatine Kinase C-Reactive Protein Total Protein Albumin Free T4 Urine WBC (Auto) Crossmatch 05/16/22 05/16/22 05/16/22 04:00 11:26 16:21 WBC RBC Hgb Hct MCV RDW Lymph % (Auto) Ramsey % (Auto) Lymph # (Auto) Ramsey # (Auto) Seg Neutrophils % Seg Neuts % (Manual) Lymphocytes % (Manual) Monocytes % (Manual) Seg Neutrophils # Lymphocytes # (Manual) Monocytes # (Manual) PT INR Sodium Chloride Carbon Dioxide 20 L BUN Creatinine Glucose 191 H POC Glucose 204 H 182 H Lactic Acid Calcium 8.3 L Phosphorus 2.30 L Magnesium Total Creatine Kinase C-Reactive Protein Total Protein Albumin Free T4 Urine WBC (Auto) Crossmatch 05/16/22 05/17/22 05/17/22 21:29 04:37 04:58 WBC RBC 3.46 L Hgb 10.6 L Hct 31.2 L D MCV RDW Lymph % (Auto) Ramsey % (Auto) Lymph # (Auto) Ramsey # (Auto) Seg Neutrophils % Seg Neuts % (Manual) Lymphocytes % (Manual) Monocytes % (Manual) Seg Neutrophils # Lymphocytes # (Manual) Monocytes # (Manual) PT INR Sodium 135 L Chloride Carbon Dioxide BUN Creatinine Glucose 151 H POC Glucose 162 H Lactic Acid Calcium Phosphorus Magnesium Total Creatine Kinase C-Reactive Protein Total Protein Albumin Free T4 Urine WBC (Auto) Crossmatch 05/17/22 05/17/22 05/17/22 07:26 11:31 16:21 WBC RBC Hgb Hct MCV RDW Lymph % (Auto) Ramsey % (Auto) Lymph # (Auto) Ramsey # (Auto) Seg Neutrophils % Seg Neuts % (Manual) Lymphocytes % (Manual) Monocytes % (Manual) Seg Neutrophils # Lymphocytes # (Manual) Monocytes # (Manual) PT INR Sodium Chloride Carbon Dioxide BUN Creatinine Glucose POC Glucose 124 H 201 H 141 H Lactic Acid Calcium Phosphorus Magnesium Total Creatine Kinase C-Reactive Protein Total Protein Albumin Free T4 Urine WBC (Auto) Crossmatch 07/05/18/22 05/18/22 21:09 04:00 04:00 WBC RBC 3.53 L Hgb 10.8 L Hct 31.5 L MCV RDW Lymph % (Auto) Ramsey % (Auto) Lymph # (Auto) Ramsey # (Auto) Seg Neutrophils % Seg Neuts % (Manual) Lymphocytes % (Manual) Monocytes % (Manual) Seg Neutrophils # Lymphocytes # (Manual) Monocytes # (Manual) PT INR Sodium 133 L Chloride Carbon Dioxide BUN Creatinine 0.7 L Glucose 149 H POC Glucose 193 H Lactic Acid Calcium Phosphorus Magnesium Total Creatine Kinase C-Reactive Protein Total Protein Albumin Free T4 Urine WBC (Auto) Crossmatch 05/18/22 05/18/22 05/18/22 08:13 11:38 12:07 WBC RBC Hgb Hct MCV RDW Lymph % (Auto) Ramsey % (Auto) Lymph # (Auto) Ramsey # (Auto) Seg Neutrophils % Seg Neuts % (Manual) Lymphocytes % (Manual) Monocytes % (Manual) Seg Neutrophils # Lymphocytes # (Manual) Monocytes # (Manual) PT INR Sodium Chloride Carbon Dioxide BUN Creatinine Glucose POC Glucose 147 H 177 H 158 H Lactic Acid Calcium Phosphorus Magnesium Total Creatine Kinase C-Reactive Protein Total Protein Albumin Free T4 Urine WBC (Auto) Crossmatch 05/18/22 05/18/22 05/18/22 16:06 21:52 Unknown WBC RBC Hgb Hct MCV RDW Lymph % (Auto) Ramsey % (Auto) Lymph # (Auto) Ramsey # (Auto) Seg Neutrophils % Seg Neuts % (Manual) Lymphocytes % (Manual) Monocytes % (Manual) Seg Neutrophils # Lymphocytes # (Manual) Monocytes # (Manual) PT INR Sodium 136 L Chloride Carbon Dioxide BUN Creatinine Glucose 165 H POC Glucose 172 H 310 H Lactic Acid Calcium Phosphorus Magnesium Total Creatine Kinase C-Reactive Protein Total Protein Albumin Free T4 Urine WBC (Auto) Crossmatch 05/19/22 05/19/22 05/19/22 04:30 08:38 11:34 WBC RBC 3.59 L Hgb 11.0 L Hct 32.5 L MCV RDW Lymph % (Auto) 9.8 L Ramsey % (Auto) Lymph # (Auto) 1.0 L Ramsey # (Auto) Seg Neutrophils % 84.5 H Seg Neuts % (Manual) Lymphocytes % (Manual) Monocytes % (Manual) Seg Neutrophils # 8.2 H Lymphocytes # (Manual) Monocytes # (Manual) PT INR Sodium Chloride Carbon Dioxide BUN Creatinine Glucose POC Glucose 263 H 245 H Lactic Acid Calcium Phosphorus Magnesium Total Creatine Kinase C-Reactive Protein Total Protein Albumin Free T4 Urine WBC (Auto) Crossmatch 05/19/22 05/19/22 05/20/22 17:09 21:37 05:42 WBC 11.7 H RBC Hgb 11.5 L Hct 34.2 L MCV RDW Lymph % (Auto) Ramsey % (Auto) Lymph # (Auto) Ramsey # (Auto) Seg Neutrophils % Seg Neuts % (Manual) Lymphocytes % (Manual) Monocytes % (Manual) Seg Neutrophils # Lymphocytes # (Manual) Monocytes # (Manual) PT INR Sodium Chloride Carbon Dioxide BUN Creatinine Glucose POC Glucose 300 H 154 H Lactic Acid Calcium Phosphorus Magnesium Total Creatine Kinase C-Reactive Protein Total Protein Albumin Free T4 Urine WBC (Auto) Crossmatch 05/20/22 05/20/22 08:02 12:02 WBC RBC Hgb Hct MCV RDW Lymph % (Auto) Ramsey % (Auto) Lymph # (Auto) Ramsey # (Auto) Seg Neutrophils % Seg Neuts % (Manual) Lymphocytes % (Manual) Monocytes % (Manual) Seg Neutrophils # Lymphocytes # (Manual) Monocytes # (Manual) PT INR Sodium Chloride Carbon Dioxide BUN Creatinine Glucose POC Glucose 122 H 186 H Lactic Acid Calcium Phosphorus Magnesium Total Creatine Kinase C-Reactive Protein Total Protein Albumin Free T4 Urine WBC (Auto) Crossmatch Allied health notes reviewed: nursing
[2022-05-20] MEDS ORDERED: SODIUM CHLORIDE 0.9% IRR 500 ML BOTTLE IR PRN (13:41)
[2022-05-20 13:46] VITALS: BP 136/79
--- NOTE | 2022-05-20 15:10 | Progress Note ---
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 Lester -[place] IRRIGATES WELL---PLUG [address] WAY --- HOME WITH [place] TO LEG BAG --F/U DR. Lester Objective - Constitutional Vitals: Vital Signs - 12hr 05/20/22 05/20/22 05/20/22 05:18 06:43 12:03 Temperature 97.6 F 98.5 F Pulse Rate 60 61 57 L Respiratory 20 22 Rate Blood Pressure 174/89 171/91 136/79 O2 Sat by Pulse 97 96 Oximetry - Labs CBC & Chem 7: 05/20/22 05:42 05/18/22 Unknown Labs: Abnormal lab results 05/19/22 05/19/22 05/20/22 Range/Units 17:09 21:37 05:42 WBC 11.7 H (4.5-11.0) K/mm3 Hgb 11.5 L (11.8-15.2) gm/dl Hct 34.2 L (35.5-45.6) % POC Glucose 300 H 154 H (70-105) mg/dL 05/20/22 05/20/22 Range/Units 08:02 12:02 WBC (4.5-11.0) K/mm3 Hgb (11.8-15.2) gm/dl Hct (35.5-45.6) % POC Glucose 122 H 186 H (70-105) mg/dL Medications & Allergies - Medications Allergies/Adverse Reactions: Allergies No Known Allergies Allergy (Verified 05/13/22 16:50) Home Medications: Home Medications Medication Instructions Recorded Confirmed Last Taken Type AtorvaSTATin [Lipitor] 80 mg PO QHS 05/13/22 05/15/22 Unknown History Cyanocobalamin (Vitamin B-12) 1,000 mcg PO QDAY 05/13/22 05/14/22 Unknown History [Vitamin B-12] Doxazosin [Cardura] 1 mg PO QHS 05/13/22 05/14/22 Unknown History Ferrous Sulfate [Iron 325 MG] 325 mg PO QDAY 05/13/22 05/14/22 Unknown History Metformin HCl [metFORMIN] 1,000 mg PO QDAY 05/13/22 05/14/22 Unknown History Omeprazole 20 mg PO QDAY 05/13/22 05/14/22 Unknown History amLODIPine [Norvasc] 5 mg PO DAILY 05/13/22 05/14/22 Unknown History lisinopriL [Lisinopril] 40 mg PO QDAY 05/13/22 05/14/22 Unknown History oxyCODONE /ACETAMINOPHEN [Percocet 1 tab PO Q6H PRN 8 Days #32 tablet 05/20/22 Unknown Rx 5/325 mg] Active Medications: Generic Name Dose Route Start Last Admin Trade Name Freq PRN Reason Stop Dose Admin Acetaminophen 650 mg 05/18/22 16:00 Acetaminophen 325 Mg Tab PO Q4H PRN Pain MILD(1-3)/Fever >100.5/NARVAEZ Albuterol 2.5 mg 05/14/22 12:06 Albuterol 2.5 Mg/3 Ml Nebu IH Q3HRT PRN Shortness Of Breath Amiodarone HCl 200 mg 05/15/22 15:00 05/20/22 10:09 Amiodarone 200 Mg Tab PO 200 mg QDAY KARLA Administration Atorvastatin Calcium 80 mg 05/15/22 22:00 05/19/22 22:35 Atorvastatin 40 Mg Tab PO 80 mg QHS KARLA Administration Cyanocobalamin 1,000 mcg 05/15/22 10:00 05/20/22 10:09 Cyanocobalamin (Vit B-12) 1000 Mcg Tab PO 1,000 mcg QDAY KARLA Administration Dextrose 50 ml 05/14/22 15:19 Dextrose 50% In Water (25gm) 50 Ml Syringe IV Q30MIN PRN Hypoglycemia Protocol Docusate Sodium 100 mg 05/16/22 22:00 05/20/22 10:09 Docusate Sodium 100 Mg Cap PO 100 mg BID KARLA Administration Doxazosin Mesylate 1 mg 05/14/22 22:00 05/19/22 23:03 Doxazosin 1 Mg Tab PO 1 mg QHS KARLA Administration Ferrous Sulfate 325 mg 05/15/22 10:00 05/20/22 10:09 Ferrous Sulfate 325 Mg Tab PO 325 mg QDAY KARLA Administration Hydromorphone HCl 0.5 mg 05/17/22 08:38 Hydromorphone 0.5 Mg/0.5 Ml Inj IV Q4H PRN Pain , Severe (7-10) Insulin Glargine 15 units 05/19/22 22:00 05/19/22 22:48 Insulin Glargine 100 Units/Ml SUB-Q 15 units QHS KARLA Administration Insulin Human Lispro 0 unit 05/15/22 16:30 05/19/22 22:42 Insulin Lispro 100 Unit/Ml SUB-Q 2 unit ACHS KARLA Administration Protocol Metoprolol Tartrate 25 mg 05/15/22 15:00 05/20/22 06:43 Metoprolol Tartrate 25 Mg Tab PO 25 mg Q8H KARLA Administration Morphine Sulfate 2 mg 05/16/22 22:25 05/20/22 12:39 Morphine 2 Mg/1 Ml Inj IV 2 mg Q4H PRN Administration Pain, Moderate (4-6) Oxycodone/Acetaminophen 1 tab 05/18/22 16:00 05/20/22 10:09 Oxycodone /Acetaminophen 5-325mg Tab PO 1 tab Q6H PRN Administration Pain, Moderate (4-6) Pantoprazole Sodium 20 mg 05/16/22 10:00 05/20/22 10:09 Pantoprazole 20 Mg Tab PO 20 mg QDAY KARLA Administration Sodium Chloride 10 ml 05/14/22 22:00 05/19/22 22:38 Sodium Chloride 0.9% 10 Ml Flush Syringe IV Not Given BID KARLA Sodium Chloride 10 ml 05/14/22 12:06 Sodium Chloride 0.9% 10 Ml Flush Syringe IV PRN PRN LINE FLUSH Sodium Chloride 2,000 ml 05/18/22 18:00 05/20/22 07:00 Sodium Chloride 0.9% Irrig Soln 2000 Ml IR 2,000 ml DIRECT KARLA Administration Sodium Chloride 500 ml 05/20/22 13:41 Sodium Chloride 0.9% Irr 500 Ml Bottle IR DIRECT PRN Wound Care HEART Score - HEART Score Troponin: Troponin T < 0.010 ng/mL (0.00-0.029) 05/14/22 06:57
[2022-05-20] MEDS: INSULIN LISPRO 100 UNIT/ML SUB-Q SCH (18:30)
== END 2022-05-20 17:30 | disposition home or self-care (01) | DRG 853 ==
LOC: ED 04:16 → CC1 14:13 → IMCU 05-15 16:49 → 3A 05-19 17:55 → UNDODISIN 05-20 16:27
PROVIDERS: ADMIT Internal Medicine; ATTEND Internal Medicine
PROC: 30233N1 Transfusion of Nonautologous Red Blood Cells into Peripheral Vein, Percutaneous Approach (ICD-10-PCS; 2022-05-14)
PROC: 02HV33Z Insertion of Infusion Device into Superior Vena Cava, Percutaneous Approach (ICD-10-PCS; 2022-05-14)
PROC: B548ZZA Ultrasonography of Superior Vena Cava, Guidance (ICD-10-PCS; 2022-05-14)
PROC: 0TBB8ZZ Excision of Bladder, Via Natural or Artificial Opening Endoscopic (ICD-10-PCS; principal; 2022-05-18)
PROC: BT141ZZ Fluoroscopy of Kidneys, Ureters and Bladder using Low Osmolar Contrast (ICD-10-PCS; 2022-05-18)
PROC: 0TCB8ZZ Extirpation of Matter from Bladder, Via Natural or Artificial Opening Endoscopic (ICD-10-PCS; 2022-05-18)
DX: A41.9 Sepsis, unspecified organism (principal); G92.8 Other toxic encephalopathy; D62 Acute posthemorrhagic anemia; E44.0 Moderate protein-calorie malnutrition; I48.20 Chronic atrial fibrillation, unspecified; N13.8 Other obstructive and reflux uropathy; N39.0 Urinary tract infection, site not specified; C67.9 Malignant neoplasm of bladder, unspecified; R31.0 Gross hematuria; K21.9 Gastro-esophageal reflux disease without esophagitis; Z68.27 Body mass index [BMI] 27.0-27.9, adult; E78.00 Pure hypercholesterolemia, unspecified; I10 Essential (primary) hypertension; F01.50 Vascular dementia, unspecified severity, without behavioral disturbance, psychotic disturbance, mood disturbance, and anxiety; I67.2 Cerebral atherosclerosis; D63.8 Anemia in other chronic diseases classified elsewhere; N40.1 Benign prostatic hyperplasia with lower urinary tract symptoms; E78.2 Mixed hyperlipidemia; Z82.49 Family history of ischemic heart disease and other diseases of the circulatory system; Z79.899 Other long term (current) drug therapy; Z79.84 Long term (current) use of oral hypoglycemic drugs
CPT/HCPCS: 36415; 70450; 71045; 74176; 74420; 80048; 80053; 81001; 82140; 82550; 82962; 83690; 83735; 83880; 84100; 84145; 84439; 84443; 84484; 85007; 85014; 85018; 85025; 85027; 85610; 86140; 86850; 86900; 86901; 86920; 87040; 87086; 88307; 93005; 93306; G0378; J3480; J7060; J7510; Q9967; C8929; C9113; J0282; J0696; J1815; J1956; J2270; J3475; J7030; J7040; J7120; P9016

== ENCOUNTER 2022-06-06 07:02 | Inpatient (IN) | payer MEDICARE ==
[~2022-06-06 07:02] MED LIST: LACTATED RINGERS 1,000 ML IV SCH
[2022-06-06] MEDS ORDERED: fentaNYL 100 MCG/2 ML INJ ONE (07:47)
[2022-06-06] MEDS ORDERED: propofoL 200 MG/20 ML VIAL IV ONE (07:47)
[2022-06-06] MEDS ORDERED: LIDOCAINE MPF (2%) 20 MG/1 ML VIAL 5 ML ONE (07:47)
[2022-06-06] MEDS ORDERED: MIDAZOLAM 2 MG/2 ML INJ ONE (07:47)
--- NOTE | 2022-06-06 08:07 | Anesthesia Consultation ---
Anesthesia Consult and Med Hx - Airway Anesthetic Teeth Evaluation: Edentulous ROM Head & Neck: Adequate (mild restricted extension) Mental/Hyoid Distance: Adequate Mallampati Class: Class II Intubation Access Assessment: Probably Good (previouos LMA 4) - Pulmonary Exam CTA: Yes - Cardiac Exam Cardiac Exam: RRR - Pre-Operative Health Status ASA Pre-Surgery Classification: ASA3 Proposed Anesthetic Plan: General - Pulmonary Hx Smoking: No Hx Respiratory Symptoms: No Hx Sleep Apnea: No (TRE PRE SCREEN HIGH RISK) - Cardiovascular System Hx Hypertension: Yes (took antihypertensive today) Hx Heart Attack/AMI: No ( EF 50-55%) Hx Percutaneous Transluminal Coronary Angioplasty (PTCA): No Hx Cardia Arrhythmia: Yes (a-fib; no anticoagulation) Hx Pacemaker: No Hx Internal Defibrillator: No - Central Nervous System CVA: No - Gastrointestinal Hx Gastroesophageal Reflux Disease: Yes (took antacid this morning) - Endocrine Hx Renal Disease: No Hx Liver Disease: No Hx Non-Insulin Dependent Diabetes: Yes Hx Thyroid Disease: No - Hematic Hx Anemia: Yes - Other Systems Hx Obesity: No
--- NOTE | 2022-06-06 08:07 | Anesthesia Day of Surgery ---
Anesthesia Day of Surgery - Day of Surgery Patient Examined: Yes Patient H&P Reviewed: Yes Patient is NPO: Yes
[2022-06-06] MEDS ORDERED: ceFAZolin/Water 2 GM/20 ML 2 GM/20 ML SYRINGE IV ONE (09:57)
--- NOTE | 2022-06-06 10:10 | Post Operative Note ---
Date of procedure: 06/06/22 Pre-op diagnosis: bladder cancer Post-op diagnosis: same Findings: bladder ca Procedure: cyto turbt Anesthesia: GETA Surgeon: MARCIO WASHINGTON Estimated blood loss: minimal Pathology: list (helena) Specimen disposition: to lab Condition: stable Disposition: PACU
[2022-06-06 10:37] LABS: Hematocrit 22.6 % (35.5-45.6); Hemoglobin 7.5 gm/dl (11.8-15.2); Mean Corpuscular HGB Conc 33 % (32-34); Mean Corpuscular Volume 88 fl (84-94); Platelet Count 346 K/mm3 (140-440); Red Blood Count 2.56 M/mm3 (3.65-5.03); Red Cell Distribution Width 14.9 % (13.2-15.2)
[2022-06-06] MEDS ORDERED: MANNITOL/SORBITOL SOLUTION 3,000 ML IRRIG.SOLN IR ONE (10:37)
[2022-06-06] MEDS ORDERED: WATER FOR IRRIG STERILE 2000 ML IR ONE ×2 (10:37)
[2022-06-06] MEDS ORDERED: IOHEXOL 300 MG/ML 50ML IV ONE (10:37)
[2022-06-06] MEDS ORDERED: SODIUM CHLORIDE 0.9% 500 ML 500 ML IV ONE ×4 (10:45→21:34)
[2022-06-06] MEDS ORDERED: ceFAZolin/STERILE WATER 2 GM/20 ML SYRINGE IV NR (11:00)
[2022-06-06] MEDS ORDERED: ONDANSETRON 4 MG/2 ML INJ ONE (12:14)
--- NOTE | 2022-06-06 12:40 | Operative Report ---
DATE OF SURGERY: 06/06/2022 PREOPERATIVE DIAGNOSIS: Large invasive bladder tumor. POSTOPERATIVE DIAGNOSIS: Large invasive bladder tumor, with recurrent hematuria and anemia. PROCEDURE: Cystoscopy, fulguration of bleeding sites, resection of more tumor in deeper sections and insertion of catheter and evacuation of clots. SURGEON: Damon Alexander MD. ANESTHESIA: General. FINDINGS: This is a gentleman with recurrent bleeding, severe anemia. He now presents with recurrent bleeding for deeper biopsies to get muscle and fulguration. DESCRIPTION OF PROCEDURE: The patient was brought to the operating room and placed on the operating table. Following induction of anesthesia, placed in lithotomy position, prepped and draped in usual sterile fashion. Once we got in the bladder, large number of clots were evacuated out. The tumor of posterior wall was re-resected. Deeper biopsies were given. There was necrotic tissue in the prostatic urethra, which had to be removed as well and a big defect right before the bladder neck where the catheter would always get held up. The patient tolerated the procedure well. No bleeding during the procedure. His hemoglobin was 7.2. We gave him 2 units during the surgery. He was brought to recovery in stable condition. Irrigation was clear. TID: [id number] RECEIPT: SILVIO
[2022-06-06] MEDS: HYDROmorphone 0.5 MG/0.5 ML INJ IV PRN ×4 (13:00→21:15)
[2022-06-06] MEDS ORDERED: WATER FOR IRRIG STERILE 1,000 ML BOTTLE ONE ×3 (14:16→21:52)
[2022-06-06] MEDS ORDERED: ACETAMINOPHEN 325 MG TAB PO PRN (15:00)
[2022-06-06] MEDS ORDERED: oxyCODONE /ACETAMINOPHEN 5-325MG TAB PO PRN (15:00)
--- NOTE | 2022-06-06 15:40 | Consultation ---
History of Present Illness - Reason for Consult Consult date: 06/06/22 medical management Requesting physician: MARCIO WASHINGTON - History of Present Illness 81 YO Male with Vascular Dementia, Cerebral Atherosclerosis, DM, HLD, HTN, GERD, Anemia of Chronic Disease, BPH with Chronic indwelling castillo catheter, Bladder Cancer admitted for elective urologic surgery. Consult placed by Dr. Washington for medical management. Patient resting comfortable. No reported nursing events. Patient denies fever, chills, chest pain, palpitation, productive cough, skin rash Past History Past Medical History: anemia, cancer, diabetes, GERD, hypertension, hyperlipidemia Past Surgical History: Other (Bladder surgery) Social history: . denies: smoking, alcohol abuse, prescription drug abuse Family history: diabetes, hypertension Medications and Allergies Allergies Allergy/AdvReac Type Severity Reaction Status Date / Time No Known Allergies Allergy Verified 05/13/22 16:50 Home Medications Medication Instructions Recorded Confirmed Last Taken Type AtorvaSTATin [Lipitor] 80 mg PO QHS 05/13/22 06/02/22 06/05/22 History Cyanocobalamin (Vitamin B-12) 1,000 mcg PO QDAY 05/13/22 06/02/22 06/05/22 History [Vitamin B-12] Doxazosin [Cardura] 1 mg PO QHS 05/13/22 06/02/22 06/05/22 History Ferrous Sulfate [Iron 325 MG] 325 mg PO QDAY 05/13/22 06/02/22 06/05/22 History Metformin HCl [metFORMIN] 1,000 mg PO QDAY 05/13/22 06/02/22 06/05/22 History Omeprazole 20 mg PO QDAY 05/13/22 06/06/22 06/06/22 History amLODIPine [Norvasc] 5 mg PO DAILY 05/13/22 06/02/22 06/05/22 History lisinopriL [Lisinopril] 40 mg PO QDAY 05/13/22 06/02/22 06/05/22 History Active Meds: Active Medications Acetaminophen (Acetaminophen 325 Mg Tab) 650 mg PO Q4H PRN PRN Reason: Pain, Mild (1-3)/Fever > 100.5 Cefazolin Sodium (Cefazolin/Sterile Water 2 Gm/20 Ml Syringe) 2 gm IV PREOP NR Stop: 06/06/22 20:00 Hydromorphone HCl (Hydromorphone 0.5 Mg/0.5 Ml Inj) 0.25 mg IV Q10MIN PRN PRN Reason: Pain, Moderate (4-6) Stop: 06/06/22 19:00 Last Admin: 06/06/22 13:50 Dose: 0.25 mg Lactated Ringer's (Lactated Ringers) 1,000 mls @ 100 mls/hr IV DIRECT KARLA Stop: 06/06/22 23:59 Last Admin: 06/06/22 08:45 Dose: 100 mls/hr Oxycodone/Acetaminophen (Oxycodone /Acetaminophen 5-325mg Tab) 2 tab PO Q6H PRN PRN Reason: Pain, Moderate (4-6) Review of Systems Constitutional: no weight loss, no weight gain, no chills Ears, nose, mouth and throat: no ear pain, no nose pain, no nasal discharge Cardiovascular: no chest pain, no palpitations Respiratory: no cough, no cough with sputum, no excessive sputum, no shortness of breath Gastrointestinal: no nausea, no vomiting, no change in bowel habits Genitourinary Male: no hematuria, no flank pain, no genital pain Rectal: no pain, no incontinence, no bleeding Musculoskeletal: no neck stiffness, no shooting arm pain Integumentary: no rash, no redness Neurological: no head injury, no parathesias, no tingling, no tremors Psychiatric: no insomnia, no hypersomnia, no change in appetite, no change in libido Endocrine: no heat intolerance, no excessive thirst, no polydipsia, no flushing Hematologic/Lymphatic: no easy bruising, no easy bleeding Allergic/Immunologic: no urticaria, no allergic rhinitis Exam - Constitutional Vitals: Temp Pulse Resp BP Pulse Ox 97.4 F L 67 14 137/72 98 06/06/22 14:05 06/06/22 15:20 06/06/22 15:20 06/06/22 15:20 06/06/22 15:20 General appearance: Present: no acute distress - EENT Eyes: Present: PERRL ENT: hearing intact, clear oral mucosa - Neck Neck: Present: supple, normal ROM - Respiratory Respiratory effort: normal Respiratory: bilateral: CTA - Cardiovascular Heart Sounds: Present: S1 & S2. Absent: rub, click - Extremities Extremities: pulses symmetrical, No edema Peripheral Pulses: within normal limits - Abdominal General gastrointestinal: Present: soft, non-tender, non-distended, normal bowel sounds Male genitourinary: Present: normal - Integumentary Integumentary: Present: clear, warm, dry - Musculoskeletal Musculoskeletal: gait normal, strength equal bilaterally - Psychiatric Psychiatric: appropriate mood/affect, intact judgment & insight - Neurologic Neurologic: CNII-XII intact, moves all extremities Results - Labs CBC & Chem 7: 06/06/22 Unknown 06/06/22 Unknown Labs: Abnormal lab results 06/06/22 06/06/22 06/06/22 Range/Units 08:28 12:29 Unknown WBC 13.0 H (4.5-11.0) K/mm3 RBC 2.56 L (3.65-5.03) M/mm3 Hgb 7.5 L (11.8-15.2) gm/dl Hct 22.6 L (35.5-45.6) % POC Glucose 143 H 153 H (70-105) mg/dL Crossmatch 06/06/22 Range/Units Unknown WBC (4.5-11.0) K/mm3 RBC (3.65-5.03) M/mm3 Hgb (11.8-15.2) gm/dl Hct (35.5-45.6) % POC Glucose (70-105) mg/dL Crossmatch See Detail Assessment and Plan - Patient Problems (1) Hypertension Current Visit: Yes Status: Acute Qualifiers: Hypertension type: primary hypertension Qualified Code(s): I10 - Essential (primary) hypertension Plan to address problem: Monitor blood pressure every shift, continue medical management. (2) Cerebral atherosclerosis Current Visit: No Status: Acute Plan to address problem: Risk factor reduction, antiplatelet therapy as clinically indicated. (3) Diabetes Current Visit: No Status: Acute Plan to address problem: Consistent carbohydrate diet, Accu-Chek, insulin protocol, hypoglycemia protocol. (4) Hyperlipidemia Current Visit: No Status: Acute Qualifiers: Hyperlipidemia type: mixed hyperlipidemia Qualified Code(s): E78.2 - Mixed hyperlipidemia Plan to address problem: Statin therapy, supportive care, low-cholesterol diet (5) Vascular dementia Current Visit: No Status: Acute Qualifiers: Dementia behavioral disturbance: without behavioral disturbance Qualified Code(s): F01.50 - Vascular dementia without behavioral disturbance Plan to address problem: For prompt, verbal redirection, benzodiazepine therapy as clinically indicated. (6) GERD (gastroesophageal reflux disease) Current Visit: Yes Status: Acute Qualifiers: Esophagitis presence: without esophagitis Qualified Code(s): K21.9 - Gastro-esophageal reflux disease without esophagitis Plan to address problem: PPI therapy, supportive care, continue medical management. (7) Advance care planning Current Visit: No Status: Acute Plan to address problem: Disease education done, care plan discussed, diagnoses discussed, prognosis discussed, patient is full code. +30 minutes. (8) Preventative health care Current Visit: No Status: Acute Plan to address problem: Home safety discussed, patient structured to follow-up primary care physician for all age and risk factor appropriate screening test. +30 minutes.
--- NOTE | 2022-06-06 15:58 | Fluoroscopy Report ---
INTRAOPERATIVE FLUOROSCOPY: PELVIS INDICATION: Intraoperative guidance for cystoscopy and TURP. TECHNIQUE: Intraoperative spot images were obtained during the procedure. FINDINGS: The urinary bladder is partially opacified by contrast injected through a Sprague catheter. Filling def ects seen superiorly along the bladder and along the right lateral aspect of the bladder could be rel ated to under distention. Please correlate with intraoperative findings. Fluoroscopy Time: 23 seconds. Fluoroscopy Images: 2. Signer Name: Johnnie Colmenares MD Signed: 06/06/2022 3:54 PM Workstation Name: [id number]
--- NOTE | 2022-06-06 16:43 | Event Note ---
Date: 06/06/22 Pt with a history of non-operable left bladder cancer and radiation for prostate cancer with recurrent bleeding. Currently being transfused. S/P cysto. Will obtain CTA ab and pelvis bleeding protocol and make NPO in case patient needs embolization
[2022-06-06 18:05] LABS: Blood Urea Nitrogen 9 mg/dL (9-20); Calcium 8.4 mg/dL (8.4-10.2); Hemolysis Index 7
[2022-06-06 18:26] LABS: BUN/Creatinine Ratio 15
[2022-06-06] MEDS ORDERED: SODIUM CHLORIDE 0.9% 1000 ML 1,000 ML ONE (18:33)
--- NOTE | 2022-06-06 19:19 | Post Anesthesia Evaluation ---
- Post Anesthesia Evaluation Patient Participated: Yes Airway Patent: Yes Stable Respiratory Function: Yes Nausea/Vomiting: No Temp > 96.8F: Yes Pain Manageable: Yes Adequeate Hydration: Yes Anesthesia Complications: No Other Comments: Patient noted to have hematuria w/ clots requiring frequent flushing of arriola drip. Although HD stable, has required multiple units pRBCs for anemia. Examined at bedside by urologist and ultimately decision made to transfer to [facility] for close monitoring. Repeat CBC ordered and will go for CT scan prior to transfer. Additional large bore access placed.
[2022-06-06 19:56] LABS: Hematocrit 33.8 % (35.5-45.6); Hemoglobin 11.1 gm/dl (11.8-15.2); Mean Corpuscular HGB Conc 33 % (32-34); Mean Corpuscular Volume 90 fl (84-94); Platelet Count 333 K/mm3 (140-440); Red Blood Count 3.76 M/mm3 (3.65-5.03); Red Cell Distribution Width 14.9 % (13.2-15.2)
[2022-06-06] MEDS ORDERED: SODIUM CHLORIDE IRRI 1000 ML 1,000 ML IR ONE (20:49)
--- NOTE | 2022-06-06 20:59 | Cat Scan Report ---
CTA ABDOMEN AND PELVIS WITHOUT AND WITH IV CONTRAST INDICATION: left bladder cancer, unspecified bleeding. 100ml of [id number]. TECHNIQUE: Axial CT images were obtained through the abdomen and pelvis before and after injection of IV contras t. 3 plane MIP reconstructions were produced. All CT scans at this location are performed using CT do se reduction for ALARA by means of automated exposure control. COMPARISON: CT abdomen and pelvis without contrast from 05/16/2022. FINDINGS: VASCULAR FINDINGS: AORTA: There is mild atherosclerosis without other significant abnormalities. CELIAC TRUNK: There is mild atherosclerosis without other significant abnormalities. SUPERIOR MESENTERIC ARTERY: No significant abnormality. RENAL ARTERIES: No significant abnormality. INFERIOR MESENTERIC ARTERY: No significant abnormality. RIGHT ILIAC ARTERIES: There is mild nonobstructive atherosclerosis without other significant abnormal ities. LEFT ILIAC ARTERIES: There is mild nonobstructive atherosclerosis without other significant abnormali ties. FEMORAL ARTERIES: Mild nonobstructive atherosclerosis is seen bilaterally. No other significant abnor mality. NONTARGET STRUCTURES: ABDOMEN: A probable cyst is seen posteriorly along the right hepatic lobe measuring up to 1.3 cm on i mage 22 of series 7. Inflamed colonic diverticulosis is again seen. No other significant abnormality. PELVIS: The bladder is mildly distended with mild wall thickening and mild perivesical fat stranding. A Sprague catheter is in expected position. Probable blood products are again noted within the bladder . Air in the bladder is likely related to catheterization and/or interval instrumentation. Active con trast extravasation is seen along the left anterior and superior aspect of the bladder, which likely accounts for the patient's reported bleeding. A feeding vessel likely responsible for this bleeding a rises from the anterior division of the left internal iliac artery on image 68 of series 7 and travel s anteriorly to the bladder at the site of active contrast extravasation. Air seen along the prostate gland/prostatic urethra is likely related to recent catheterization/instrumentation. No other acute findings. SKELETAL: No significant interval changes. ADDITIONAL FINDINGS: No other sites of active contrast extravasation are identified. IMPRESSION: 1. Active contrast extravasation in the bladder as above likely accounts for the patient's reported b leeding. 2. No other acute findings in the abdomen or pelvis. Signer Name: Johnnie Colmenares MD Signed: 06/06/2022 8:55 PM Workstation Name: [id number]
[2022-06-06] MEDS ORDERED: DOXAZOSIN 1 MG TAB PO SCH (22:00)
[2022-06-06] MEDS ORDERED: DEXTROSE 50% IN WATER (25GM) 50 ML SYRINGE IV PRN (22:30)
[2022-06-06] MEDS ORDERED: SODIUM CHLORIDE 0.9% 1000 ML 2,000 ML ONE (22:46)
[2022-06-06] MEDS ORDERED: LIDOCAINE (2%) 20 MG/1 ML VIAL 50 ML MDV INFILTRATI ONE (22:47)
[2022-06-06] MEDS: INSULIN LISPRO 100 UNIT/ML SUB-Q SCH (23:43)
--- NOTE | 2022-06-07 01:18 | Consultation ---
History of Present Illness - Reason for Consult Consult date: 06/07/22 Bleeding from vesicular artery - History of Present Illness Patient with a history of BPH and unresectable bladder cancer who underwent cystoscopy for persistent hematuria. Patient was noted to have a hemoglobin of 7.5 on arrival and was transfused 2 units with repeat drop of his hemoglobin. On examination, the patient has a Sprague with bloody drainage in his Woo bag. Patient is awake alert and vital signs are stable. Past History Past Medical History: anemia, cancer, diabetes, GERD, hypertension, hyperlipidemia Past Surgical History: Other (Bladder surgery) Social history: . denies: smoking, alcohol abuse, prescription drug abuse Family history: diabetes, hypertension Medications and Allergies Allergies Allergy/AdvReac Type Severity Reaction Status Date / Time No Known Allergies Allergy Verified 05/13/22 16:50 Home Medications Medication Instructions Recorded Confirmed Last Taken Type AtorvaSTATin [Lipitor] 80 mg PO QHS 05/13/22 06/02/22 06/05/22 History Cyanocobalamin (Vitamin B-12) 1,000 mcg PO QDAY 05/13/22 06/02/22 06/05/22 History [Vitamin B-12] Doxazosin [Cardura] 1 mg PO QHS 05/13/22 06/02/22 06/05/22 History Ferrous Sulfate [Iron 325 MG] 325 mg PO QDAY 05/13/22 06/02/22 06/05/22 History Metformin HCl [metFORMIN] 1,000 mg PO QDAY 05/13/22 06/02/22 06/05/22 History Omeprazole 20 mg PO QDAY 05/13/22 06/06/22 06/06/22 History amLODIPine [Norvasc] 5 mg PO DAILY 05/13/22 06/02/22 06/05/22 History lisinopriL [Lisinopril] 40 mg PO QDAY 05/13/22 06/02/22 06/05/22 History Active Meds: Active Medications Acetaminophen (Acetaminophen 325 Mg Tab) 650 mg PO Q4H PRN PRN Reason: Pain, Mild (1-3)/Fever > 100.5 Dextrose (Dextrose 50% In Water (25gm) 50 Ml Syringe) 50 ml IV Q30MIN PRN; Protocol PRN Reason: Hypoglycemia Ferrous Sulfate (Ferrous Sulfate 325 Mg Tab) 325 mg PO QDAY KARLA Hydromorphone HCl (Hydromorphone 0.5 Mg/0.5 Ml Inj) 0.5 mg IV Q10MIN PRN PRN Reason: Pain , Severe (7-10) Last Admin: 06/06/22 21:15 Dose: 0.5 mg Insulin Human Lispro (Insulin Lispro 100 Unit/Ml) 0 unit SUB-Q ACHS KARLA; Protocol Last Admin: 06/06/22 23:43 Dose: Not Given Lisinopril (Lisinopril 20 Mg Tab) 40 mg PO QDAY KARLA Oxycodone/Acetaminophen (Oxycodone /Acetaminophen 5-325mg Tab) 2 tab PO Q6H PRN PRN Reason: Pain, Moderate (4-6) Pantoprazole Sodium (Pantoprazole 20 Mg Tab) 20 mg PO QDAY KARLA Review of Systems All systems: negative Exam - Constitutional Vitals: Temp Pulse Resp BP Pulse Ox 98.2 F 99 H 16 162/93 96 06/06/22 22:00 06/06/22 22:50 06/06/22 22:50 06/06/22 22:50 06/06/22 22:50 General appearance: Present: no acute distress - EENT ENT: hearing intact - Neck Neck: Present: supple, normal ROM - Respiratory Respiratory effort: normal - Extremities Extremities: No edema - Abdominal General gastrointestinal: Present: deferred Male genitourinary: Present: deferred - Rectal Rectal Exam: deferred - Psychiatric Psychiatric: appropriate mood/affect, cooperative Results - Labs CBC & Chem 7: 06/06/22 Unknown 06/06/22 Unknown Labs: Abnormal lab results 06/06/22 06/06/22 06/06/22 Range/Units 08:28 12:29 19:13 WBC 13.2 H (4.5-11.0) K/mm3 RBC (3.65-5.03) M/mm3 Hgb 11.1 L D (11.8-15.2) gm/dl Hct 33.8 L D (35.5-45.6) % Creatinine (0.8-1.3) mg/dL Glucose (75-100) mg/dL POC Glucose 143 H 153 H (70-105) mg/dL Crossmatch 06/06/22 06/06/22 06/06/22 Range/Units Unknown Unknown Unknown WBC 13.0 H (4.5-11.0) K/mm3 RBC 2.56 L (3.65-5.03) M/mm3 Hgb 7.5 L (11.8-15.2) gm/dl Hct 22.6 L (35.5-45.6) % Creatinine 0.6 L (0.8-1.3) mg/dL Glucose 143 H (75-100) mg/dL POC Glucose (70-105) mg/dL Crossmatch See Detail Assessment and Plan CTA of the abdomen and pelvis was ordered which demonstrates that the patient rubio s bleeding arising from distal branches of the superior vesicular artery on the left. Active extravasation was noted at the time of the CTA and the patient was therefore brought down to the cardiac Special Collections Librarian for embolization
--- NOTE | 2022-06-07 01:26 | Operative Report ---
Operative Report Operative Report: Exam: Aortogram, left lower extremity angiogram, embolization of branches of the anterior and posterior division of the left internal iliac artery Clinical indication: Patient with a history of bladder cancer and persistent hematuria with active extravasation noted on CT scan Date: 06/07/2022 Procedure: Following an explanation of the risk, benefits and alternatives; written informed consent was obtained. The patient was brought to the angiographic suite and placed in supine position on the examination table. His bilateral groins were prepped and draped in the usual sterile fashion. Initial ultrasound evaluation of his right groin demonstrated dilation of his right common femoral artery to 12 to 14 mm in diameter. An appropriate access site was chosen. 2% lidocaine was used for anesthesia. Under ultrasound guidance, the right common femoral artery was cannulated with a 7 cm 21-gauge needle. A 0.018 guidewire was advanced centrally. The needle was removed and a micro sheath placed. The 0.018 guidewire was exchanged for a 0.035 guidewire and the micro sheath exchanged for a 5 Chadian vascular sheath. An Omni Flush catheter was advanced over the guidewire and aortography performed. The distal abdominal aorta, bilateral common iliac, bilateral external iliac and bilateral internal iliac arteries all demonstrate hypertrophy. With the Omni Flush catheter above the bifurcation. A 0.035 guidewire was advanced however, the Omni Flush catheter would not advance over the bifurcation given the degree of hypertrophy. A variety of catheters were utilized and ultimately, a similar 1 catheter was used to cross the bifurcation to allow interrogation of the left arterial system. Again noted is the patulous size of all visualized vessels. Angiography was performed and different obliquities obtained of the internal iliac artery on the left. There is only faint visualization of the branches arising from anterior and posterior division and the decision was made to access the patient from the left groin. Ultrasound evaluation of the left groin demonstrated dilation the left common femoral artery to 12 to 14 mm in diameter. An appropriate access site was chosen. 2% lidocaine was used for anesthesia. Under ultrasound guidance the left common femoral artery was cannulated with a 7 cm 21-gauge needle. A 0.018 guidewire was advanced centrally. The needle was removed and a micro sheath placed. The 0.018 guidewire was exchanged for a 0.035 guidewire and the micro sheath exchanged for 5 Chadian catheter sheath. Initially, a Sos Omni catheter was advanced over the guidewire and a formed in the distal abdominal aorta. The catheter and guidewire were then proximal lysed into the common iliac artery on the left. Angiography was performed which demonstrates the bifurcation of internal and external iliac arteries. The Sos Omni catheter was then used to cannulate the origin of the internal iliac artery over the guidewire. Additional angiography was performed and multiple obliquities obtained. The superior vesicular artery was noted to be arising just distal to the origin of the anterior division of the internal iliac artery. A variety of catheters and guidewires were utilized in an attempt to cannulate the origin however, ultimately catheters guidewires were only be able to be advanced to the bifurcation of anterior and posterior division. A decision was made to perform Blan Gelfoam embolization at this point in order to allow Gelfoam to extend out to vesicular branches. A Gelfoam slurry was made and then aliquots of Gelfoam injected. Gelfoam was injected until there was nonvisualization of the superior vesicular artery on the left. The inferior vesicular arteries remained visible. At this point, the Sos Omni catheter was removed over a guidewire. Hemostasis was achieved in bilateral groins using Angio-Seal arterial closure device and pressure dressings. Sterile dressings were applied. The patient tolerated the procedure well. The patient however was unable to be sedated significantly which prolonged the procedure. Impression: 1) Aortogram and bilateral lower extremity angiogram demonstrating origin of the bleeding superior vesicular artery on the left arising from just distal to the bifurcation of anterior and posterior divisions of the internal iliac artery on the left. 2) Lamar Gelfoam embolization of the internal iliac artery as described with nonvisualization of the superior fascicular artery at the conclusion of the procedure. 3) If the patient requires repeat embolization, he will require deeper sedation with anesthesia services.
[2022-06-07] MEDS: SODIUM CHLORIDE 0.9% IRRIG SOLN 2000 ML IR SCH ×15 (04:15→23:39)
[2022-06-07] MEDS: INSULIN LISPRO 100 UNIT/ML SUB-Q SCH ×4 (08:10→23:46)
[2022-06-07] MEDS: [UNRECOGNIZED DRUG - REMARK] IR SCH ×2 (08:25→10:15)
[2022-06-07 08:44] LABS: Hematocrit 39.6 % (35.5-45.6); Mean Corpuscular HGB Conc 33 % (32-34); Mean Corpuscular Volume 89 fl (84-94); Platelet Count 270 K/mm3 (140-440); Red Blood Count 4.47 M/mm3 (3.65-5.03); Red Cell Distribution Width 15.2 % (13.2-15.2)
--- NOTE | 2022-06-07 08:49 | Progress Note ---
Assessment and Plan few old clots irrrigated out path pending ct massive vessels post radiation partially embolized left side spoke with dr thi lott infusing hemoglobin over 11 hopefully wont need second embolization not good candidate for radical cystectomy ?? partial may need if this continues Subjective Date of service: 06/07/22 Principal diagnosis: hematuria bladder cancer Objective - Constitutional Vitals: Vital Signs - 12hr 06/06/22 06/06/22 06/06/22 20:55 21:10 21:25 Temperature 98.6 F Pulse Rate 99 H 98 H 98 H Pulse Rate [ From Monitor] Respiratory 15 15 12 Rate Blood Pressure 183/93 169/99 156/91 O2 Sat by Pulse 98 98 98 Oximetry 06/06/22 06/06/22 06/06/22 21:50 21:52 22:00 Temperature 98.2 F Pulse Rate 117 H 109 H Pulse Rate [ 108 H From Monitor] Respiratory 15 12 Rate Blood Pressure 141/83 147/83 O2 Sat by Pulse 99 97 95 Oximetry 06/06/22 06/06/22 06/06/22 22:10 22:20 22:30 Temperature Pulse Rate 108 H 102 H 121 H Pulse Rate [ From Monitor] Respiratory 18 12 13 Rate Blood Pressure 162/93 162/93 162/93 O2 Sat by Pulse 94 95 97 Oximetry 06/06/22 06/06/22 06/07/22 22:40 22:50 04:17 Temperature Pulse Rate 103 H 99 H Pulse Rate [ 108 H From Monitor] Respiratory 13 16 Rate Blood Pressure 162/93 162/93 O2 Sat by Pulse 94 96 95 Oximetry 06/07/22 06/07/22 04:47 07:27 Temperature 97.7 F 99.8 F H Pulse Rate Pulse Rate [ From Monitor] Respiratory Rate Blood Pressure O2 Sat by Pulse Oximetry General appearance: Present: no acute distress Extremities: no ischemia - Gastrointestinal General gastrointestinal: Present: soft, non-tender - Labs CBC & Chem 7: 06/07/22 08:27 06/06/22 Unknown Labs: Abnormal lab results 06/06/22 06/06/22 06/06/22 Range/Units 12:29 19:13 Unknown WBC 13.2 H 13.0 H (4.5-11.0) K/mm3 RBC 2.56 L (3.65-5.03) M/mm3 Hgb 11.1 L D 7.5 L (11.8-15.2) gm/dl Hct 33.8 L D 22.6 L (35.5-45.6) % Creatinine (0.8-1.3) mg/dL Glucose (75-100) mg/dL POC Glucose 153 H (70-105) mg/dL Crossmatch 06/06/22 06/06/22 06/07/22 Range/Units Unknown Unknown 06:17 WBC (4.5-11.0) K/mm3 RBC (3.65-5.03) M/mm3 Hgb (11.8-15.2) gm/dl Hct (35.5-45.6) % Creatinine 0.6 L (0.8-1.3) mg/dL Glucose 143 H (75-100) mg/dL POC Glucose 212 H (70-105) mg/dL Crossmatch See Detail 06/07/22 06/07/22 Range/Units 07:34 08:27 WBC 17.6 H (4.5-11.0) K/mm3 RBC (3.65-5.03) M/mm3 Hgb (11.8-15.2) gm/dl Hct (35.5-45.6) % Creatinine (0.8-1.3) mg/dL Glucose (75-100) mg/dL POC Glucose 175 H (70-105) mg/dL Crossmatch Medications & Allergies - Medications Allergies/Adverse Reactions: Allergies No Known Allergies Allergy (Verified 05/13/22 16:50) Home Medications: Home Medications Medication Instructions Recorded Confirmed Last Taken Type AtorvaSTATin [Lipitor] 80 mg PO QHS 05/13/22 06/02/22 06/05/22 History Cyanocobalamin (Vitamin B-12) 1,000 mcg PO QDAY 05/13/22 06/02/22 06/05/22 History [Vitamin B-12] Doxazosin [Cardura] 1 mg PO QHS 05/13/22 06/02/22 06/05/22 History Ferrous Sulfate [Iron 325 MG] 325 mg PO QDAY 05/13/22 06/02/22 06/05/22 History Metformin HCl [metFORMIN] 1,000 mg PO QDAY 05/13/22 06/02/22 06/05/22 History Omeprazole 20 mg PO QDAY 05/13/22 06/06/22 06/06/22 History amLODIPine [Norvasc] 5 mg PO DAILY 05/13/22 06/02/22 06/05/22 History lisinopriL [Lisinopril] 40 mg PO QDAY 05/13/22 06/02/22 06/05/22 History Active Medications: Generic Name Dose Route Start Last Admin Trade Name Freq PRN Reason Stop Dose Admin Acetaminophen 650 mg 06/06/22 15:00 Acetaminophen 325 Mg Tab PO Q4H PRN Pain, Mild (1-3)/Fever > 100.5 Dextrose 50 ml 06/06/22 22:30 Dextrose 50% In Water (25gm) 50 Ml Syringe IV Q30MIN PRN Hypoglycemia Protocol Ferrous Sulfate 325 mg 06/07/22 10:00 Ferrous Sulfate 325 Mg Tab PO QDAY [facility] Hydromorphone HCl 0.5 mg 06/06/22 18:50 06/06/22 21:15 Hydromorphone 0.5 Mg/0.5 Ml Inj IV 0.5 mg Q10MIN PRN Administration Pain , Severe (7-10) Insulin Human Lispro 0 unit 06/06/22 22:30 06/07/22 08:10 Insulin Lispro 100 Unit/Ml SUB-Q Not Given ACHS [facility] Protocol Lisinopril 40 mg 06/07/22 10:00 Lisinopril 20 Mg Tab PO QDAY [facility] Oxycodone/Acetaminophen 2 tab 06/06/22 15:00 Oxycodone /Acetaminophen 5-325mg Tab PO Q6H PRN Pain, Moderate (4-6) Pantoprazole Sodium 20 mg 06/07/22 10:00 Pantoprazole 20 Mg Tab PO QDAY [facility] Sodium Chloride 2,000 ml 06/07/22 05:00 06/07/22 08:24 Sodium Chloride 0.9% Irrig Soln 2000 Ml IR 2,000 ml DIRECT [facility]ARLA Administration
[2022-06-07] MEDS: HYDROmorphone 0.5 MG/0.5 ML INJ IV PRN ×3 (09:38→23:39)
[2022-06-07] MEDS: FERROUS SULFATE 325 MG TAB PO SCH (09:42)
[2022-06-07] MEDS: PANTOPRAZOLE 20 MG TAB PO SCH (09:42)
[2022-06-07] MEDS: LISINOPRIL 20 MG TAB PO SCH (09:42)
[2022-06-07] MEDS ORDERED: amLODIPine 5 MG TAB PO SCH (10:00)
[2022-06-07] MEDS ORDERED: NON-FORMULARY EACH (Omeprazole [Omeprazole] 20 MG Tablet.Dr) PO SCH (10:00)
[2022-06-07] MEDS ORDERED: CYANOCOBALAMIN (VIT B-12) 1000 MCG TAB PO SCH (10:00)
--- NOTE | 2022-06-07 11:25 | Progress Note ---
Assessment and Plan Assessment and plan: 81 YO Male with Vascular Dementia, Cerebral Atherosclerosis, DM, HLD, HTN, GERD, Anemia of Chronic Disease, BPH with Chronic indwelling castillo catheter, Bladder Cancer admitted for elective urologic surgery. Consult placed by Dr. Alexander for medical management. Patient resting comfortable. No reported nursing events. Patient denies fever, chills, chest pain, palpitation, productive cough, skin rash 06/07: Patient evaluated by urology at this time. No pseudoaneurysm noted. Pulses distal to site of procedure intact. We will continue to monitor H&H closely. Patient noted with leukocytosis worse from time of admission. We will start patient on empiric antibiotics while awaiting cultures. Low-grade fever noted as a result blood cultures also ordered. Patient is planned for attempted embolization from left radial approach of the left superior vascular artery with Embospheres. Advanced care planning discussed with the patient 30 minutes confirmed full CODE STATUS. Recheck labs in a.m. (1) Hypertension Current Visit: Yes Status: Acute Qualifiers: Hypertension type: primary hypertension Qualified Code(s): I10 - Essential (primary) hypertension Plan to address problem: Monitor blood pressure every shift, continue medical management. (2) Cerebral atherosclerosis Current Visit: No Status: Acute Plan to address problem: Risk factor reduction, antiplatelet therapy as clinically indicated. (3) Diabetes Current Visit: No Status: Acute Plan to address problem: Consistent carbohydrate diet, Accu-Chek, insulin protocol, hypoglycemia protocol. (4) Hyperlipidemia Current Visit: No Status: Acute Qualifiers: Hyperlipidemia type: mixed hyperlipidemia Qualified Code(s): E78.2 - Mixed hyperlipidemia Plan to address problem: Statin therapy, supportive care, low-cholesterol diet (5) Vascular dementia Current Visit: No Status: Acute Qualifiers: Dementia behavioral disturbance: without behavioral disturbance Qualified Code(s): F01.50 - Vascular dementia without behavioral disturbance Plan to address problem: For prompt, verbal redirection, benzodiazepine therapy as clinically indicated. (6) GERD (gastroesophageal reflux disease) Current Visit: Yes Status: Acute Qualifiers: Esophagitis presence: without esophagitis Qualified Code(s): K21.9 - Gastro-esophageal reflux disease without esophagitis Plan to address problem: PPI therapy, supportive care, continue medical management. (7) systemic inflammatory response syndrome (8) Leukocytosis (9) advance care planning Current Visit: No Status: Acute Plan to address problem: Disease education done, care plan discussed, diagnoses discussed, prognosis discussed, patient is full code. +30 minutes. (8) Preventative health care Current Visit: No Status: Acute Plan to address problem: Home safety discussed, patient structured to follow-up primary care physician for all age and risk factor appropriate screening test. +30 minutes. History Interval history: Patient seen and examined resting comfortably no new complaints at this time. Hospitalist Physical - Physical exam Narrative exam: VITAL SIGNS: Reviewed. GENERAL: The patient appears normally developed, Vital signs as documented. HEAD: No signs of head trauma. EYES: Pupils are equal. Extraocular motions intact. EARS: Hearing grossly intact. MOUTH: Oropharynx is normal. NECK: No adenopathy, no JVD. CHEST: Chest with clear breath sounds bilaterally. No wheezes, rales, or rhonchi. CARDIAC: Regular rate and rhythm. S1 and S2, without murmurs, gallops, or rubs. VASCULAR: No Edema. Peripheral pulses normal and equal in all extremities. ABDOMEN: Soft, non tender and non distended. No rebound or guarding, and no masses palpated. Bowel Sounds normal. : Castillo catheter in place MUSCULOSKELETAL: Good range of motion of all major joints. Extremities without clubbing, cyanosis or edema. NEUROLOGIC EXAM: Alert and oriented x 3 No focal sensory or strength deficits. Speech normal. Follows commands. PSYCHIATRIC: Mood normal. SKIN: detail exam as documented in skin assessment - Constitutional Vitals: Temp Pulse Resp BP Pulse Ox 99.8 F H 102 H 17 185/98 95 06/07/22 07:27 06/07/22 09:42 06/07/22 09:38 06/07/22 09:42 06/07/22 04:17 General appearance: Present: no acute distress Results - Labs CBC & Chem 7: 06/07/22 08:27 06/06/22 Unknown Labs: Laboratory Last Values WBC 17.6 K/mm3 (4.5-11.0) H 06/07/22 08:27 RBC 4.47 M/mm3 (3.65-5.03) 06/07/22 08:27 Hgb 13.0 gm/dl (11.8-15.2) 06/07/22 08:27 Hct 39.6 % (35.5-45.6) 06/07/22 08:27 MCV 89 fl (84-94) 06/07/22 08:27 MCH 29 pg (28-32) 06/07/22 08:27 MCHC 33 % (32-34) 06/07/22 08:27 RDW 15.2 % (13.2-15.2) 06/07/22 08:27 Plt Count 270 K/mm3 (140-440) 06/07/22 08:27 Sodium 138 mmol/L (137-145) 06/06/22 Unknown Potassium 4.1 mmol/L (3.6-5.0) 06/06/22 Unknown Chloride 105.5 mmol/L (98-107) 06/06/22 Unknown Carbon Dioxide 22 mmol/L (22-30) 06/06/22 Unknown Anion Gap 15 mmol/L 06/06/22 Unknown BUN 9 mg/dL (9-20) 06/06/22 Unknown Creatinine 0.6 mg/dL (0.8-1.3) L 06/06/22 Unknown Estimated GFR > 60 ml/min 06/06/22 Unknown BUN/Creatinine Ratio 15 % 06/06/22 Unknown Glucose 143 mg/dL (75-100) H 06/06/22 Unknown POC Glucose 175 mg/dL (70-105) H 06/07/22 07:34 Calcium 8.4 mg/dL (8.4-10.2) 06/06/22 Unknown Blood Type O POSITIVE 06/06/22 Unknown Antibody Screen Negative 06/06/22 Unknown Crossmatch See Detail 06/06/22 Unknown Castillo/IV: Voiding Method Indwelling Catheter Active Medications - Current Medications Current Medications: Generic Name Dose Route Start Last Admin Trade Name Freq PRN Reason Stop Dose Admin Acetaminophen 650 mg 06/06/22 15:00 Acetaminophen 325 Mg Tab PO Q4H PRN Pain, Mild (1-3)/Fever > 100.5 Dextrose 50 ml 06/06/22 22:30 Dextrose 50% In Water (25gm) 50 Ml Syringe IV Q30MIN PRN Hypoglycemia Protocol Ferrous Sulfate 325 mg 06/07/22 10:00 06/07/22 09:42 Ferrous Sulfate 325 Mg Tab PO 325 mg QDAY [facility] Administration Hydromorphone HCl 0.5 mg 06/06/22 18:50 06/07/22 09:38 Hydromorphone 0.5 Mg/0.5 Ml Inj IV 0.5 mg Q10MIN PRN Administration Pain , Severe (7-10) Insulin Human Lispro 0 unit 06/06/22 22:30 06/07/22 08:10 Insulin Lispro 100 Unit/Ml SUB-Q Not Given ACHS [facility] Protocol Lisinopril 40 mg 06/07/22 10:00 06/07/22 09:42 Lisinopril 20 Mg Tab PO 40 mg QDAY [facility] Administration Oxycodone/Acetaminophen 2 tab 06/06/22 15:00 Oxycodone /Acetaminophen 5-325mg Tab PO Q6H PRN Pain, Moderate (4-6) Pantoprazole Sodium 20 mg 06/07/22 10:00 06/07/22 09:42 Pantoprazole 20 Mg Tab PO 20 mg QDAY [facility] Administration Sodium Chloride 2,000 ml 06/07/22 05:00 06/07/22 09:43 Sodium Chloride 0.9% Irrig Soln 2000 Ml IR 2,000 ml DIRECT [facility] Administration
[2022-06-07] MEDS ORDERED: hydrALAZINE 20 MG/1 ML INJ IV PRN (11:28)
--- NOTE | 2022-06-07 11:52 | Progress Note ---
Assessment and Plan Had a long discussion with Dr. Alexander. Patient has significant bleeding from bladder which is intermittently controlled with subsequent recurrent bleeding. Although the patient is improving, the patient is at high risk for recurrent bl eeding. Discussed situation with Dr. Gonzalez. After discussion with Dr. Gonzalez and Dr. Alexander, plan for attempted reembolization from a left radial approach of the left superior vesiclar artery with Embospheres. Plan for only a small amount of Embosphere injection. Will need anesthesia assistance as patient continuously moves during procedure despite requests not to. Daughter told me that he has always done this. Subjective Date of service: 06/07/22 Principal diagnosis: hematuria bladder cancer Interval history: Had a long discussion with urology. Discussed with patient. Groins are intact with no hematoma or pseudoaneurysm. Palpable left radial and ulnar artery. Urine is myles red. Clots noted. Objective - Constitutional Vitals: Vital Signs - 12hr 06/07/22 06/07/22 06/07/22 04:17 04:47 07:27 Temperature 97.7 F 99.8 F H Pulse Rate Pulse Rate [ 108 H From Monitor] Respiratory Rate [Abdomen] Blood Pressure O2 Sat by Pulse 95 Oximetry 06/07/22 06/07/22 09:38 09:42 Temperature Pulse Rate 102 H Pulse Rate [ From Monitor] Respiratory 17 Rate [Abdomen] Blood Pressure 185/98 O2 Sat by Pulse Oximetry General appearance: Present: no acute distress - EENT Eyes: EOM intact ENT: hearing intact - Respiratory Respiratory effort: normal Extremities: normal temperature, normal color - Gastrointestinal General gastrointestinal: Present: soft, non-tender - Psychiatric Psychiatric: appropriate mood/affect, cooperative - Labs CBC & Chem 7: 06/07/22 08:27 06/06/22 Unknown Labs: Abnormal lab results 06/06/22 06/06/22 06/06/22 Range/Units 12:29 19:13 Unknown WBC 13.2 H (4.5-11.0) K/mm3 Hgb 11.1 L D (11.8-15.2) gm/dl Hct 33.8 L D (35.5-45.6) % Creatinine (0.8-1.3) mg/dL Glucose (75-100) mg/dL POC Glucose 153 H (70-105) mg/dL Crossmatch See Detail 06/06/22 06/07/22 06/07/22 Range/Units Unknown 06:17 07:34 WBC (4.5-11.0) K/mm3 Hgb (11.8-15.2) gm/dl Hct (35.5-45.6) % Creatinine 0.6 L (0.8-1.3) mg/dL Glucose 143 H (75-100) mg/dL POC Glucose 212 H 175 H (70-105) mg/dL Crossmatch 06/07/22 Range/Units 08:27 WBC 17.6 H (4.5-11.0) K/mm3 Hgb (11.8-15.2) gm/dl Hct (35.5-45.6) % Creatinine (0.8-1.3) mg/dL Glucose (75-100) mg/dL POC Glucose (70-105) mg/dL Crossmatch Medications & Allergies - Medications Allergies/Adverse Reactions: Allergies No Known Allergies Allergy (Verified 05/13/22 16:50) Home Medications: Home Medications Medication Instructions Recorded Confirmed Last Taken Type AtorvaSTATin [Lipitor] 80 mg PO QHS 05/13/22 06/02/22 06/05/22 History Cyanocobalamin (Vitamin B-12) 1,000 mcg PO QDAY 05/13/22 06/02/22 06/05/22 History [Vitamin B-12] Doxazosin [Cardura] 1 mg PO QHS 05/13/22 06/02/22 06/05/22 History Ferrous Sulfate [Iron 325 MG] 325 mg PO QDAY 05/13/22 06/02/22 06/05/22 History Metformin HCl [metFORMIN] 1,000 mg PO QDAY 05/13/22 06/02/22 06/05/22 History Omeprazole 20 mg PO QDAY 05/13/22 06/06/22 06/06/22 History amLODIPine [Norvasc] 5 mg PO DAILY 05/13/22 06/02/22 06/05/22 History lisinopriL [Lisinopril] 40 mg PO QDAY 05/13/22 06/02/22 06/05/22 History Active Medications: Generic Name Dose Route Start Last Admin Trade Name Freq PRN Reason Stop Dose Admin Acetaminophen 650 mg 06/06/22 15:00 Acetaminophen 325 Mg Tab PO Q4H PRN Pain, Mild (1-3)/Fever > 100.5 Dextrose 50 ml 06/06/22 22:30 Dextrose 50% In Water (25gm) 50 Ml Syringe IV Q30MIN PRN Hypoglycemia Protocol Ferrous Sulfate 325 mg 06/07/22 10:00 06/07/22 09:42 Ferrous Sulfate 325 Mg Tab PO 325 mg QDAY [facility]ARLA Administration Hydralazine HCl 10 mg 06/07/22 11:28 Hydralazine 20 Mg/1 Ml Inj IV Q4HR PRN Hypertension Hydromorphone HCl 0.5 mg 06/06/22 18:50 06/07/22 09:38 Hydromorphone 0.5 Mg/0.5 Ml Inj IV 0.5 mg Q10MIN PRN Administration Pain , Severe (7-10) Cefepime HCl 1 gm in 100 mls @ 200 mls/hr 06/07/22 12:00 Cefepime/Ns 1 Gm/100 Ml IV Q8H [facility] Protocol Insulin Human Lispro 0 unit 06/06/22 22:30 06/07/22 08:10 Insulin Lispro 100 Unit/Ml SUB-Q Not Given ACHS [facility] Protocol Lisinopril 40 mg 06/07/22 10:00 06/07/22 09:42 Lisinopril 20 Mg Tab PO 40 mg QDAY [facility] Administration Oxycodone/Acetaminophen 2 tab 06/06/22 15:00 Oxycodone /Acetaminophen 5-325mg Tab PO Q6H PRN Pain, Moderate (4-6) Pantoprazole Sodium 20 mg 06/07/22 10:00 06/07/22 09:42 Pantoprazole 20 Mg Tab PO 20 mg QDAY [facility] Administration Sodium Chloride 2,000 ml 06/07/22 05:00 06/07/22 09:43 Sodium Chloride 0.9% Irrig Soln 2000 Ml IR 2,000 ml DIRECT KARLA Administration
[2022-06-07] MEDS: CEFEPIME/NS 2 GM/100 ML 2 GM/100 ML BAG IV SCH (13:36)
--- NOTE | 2022-06-07 13:54 | Anesthesia Day of Surgery ---
Anesthesia Day of Surgery - Day of Surgery Patient Examined: Yes Patient H&P Reviewed: Yes Patient is NPO: Yes
[2022-06-07] MEDS ORDERED: MIDAZOLAM 2 MG/2 ML INJ ONE (14:11)
[2022-06-07] MEDS ORDERED: fentaNYL 100 MCG/2 ML INJ ONE (14:11)
[2022-06-07] MEDS ORDERED: ePHEDrine SULFATE 50 MG/1 ML INJ ONE (14:12)
[2022-06-07] MEDS ORDERED: ceFAZolin/Water 2 GM/20 ML 2 GM/20 ML SYRINGE IV ONE (14:59)
[2022-06-07] MEDS ORDERED: KETAMINE/STERILE WATER 50 MG/ML SYRINGE ONE (15:52)
[2022-06-07] MEDS ORDERED: SODIUM CHLORIDE 0.9% 1000 ML 1,000 ML ONE (17:32)
--- NOTE | 2022-06-07 17:33 | Operative Report ---
Operative Report Operative Report: EXAM: 1. Ultrasound guided access of the left radial artery 2. Selection of the descending thoracic aorta 3. Selection of the left internal iliac artery with angiography 4. Selection of the inferior gluteal artery with angiography 5. Selection of the left internal pudendal artery with angiography 6. Selection of the left common vesicular artery with angiography 7. Embolization of the left common vesicular artery with 0.5 vial of 500-700 micron embospheres 8. Selection of the left superior vesicular artery with angiography 9. Embolization of the left superior vesicular artery with 0.25 vial of 500-700 micron embospheres 10. Post embolization angiography 11. TR band application to the left radial artery DATE: 06/07/2022 INDICATION: Intractable hematuria from bladder carcinoma resistent to cystoscopic control. MEDICATIONS: Please see nursing report for full details. ANESTHESIA: MAC DEVICES: Truselect microcatheter 500-700 micron embospheres PRODUCT TEST ENGINEER: AMY HANDLEY MD CONTRAST: Please see catholic priest report for full details PROCEDURE: The risks, benefits, and alternatives were discussed and informed consent was obtained. The patient was transported to the angiography suite in satisfactory/stable condition and was transported onto the angiography table. The patient's left wrist and radial artery was assessed with ultrasound and determined to be patent prior to procedure. The patient was prepped and draped in a sterile fashion. The puncture site was anesthetized. The left radial artery was patent on ultrasound. Under sonographic guidance, the left radial artery was punctured with a 21-gauge micropuncture needle and a 0.018 inch wire was advanced through the needle. Needle was exchanged for a 4/5 [employer] slender. Wire and catheter were then used to select the descending thoracic aorta, and left internal iliac artery. Digital subtraction angiography was performed demonstrating an ectatic tortuous posterior segment of the internal iliac artery with the takeoff of the inferior gluteal artery and the internal pudendal artery all from the same area. The internal pudendal artery was much smaller than the other 2 vessels and there is severe tortuosity with ectasia of the posterior division. From the internal pudendal artery, a common vesicular artery with an inferior and superior vessel was noted. The left posterior division of the internal iliac artery was easily selected but was not attempted to be selected. This required multiple catheter exchanges and microcatheter exchanges. The left inferior gluteal artery was then selected and digital subtraction angiography was performed demonstrating the takeoff of the common vesicular artery. Multiple catheter and wire exchanges were required but ultimately the left common vesicular artery was selected and digital subtraction angiography was performed confirming position. I originally selected the common vesicular artery which provided flow to both the superior and inferior vesicular artery. Half a vial of 500 to 700 m Embosphere's was deployed at this location. Digital subtraction angiography demonstrated mildly decreased flow in both vessels. The left superior vesicular artery was then selected. Digital subtraction angiography was performed confirming position from this location. A cortical vial of 500 to 700 m Embosphere's was deployed at this location. There is decreased flow through the left superior vesicular artery. I considered Gelfoam and further Embosphere embolization at this location, but was concerned about tumor necrosis. The flow had significantly decreased and I believe the intervention was complete. All wires, catheters, and sheaths were removed and TR band was applied. Patient tolerated the procedure well. No immediate postprocedural complications. The patient was transferred from the angiography suite back to the floor in stable condition. FINDINGS: Please see catholic priest report for full details IMPRESSION: Embolization as described above.
--- NOTE | 2022-06-07 17:33 | Post Operative Note ---
Date of procedure: 06/07/22 Pre-op diagnosis: Gross hematuria from bladder carcinoma Post-op diagnosis: same Procedure: 1. Ultrasound guided access of the left radial artery 2. Selection of the descending thoracic aorta 3. Selection of the left internal iliac artery with angiography 4. Selection of the inferior gluteal artery with angiography 5. Selection of the left internal pudendal artery with angiography 6. Selection of the left common vesicular artery with angiography 7. Embolization of the left common vesicular artery with 0.5 vial of 500-700 micron embospheres 8. Selection of the left superior vesicular artery with angiography 9. Embolization of the left superior vesicular artery with 0.25 vial of 500-700 micron embospheres 10. Post embolization angiography 11. TR band application to the left radial artery Anesthesia: MAC Surgeon: AMY HANDLEY Estimated blood loss: minimal Condition: stable Disposition: floor
[2022-06-07] MEDS ORDERED: PHENYLEPHRINE/NS 1,000 MCG/10 ML SYRINGE (OR USE) IV ONE ×2 (17:50→18:19)
[2022-06-07] MEDS ORDERED: ONDANSETRON 4 MG/2 ML INJ IV PRN (18:00)
[2022-06-07] MEDS ORDERED: LIDOCAINE MPF (2%) 20 MG/1 ML VIAL 5 ML ONE (18:21)
[2022-06-07 19:16] LABS: Color,Urine Red (Yellow); RBC,Urine > 182.0 /HPF (0.0-6.0)
[2022-06-07] MEDS: oxyCODONE /ACETAMINOPHEN 5-325MG TAB PO PRN (20:25)
[2022-06-08] MEDS: oxyCODONE /ACETAMINOPHEN 5-325MG TAB PO PRN (01:41)
[2022-06-08] MEDS: CEFEPIME/NS 2 GM/100 ML 2 GM/100 ML BAG IV SCH ×2 (01:42→12:55)
[2022-06-08] MEDS: SODIUM CHLORIDE 0.9% IRRIG SOLN 2000 ML IR SCH ×11 (02:03→15:14)
[2022-06-08] MEDS: HYDROmorphone 0.5 MG/0.5 ML INJ IV PRN ×4 (04:21→20:36)
[2022-06-08 05:21] LABS: Hematocrit 31.3 % (35.5-45.6); Hemoglobin 10.5 gm/dl (11.8-15.2); Mean Corpuscular HGB Conc 34 % (32-34); Mean Corpuscular Volume 88 fl (84-94); Platelet Count 262 K/mm3 (140-440); Red Blood Count 3.55 M/mm3 (3.65-5.03); Red Cell Distribution Width 15.4 % (13.2-15.2)
[2022-06-08 05:46] LABS: BUN/Creatinine Ratio 14; Blood Urea Nitrogen 11 mg/dL (9-20); Calcium 8.1 mg/dL (8.4-10.2); Hemolysis Index 5
[2022-06-08] MEDS: INSULIN LISPRO 100 UNIT/ML SUB-Q SCH ×4 (09:23→21:42)
[2022-06-08] MEDS: LISINOPRIL 20 MG TAB PO SCH (09:23)
[2022-06-08] MEDS: PANTOPRAZOLE 20 MG TAB PO SCH (09:24)
[2022-06-08] MEDS: FERROUS SULFATE 325 MG TAB PO SCH (09:24)
[2022-06-08] MEDS ORDERED: SODIUM CHLORIDE 0.9% IRR 1,000 ML BOTTLE IR ONE (14:15)
--- NOTE | 2022-06-08 14:23 | Progress Note ---
Assessment and Plan lots of old clots evacuated clear now likley formed during transport observe x 24 hrs cysto tomorrow if clots recur py npo p midnight all discomfort gone Subjective Date of service: 06/08/22 Principal diagnosis: hematuria bladder cancer Objective - Constitutional Vitals: Vital Signs - 12hr 06/08/22 06/08/22 06/08/22 02:41 03:00 04:00 Pulse Rate 96 H 93 H Pulse Rate [ From Monitor] Respiratory 12 14 11 L Rate Blood Pressure 148/89 112/71 O2 Sat by Pulse 99 99 Oximetry 06/08/22 06/08/22 06/08/22 05:00 06:00 07:00 Pulse Rate 85 85 80 Pulse Rate [ 85 From Monitor] Respiratory 11 L 12 12 Rate Blood Pressure 99/56 121/71 117/64 O2 Sat by Pulse 98 100 99 Oximetry 06/08/22 06/08/22 06/08/22 08:00 09:00 09:23 Pulse Rate 84 86 101 H Pulse Rate [ From Monitor] Respiratory 11 L 10 L Rate Blood Pressure 135/75 103/58 103/56 O2 Sat by Pulse 98 88 Oximetry 06/08/22 06/08/22 10:00 11:00 Pulse Rate 89 99 H Pulse Rate [ 89 From Monitor] Respiratory 16 16 Rate Blood Pressure 122/77 161/89 O2 Sat by Pulse 93 99 Oximetry General appearance: Present: no acute distress - Neck Neck: supple - Respiratory Respiratory effort: normal Extremities: no ischemia - Gastrointestinal General gastrointestinal: Present: tender, non-distended - Labs CBC & Chem 7: 06/08/22 04:53 06/08/22 04:53 Labs: Abnormal lab results 06/07/22 06/07/22 06/08/22 Range/Units 18:30 21:58 04:53 WBC 17.2 H (4.5-11.0) K/mm3 RBC 3.55 L (3.65-5.03) M/mm3 Hgb 10.5 L (11.8-15.2) gm/dl Hct 31.3 L D (35.5-45.6) % RDW 15.4 H (13.2-15.2) % Sodium (137-145) mmol/L Carbon Dioxide (22-30) mmol/L Glucose (75-100) mg/dL POC Glucose 238 H (70-105) mg/dL Calcium (8.4-10.2) mg/dL Urine WBC (Auto) 94.0 H (0.0-6.0) /HPF 06/08/22 Range/Units 04:53 WBC (4.5-11.0) K/mm3 RBC (3.65-5.03) M/mm3 Hgb (11.8-15.2) gm/dl Hct (35.5-45.6) % RDW (13.2-15.2) % Sodium 134 L (137-145) mmol/L Carbon Dioxide 21 L (22-30) mmol/L Glucose 138 H (75-100) mg/dL POC Glucose (70-105) mg/dL Calcium 8.1 L (8.4-10.2) mg/dL Urine WBC (Auto) (0.0-6.0) /HPF Medications & Allergies - Medications Allergies/Adverse Reactions: Allergies No Known Allergies Allergy (Verified 05/13/22 16:50) Home Medications: Home Medications Medication Instructions Recorded Confirmed Last Taken Type AtorvaSTATin [Lipitor] 80 mg PO QHS 05/13/22 06/02/22 06/05/22 History Cyanocobalamin (Vitamin B-12) 1,000 mcg PO QDAY 05/13/22 06/02/22 06/05/22 Hi story [Vitamin B-12] Doxazosin [Cardura] 1 mg PO QHS 05/13/22 06/02/22 06/05/22 History Ferrous Sulfate [Iron 325 MG] 325 mg PO QDAY 05/13/22 06/02/22 06/05/22 History Metformin HCl [metFORMIN] 1,000 mg PO QDAY 05/13/22 06/02/22 06/05/22 History Omeprazole 20 mg PO QDAY 05/13/22 06/06/22 06/06/22 History amLODIPine [Norvasc] 5 mg PO DAILY 05/13/22 06/02/22 06/05/22 History lisinopriL [Lisinopril] 40 mg PO QDAY 05/13/22 06/02/22 06/05/22 History Active Medications: Generic Name Dose Route Start Last Admin Trade Name Freq PRN Reason Stop Dose Admin Acetaminophen 650 mg 06/06/22 15:00 Acetaminophen 325 Mg Tab PO Q4H PRN Pain, Mild (1-3)/Fever > 100.5 Dextrose 50 ml 06/06/22 22:30 Dextrose 50% In Water (25gm) 50 Ml Syringe IV Q30MIN PRN Hypoglycemia Protocol Ferrous Sulfate 325 mg 06/07/22 10:00 06/08/22 09:24 Ferrous Sulfate 325 Mg Tab PO 325 mg QDAY KARLA Administration Hydralazine HCl 10 mg 06/07/22 11:28 Hydralazine 20 Mg/1 Ml Inj IV Q4HR PRN Hypertension Hydromorphone HCl 0.5 mg 06/07/22 18:00 06/08/22 09:23 Hydromorphone 0.5 Mg/0.5 Ml Inj IV 0.5 mg Q3H PRN Administration Pain , Severe (7-10) Cefepime HCl 2 gm in 100 mls @ 200 mls/hr 06/07/22 13:00 06/08/22 12:55 Cefepime/Ns 2 Gm/100 Ml IV 200 mls/hr Q12H KARLA Administration Protocol Levofloxacin/Dextrose 500 mg in 100 mls @ 100 mls/hr 06/07/22 18:00 06/07/22 18:56 Levaquin 500mg/100ml IV 06/14/22 17:59 100 mls/hr Q24H KARLA Administration Protocol Insulin Human Lispro 0 unit 06/06/22 22:30 06/08/22 12:55 Insulin Lispro 100 Unit/Ml SUB-Q 2 unit ACHS KARLA Administration Protocol Lisinopril 40 mg 06/07/22 10:00 06/08/22 09:23 Lisinopril 20 Mg Tab PO 40 mg QDAY KARLA Administration Ondansetron HCl 4 mg 06/07/22 18:00 Ondansetron 4 Mg/2 Ml Inj IV Q4H PRN Nausea And Vomiting Oxycodone/Acetaminophen 1 tab 06/07/22 18:00 06/08/22 01:41 Oxycodone /Acetaminophen 5-325mg Tab PO 1 tab Q4H PRN Administration Pain, Moderate (4-6) Pantoprazole Sodium 20 mg 06/07/22 10:00 06/08/22 09:24 Pantoprazole 20 Mg Tab PO 20 mg QDAY KARLA Administration Sodium Chloride 2,000 ml 06/07/22 05:00 06/08/22 12:55 Sodium Chloride 0.9% Irrig Soln 2000 Ml IR 2,000 ml DIRECT KARLA Administration
--- NOTE | 2022-06-08 15:37 | Progress Note ---
Assessment and Plan irrigated clear Subjective Date of service: 06/08/22 Principal diagnosis: hematuria bladder cancer Objective - Constitutional Vitals: Vital Signs - 12hr 06/08/22 06/08/22 06/08/22 04:00 05:00 06:00 Pulse Rate 93 H 85 85 Pulse Rate [ 85 From Monitor] Respiratory 11 L 11 L 12 Rate Blood Pressure 112/71 99/56 121/71 O2 Sat by Pulse 99 98 100 Oximetry 06/08/22 06/08/22 06/08/22 07:00 08:00 09:00 Pulse Rate 80 84 86 Pulse Rate [ From Monitor] Respiratory 12 11 L 10 L Rate Blood Pressure 117/64 135/75 103/58 O2 Sat by Pulse 99 98 88 Oximetry 06/08/22 06/08/22 06/08/22 09:23 10:00 11:00 Pulse Rate 101 H 89 99 H Pulse Rate [ 89 From Monitor] Respiratory 16 16 Rate Blood Pressure 103/56 122/77 161/89 O2 Sat by Pulse 93 99 Oximetry 06/08/22 06/08/22 06/08/22 12:00 13:00 14:00 Pulse Rate 81 95 H 109 H Pulse Rate [ From Monitor] Respiratory 15 15 17 Rate Blood Pressure 102/57 157/86 172/103 O2 Sat by Pulse 96 97 95 Oximetry 06/08/22 15:00 Pulse Rate 91 H Pulse Rate [ From Monitor] Respiratory 11 L Rate Blood Pressure 145/88 O2 Sat by Pulse 98 Oximetry - Labs CBC & Chem 7: 06/08/22 04:53 06/08/22 04:53 Labs: Abnormal lab results 06/07/22 06/07/22 06/08/22 Range/Units 18:30 21:58 04:53 WBC 17.2 H (4.5-11.0) K/mm3 RBC 3.55 L (3.65-5.03) M/mm3 Hgb 10.5 L (11.8-15.2) gm/dl Hct 31.3 L D (35.5-45.6) % RDW 15.4 H (13.2-15.2) % Sodium (137-145) mmol/L Carbon Dioxide (22-30) mmol/L Glucose (75-100) mg/dL POC Glucose 238 H (70-105) mg/dL Calcium (8.4-10.2) mg/dL Urine WBC (Auto) 94.0 H (0.0-6.0) /HPF 06/08/22 Range/Units 04:53 WBC (4.5-11.0) K/mm3 RBC (3.65-5.03) M/mm3 Hgb (11.8-15.2) gm/dl Hct (35.5-45.6) % RDW (13.2-15.2) % Sodium 134 L (137-145) mmol/L Carbon Dioxide 21 L (22-30) mmol/L Glucose 138 H (75-100) mg/dL POC Glucose (70-105) mg/dL Calcium 8.1 L (8.4-10.2) mg/dL Urine WBC (Auto) (0.0-6.0) /HPF Medications & Allergies - Medications Allergies/Adverse Reactions: Allergies No Known Allergies Allergy (Verified 05/13/22 16:50) Home Medications: Home Medications Medication Instructions Recorded Confirmed Last Taken Type AtorvaSTATin [Lipitor] 80 mg PO QHS 05/13/22 06/02/22 06/05/22 History Cyanocobalamin (Vitamin B-12) 1,000 mcg PO QDAY 05/13/22 06/02/22 06/05/22 History [Vitamin B-12] Doxazosin [Cardura] 1 mg PO QHS 05/13/22 06/02/22 06/05/22 History Ferrous Sulfate [Iron 325 MG] 325 mg PO QDAY 05/13/22 06/02/22 06/05/22 History Metformin HCl [metFORMIN] 1,000 mg PO QDAY 05/13/22 06/02/22 06/05/22 History Omeprazole 20 mg PO QDAY 05/13/22 06/06/22 06/06/22 History amLODIPine [Norvasc] 5 mg PO DAILY 05/13/22 06/02/22 06/05/22 History lisinopriL [Lisinopril] 40 mg PO QDAY 05/13/22 06/02/22 06/05/22 History Active Medications: Generic Name Dose Route Start Last Admin Trade Name Freq PRN Reason Stop Dose Admin Acetaminophen 650 mg 06/06/22 15:00 Acetaminophen 325 Mg Tab PO Q4H PRN Pain, Mild (1-3)/Fever > 100.5 Dextrose 50 ml 06/06/22 22:30 Dextrose 50% In Water (25gm) 50 Ml Syringe IV Q30MIN PRN Hypoglycemia Protocol Ferrous Sulfate 325 mg 06/07/22 10:00 06/08/22 09:24 Ferrous Sulfate 325 Mg Tab PO 325 mg QDAY KARLA Administration Hydralazine HCl 10 mg 06/07/22 11:28 Hydralazine 20 Mg/1 Ml Inj IV Q4HR PRN Hypertension Hydromorphone HCl 0.5 mg 06/07/22 18:00 06/08/22 09:23 Hydromorphone 0.5 Mg/0.5 Ml Inj IV 0.5 mg Q3H PRN Administration Pain , Severe (7-10) Cefepime HCl 2 gm in 100 mls @ 200 mls/hr 06/07/22 13:00 06/08/22 12:55 Cefepime/Ns 2 Gm/100 Ml IV 200 mls/hr Q12H KARLA Administration Protocol Levofloxacin/Dextrose 500 mg in 100 mls @ 100 mls/hr 06/07/22 18:00 06/07/22 18:56 Levaquin 500mg/100ml IV 06/14/22 17:59 100 mls/hr Q24H KARLA Administration Protocol Insulin Human Lispro 0 unit 06/06/22 22:30 06/08/22 12:55 Insulin Lispro 100 Unit/Ml SUB-Q 2 unit ACHS KARLA Administration Protocol Lisinopril 40 mg 06/07/22 10:00 06/08/22 09:23 Lisinopril 20 Mg Tab PO 40 mg QDAY KARLA Administration Ondansetron HCl 4 mg 06/07/22 18:00 Ondansetron 4 Mg/2 Ml Inj IV Q4H PRN Nausea And Vomiting Oxycodone/Acetaminophen 1 tab 06/07/22 18:00 06/08/22 01:41 Oxycodone /Acetaminophen 5-325mg Tab PO 1 tab Q4H PRN Administration Pain, Moderate (4-6) Pantoprazole Sodium 20 mg 06/07/22 10:00 06/08/22 09:24 Pantoprazole 20 Mg Tab PO 20 mg QDAY KARLA Administration
--- NOTE | 2022-06-08 16:50 | Progress Note ---
Assessment and Plan Assessment and plan: 81 YO Male with Vascular Dementia, Cerebral Atherosclerosis, DM, HLD, HTN, GERD, Anemia of Chronic Disease, BPH with Chronic indwelling castillo catheter, Bladder Cancer admitted for elective urologic surgery. Consult placed by Dr. Alexander for medical management. Patient resting comfortable. No reported nursing events. Patient denies fever, chills, chest pain, palpitation, productive cough, skin rash 06/07: Patient evaluated by urology at this time. No pseudoaneurysm noted. Pulses distal to site of procedure intact. We will continue to monitor H&H closely. Patient noted with leukocytosis worse from time of admission. We will start patient on empiric antibiotics while awaiting cultures. Low-grade fever noted as a result blood cultures also ordered. Patient is planned for attempted embolization from left radial approach of the left superior vascular artery with Embospheres. Advanced care planning discussed with the patient 30 minutes confirmed full CODE STATUS. Recheck labs in a.m. 06/08: Patient seen and examined, continues to have hematuria, clearing up, Urinalysis returns showing cystits, at this point complex due to instrumentation. Patient will continue abx, Plans for cystoscopy in the am. (1) Hypertension Current Visit: Yes Status: Acute Qualifiers: Hypertension type: primary hypertension Qualified Code(s): I10 - Essential (primary) hypertension Plan to address problem: Monitor blood pressure every shift, continue medical management. (2) Cerebral atherosclerosis Current Visit: No Status: Acute Plan to address problem: Risk factor reduction, antiplatelet therapy as clinically indicated. (3) Diabetes Current Visit: No Status: Acute Plan to address problem: Consistent carbohydrate diet, Accu-Chek, insulin protocol, hypoglycemia protocol. (4) Hyperlipidemia Current Visit: No Status: Acute Qualifiers: Hyperlipidemia type: mixed hyperlipidemia Qualified Code(s): E78.2 - Mixed hyperlipidemia Plan to address problem: Statin therapy, supportive care, low-cholesterol diet (5) Vascular dementia Current Visit: No Status: Acute Qualifiers: Dementia behavioral disturbance: without behavioral disturbance Qualified Code(s): F01.50 - Vascular dementia without behavioral disturbance Plan to address problem: For prompt, verbal redirection, benzodiazepine therapy as clinically indicated. (6) GERD (gastroesophageal reflux disease) Current Visit: Yes Status: Acute Qualifiers: Esophagitis presence: without esophagitis Qualified Code(s): K21.9 - G sedrick-esophageal reflux disease without esophagitis Plan to address problem: PPI therapy, supportive care, continue medical management. (7) Systemic inflammatory response syndrome (8) Acute Cystitis (9) advance care planning Current Visit: No Status: Acute Plan to address problem: Disease education done, care plan discussed, diagnoses discussed, prognosis discussed, patient is full code. +30 minutes. (8) Preventative health care Current Visit: No Status: Acute Plan to address problem: Home safety discussed, patient structured to follow-up primary care physician for all age and risk factor appropriate screening test. +30 minutes. History Interval history: Patient seen and examined resting comfortably no new complaints at this time. Hospitalist Physical - Physical exam Narrative exam: VITAL SIGNS: Reviewed. GENERAL: The patient appears normally developed, Vital signs as documented. HEAD: No signs of head trauma. EYES: Pupils are equal. Extraocular motions intact. EARS: Hearing grossly intact. MOUTH: Oropharynx is normal. NECK: No adenopathy, no JVD. CHEST: Chest with clear breath sounds bilaterally. No wheezes, rales, or rhon chi. CARDIAC: Regular rate and rhythm. S1 and S2, without murmurs, gallops, or rubs. VASCULAR: No Edema. Peripheral pulses normal and equal in all extremities. ABDOMEN: Soft, non tender and non distended. No rebound or guarding, and no masses palpated. Bowel Sounds normal. : Castillo catheter in place MUSCULOSKELETAL: Good range of motion of all major joints. Extremities without clubbing, cyanosis or edema. NEUROLOGIC EXAM: Alert and oriented x 3 No focal sensory or strength def icits. Speech normal. Follows commands. PSYCHIATRIC: Mood normal. SKIN: detail exam as documented in skin assessment - Constitutional Vitals: Temp Pulse Resp BP Pulse Ox 99.3 F 91 H 11 L 145/88 98 06/08/22 00:00 06/08/22 15:00 06/08/22 15:00 06/08/22 15:00 06/08/22 15:00 General appearance: Present: no acute distress Results - Labs CBC & Chem 7: 06/08/22 04:53 06/08/22 04:53 Labs: Laboratory Last Values WBC 17.2 K/mm3 (4.5-11.0) H 06/08/22 04:53 RBC 3.55 M/mm3 (3.65-5.03) L 06/08/22 04:53 Hgb 10.5 gm/dl (11.8-15.2) L 06/08/22 04:53 Hct 31.3 % (35.5-45.6) L D 06/08/22 04:53 MCV 88 fl (84-94) 06/08/22 04:53 MCH 30 pg (28-32) 06/08/22 04:53 MCHC 34 % (32-34) 06/08/22 04:53 RDW 15.4 % (13.2-15.2) H 06/08/22 04:53 Plt Count 262 K/mm3 (140-440) 06/08/22 04:53 Sodium 134 mmol/L (137-145) L 06/08/22 04:53 Potassium 3.9 mmol/L (3.6-5.0) 06/08/22 04:53 Chloride 102.1 mmol/L (98-107) 06/08/22 04:53 Carbon Dioxide 21 mmol/L (22-30) L 06/08/22 04:53 Anion Gap 15 mmol/L 06/08/22 04:53 BUN 11 mg/dL (9-20) 06/08/22 04:53 Creatinine 0.8 mg/dL (0.8-1.3) 06/08/22 04:53 Estimated GFR > 60 ml/min 06/08/22 04:53 BUN/Creatinine Ratio 14 % 06/08/22 04:53 Glucose 138 mg/dL (75-100) H 06/08/22 04:53 POC Glucose 162 mg/dL (70-105) H 06/08/22 12:21 Calcium 8.1 mg/dL (8.4-10.2) L 06/08/22 04:53 Urine Color Red (Yellow) 06/07/22 18:30 Urine Turbidity Cloudy (Clear) 06/07/22 18:30 Urine pH 6.0 (5.0-7.0) 06/07/22 18:30 Specific [place] (Man) 1.010 (1.003-1.030) 06/07/22 18:30 Urine Protein 30 mg/dl mg/dL (Negative) 06/07/22 18:30 Ur Protein (Man) 2+ mg/dL (Negative) 06/07/22 18:30 Urine Glucose (UA) Negative mg/dL (Negative) 06/07/22 18:30 Urine Ketones 5 mg/dL (Negative) 06/07/22 18:30 Ur Ketones (Man) 5 (Negative) 06/07/22 18:30 Urine Blood 4+ (Negative) 06/07/22 18:30 Urine Nitrite Negative (Negative) 06/07/22 18:30 Urine Bilirubin Negative (Negative) 06/07/22 18:30 Urine Bilirubin (Man) Negative (Negative) 06/07/22 18:30 Urine Urobilinogen 0.2 mg/dL (<2.0) 06/07/22 18:30 Ur Leukocyte Esterase 1+ (Negative) 06/07/22 18:30 Urine WBC (Auto) 94.0 /HPF (0.0-6.0) H 06/07/22 18:30 Urine RBC (Auto) > 182.0 /HPF (0.0-6.0) 06/07/22 18:30 Urine RBC (Manual) 5+ (Negative) 06/07/22 18:30 Blood Type O POSITIVE 06/06/22 Unknown Antibody Screen Negative 06/06/22 Unknown Crossmatch See Detail 06/06/22 Unknown Microbiology: Microbiology 06/07/22 20:42 Peripheral/Venous Blood Culture - Preliminary Culture in Progress 06/07/22 20:42 Peripheral/Venous Blood Culture - Preliminary Culture in Progress Castillo/IV: Voiding Method Indwelling Catheter Active Medications - Current Medications Current Medications: Generic Name Dose Route Start Last Admin Trade Name Freq PRN Reason Stop Dose Admin Acetaminophen 650 mg 06/06/22 15:00 Acetaminophen 325 Mg Tab PO Q4H PRN Pain, Mild (1-3)/Fever > 100.5 Dextrose 50 ml 06/06/22 22:30 Dextrose 50% In Water (25gm) 50 Ml Syringe IV Q30MIN PRN Hypoglycemia Protocol Ferrous Sulfate 325 mg 06/07/22 10:00 06/08/22 09:24 Ferrous Sulfate 325 Mg Tab PO 325 mg QDAY KARLA Administration Hydralazine HCl 10 mg 06/07/22 11:28 Hydralazine 20 Mg/1 Ml Inj IV Q4HR PRN Hypertension Hydromorphone HCl 0.5 mg 06/07/22 18:00 06/08/22 09:23 Hydromorphone 0.5 Mg/0.5 Ml Inj IV 0.5 mg Q3H PRN Administration Pain , Severe (7-10) Cefepime HCl 2 gm in 100 mls @ 200 mls/hr 06/07/22 13:00 06/08/22 12:55 Cefepime/Ns 2 Gm/100 Ml IV 200 mls/hr Q12H KARLA Administration Protocol Levofloxacin/Dextrose 500 mg in 100 mls @ 100 mls/hr 06/07/22 18:00 06/07/22 18:56 Levaquin 500mg/100ml IV 06/14/22 17:59 100 mls/hr Q24H KARLA Administration Protocol Insulin Human Lispro 0 unit 06/06/22 22:30 06/08/22 12:55 Insulin Lispro 100 Unit/Ml SUB-Q 2 unit ACHS KARLA Administration Protocol Lisinopril 40 mg 06/07/22 10:00 06/08/22 09:23 Lisinopril 20 Mg Tab PO 40 mg QDAY KARLA Administration Ondansetron HCl 4 mg 06/07/22 18:00 Ondansetron 4 Mg/2 Ml Inj IV Q4H PRN Nausea And Vomiting Oxycodone/Acetaminophen 1 tab 06/07/22 18:00 06/08/22 01:41 Oxycodone /Acetaminophen 5-325mg Tab PO 1 tab Q4H PRN Administration Pain, Moderate (4-6) Pantoprazole Sodium 20 mg 06/07/22 10:00 06/08/22 09:24 Pantoprazole 20 Mg Tab PO 20 mg QDAY KALRA Administration
[2022-06-09] MEDS: HYDROmorphone 0.5 MG/0.5 ML INJ IV PRN ×2 (01:20→07:09)
[2022-06-09] MEDS: CEFEPIME/NS 2 GM/100 ML 2 GM/100 ML BAG IV SCH (01:53)
--- NOTE | 2022-06-09 09:50 | Progress Note ---
Assessment and Plan Assessment and plan: 81 YO Male with Vascular Dementia, Cerebral Atherosclerosis, DM, HLD, HTN, GERD, Anemia of Chronic Disease, BPH with Chronic indwelling castillo catheter, Bladder Cancer admitted for elective urologic surgery. Consult placed by Dr. Alexander for medical management. Patient resting comfortable. No reported nursing events. Patient denies fever, chills, chest pain, palpitation, productive cough, skin rash 06/07: Patient evaluated by urology at this time. No pseudoaneurysm noted. Pulses distal to site of procedure intact. We will continue to monitor H&H closely. Patient noted with leukocytosis worse from time of admission. We will start patient on empiric antibiotics while awaiting cultures. Low-grade fever noted as a result blood cultures also ordered. Patient is planned for attempted embolization from left radial approach of the left superior vascular artery with Embospheres. Advanced care planning discussed with the patient 30 minutes confirmed full CODE STATUS. Recheck labs in a.m. 06/08: Patient seen and examined, continues to have hematuria, clearing up, Urinalysis returns showing cystits, at this point complex due to instrumentation. Patient will continue abx, Plans for cystoscopy in the am. 06/09: Patient seen and examined, still with gross clotting and gross hematuria, Discussed with Urologist, they plan to take the patient back to the OR for further evaluation. Continue to monitor H/H, continue pain medications. Continue IMCU CARE. (1) Hypertension Current Visit: Yes Status: Acute Qualifiers: Hypertension type: primary hypertension Qualified Code(s): I10 - Essential (primary) hypertension Plan to address problem: Monitor blood pressure every shift, continue medical management. (2) Cerebral atherosclerosis Current Visit: No Status: Acute Plan to address problem: Risk factor reduction, antiplatelet therapy as clinically indicated. (3) Diabetes Current Visit: No Status: Acute Plan to address problem: Consistent carbohydrate diet, Accu-Chek, insulin protocol, hypoglycemia protocol. (4) Hyperlipidemia Current Visit: No Status: Acute Qualifiers: Hyperlipidemia type: mixed hyperlipidemia Qualified Code(s): E78.2 - Mixed hyperlipidemia Plan to address problem: Statin therapy, supportive care, low-cholesterol diet (5) Vascular dementia Current Visit: No Status: Acute Qualifiers: Dementia behavioral disturbance: without behavioral disturbance Qualified Code(s): F01.50 - Vascular dementia without behavioral disturbance Plan to address problem: For prompt, verbal redirection, benzodiazepine therapy as clinically indicated. (6) GERD (gastroesophageal reflux disease) Current Visit: Yes Status: Acute Qualifiers: Esophagitis presence: without esophagitis Qualified Code(s): K21.9 - Gastro-esophageal reflux disease without esophagitis Plan to address problem: PPI therapy, supportive care, continue medical management. (7) Systemic inflammatory response syndrome (8) Acute Cystitis (9) advance care planning Current Visit: No Status: Acute Plan to address problem: Disease education done, care plan discussed, diagnoses discussed, prognosis discussed, patient is full code. +30 minutes. (8) Preventative health care Current Visit: No Status: Acute Plan to address problem: Home safety discussed, patient structured to follow-up primary care physician for all age and risk factor appropriate screening test. +30 minutes. History Interval history: Patient seen and examined, Discussed with Nursing staff and patient noted to have continued gross hematuria and per nursing staff with clots, Urologist at bedside irrigating. Hospitalist Physical - Physical exam Narrative exam: VITAL SIGNS: Reviewed. GENERAL: The patient appears normally developed, Vital signs as documented. HEAD: No signs of head trauma. EYES: Pupils are equal. Extraocular motions intact. EARS: Hearing grossly intact. MOUTH: Oropharynx is normal. NECK: No adenopathy, no JVD. CHEST: Chest with clear breath sounds bilaterally. No wheezes, rales, or rhonchi. CARDIAC: Regular rate and rhythm. S1 and S2, without murmurs, gallops, or rubs. VASCULAR: No Edema. Peripheral pulses normal and equal in all extremities. ABDOMEN: Soft, non tender and non distended. No rebound or guarding, and no masses palpated. Bowel Sounds normal. : Castillo catheter in place MUSCULOSKELETAL: Good range of motion of all major joints. Extremities without clubbing, cyanosis or edema. NEUROLOGIC EXAM: Alert and oriented x 3 No focal sensory or strength deficits. Speech normal. Follows commands. PSYCHIATRIC: Mood normal. SKIN: detail exam as documented in skin assessment - Constitutional Vitals: Temp Pulse Resp BP Pulse Ox 96.7 F L 94 H 15 151/86 96 06/09/22 05:00 06/09/22 07:00 06/09/22 07:00 06/09/22 07:00 06/09/22 07:00 General appearance: Present: no acute distress Results - Labs CBC & Chem 7: 06/08/22 04:53 06/08/22 04:53 Labs: Laboratory Last Values WBC 17.2 K/mm3 (4.5-11.0) H 06/08/22 04:53 RBC 3.55 M/mm3 (3.65-5.03) L 06/08/22 04:53 Hgb 10.5 gm/dl (11.8-15.2) L 06/08/22 04:53 Hct 31.3 % (35.5-45.6) L D 06/08/22 04:53 MCV 88 fl (84-94) 06/08/22 04:53 MCH 30 pg (28-32) 06/08/22 04:53 MCHC 34 % (32-34) 06/08/22 04:53 RDW 15.4 % (13.2-15.2) H 06/08/22 04:53 Plt Count 262 K/mm3 (140-440) 06/08/22 04:53 Sodium 134 mmol/L (137-145) L 06/08/22 04:53 Potassium 3.9 mmol/L (3.6-5.0) 06/08/22 04:53 Chloride 102.1 mmol/L (98-107) 06/08/22 04:53 Carbon Dioxide 21 mmol/L (22-30) L 06/08/22 04:53 Anion Gap 15 mmol/L 06/08/22 04:53 BUN 11 mg/dL (9-20) 06/08/22 04:53 Creatinine 0.8 mg/dL (0.8-1.3) 06/08/22 04:53 Estimated GFR > 60 ml/min 06/08/22 04:53 BUN/Creatinine Ratio 14 % 06/08/22 04:53 Glucose 138 mg/dL (75-100) H 06/08/22 04:53 POC Glucose 155 mg/dL (70-105) H 06/08/22 21:39 Calcium 8.1 mg/dL (8.4-10.2) L 06/08/22 04:53 Urine Color Red (Yellow) 06/07/22 18:30 Urine Turbidity Cloudy (Clear) 06/07/22 18:30 Urine pH 6.0 (5.0-7.0) 06/07/22 18:30 Specific Morris (Man) 1.010 (1.003-1.030) 06/07/22 18:30 Urine Protein 30 mg/dl mg/dL (Negative) 06/07/22 18:30 Ur Protein (Man) 2+ mg/dL (Negative) 06/07/22 18:30 Urine Glucose (UA) Negative mg/dL (Negative) 06/07/22 18:30 Urine Ketones 5 mg/dL (Negative) 06/07/22 18:30 Ur Ketones (Man) 5 (Negative) 06/07/22 18:30 Urine Blood 4+ (Negative) 06/07/22 18:30 Urine Nitrite Negative (Negative) 06/07/22 18:30 Urine Bilirubin Negative (Negative) 06/07/22 18:30 Urine Bilirubin (Man) Negative (Negative) 06/07/22 18:30 Urine Urobilinogen 0.2 mg/dL (<2.0) 06/07/22 18:30 Ur Leukocyte Esterase 1+ (Negative) 06/07/22 18:30 Urine WBC (Auto) 94.0 /HPF (0.0-6.0) H 06/07/22 18:30 Urine RBC (Auto) > 182.0 /HPF (0.0-6.0) 06/07/22 18:30 Urine RBC (Manual) 5+ (Negative) 06/07/22 18:30 Blood Type O POSITIVE 06/06/22 Unknown Antibody Screen Negative 06/06/22 Unknown Crossmatch See Detail 06/06/22 Unknown Microbiology: Microbiology 06/07/22 20:42 Peripheral/Venous Blood Culture - Preliminary NO GROWTH AFTER 24 HOURS 06/07/22 20:42 Peripheral/Venous Blood Culture - Preliminary NO GROWTH AFTER 24 HOURS Castillo/IV: Voiding Method Indwelling Catheter Active Medications - Current Medications Current Medications: Generic Name Dose Route Start Last Admin Trade Name Freq PRN Reason Stop Dose Admin Acetaminophen 650 mg 06/06/22 15:00 Acetaminophen 325 Mg Tab PO Q4H PRN Pain, Mild (1-3)/Fever > 100.5 Dextrose 50 ml 06/06/22 22:30 Dextrose 50% In Water (25gm) 50 Ml Syringe IV Q30MIN PRN Hypoglycemia Protocol Ferrous Sulfate 325 mg 06/07/22 10:00 06/08/22 09:24 Ferrous Sulfate 325 Mg Tab PO 325 mg QDAY KARLA Administration Hydralazine HCl 10 mg 06/07/22 11:28 Hydralazine 20 Mg/1 Ml Inj IV Q4HR PRN Hypertension Hydromorphone HCl 0.5 mg 06/07/22 18:00 06/09/22 07:09 Hydromorphone 0.5 Mg/0.5 Ml Inj IV 0.5 mg Q3H PRN Administration Pain , Severe (7-10) Cefepime HCl 2 gm in 100 mls @ 200 mls/hr 06/07/22 13:00 06/09/22 01:53 Cefepime/Ns 2 Gm/100 Ml IV 200 mls/hr Q12H KARLA Administration Protocol Levofloxacin/Dextrose 500 mg in 100 mls @ 100 mls/hr 06/07/22 18:00 06/08/22 17:08 Levaquin 500mg/100ml IV 06/14/22 17:59 100 mls/hr Q24H KARLA Administration Protocol Insulin Human Lispro 0 unit 06/06/22 22:30 06/08/22 21:42 Insulin Lispro 100 Unit/Ml SUB-Q Not Given ACHS [facility] Protocol Lisinopril 40 mg 06/07/22 10:00 06/08/22 09:23 Lisinopril 20 Mg Tab PO 40 mg QDAY KARLA Administration Ondansetron HCl 4 mg 06/07/22 18:00 Ondansetron 4 Mg/2 Ml Inj IV Q4H PRN Nausea And Vomiting Oxycodone/Acetaminophen 1 tab 06/07/22 18:00 06/08/22 01:41 Oxycodone /Acetaminophen 5-325mg Tab PO 1 tab Q4H PRN Administration Pain, Moderate (4-6) Pantoprazole Sodium 20 mg 06/07/22 10:00 06/08/22 09:24 Pantoprazole 20 Mg Tab PO 20 mg QDAY KARLA Administration
[2022-06-09] MEDS: LISINOPRIL 20 MG TAB PO SCH (10:43)
[2022-06-09] MEDS: INSULIN LISPRO 100 UNIT/ML SUB-Q SCH ×3 (10:43→22:12)
[2022-06-09] MEDS: PANTOPRAZOLE 20 MG TAB PO SCH (10:44)
[2022-06-09] MEDS: FERROUS SULFATE 325 MG TAB PO SCH (10:44)
--- NOTE | 2022-06-09 10:54 | Progress Note ---
Subjective Date of service: 06/09/22 Principal diagnosis: hematuria bladder cancer Interval history: 81 YO Male with Vascular Dementia, Cerebral Atherosclerosis, DM, HLD, HTN, GERD, Anemia of Chronic Disease, BPH with Chronic indwelling castillo catheter, Bladder Cancer admitted for cysto with Dr. Dean Patient resting comfortable. Objective - Constitutional Vitals: Vital Signs - 12hr 06/08/22 06/09/22 06/09/22 23:00 00:00 00:10 Temperature Pulse Rate 99 H 97 H 87 Pulse Rate [ From Monitor] Respiratory 13 15 Rate Blood Pressure 140/77 120/81 O2 Sat by Pulse 96 96 Oximetry 06/09/22 06/09/22 06/09/22 01:00 02:00 03:00 Temperature Pulse Rate 94 H 94 H 86 Pulse Rate [ From Monitor] Respiratory 12 13 10 L Rate Blood Pressure 140/80 143/75 149/76 O2 Sat by Pulse 97 96 96 Oximetry 06/09/22 06/09/22 06/09/22 04:00 04:05 05:00 Temperature 96.7 F L Pulse Rate 95 H 90 90 Pulse Rate [ 95 H From Monitor] Respiratory 13 12 Rate Blood Pressure 141/66 140/80 O2 Sat by Pulse 96 94 Oximetry 06/09/22 06/09/22 06/09/22 06:00 07:00 10:43 Temperature Pulse Rate 95 H 94 H 95 H Pulse Rate [ From Monitor] Respiratory 11 L 15 Rate Blood Pressure 162/86 151/86 143/83 O2 Sat by Pulse 96 96 Oximetry - Labs CBC & Chem 7: 06/08/22 04:53 06/08/22 04:53 Labs: Abnormal lab results 06/06/22 06/08/22 06/08/22 Range/Units Unknown 08:51 12:21 POC Glucose 133 H 162 H (70-105) mg/dL Crossmatch See Detail 06/08/22 Range/Units 21:39 POC Glucose 155 H (70-105) mg/dL Crossmatch Medications & Allergies - Medications Allergies/Adverse Reactions: Allergies No Known Allergies Allergy (Verified 05/13/22 16:50) Home Medications: Home Medications Medication Instructions Recorded Confirmed Last Taken Type AtorvaSTATin [Lipitor] 80 mg PO QHS 05/13/22 06/02/22 06/05/22 History Cyanocobalamin (Vitamin B-12) 1,000 mcg PO QDAY 05/13/22 06/02/22 06/05/22 Hist ory [Vitamin B-12] Doxazosin [Cardura] 1 mg PO QHS 05/13/22 06/02/22 06/05/22 History Ferrous Sulfate [Iron 325 MG] 325 mg PO QDAY 05/13/22 06/02/22 06/05/22 History Metformin HCl [metFORMIN] 1,000 mg PO QDAY 05/13/22 06/02/22 06/05/22 History Omeprazole 20 mg PO QDAY 05/13/22 06/06/22 06/06/22 History amLODIPine [Norvasc] 5 mg PO DAILY 05/13/22 06/02/22 06/05/22 History lisinopriL [Lisinopril] 40 mg PO QDAY 05/13/22 06/02/22 06/05/22 History Active Medications: Generic Name Dose Route Start Last Admin Trade Name Freq PRN Reason Stop Dose Admin Acetaminophen 650 mg 06/06/22 15:00 Acetaminophen 325 Mg Tab PO Q4H PRN Pain, Mild (1-3)/Fever > 100.5 Dextrose 50 ml 06/06/22 22:30 Dextrose 50% In Water (25gm) 50 Ml Syringe IV Q30MIN PRN Hypoglycemia Protocol Ferrous Sulfate 325 mg 06/07/22 10:00 06/09/22 10:44 Ferrous Sulfate 325 Mg Tab PO 325 mg QDAY KARLA Administration Hydralazine HCl 10 mg 06/07/22 11:28 Hydralazine 20 Mg/1 Ml Inj IV Q4HR PRN Hypertension Hydromorphone HCl 0.5 mg 06/07/22 18:00 06/09/22 07:09 Hydromorphone 0.5 Mg/0.5 Ml Inj IV 0.5 mg Q3H PRN Administration Pain , Severe (7-10) Cefepime HCl 2 gm in 100 mls @ 200 mls/hr 06/07/22 13:00 06/09/22 01:53 Cefepime/Ns 2 Gm/100 Ml IV 200 mls/hr Q12H KARLA Administration Protocol Levofloxacin/Dextrose 500 mg in 100 mls @ 100 mls/hr 06/07/22 18:00 06/08/22 17:08 Levaquin 500mg/100ml IV 06/14/22 17:59 100 mls/hr Q24H KARLA Administration Protocol Insulin Human Lispro 0 unit 06/06/22 22:30 06/09/22 10:43 Insulin Lispro 100 Unit/Ml SUB-Q Not Given ACHS KARLA Protocol Lisinopril 40 mg 06/07/22 10:00 06/09/22 10:43 Lisinopril 20 Mg Tab PO 40 mg QDAY KARLA Administration Ondansetron HCl 4 mg 06/07/22 18:00 Ondansetron 4 Mg/2 Ml Inj IV Q4H PRN Nausea And Vomiting Oxycodone/Acetaminophen 1 tab 06/07/22 18:00 06/08/22 01:41 Oxycodone /Acetaminophen 5-325mg Tab PO 1 tab Q4H PRN Administration Pain, Moderate (4-6) Pantoprazole Sodium 20 mg 06/07/22 10:00 06/09/22 10:44 Pantoprazole 20 Mg Tab PO 20 mg QDAY KARLA Administration
[2022-06-09] MEDS ORDERED: SODIUM CHLORIDE IRRI 1000 ML 1,000 ML IR ONE ×3 (11:18→11:21)
[2022-06-09] MEDS ORDERED: SODIUM CHLORIDE 0.9% IRR 1,000 ML BOTTLE IR ONE (11:30)
[2022-06-09] MEDS ORDERED: propofoL 200 MG/20 ML VIAL IV ONE (16:46)
[2022-06-09] MEDS ORDERED: HYDROmorphone 1 MG/1 ML INJ ONE (16:46)
[2022-06-09] MEDS ORDERED: LIDOCAINE MPF (2%) 20 MG/1 ML VIAL 5 ML ONE (16:46)
[2022-06-09] MEDS ORDERED: ceFAZolin 1 GM VIAL ONE ×2 (17:23)
[2022-06-09] MEDS ORDERED: SODIUM CHLORIDE 0.9% 1000 ML 1,000 ML ONE (17:27)
[2022-06-09] MEDS ORDERED: WATER FOR IRRIG STERILE 2000 ML IR ONE (17:45)
[2022-06-09] MEDS ORDERED: MANNITOL/SORBITOL SOLUTION 3,000 ML IRRIG.SOLN IR ONE (17:45)
--- NOTE | 2022-06-09 17:45 | Anesthesia Day of Surgery ---
Anesthesia Day of Surgery - Day of Surgery Patient Examined: Yes Patient H&P Reviewed: Yes Patient is NPO: Yes
[2022-06-09] MEDS ORDERED: ONDANSETRON 4 MG/2 ML INJ ONE (18:01)
--- NOTE | 2022-06-09 18:08 | Post Operative Note ---
Date of procedure: 06/09/22 Pre-op diagnosis: gross hematuria Post-op diagnosis: same Findings: clot Procedure: cysto, clot evacuation, 24f 3way castillo Anesthesia: JASA Surgeon: KENNEDI STONE Estimated blood loss: minimal Pathology: none Specimen disposition: to lab (clot) Condition: stable Disposition: PACU
--- NOTE | 2022-06-09 18:10 | Event Note ---
Date: 06/09/22 spoke with daughter post op
--- NOTE | 2022-06-09 18:30 | Fluoroscopy Report ---
FL CYSTOGRAM STATIC-OR INDICATION / CLINICAL INFORMATION: CYSTOGRAM W/ BLOOD CLOT REMOVAL. COMPARISON: 06/06/22. FINDINGS: There is a cystoscope on the first image. There appears to be a Sprague catheter in urinary bladder on the second image. There is faint contrast in a nondistended urinary bladder. No filling defect or oth er abnormality is seen. No complication of surgery is identified. Fluoroscopy time: 11 seconds. Fluoroscopic images: 2. Signer Name: Figueroa Garcia MD Signed: 06/09/2022 6:26 PM Workstation Name: [email or web address]
[2022-06-09] MEDS ORDERED: hydrALAZINE 20 MG/1 ML INJ IV PRN (18:34)
--- NOTE | 2022-06-09 19:08 | Post Anesthesia Evaluation ---
- Post Anesthesia Evaluation Patient Participated: Yes Airway Patent: Yes Stable Respiratory Function: Yes Nausea/Vomiting: No Temp > 96.8F: Yes Pain Manageable: Yes Adequeate Hydration: Yes Anesthesia Complications: No
--- NOTE | 2022-06-09 21:30 | Operative Report ---
DATE OF SURGERY: 06/09/2022 PREOPERATIVE DIAGNOSES: Gross hematuria, clot retention, history of bladder tumor and radiation. POSTOPERATIVE DIAGNOSES: Gross hematuria, clot retention, history of bladder tumor and radiation. PROCEDURES: Cystoscopy, fulguration of bleeding sites, clot evacuation, insertion of 24-Wallisian 3-way catheter. SURGEON: Kody Maria MD ANESTHESIA: General. ESTIMATED BLOOD LOSS: At time of procedure, minimal. FLUIDS: Crystalloid. COMPLICATIONS: No complications. FINDINGS: Large approximately half a unit of clot in the bladder. INDICATIONS: This patient is an 81-year-old gentleman known to our service with recently underwent diagnosed with a bladder tumor and resection, had hematuria. He also has had radiation therapy in the past for prostate cancer. He was on the floor, developed more bleeding and difficult to irrigate his catheter. He has also undergone embolization of the iliac vessels going to the bladder. At this point, it was prudent to proceed with clot evacuation. Risks, benefits and complications were explained. DESCRIPTION OF PROCEDURE: The patient was taken to the operating room and placed in a supine position. After adequate general anesthesia, placed in the dorsal lithotomy position, prepped and draped in a sterile fashion. Cystoscopy with a 22-Wallisian scope attempts to visualize could not see anything and therefore a 24-Wallisian resectoscope sheath was placed. We evacuated out a large amount of clot using a yellow loop. There were small areas of erythema at the bladder base and then different areas of the bladder, this was all fulgurated, all the clot was evacuated out. The tumor bases on the left posterior left wall, no signs of bleeding at the end of the procedure. A 24-Wallisian 3-way catheter was placed to continuous bladder irrigation. The patient tolerated the procedure well. We will continue Woo's drip. At this time, the patient had a hemoglobin of 10. TID: [id number] RECEIPT: [id number] [facility]
[2022-06-10 04:52] LABS: Hematocrit 29.1 % (35.5-45.6); Hemoglobin 9.9 gm/dl (11.8-15.2); Mean Corpuscular HGB Conc 34 % (32-34); Mean Corpuscular Volume 87 fl (84-94); Platelet Count 282 K/mm3 (140-440); Red Blood Count 3.35 M/mm3 (3.65-5.03)
[2022-06-10 05:06] LABS: Blood Urea Nitrogen 8 mg/dL (9-20); Calcium 8.1 mg/dL (8.4-10.2); Hemolysis Index 20
[2022-06-10 05:33] LABS: BUN/Creatinine Ratio 13
[2022-06-10] MEDS: LISINOPRIL 20 MG TAB PO SCH (11:04)
[2022-06-10] MEDS: FERROUS SULFATE 325 MG TAB PO SCH (11:04)
[2022-06-10] MEDS: PANTOPRAZOLE 20 MG TAB PO SCH (11:05)
[2022-06-10] MEDS: INSULIN LISPRO 100 UNIT/ML SUB-Q SCH ×4 (11:05→21:56)
--- NOTE | 2022-06-10 13:00 | Progress Note ---
Subjective Principal diagnosis: hematuria bladder cancer Interval history: s/p cysto, clot evacuation, & fulgeration (06-09-22)- tumor bed with irritation 81 YO Male with Vascular Dementia, Cerebral Atherosclerosis, DM, HLD, HTN, GERD, Anemia of Chronic Disease, BPH with Chronic indwelling castillo catheter, Bladder Cancer admitted for cysto with Dr. Dean Patient resting comfortable. abd soft 24F 3way with clear urine (irrigated ---no clots) a/p bladder tumor---resected (tumor bed with irritation) continue arriola drip monitor vitals & blood count Objective - Constitutional Vitals: Vital Signs - 12hr 06/10/22 06/10/22 06/10/22 01:00 02:00 03:00 Temperature Pulse Rate 86 98 H 109 H Pulse Rate [ From Monitor] Respiratory 11 L 15 20 Rate Blood Pressure 128/72 105/65 112/61 O2 Sat by Pulse 96 95 97 Oximetry 06/10/22 06/10/22 06/10/22 03:25 04:00 05:01 Temperature 99.2 F Pulse Rate 86 80 Pulse Rate [ 86 From Monitor] Respiratory 16 14 Rate Blood Pressure 104/57 128/65 O2 Sat by Pulse 96 94 Oximetry 06/10/22 06/10/22 06/10/22 06:00 07:00 08:00 Temperature Pulse Rate 80 75 77 Pulse Rate [ From Monitor] Respiratory 14 14 15 Rate Blood Pressure 106/55 112/59 114/62 O2 Sat by Pulse 95 79 L 94 Oximetry 06/10/22 06/10/22 06/10/22 08:27 09:00 10:00 Temperature Pulse Rate 71 77 Pulse Rate [ From Monitor] Respiratory 13 14 Rate Blood Pressure 120/61 114/58 O2 Sat by Pulse 97 97 97 Oximetry 06/10/22 06/10/22 06/10/22 11:01 11:04 12:00 Temperature Pulse Rate 99 H 82 Pulse Rate [ From Monitor] Respiratory Rate Blood Pressure 119/63 119/63 O2 Sat by Pulse 97 Oximetry 06/10/22 12:01 Temperature Pulse Rate 109 H Pulse Rate [ From Monitor] Respiratory 25 H Rate Blood Pressure 130/77 O2 Sat by Pulse 98 Oximetry - Labs CBC & Chem 7: 06/10/22 04:35 06/10/22 04:35 Labs: Abnormal lab results 06/09/22 06/09/2206/10/22 Range/Units 18:19 21:06 04:35 WBC 15.5 H (4.5-11.0) K/mm3 RBC 3.35 L (3.65-5.03) M/mm3 Hgb 9.9 L (11.8-15.2) gm/dl Hct 29.1 L (35.5-45.6) % Sodium (137-145) mmol/L BUN (9-20) mg/dL Creatinine (0.8-1.3) mg/dL Glucose (75-100) mg/dL POC Glucose 143 H 146 H (70-105) mg/dL Calcium (8.4-10.2) mg/dL 06/10/22 Range/Units 04:35 WBC (4.5-11.0) K/mm3 RBC (3.65-5.03) M/mm3 Hgb (11.8-15.2) gm/dl Hct (35.5-45.6) % Sodium 132 L (137-145) mmol/L BUN 8 L (9-20) mg/dL Creatinine 0.6 L (0.8-1.3) mg/dL Glucose 147 H (75-100) mg/dL POC Glucose (70-105) mg/dL Calcium 8.1 L (8.4-10.2) mg/dL Medications & Allergies - Medications Allergies/Adverse Reactions: Allergies No Known Allergies Allergy (Verified 05/13/22 16:50) Home Medications: Home Medications Medication Instructions Recorded Confirmed Last Taken Type AtorvaSTATin [Lipitor] 80 mg PO QHS 05/13/22 06/02/22 06/05/22 History Cyanocobalamin (Vitamin B-12) 1,000 mcg PO QDAY 05/13/22 06/02/22 06/05/22 History [Vitamin B-12] Doxazosin [Cardura] 1 mg PO QHS 05/13/22 06/02/22 06/05/22 History Ferrous Sulfate [Iron 325 MG] 325 mg PO QDAY 05/13/22 06/02/22 06/05/22 History Metformin HCl [metFORMIN] 1,000 mg PO QDAY 05/13/22 06/02/22 06/05/22 History Omeprazole 20 mg PO QDAY 05/13/22 06/06/22 06/06/22 History amLODIPine [Norvasc] 5 mg PO DAILY 05/13/22 06/02/22 06/05/22 History lisinopriL [Lisinopril] 40 mg PO QDAY 05/13/22 06/02/22 06/05/22 History Active Medications: Generic Name Dose Route Start Last Admin Trade Name Freq PRN Reason Stop Dose Admin Acetaminophen 650 mg 06/06/22 15:00 Acetaminophen 325 Mg Tab PO Q4H PRN Pain, Mild (1-3)/Fever > 100.5 Dextrose 50 ml 06/06/22 22:30 Dextrose 50% In Water (25gm) 50 Ml Syringe IV Q30MIN PRN Hypoglycemia Protocol Ferrous Sulfate 325 mg 06/07/22 10:00 06/10/22 11:04 Ferrous Sulfate 325 Mg Tab PO 325 mg QDAY KARLA Administration Hydralazine HCl 10 mg 06/07/22 11:28 Hydralazine 20 Mg/1 Ml Inj IV Q4HR PRN Hypertension Hydralazine HCl 10 mg 06/09/22 18:34 06/09/22 18:35 Hydralazine 20 Mg/1 Ml Inj IV 10 mg Q20M PRN Administration Hypertension Hydromorphone HCl 0.5 mg 06/07/22 18:00 06/09/22 07:09 Hydromorphone 0.5 Mg/0.5 Ml Inj IV 0.5 mg Q3H PRN Administration Pain , Severe (7-10) Levofloxacin/Dextrose 500 mg in 100 mls @ 100 mls/hr 06/07/22 18:00 06/09/22 22:14 Levaquin 500mg/100ml IV 06/13/22 18:59 100 mls/hr Q24H KARLA Administration Protocol Insulin Human Lispro 0 unit 06/06/22 22:30 06/10/22 12:28 Insulin Lispro 100 Unit/Ml SUB-Q 2 unit ACHS KARLA Administration Protocol Lisinopril 40 mg 06/07/22 10:00 06/10/22 11:04 Lisinopril 20 Mg Tab PO 40 mg QDAY KARLA Administration Ondansetron HCl 4 mg 06/07/22 18:00 Ondansetron 4 Mg/2 Ml Inj IV Q4H PRN Nausea And Vomiting Oxycodone/Acetaminophen 1 tab 06/07/22 18:00 06/08/22 01:41 Oxycodone /Acetaminophen 5-325mg Tab PO 1 tab Q4H PRN Administration Pain, Moderate (4-6) Pantoprazole Sodium 20 mg 06/07/22 10:00 06/10/22 11:05 Pantoprazole 20 Mg Tab PO 20 mg QDAY KARLA Administration Sodium Chloride 2,000 ml 06/09/22 19:00 Sodium Chloride 0.9% Irrig Soln 2000 Ml IR DIRECT KARLA
--- NOTE | 2022-06-10 17:02 | Progress Note ---
Assessment and Plan Assessment and plan: 81 YO Male with Vascular Dementia, Cerebral Atherosclerosis, DM, HLD, HTN, GERD, Anemia of Chronic Disease, BPH with Chronic indwelling castillo catheter, Bladder Cancer admitted for elective urologic surgery. Consult placed by Dr. Alexander for medical management. Patient resting comfortable. No reported nursing events. Patient denies fever, chills, chest pain, palpitation, productive cough, skin rash 06/07: Patient evaluated by urology at this time. No pseudoaneurysm noted. Pulses distal to site of procedure intact. We will continue to monitor H&H closely. Patient noted with leukocytosis worse from time of admission. We will start patient on empiric antibiotics while awaiting cultures. Low-grade fever noted as a result blood cultures also ordered. Patient is planned for attempted embolization from left radial approach of the left superior vascular artery with Embospheres. Advanced care planning discussed with the patient 30 minutes confirmed full CODE STATUS. Recheck labs in a.m. 06/08: Patient seen and examined, continues to have hematuria, clearing up, Urinalysis returns showing cystits, at this point complex due to instrumentation. Patient will continue abx, Plans for cystoscopy in the am. 06/09: Patient seen and examined, still with gross clotting and gross hematuria, Discussed with Urologist, they plan to take the patient back to the OR for further evaluation. Continue to monitor H/H, continue pain medications. Continue IMCU CARE. 06/10: Patient seen and examined, continues on 3 way with clear urine noted and no clots. Management per Urology team. Monitor H.H (1) Hypertension Current Visit: Yes Status: Acute Qualifiers: Hypertension type: primary hypertension Qualified Code(s): I10 - Essential (primary) hypertension Plan to address problem: Monitor blood pressure every shift, continue medical management. (2) Cerebral atherosclerosis Current Visit: No Status: Acute Plan to address problem: Risk factor reduction, antiplatelet therapy as clinically indicated. (3) Diabetes Current Visit: No Status: Acute Plan to address problem: Consistent carbohydrate diet, Accu-Chek, insulin protocol, hypoglycemia protocol. (4) Hyperlipidemia Current Visit: No Status: Acute Qualifiers: Hyperlipidemia type: mixed hyperlipidemia Qualified Code(s): E78.2 - Mixed hyperlipidemia Plan to address problem: Statin therapy, supportive care, low-cholesterol diet (5) Vascular dementia Current Visit: No Status: Acute Qualifiers: Dementia behavioral disturbance: without behavioral disturbance Qualified Code(s): F01.50 - Vascular dementia without behavioral disturbance Plan to address problem: For prompt, verbal redirection, benzodiazepine therapy as clinically indicated. (6) GERD (gastroesophageal reflux disease) Current Visit: Yes Status: Acute Qualifiers: Esophagitis presence: without esophagitis Qualified Code(s): K21.9 - Gastro-esophageal reflux disease without esophagitis Plan to address problem: PPI therapy, supportive care, continue medical management. (7) Systemic inflammatory response syndrome (8) Acute Cystitis (9) advance care planning Current Visit: No Status: Acute Plan to address problem: Disease education done, care plan discussed, diagnoses discussed, prognosis discussed, patient is full code. +30 minutes. (8) Preventative health care Current Visit: No Status: Acute Plan to address problem: Home safety discussed, patient structured to follow-up primary care physician for all age and risk factor appropriate screening test. +30 minutes. History Interval history: Patient seen and examined, no new complaints at this time no new clots noted in urine, 3 way irrigation ongoing Hospitalist Physical - Physical exam Narrative exam: VITAL SIGNS: Reviewed. GENERAL: The patient appears normally developed, Vital signs as documented. HEAD: No signs of head trauma. EYES: Pupils are equal. Extraocular motions intact. EARS: Hearing grossly intact. MOUTH: Oropharynx is normal. NECK: No adenopathy, no JVD. CHEST: Chest with clear breath sounds bilaterally. No wheezes, rales, or rhonchi. CARDIAC: Regular rate and rhythm. S1 and S2, without murmurs, gallops, or rub s. VASCULAR: No Edema. Peripheral pulses normal and equal in all extremities. ABDOMEN: Soft, non tender and non distended. No rebound or guarding, and no masses palpated. Bowel Sounds normal. : Castillo catheter in place MUSCULOSKELETAL: Good range of motion of all major joints. Extremities without clubbing, cyanosis or edema. NEUROLOGIC EXAM: Alert and oriented x 3 No focal sensory or strength deficits. Speech normal. Follows commands. PSYCHIATRIC: Mood normal. SKIN: detail exam as documented in skin assessment - Constitutional Vitals: Temp Pulse Resp BP Pulse Ox 99.2 F 109 H 25 H 130/77 98 06/10/22 03:25 06/10/22 12:01 06/10/22 12:01 06/10/22 12:01 06/10/22 12:01 General appearance: Present: no acute distress Results - Labs CBC & Chem 7: 06/10/22 04:35 06/10/22 04:35 Labs: Laboratory Last Values WBC 15.5 K/mm3 (4.5-11.0) H 06/10/22 04:35 RBC 3.35 M/mm3 (3.65-5.03) L 06/10/22 04:35 Hgb 9.9 gm/dl (11.8-15.2) L 06/10/22 04:35 Hct 29.1 % (35.5-45.6) L 06/10/22 04:35 MCV 87 fl (84-94) 06/10/22 04:35 MCH 30 pg (28-32) 06/10/22 04:35 MCHC 34 % (32-34) 06/10/22 04:35 RDW 15.0 % (13.2-15.2) 06/10/22 04:35 Plt Count 282 K/mm3 (140-440) 06/10/22 04:35 Sodium 132 mmol/L (137-145) L 06/10/22 04:35 Potassium 4.0 mmol/L (3.6-5.0) 06/10/22 04:35 Chloride 99.4 mmol/L (98-107) 06/10/22 04:35 Carbon Dioxide 22 mmol/L (22-30) 06/10/22 04:35 Anion Gap 15 mmol/L 06/10/22 04:35 BUN 8 mg/dL (9-20) L 06/10/22 04:35 Creatinine 0.6 mg/dL (0.8-1.3) L 06/10/22 04:35 Estimated GFR > 60 ml/min 06/10/22 04:35 BUN/Creatinine Ratio 13 % 06/10/22 04:35 Glucose 147 mg/dL (75-100) H 06/10/22 04:35 POC Glucose 146 mg/dL (70-105) H 06/09/22 21:06 Calcium 8.1 mg/dL (8.4-10.2) L 06/10/22 04:35 Urine Color Red (Yellow) 06/07/22 18:30 Urine Turbidity Cloudy (Clear) 06/07/22 18:30 Urine pH 6.0 (5.0-7.0) 06/07/22 18:30 Specific [place] (Man) 1.010 (1.003-1.030) 06/07/22 18:30 Urine Protein 30 mg/dl mg/dL (Negative) 06/07/22 18:30 Ur Protein (Man) 2+ mg/dL (Negative) 06/07/22 18:30 Urine Glucose (UA) Negative mg/dL (Negative) 06/07/22 18:30 Urine Ketones 5 mg/dL (Negative) 06/07/22 18:30 Ur Ketones (Man) 5 (Negative) 06/07/22 18:30 Urine Blood 4+ (Negative) 06/07/22 18:30 Urine Nitrite Negative (Negative) 06/07/22 18:30 Urine Bilirubin Negative (Negative) 06/07/22 18:30 Urine Bilirubin (Man) Negative (Negative) 06/07/22 18:30 Urine Urobilinogen 0.2 mg/dL (<2.0) 06/07/22 18:30 Ur Leukocyte Esterase 1+ (Negative) 06/07/22 18:30 Urine WBC (Auto) 94.0 /HPF (0.0-6.0) H 06/07/22 18:30 Urine RBC (Auto) > 182.0 /HPF (0.0-6.0) 06/07/22 18:30 Urine RBC (Manual) 5+ (Negative) 06/07/22 18:30 Blood Type O POSITIVE 06/06/22 Unknown Antibody Screen Negative 06/06/22 Unknown Crossmatch See Detail 06/06/22 Unknown Microbiology: Microbiology 06/07/22 20:42 Peripheral/Venous Blood Culture - Preliminary NO GROWTH AFTER 48 HOURS 06/07/22 20:42 Peripheral/Venous Blood Culture - Preliminary NO GROWTH AFTER 48 HOURS Castillo/IV: Voiding Method Indwelling Catheter Active Medications - Current Medications Current Medications: Generic Name Dose Route Start Last Admin Trade Name Freq PRN Reason Stop Dose Admin Acetaminophen 650 mg 06/06/22 15:00 Acetaminophen 325 Mg Tab PO Q4H PRN Pain, Mild (1-3)/Fever > 100.5 Dextrose 50 ml 06/06/22 22:30 Dextrose 50% In Water (25gm) 50 Ml Syringe IV Q30MIN PRN Hypoglycemia Protocol Ferrous Sulfate 325 mg 06/07/22 10:00 06/10/22 11:04 Ferrous Sulfate 325 Mg Tab PO 325 mg QDAY KARLA Administration Hydralazine HCl 10 mg 06/07/22 11:28 Hydralazine 20 Mg/1 Ml Inj IV Q4HR PRN Hypertension Hydralazine HCl 10 mg 06/09/22 18:34 06/09/22 18:35 Hydralazine 20 Mg/1 Ml Inj IV 10 mg Q20M PRN Administration Hypertension Hydromorphone HCl 0.5 mg 06/07/22 18:00 06/09/22 07:09 Hydromorphone 0.5 Mg/0.5 Ml Inj IV 0.5 mg Q3H PRN Administration Pain , Severe (7-10) Levofloxacin/Dextrose 500 mg in 100 mls @ 100 mls/hr 06/07/22 18:00 06/09/22 22:14 Levaquin 500mg/100ml IV 06/13/22 18:59 100 mls/hr Q24H KARLA Administration Protocol Insulin Human Lispro 0 unit 06/06/22 22:30 06/10/22 12:28 Insulin Lispro 100 Unit/Ml SUB-Q 2 unit ACHS KARLA Administration Protocol Lisinopril 40 mg 06/07/22 10:00 06/10/22 11:04 Lisinopril 20 Mg Tab PO 40 mg QDAY KARLA Administration Ondansetron HCl 4 mg 06/07/22 18:00 Ondansetron 4 Mg/2 Ml Inj IV Q4H PRN Nausea And Vomiting Oxycodone/Acetaminophen 1 tab 06/07/22 18:00 06/08/22 01:41 Oxycodone /Acetaminophen 5-325mg Tab PO 1 tab Q4H PRN Administration Pain, Moderate (4-6) Pantoprazole Sodium 20 mg 06/07/22 10:00 06/10/22 11:05 Pantoprazole 20 Mg Tab PO 20 mg QDAY KARLA Administration Sodium Chloride 2,000 ml 06/09/22 19:00 Sodium Chloride 0.9% Irrig Soln 2000 Ml IR DIRECT KARLA
[2022-06-10] MEDS: oxyCODONE /ACETAMINOPHEN 5-325MG TAB PO PRN (17:22)
[2022-06-11] MEDS: SODIUM CHLORIDE 0.9% IRRIG SOLN 2000 ML IR SCH ×4 (08:10→19:28)
[2022-06-11] MEDS: INSULIN LISPRO 100 UNIT/ML SUB-Q SCH ×4 (08:28→22:57)
[2022-06-11] MEDS: oxyCODONE /ACETAMINOPHEN 5-325MG TAB PO PRN ×2 (08:55→16:53)
[2022-06-11] MEDS: FERROUS SULFATE 325 MG TAB PO SCH (09:01)
[2022-06-11] MEDS: PANTOPRAZOLE 20 MG TAB PO SCH (09:02)
[2022-06-11] MEDS: LISINOPRIL 20 MG TAB PO SCH (09:02)
--- NOTE | 2022-06-11 09:30 | Progress Note ---
Assessment and Plan Assessment and plan: 81 YO Male with Vascular Dementia, Cerebral Atherosclerosis, DM, HLD, HTN, GERD, Anemia of Chronic Disease, BPH with Chronic indwelling castillo catheter, Bladder Cancer admitted for elective urologic surgery. Consult placed by Dr. Alexander for medical management. Patient resting comfortable. No reported nursing events. Patient denies fever, chills, chest pain, palpitation, productive cough, skin rash 06/07: Patient evaluated by urology at this time. No pseudoaneurysm noted. Pulses distal to site of procedure intact. We will continue to monitor H&H closely. Patient noted with leukocytosis worse from time of admission. We will start patient on empiric antibiotics while awaiting cultures. Low-grade fever noted as a result blood cultures also ordered. Patient is planned for attempted embolization from left radial approach of the left superior vascular artery with Embospheres. Advanced care planning discussed with the patient 30 minutes confirmed full CODE STATUS. Recheck labs in a.m. 06/08: Patient seen and examined, continues to have hematuria, clearing up, Urinalysis returns showing cystits, at this point complex due to instrumentation. Patient will continue abx, Plans for cystoscopy in the am. 06/09: Patient seen and examined, still with gross clotting and gross hematuria, Discussed with Urologist, they plan to take the patient back to the OR for further evaluation. Continue to monitor H/H, continue pain medications. Continue IMCU CARE. 06/10: Patient seen and examined, continues on 3 way with clear urine noted and no clots. Management per Urology team. Monitor H.H 06/11: Patient seen and examined no new complaints and no pain in the bladder area. Three-way with urine [place] done yesterday no gross blood noted on the mild pink tinge today . (1) Hypertension Current Visit: Yes Status: Acute Qualifiers: Hypertension type: primary hypertension Qualified Code(s): I10 - Essential (primary) hypertension Plan to address problem: Monitor blood pressure every shift, continue medical management. (2) Cerebral atherosclerosis Current Visit: No Status: Acute Plan to address problem: Risk factor reduction, antiplatelet therapy as clinically indicated. (3) Diabetes Current Visit: No Status: Acute Plan to address problem: Consistent carbohydrate diet, Accu-Chek, insulin protocol, hypoglycemia protocol. (4) Hyperlipidemia Current Visit: No Status: Acute Qualifiers: Hyperlipidemia type: mixed hyperlipidemia Qualified Code(s): E78.2 - Mixed hyperlipidemia Plan to address problem: Statin therapy, supportive care, low-cholesterol diet (5) Vascular dementia Current Visit: No Status: Acute Qualifiers: Dementia behavioral disturbance: without behavioral disturbance Qualified Code(s): F01.50 - Vascular dementia without behavioral disturbance Plan to address problem: For prompt, verbal redirection, benzodiazepine therapy as clinically indicated. (6) GERD (gastroesophageal reflux disease) Current Visit: Yes Status: Acute Qualifiers: Esophagitis presence: without esophagitis Qualified Code(s): K21.9 - Gastro-esophageal reflux disease without esophagitis Plan to address problem: PPI therapy, supportive care, continue medical management. (7) Systemic inflammatory response syndrome (8) Acute Cystitis (9) advance care planning Current Visit: No Status: Acute Plan to address problem: Disease education done, care plan discussed, diagnoses discussed, prognosis discussed, patient is full code. +30 minutes. (8) Preventative health care Current Visit: No Status: Acute Plan to address problem: Home safety discussed, patient structured to follow-up primary care physician for all age and risk factor appropriate screening test. +30 minutes. History Interval history: Patient seen and examined, no new complaints at this time no new clots noted in urine, 3 way irrigation ongoing, much clearer urine output today. Hospitalist Physical - Physical exam Narrative exam: VITAL SIGNS: Reviewed. GENERAL: The patient appears normally developed, Vital signs as documented. HEAD: No signs of head trauma. EYES: Pupils are equal. Extraocular motions intact. EARS: Hearing grossly intact. MOUTH: Oropharynx is normal. NECK: No adenopathy, no JVD. CHEST: Chest with clear breath sounds bilaterally. No wheezes, rales, or rhonchi. CARDIAC: Regular rate and rhythm. S1 and S2, without murmurs, gallops, or rubs. VASCULAR: No Edema. Peripheral pulses normal and equal in all extremities. ABDOMEN: Soft, non tender and non distended. No rebound or guarding, and no masses palpated. Bowel Sounds normal. : Castillo catheter in place MUSCULOSKELETAL: Good range of motion of all major joints. Extremities without clubbing, cyanosis or edema. NEUROLOGIC EXAM: Alert and oriented x 3 No focal sensory or strength deficits. Speech normal. Follows commands. PSYCHIATRIC: Mood normal. SKIN: detail exam as documented in skin assessment - Constitutional Vitals: Temp Pulse Resp BP Pulse Ox 99.6 F 91 H 16 159/87 98 06/11/22 08:00 06/11/22 09:02 06/11/22 09:00 06/11/22 09:02 06/11/22 09:00 General appearance: Present: no acute distress Results - Labs CBC & Chem 7: 06/10/22 04:35 06/10/22 04:35 Labs: Laboratory Last Values WBC 15.5 K/mm3 (4.5-11.0) H 06/10/22 04:35 RBC 3.35 M/mm3 (3.65-5.03) L 06/10/22 04:35 Hgb 9.9 gm/dl (11.8-15.2) L 06/10/22 04:35 Hct 29.1 % (35.5-45.6) L 06/10/22 04:35 MCV 87 fl (84-94) 06/10/22 04:35 MCH 30 pg (28-32) 06/10/22 04:35 MCHC 34 % (32-34) 06/10/22 04:35 RDW 15.0 % (13.2-15.2) 06/10/22 04:35 Plt Count 282 K/mm3 (140-440) 06/10/22 04:35 Sodium 132 mmol/L (137-145) L 06/10/22 04:35 Potassium 4.0 mmol/L (3.6-5.0) 06/10/22 04:35 Chloride 99.4 mmol/L (98-107) 06/10/22 04:35 Carbon Dioxide 22 mmol/L (22-30) 06/10/22 04:35 Anion Gap 15 mmol/L 06/10/22 04:35 BUN 8 mg/dL (9-20) L 06/10/22 04:35 Creatinine 0.6 mg/dL (0.8-1.3) L 06/10/22 04:35 Estimated GFR > 60 ml/min 06/10/22 04:35 BUN/Creatinine Ratio 13 % 06/10/22 04:35 Glucose 147 mg/dL (75-100) H 06/10/22 04:35 POC Glucose 145 mg/dL (70-105) H 06/10/22 21:29 Calcium 8.1 mg/dL (8.4-10.2) L 06/10/22 04:35 Urine Color Red (Yellow) 06/07/22 18:30 Urine Turbidity Cloudy (Clear) 06/07/22 18:30 Urine pH 6.0 (5.0-7.0) 06/07/22 18:30 Specific [place] (Man) 1.010 (1.003-1.030) 06/07/22 18:30 Urine Protein 30 mg/dl mg/dL (Negative) 06/07/22 18:30 Ur Protein (Man) 2+ mg/dL (Negative) 06/07/22 18:30 Urine Glucose (UA) Negative mg/dL (Negative) 06/07/22 18:30 Urine Ketones 5 mg/dL (Negative) 06/07/22 18:30 Ur Ketones (Man) 5 (Negative) 06/07/22 18:30 Urine Blood 4+ (Negative) 06/07/22 18:30 Urine Nitrite Negative (Negative) 06/07/22 18:30 Urine Bilirubin Negative (Negative) 06/07/22 18:30 Urine Bilirubin (Man) Negative (Negative) 06/07/22 18:30 Urine Urobilinogen 0.2 mg/dL (<2.0) 06/07/22 18:30 Ur Leukocyte Esterase 1+ (Negative) 06/07/22 18:30 Urine WBC (Auto) 94.0 /HPF (0.0-6.0) H 06/07/22 18:30 Urine RBC (Auto) > 182.0 /HPF (0.0-6.0) 06/07/22 18:30 Urine RBC (Manual) 5+ (Negative) 06/07/22 18:30 Blood Type O POSITIVE 06/06/22 Unknown Antibody Screen Negative 06/06/22 Unknown Crossmatch See Detail 06/06/22 Unknown Microbiology: Microbiology 06/07/22 20:42 Peripheral/Venous Blood Culture - Preliminary NO GROWTH AFTER 72 HOURS 06/07/22 20:42 Peripheral/Venous Blood Culture - Preliminary NO GROWTH AFTER 72 HOURS Castillo/IV: Voiding Method Indwelling Catheter Active Medications - Current Medications Current Medications: Generic Name Dose Route Start Last Admin Trade Name Freq PRN Reason Stop Dose Admin Acetaminophen 650 mg 06/06/22 15:00 Acetaminophen 325 Mg Tab PO Q4H PRN Pain, Mild (1-3)/Fever > 100.5 Dextrose 50 ml 06/06/22 22:30 Dextrose 50% In Water (25gm) 50 Ml Syringe IV Q30MIN PRN Hypoglycemia Protocol Ferrous Sulfate 325 mg 06/07/22 10:00 06/11/22 09:01 Ferrous Sulfate 325 Mg Tab PO 325 mg QDAY KARLA Administration Hydralazine HCl 10 mg 06/07/22 11:28 Hydralazine 20 Mg/1 Ml Inj IV Q4HR PRN Hypertension Hydralazine HCl 10 mg 06/09/22 18:34 06/09/22 18:35 Hydralazine 20 Mg/1 Ml Inj IV 10 mg Q20M PRN Administration Hypertension Hydromorphone HCl 0.5 mg 06/07/22 18:00 06/09/22 07:09 Hydromorphone 0.5 Mg/0.5 Ml Inj IV 0.5 mg Q3H PRN Administration Pain , Severe (7-10) Levofloxacin/Dextrose 500 mg in 100 mls @ 100 mls/hr 06/07/22 18:00 06/10/22 17:22 Levaquin 500mg/100ml IV 06/13/22 18:59 100 mls/hr Q24H KARLA Administration Protocol Insulin Human Lispro 0 unit 06/06/22 22:30 06/11/22 08:28 Insulin Lispro 100 Unit/Ml SUB-Q 2 unit ACHS KARLA Administration Protocol Lisinopril 40 mg 06/07/22 10:00 06/11/22 09:02 Lisinopril 20 Mg Tab PO 40 mg QDAY KARLA Administration Ondansetron HCl 4 mg 06/07/22 18:00 Ondansetron 4 Mg/2 Ml Inj IV Q4H PRN Nausea And Vomiting Oxycodone/Acetaminophen 1 tab 06/07/22 18:00 06/11/22 08:55 Oxycodone /Acetaminophen 5-325mg Tab PO 1 tab Q4H PRN Administration Pain, Moderate (4-6) Pantoprazole Sodium 20 mg 06/07/22 10:00 06/11/22 09:02 Pantoprazole 20 Mg Tab PO 20 mg QDAY KARLA Administration Sodium Chloride 2,000 ml 06/09/22 19:00 06/11/22 08:10 Sodium Chloride 0.9% Irrig Soln 2000 Ml IR 2,000 ml DIRECT KARLA Administration
--- NOTE | 2022-06-11 14:25 | Progress Note ---
Subjective Date of service: 06/11/22 Principal diagnosis: hematuria bladder cancer Interval history: s/p cysto, clot evacuation, & fulgeration (06-09-22)- tumor bed with irritation s/p Selection of the left internal iliac artery with angiography (06-07-22) s/p TURBT (06-06-22) 81 YO Male with Vascular Dementia, Cerebral Atherosclerosis, DM, HLD, HTN, GERD, Anemia of Chronic Disease, BPH with Chronic indwelling castillo catheter, Bladder Cancer admitted for cysto with Dr. Dean Patient resting comfortable. Daughter at bedside abd soft 24F 3way with clear urine (irrigated ---no clots) a/p bladder tumor---resected (tumor bed with irritation) continue zeinab gomezip monitor vitals & blood count transfer to floor (tele) tomorrow Objective - Constitutional Vitals: Vital Signs - 12hr 06/11/22 06/11/22 06/11/22 03:00 03:12 04:00 Temperature 99.9 F H Pulse Rate 86 77 Pulse Rate [ 77 From Monitor] Respiratory 12 13 Rate Blood Pressure 127/75 119/71 O2 Sat by Pulse 97 97 Oximetry 06/11/22 06/11/22 06/11/22 05:00 06:00 07:00 Temperature Pulse Rate 82 76 89 Pulse Rate [ From Monitor] Respiratory 16 15 13 Rate Blood Pressure 114/61 125/71 125/69 O2 Sat by Pulse 97 97 98 Oximetry 06/11/22 06/11/22 06/11/22 08:00 09:00 09:02 Temperature 99.6 F Pulse Rate 78 111 H 91 H Pulse Rate [ 77 From Monitor] Respiratory 13 16 Rate Blood Pressure 120/74 120/74 159/87 O2 Sat by Pulse 97 98 Oximetry 06/11/22 06/11/22 06/11/22 10:00 11:00 12:00 Temperature 98.5 F Pulse Rate 80 73 77 Pulse Rate [ 77 From Monitor] Respiratory 13 13 13 Rate Blood Pressure 119/71 117/66 105/56 O2 Sat by Pulse 98 98 98 Oximetry 06/11/22 13:00 Temperature Pulse Rate 72 Pulse Rate [ From Monitor] Respiratory 15 Rate Blood Pressure 111/62 O2 Sat by Pulse 97 Oximetry - Labs CBC & Chem 7: 06/10/22 04:35 06/10/22 04:35 Labs: Abnormal lab results 06/10/22 06/10/22 06/10/22 Range/Units 08:21 11:50 17:30 POC Glucose 139 H 202 H 225 H (70-105) mg/dL 06/10/22 06/11/22 Range/Units 21:29 08:21 POC Glucose 145 H 184 H (70-105) mg/dL Medications & Allergies - Medications Allergies/Adverse Reactions: Allergies No Known Allergies Allergy (Verified 05/13/22 16:50) Home Medications: Home Medications Medication Instructions Recorded Confirmed Last Taken Type AtorvaSTATin [Lipitor] 80 mg PO QHS 05/13/22 06/02/22 06/05/22 History Cyanocobalamin (Vitamin B-12) 1,000 mcg PO QDAY 05/13/22 06/02/22 06/05/22 History [Vitamin B-12] Doxazosin [Cardura] 1 mg PO QHS 05/13/22 06/02/22 06/05/22 History Ferrous Sulfate [Iron 325 MG] 325 mg PO QDAY 05/13/22 06/02/22 06/05/22 History Metformin HCl [metFORMIN] 1,000 mg PO QDAY 05/13/22 06/02/22 06/05/22 History Omeprazole 20 mg PO QDAY 05/13/22 06/06/22 06/06/22 History amLODIPine [Norvasc] 5 mg PO DAILY 05/13/22 06/02/22 06/05/22 History lisinopriL [Lisinopril] 40 mg PO QDAY 05/13/22 06/02/22 06/05/22 History Active Medications: Generic Name Dose Route Start Last Admin Trade Name Freq PRN Reason Stop Dose Admin Acetaminophen 650 mg 06/06/22 15:00 Acetaminophen 325 Mg Tab PO Q4H PRN Pain, Mild (1-3)/Fever > 100.5 Dextrose 50 ml 06/06/22 22:30 Dextrose 50% In Water (25gm) 50 Ml Syringe IV Q30MIN PRN Hypoglycemia Protocol Ferrous Sulfate 325 mg 06/07/22 10:00 06/11/22 09:01 Ferrous Sulfate 325 Mg Tab PO 325 mg QDAY KARLA Administration Hydralazine HCl 10 mg 06/07/22 11:28 Hydralazine 20 Mg/1 Ml Inj IV Q4HR PRN Hypertension Hydralazine HCl 10 mg 06/09/22 18:34 06/09/22 18:35 Hydralazine 20 Mg/1 Ml Inj IV 10 mg Q20M PRN Administration Hypertension Hydromorphone HCl 0.5 mg 06/07/22 18:00 06/09/22 07:09 Hydromorphone 0.5 Mg/0.5 Ml Inj IV 0.5 mg Q3H PRN Administration Pain , Severe (7-10) Levofloxacin/Dextrose 500 mg in 100 mls @ 100 mls/hr 06/07/22 18:00 06/10/22 17:22 Levaquin 500mg/100ml IV 06/13/22 18:59 100 mls/hr Q24H KARLA Administration Protocol Insulin Human Lispro 0 unit 06/06/22 22:30 06/11/22 12:19 Insulin Lispro 100 Unit/Ml SUB-Q 3 unit ACHS KARLA Administration Protocol Lisinopril 40 mg 06/07/22 10:00 06/11/22 09:02 Lisinopril 20 Mg Tab PO 40 mg QDAY KARLA Administration Ondansetron HCl 4 mg 06/07/22 18:00 Ondansetron 4 Mg/2 Ml Inj IV Q4H PRN Nausea And Vomiting Oxycodone/Acetaminophen 1 tab 06/07/22 18:00 06/11/22 08:55 Oxycodone /Acetaminophen 5-325mg Tab PO 1 tab Q4H PRN Administration Pain, Moderate (4-6) Pantoprazole Sodium 20 mg 06/07/22 10:00 06/11/22 09:02 Pantoprazole 20 Mg Tab PO 20 mg QDAY KARLA Administration Sodium Chloride 2,000 ml 06/09/22 19:00 06/11/22 11:06 Sodium Chloride 0.9% Irrig Soln 2000 Ml IR 2,000 ml DIRECT KARLA Administration
--- NOTE | 2022-06-11 15:07 | Progress Note ---
Assessment and Plan Status postembolization of the cystic artery x2. Status post cystoscopy. Urine clear. Hopefully will continue. If not, may need to consider repeat embolization. Subjective Date of service: 06/11/22 Principal diagnosis: hematuria bladder cancer Interval history: Palpable left radial pulse. No hematomas or pseudoaneurysms of the groin. Urine clear. Objective - Constitutional Vitals: Vital Signs - 12hr 06/11/22 06/11/22 06/11/22 03:12 04:00 05:00 Temperature 99.9 F H Pulse Rate 77 82 Pulse Rate [ 77 From Monitor] Respiratory 13 16 Rate Blood Pressure 119/71 114/61 O2 Sat by Pulse 97 97 Oximetry 06/11/22 06/11/22 06/11/22 06:00 07:00 08:00 Temperature 99.6 F Pulse Rate 76 89 78 Pulse Rate [ 77 From Monitor] Respiratory 15 13 13 Rate Blood Pressure 125/71 125/69 120/74 O2 Sat by Pulse 97 98 97 Oximetry 06/11/22 06/11/22 06/11/22 09:00 09:02 10:00 Temperature Pulse Rate 111 H 91 H 80 Pulse Rate [ From Monitor] Respiratory 16 13 Rate Blood Pressure 120/74 159/87 119/71 O2 Sat by Pulse 98 98 Oximetry 06/11/22 06/11/22 06/11/22 11:00 12:00 13:00 Temperature 98.5 F Pulse Rate 73 77 72 Pulse Rate [ 77 From Monitor] Respiratory 13 13 15 Rate Blood Pressure 117/66 105/56 111/62 O2 Sat by Pulse 98 98 97 Oximetry General appearance: Present: no acute distress - EENT Eyes: EOM intact ENT: hearing intact - Neck Neck: supple - Respiratory Respiratory effort: normal Extremities: normal temperature, normal color - Gastrointestinal General gastrointestinal: Present: soft, non-tender - Neurologic Neurologic: moves all extremities - Psychiatric Psychiatric: appropriate mood/affect, cooperative - Labs CBC & Chem 7: 06/10/22 04:35 06/10/22 04:35 Labs: Abnormal lab results 06/10/22 06/10/22 06/10/22 Range/Units 08:21 11:50 17:30 POC Glucose 139 H 202 H 225 H (70-105) mg/dL 06/10/22 06/11/22 Range/Units 21:29 08:21 POC Glucose 145 H 184 H (70-105) mg/dL Medications & Allergies - Medications Allergies/Adverse Reactions: Allergies No Known Allergies Allergy (Verified 05/13/22 16:50) Home Medications: Home Medications Medication Instructions Recorded Confirmed Last Taken Type AtorvaSTATin [Lipitor] 80 mg PO QHS 05/13/22 06/02/22 06/05/22 History Cyanocobalamin (Vitamin B-12) 1,000 mcg PO QDAY 05/13/22 06/02/22 06/05/22 History [Vitamin B-12] Doxazosin [Cardura] 1 mg PO QHS 05/13/22 06/02/22 06/05/22 History Ferrous Sulfate [Iron 325 MG] 325 mg PO QDAY 05/13/22 06/02/22 06/05/22 History Metformin HCl [metFORMIN] 1,000 mg PO QDAY 05/13/22 06/02/22 06/05/22 History Omeprazole 20 mg PO QDAY 05/13/22 06/06/22 06/06/22 History amLODIPine [Norvasc] 5 mg PO DAILY 05/13/22 06/02/22 06/05/22 History lisinopriL [Lisinopril] 40 mg PO QDAY 05/13/22 06/02/22 06/05/22 History Active Medications: Generic Name Dose Route Start Last Admin Trade Name Freq PRN Reason Stop Dose Admin Acetaminophen 650 mg 06/06/22 15:00 Acetaminophen 325 Mg Tab PO Q4H PRN Pain, Mild (1-3)/Fever > 100.5 Dextrose 50 ml 06/06/22 22:30 Dextrose 50% In Water (25gm) 50 Ml Syringe IV Q30MIN PRN Hypoglycemia Protocol Ferrous Sulfate 325 mg 06/07/22 10:00 06/11/22 09:01 Ferrous Sulfate 325 Mg Tab PO 325 mg QDAY KARLA Administration Hydralazine HCl 10 mg 06/07/22 11:28 Hydralazine 20 Mg/1 Ml Inj IV Q4HR PRN Hypertension Hydralazine HCl 10 mg 06/09/22 18:34 06/09/22 18:35 Hydralazine 20 Mg/1 Ml Inj IV 10 mg Q20M PRN Administration Hypertension Hydromorphone HCl 0.5 mg 06/07/22 18:00 06/09/22 07:09 Hydromorphone 0.5 Mg/0.5 Ml Inj IV 0.5 mg Q3H PRN Administration Pain , Severe (7-10) Levofloxacin/Dextrose 500 mg in 100 mls @ 100 mls/hr 06/07/22 18:00 06/10/22 17:22 Levaquin 500mg/100ml IV 06/13/22 18:59 100 mls/hr Q24H KARLA Administration Protocol Insulin Human Lispro 0 unit 06/06/22 22:30 06/11/22 12:19 Insulin Lispro 100 Unit/Ml SUB-Q 3 unit ACHS KARLA Administration Protocol Lisinopril 40 mg 06/07/22 10:00 06/11/22 09:02 Lisinopril 20 Mg Tab PO 40 mg QDAY KARLA Administration Ondansetron HCl 4 mg 06/07/22 18:00 Ondansetron 4 Mg/2 Ml Inj IV Q4H PRN Nausea And Vomiting Oxycodone/Acetaminophen 1 tab 06/07/22 18:00 06/11/22 08:55 Oxycodone /Acetaminophen 5-325mg Tab PO 1 tab Q4H PRN Administration Pain, Moderate (4-6) Pantoprazole Sodium 20 mg 06/07/22 10:00 06/11/22 09:02 Pantoprazole 20 Mg Tab PO 20 mg QDAY KARLA Administration Sodium Chloride 2,000 ml 06/09/22 19:00 06/11/22 11:06 Sodium Chloride 0.9% Irrig Soln 2000 Ml IR 2,000 ml DIRECT KARLA Administration
[2022-06-12] MEDS: SODIUM CHLORIDE 0.9% IRRIG SOLN 2000 ML IR SCH ×3 (03:21→05:55)
[2022-06-12 05:11] LABS: Hematocrit 27.4 % (35.5-45.6); Hemoglobin 9.1 gm/dl (11.8-15.2); Mean Corpuscular HGB Conc 33 % (32-34); Mean Corpuscular Volume 88 fl (84-94); Platelet Count 309 K/mm3 (140-440); Red Blood Count 3.11 M/mm3 (3.65-5.03); Red Cell Distribution Width 14.4 % (13.2-15.2)
[2022-06-12] MEDS: oxyCODONE /ACETAMINOPHEN 5-325MG TAB PO PRN (05:47)
[2022-06-12 06:35] LABS: BUN/Creatinine Ratio 10; Blood Urea Nitrogen 8 mg/dL (9-20); Calcium 8.5 mg/dL (8.4-10.2); Hemolysis Index 2
--- NOTE | 2022-06-12 10:34 | Progress Note ---
Assessment and Plan Assessment and plan: 81 YO Male with Vascular Dementia, Cerebral Atherosclerosis, DM, HLD, HTN, GERD, Anemia of Chronic Disease, BPH with Chronic indwelling castillo catheter, Bladder Cancer admitted for elective urologic surgery. Consult placed by Dr. Alexander for medical management. Patient resting comfortable. No reported nursing events. Patient denies fever, chills, chest pain, palpitation, productive cough, skin rash 06/07: Patient evaluated by urology at this time. No pseudoaneurysm noted. Pulses distal to site of procedure intact. We will continue to monitor H&H closely. Patient noted with leukocytosis worse from time of admission. We will start patient on empiric antibiotics while awaiting cultures. Low-grade fever noted as a result blood cultures also ordered. Patient is planned for attempted embolization from left radial approach of the left superior vascular artery with Embospheres. Advanced care planning discussed with the patient 30 minutes confirmed full CODE STATUS. Recheck labs in a.m. 06/08: Patient seen and examined, continues to have hematuria, clearing up, Urinalysis returns showing cystits, at this point complex due to instrumentation. Patient will continue abx, Plans for cystoscopy in the am. 06/09: Patient seen and examined, still with gross clotting and gross hematuria, Discussed with Urologist, they plan to take the patient back to the OR for further evaluation. Continue to monitor H/H, continue pain medications. Continue IMCU CARE. 06/10: Patient seen and examined, continues on 3 way with clear urine noted and no clots. Management per Urology team. Monitor H.H 06/11: Patient seen and examined no new complaints and no pain in the bladder area. Three-way with urine Aziza done yesterday no gross blood noted on the mild pink tinge today . 06/12: Patient seen and examined, urine clear, per nursing staff, patient ambulatory. Continue supportive care, ok for Telemetry when Urology ok. Vascular input noted. (1) Hypertension Current Visit: Yes Status: Acute Qualifiers: Hypertension type: primary hypertension Qualified Code(s): I10 - Essential (primary) hypertension Plan to address problem: Monitor blood pressure every shift, continue medical management. (2) Cerebral atherosclerosis Current Visit: No Status: Acute Plan to address problem: Risk factor reduction, antiplatelet therapy as clinically indicated. (3) Diabetes Current Visit: No Status: Acute Plan to address problem: Consistent carbohydrate diet, Accu-Chek, insulin protocol, hypoglycemia protocol. (4) Hyperlipidemia Current Visit: No Status: Acute Qualifiers: Hyperlipidemia type: mixed hyperlipidemia Qualified Code(s): E78.2 - Mixed hyperlipidemia Plan to address problem: Statin therapy, supportive care, low-cholesterol diet (5) Vascular dementia Current Visit: No Status: Acute Qualifiers: Dementia behavioral disturbance: without behavioral disturbance Qualified Code(s): F01.50 - Vascular dementia without behavioral disturbance Plan to address problem: For prompt, verbal redirection, benzodiazepine therapy as clinically indicated. (6) GERD (gastroesophageal reflux disease) Current Visit: Yes Status: Acute Qualifiers: Esophagitis presence: without esophagitis Qualified Code(s): K21.9 - Gastro-esophageal reflux disease without esophagitis Plan to address problem: PPI therapy, supportive care, continue medical management. (7) Systemic inflammatory response syndrome (8) Acute Cystitis (9) advance care planning Current Visit: No Status: Acute Plan to address problem: Disease education done, care plan discussed, diagnoses discussed, prognosis discussed, patient is full code. +30 minutes. (8) Preventative health care Current Visit: No Status: Acute Plan to address problem: Home safety discussed, patient structured to follow-up primary care physician for all age and risk factor appropriate screening test. +30 minutes. History Interval history: Patient seen and examined, no new complaints at this time no new clots noted in urine, 3 way irrigation ongoing, much clearer urine output today. Hospitalist Physical - Physical exam Narrative exam: VITAL SIGNS: Reviewed. GENERAL: The patient appears normally developed, Vital signs as documented. HEAD: No signs of head trauma. EYES: Pupils are equal. Extraocular motions intact. EARS: Hearing grossly intact. MOUTH: Oropharynx is normal. NECK: No adenopathy, no JVD. CHEST: Chest with clear breath sounds bilaterally. No wheezes, rales, or rhonchi. CARDIAC: Regular rate and rhythm. S1 and S2, without murmurs, gallops, or rubs. VASCULAR: No Edema. Peripheral pulses normal and equal in all extremities. ABDOMEN: Soft, non tender and non distended. No rebound or guarding, and no masses palpated. Bowel Sounds normal. : Castillo catheter in place MUSCULOSKELETAL: Good range of motion of all major joints. Extremities without clubbing, cyanosis or edema. NEUROLOGIC EXAM: Alert and oriented x 3 No focal sensory or strength deficit s. Speech normal. Follows commands. PSYCHIATRIC: Mood normal. SKIN: detail exam as documented in skin assessment - Constitutional Vitals: Temp Pulse Resp BP Pulse Ox 98.7 F 84 14 115/74 96 06/12/22 07:22 06/12/22 09:00 06/12/22 09:00 06/12/22 09:00 06/12/22 09:00 General appearance: Present: no acute distress Results - Labs CBC & Chem 7: 06/12/22 04:39 06/12/22 04:39 Labs: Laboratory Last Values WBC 9.8 K/mm3 (4.5-11.0) 06/12/22 04:39 RBC 3.11 M/mm3 (3.65-5.03) L 06/12/22 04:39 Hgb 9.1 gm/dl (11.8-15.2) L 06/12/22 04:39 Hct 27.4 % (35.5-45.6) L 06/12/22 04:39 MCV 88 fl (84-94) 06/12/22 04:39 MCH 29 pg (28-32) 06/12/22 04:39 MCHC 33 % (32-34) 06/12/22 04:39 RDW 14.4 % (13.2-15.2) 06/12/22 04:39 Plt Count 309 K/mm3 (140-440) 06/12/22 04:39 Sodium 131 mmol/L (137-145) L 06/12/22 04:39 Potassium 3.8 mmol/L (3.6-5.0) 06/12/22 04:39 Chloride 97.2 mmol/L (98-107) L 06/12/22 04:39 Carbon Dioxide 25 mmol/L (22-30) 06/12/22 04:39 Anion Gap 13 mmol/L 06/12/22 04:39 BUN 8 mg/dL (9-20) L 06/12/22 04:39 Creatinine 0.8 mg/dL (0.8-1.3) 06/12/22 04:39 Estimated GFR > 60 ml/min 06/12/22 04:39 BUN/Creatinine Ratio 10 % 06/12/22 04:39 Glucose 134 mg/dL (75-100) H 06/12/22 04:39 POC Glucose 138 mg/dL (70-105) H 06/12/22 07:31 Calcium 8.5 mg/dL (8.4-10.2) 06/12/22 04:39 Urine Color Red (Yellow) 06/07/22 18:30 Urine Turbidity Cloudy (Clear) 06/07/22 18:30 Urine pH 6.0 (5.0-7.0) 06/07/22 18:30 Specific [place] (Man) 1.010 (1.003-1.030) 06/07/22 18:30 Urine Protein 30 mg/dl mg/dL (Negative) 06/07/22 18:30 Ur Protein (Man) 2+ mg/dL (Negative) 06/07/22 18:30 Urine Glucose (UA) Negative mg/dL (Negative) 06/07/22 18:30 Urine Ketones 5 mg/dL (Negative) 06/07/22 18:30 Ur Ketones (Man) 5 (Negative) 06/07/22 18:30 Urine Blood 4+ (Negative) 06/07/22 18:30 Urine Nitrite Negative (Negative) 06/07/22 18:30 Urine Bilirubin Negative (Negative) 06/07/22 18:30 Urine Bilirubin (Man) Negative (Negative) 06/07/22 18:30 Urine Urobilinogen 0.2 mg/dL (<2.0) 06/07/22 18:30 Ur Leukocyte Esterase 1+ (Negative) 06/07/22 18:30 Urine WBC (Auto) 94.0 /HPF (0.0-6.0) H 06/07/22 18:30 Urine RBC (Auto) > 182.0 /HPF (0.0-6.0) 06/07/22 18:30 Urine RBC (Manual) 5+ (Negative) 06/07/22 18:30 Blood Type O POSITIVE 06/06/22 Unknown Antibody Screen Negative 06/06/22 Unknown Crossmatch See Detail 06/06/22 Unknown Microbiology: Microbiology 06/07/22 20:42 Peripheral/Venous Blood Culture - Preliminary NO GROWTH AFTER 4 DAYS 06/07/22 20:42 Peripheral/Venous Blood Culture - Preliminary NO GROWTH AFTER 4 DAYS Castillo/IV: Voiding Method Indwelling Catheter Active Medications - Current Medications Current Medications: Generic Name Dose Route Start Last Admin Trade Name Freq PRN Reason Stop Dose Admin Acetaminophen 650 mg 06/06/22 15:00 Acetaminophen 325 Mg Tab PO Q4H PRN Pain, Mild (1-3)/Fever > 100.5 Dextrose 50 ml 06/06/22 22:30 Dextrose 50% In Water (25gm) 50 Ml Syringe IV Q30MIN PRN Hypoglycemia Protocol Ferrous Sulfate 325 mg 06/07/22 10:00 06/11/22 09:01 Ferrous Sulfate 325 Mg Tab PO 325 mg QDAY KARLA Administration Hydralazine HCl 10 mg 06/07/22 11:28 Hydralazine 20 Mg/1 Ml Inj IV Q4HR PRN Hypertension Hydralazine HCl 10 mg 06/09/22 18:34 06/09/22 18:35 Hydralazine 20 Mg/1 Ml Inj IV 10 mg Q20M PRN Administration Hypertension Hydromorphone HCl 0.5 mg 06/07/22 18:00 06/09/22 07:09 Hydromorphone 0.5 Mg/0.5 Ml Inj IV 0.5 mg Q3H PRN Administration Pain , Severe (7-10) Levofloxacin/Dextrose 500 mg in 100 mls @ 100 mls/hr 06/07/22 18:00 06/11/22 17:48 Levaquin 500mg/100ml IV 06/13/22 18:59 100 mls/hr Q24H [facility] Administration Protocol Insulin Human Lispro 0 unit 06/06/22 22:30 06/11/22 22:57 Insulin Lispro 100 Unit/Ml SUB-Q Not Given ACHS [facility] Protocol Lisinopril 40 mg 06/07/22 10:00 06/11/22 09:02 Lisinopril 20 Mg Tab PO 40 mg QDAY KARLA Administration Ondansetron HCl 4 mg 06/07/22 18:00 Ondansetron 4 Mg/2 Ml Inj IV Q4H PRN Nausea And Vomiting Oxycodone/Acetaminophen 1 tab 06/07/22 18:00 06/12/22 05:47 Oxycodone /Acetaminophen 5-325mg Tab PO 1 tab Q4H PRN Administration Pain, Moderate (4-6) Pantoprazole Sodium 20 mg 06/07/22 10:00 06/11/22 09:02 Pantoprazole 20 Mg Tab PO 20 mg QDAY KARLA Administration Sodium Chloride 2,000 ml 06/09/22 19:00 06/12/22 05:55 Sodium Chloride 0.9% Irrig Soln 2000 Ml IR 2,000 ml DIRECT KARLA Administration
[2022-06-12] MEDS: INSULIN LISPRO 100 UNIT/ML SUB-Q SCH ×4 (10:52→22:00)
[2022-06-12] MEDS: PANTOPRAZOLE 20 MG TAB PO SCH (10:52)
[2022-06-12] MEDS: FERROUS SULFATE 325 MG TAB PO SCH (10:52)
[2022-06-12] MEDS: LISINOPRIL 20 MG TAB PO SCH (10:52)
--- NOTE | 2022-06-12 13:12 | Progress Note ---
Subjective Date of service: 06/12/22 Principal diagnosis: hematuria bladder cancer Interval history: s/p cysto, clot evacuation, & fulgeration (06-09-22)- tumor bed with irritation s/p Selection of the left internal iliac artery with angiography (06-07-22) s/p TURBT (06-06-22) 81 YO Male with Vascular Dementia, Cerebral Atherosclerosis, DM, HLD, HTN, GERD, Anemia of Chronic Disease, BPH with Chronic indwelling castillo catheter, Bladder Cancer admitted for cysto with Dr. Dean Patient resting comfortable. abd soft 24F 3way with clear urine (irrigated ---no clots) a/p bladder tumor---resected (tumor bed with irritation) continue arriola drip monitor vitals & blood count transfer to floor (tele) Objective - Constitutional Vitals: Vital Signs - 12hr 06/12/22 06/12/22 06/12/22 01:49 02:00 03:00 Temperature Pulse Rate 81 75 72 Pulse Rate [ From Monitor] Pulse Rate [ Right] Respiratory 13 14 15 Rate Respiratory Rate [Left Groin] Blood Pressure 117/71 117/71 116/67 O2 Sat by Pulse 97 97 96 Oximetry 06/12/22 06/12/22 06/12/22 03:26 04:00 05:00 Temperature 100.2 F H Pulse Rate 78 76 Pulse Rate [ 78 From Monitor] Pulse Rate [ 82 Right] Respiratory 16 13 10 L Rate Respiratory Rate [Left Groin] Blood Pressure 119/66 119/66 132/81 O2 Sat by Pulse 99 97 97 Oximetry 06/12/22 06/12/22 06/12/22 05:40 05:47 05:59 Temperature Pulse Rate 77 Pulse Rate [ From Monitor] Pulse Rate [ Right] Respiratory 16 Rate Respiratory 16 Rate [Left Groin] Blood Pressure O2 Sat by Pulse Oximetry 06/12/22 06/12/22 06/12/22 06:00 06:01 06:47 Temperature Pulse Rate 82 Pulse Rate [ From Monitor] Pulse Rate [ 77 Right] Respiratory 17 14 16 Rate Respiratory Rate [Left Groin] Blood Pressure 135/80 135/80 O2 Sat by Pulse 95 97 Oximetry 06/12/22 06/12/22 06/12/22 07:00 07:22 08:00 Temperature 98.7 F Pulse Rate 77 72 Pulse Rate [ From Monitor] Pulse Rate [ Right] Respiratory 12 14 Rate Respiratory Rate [Left Groin] Blood Pressure 118/70 108/66 O2 Sat by Pulse 96 95 Oximetry 06/12/22 06/12/22 06/12/22 09:00 10:00 10:52 Temperature Pulse Rate 84 82 72 Pulse Rate [ From Monitor] Pulse Rate [ Right] Respiratory 14 16 Rate Respiratory Rate [Left Groin] Blood Pressure 115/74 124/74 124/74 O2 Sat by Pulse 96 96 Oximetry 06/12/22 06/12/22 06/12/22 11:00 11:41 12:00 Temperature 98.7 F Pulse Rate 81 78 Pulse Rate [ From Monitor] Pulse Rate [ Right] Respiratory 9 L 18 Rate Respiratory Rate [Left Groin] Blood Pressure 121/78 113/78 O2 Sat by Pulse 99 96 Oximetry - Labs CBC & Chem 7: 06/12/22 04:39 06/12/22 04:39 Labs: Abnormal lab results 06/11/22 06/11/22 06/11/22 Range/Units 11:42 16:22 22:51 RBC (3.65-5.03) M/mm3 Hgb (11.8-15.2) gm/dl Hct (35.5-45.6) % Sodium (137-145) mmol/L Chloride (98-107) mmol/L BUN (9-20) mg/dL Glucose (75-100) mg/dL POC Glucose 223 H 215 H 129 H (70-105) mg/dL 06/12/22 06/12/22 06/12/22 Range/Units 04:39 04:39 07:31 RBC 3.11 L (3.65-5.03) M/mm3 Hgb 9.1 L (11.8-15.2) gm/dl Hct 27.4 L (35.5-45.6) % Sodium 131 L (137-145) mmol/L Chloride 97.2 L (98-107) mmol/L BUN 8 L (9-20) mg/dL Glucose 134 H (75-100) mg/dL POC Glucose 138 H (70-105) mg/dL Medications & Allergies - Medications Allergies/Adverse Reactions: Allergies No Known Allergies Allergy (Verified 05/13/22 16:50) Home Medications: Home Medications Medication Instructions Recorded Confirmed Last Taken Type AtorvaSTATin [Lipitor] 80 mg PO QHS 05/13/22 06/02/22 06/05/22 History Cyanocobalamin (Vitamin B-12) 1,000 mcg PO QDAY 05/13/22 06/02/22 06/05/22 History [Vitamin B-12] Doxazosin [Cardura] 1 mg PO QHS 05/13/22 06/02/22 06/05/22 History Ferrous Sulfate [Iron 325 MG] 325 mg PO QDAY 05/13/22 06/02/22 06/05/22 History Metformin HCl [metFORMIN] 1,000 mg PO QDAY 05/13/22 06/02/22 06/05/22 History Omeprazole 20 mg PO QDAY 05/13/22 06/06/22 06/06/22 History amLODIPine [Norvasc] 5 mg PO DAILY 05/13/22 06/02/22 06/05/22 History lisinopriL [Lisinopril] 40 mg PO QDAY 05/13/22 06/02/22 06/05/22 History Active Medications: Generic Name Dose Route Start Last Admin Trade Name Freq PRN Reason Stop Dose Admin Acetaminophen 650 mg 06/06/22 15:00 Acetaminophen 325 Mg Tab PO Q4H PRN Pain, Mild (1-3)/Fever > 100.5 Dextrose 50 ml 06/06/22 22:30 Dextrose 50% In Water (25gm) 50 Ml Syringe IV Q30MIN PRN Hypoglycemia Protocol Ferrous Sulfate 325 mg 06/07/22 10:00 06/12/22 10:52 Ferrous Sulfate 325 Mg Tab PO 325 mg QDAY KARLA Administration Hydralazine HCl 10 mg 06/07/22 11:28 Hydralazine 20 Mg/1 Ml Inj IV Q4HR PRN Hypertension Hydralazine HCl 10 mg 06/09/22 18:34 06/09/22 18:35 Hydralazine 20 Mg/1 Ml Inj IV 10 mg Q20M PRN Administration Hypertension Hydromorphone HCl 0.5 mg 06/07/22 18:00 06/09/22 07:09 Hydromorphone 0.5 Mg/0.5 Ml Inj IV 0.5 mg Q3H PRN Administration Pain , Severe (7-10) Levofloxacin/Dextrose 500 mg in 100 mls @ 100 mls/hr 06/07/22 18:00 06/11/22 17:48 Levaquin 500mg/100ml IV 06/13/22 18:59 100 mls/hr Q24H KARLA Administration Protocol Insulin Human Lispro 0 unit 06/06/22 22:30 06/12/22 10:52 Insulin Lispro 100 Unit/Ml SUB-Q Not Given ACHS KARLA Protocol Lisinopril 40 mg 06/07/22 10:00 06/12/22 10:52 Lisinopril 20 Mg Tab PO 40 mg QDAY KARLA Administration Ondansetron HCl 4 mg 06/07/22 18:00 Ondansetron 4 Mg/2 Ml Inj IV Q4H PRN Nausea And Vomiting Oxycodone/Acetaminophen 1 tab 06/07/22 18:00 06/12/22 05:47 Oxycodone /Acetaminophen 5-325mg Tab PO 1 tab Q4H PRN Administration Pain, Moderate (4-6) Pantoprazole Sodium 20 mg 06/07/22 10:00 06/12/22 10:52 Pantoprazole 20 Mg Tab PO 20 mg QDAY KARLA Administration Sodium Chloride 2,000 ml 06/09/22 19:00 06/12/22 05:55 Sodium Chloride 0.9% Irrig Soln 2000 Ml IR 2,000 ml DIRECT KARLA Administration
[2022-06-12] MEDS: HYDROmorphone 0.5 MG/0.5 ML INJ IV PRN ×3 (15:00→21:15)
[2022-06-13] MEDS: INSULIN LISPRO 100 UNIT/ML SUB-Q SCH (08:02)
[2022-06-13 08:56] LABS: Basophils % (Auto) 0.2 % (0.0-1.8); Eosinophils # (Auto) 0.1 K/mm3 (0.0-0.4); Eosinophils % (Auto) 0.8 % (0.0-4.3); Hematocrit 29.5 % (35.5-45.6); Hemoglobin 9.6 gm/dl (11.8-15.2); Lymphocytes # (Auto) 1.4 K/mm3 (1.2-5.4); Lymphocytes % (Auto) 15.3 % (13.4-35.0); Mean Corpuscular HGB Conc 33 % (32-34); Mean Corpuscular Volume 88 fl (84-94); Monocytes # (Auto) 1.1 K/mm3 (0.0-0.8); Monocytes % (Auto) 12.5 % (0.0-7.3); Platelet Count 352 K/mm3 (140-440); Red Blood Count 3.33 M/mm3 (3.65-5.03); Red Cell Distribution Width 14.7 % (13.2-15.2)
[2022-06-13 09:30] LABS: BUN/Creatinine Ratio 9; Blood Urea Nitrogen 7 mg/dL (9-20); Calcium 8.6 mg/dL (8.4-10.2); Hemolysis Index 0
[2022-06-13] MEDS: FERROUS SULFATE 325 MG TAB PO SCH (10:39)
[2022-06-13] MEDS: PANTOPRAZOLE 20 MG TAB PO SCH (10:39)
[2022-06-13] MEDS: LISINOPRIL 20 MG TAB PO SCH (10:40)
--- NOTE | 2022-06-13 10:48 | Progress Note ---
Assessment and Plan Assessment and plan: 81 YO Male with Vascular Dementia, Cerebral Atherosclerosis, DM, HLD, HTN, GERD, Anemia of Chronic Disease, BPH with Chronic indwelling castillo catheter, Bladder Cancer admitted for elective urologic surgery. Consult placed by Dr. Alexander for medical management. Patient resting comfortable. No reported nursing events. Patient denies fever, chills, chest pain, palpitation, productive cough, skin rash 06/07: Patient evaluated by urology at this time. No pseudoaneurysm noted. Pulses distal to site of procedure intact. We will continue to monitor H&H closely. Patient noted with leukocytosis worse from time of admission. We will start patient on empiric antibiotics while awaiting cultures. Low-grade fever noted as a result blood cultures also ordered. Patient is planned for attempted embolization from left radial approach of the left superior vascular artery with Embospheres. Advanced care planning discussed with the patient 30 minutes confirmed full CODE STATUS. Recheck labs in a.m. 06/08: Patient seen and examined, continues to have hematuria, clearing up, Urinalysis returns showing cystits, at this point complex due to instrumentation. Patient will continue abx, Plans for cystoscopy in the am. 06/09: Patient seen and examined, still with gross clotting and gross hematuria, Discussed with Urologist, they plan to take the patient back to the OR for further evaluation. Continue to monitor H/H, continue pain medications. Continue IMCU CARE. 06/10: Patient seen and examined, continues on 3 way with clear urine noted and no clots. Management per Urology team. Monitor H.H 06/11: Patient seen and examined no new complaints and no pain in the bladder area. Three-way with urine Aziza done yesterday no gross blood noted on the mild pink tinge today . 06/12: Patient seen and examined, urine clear, per nursing staff, patient ambulatory. Continue supportive care, ok for Telemetry when Urology ok. Vascular input noted. 06/13: Patient seen and examined, clinically stable at this time, Hemoglobin and renal function remains clinically stable. Discharge and follow up per Urology. (1) Hypertension Current Visit: Yes Status: Acute Qualifiers: Hypertension type: primary hypertension Qualified Code(s): I10 - Essential (primary) hypertension Plan to address problem: Monitor blood pressure every shift, continue medical management. (2) Cerebral atherosclerosis Current Visit: No Status: Acute Plan to address problem: Risk factor reduction, antiplatelet therapy as clinically indicated. (3) Diabetes Current Visit: No Status: Acute Plan to address problem: Consistent carbohydrate diet, Accu-Chek, insulin protocol, hypoglycemia protocol. (4) Hyperlipidemia Current Visit: No Status: Acute Qualifiers: Hyperlipidemia type: mixed hyperlipidemia Qualified Code(s): E78.2 - Mixed hyperlipidemia Plan to address problem: Statin therapy, supportive care, low-cholesterol diet (5) Vascular dementia Current Visit: No Status: Acute Qualifiers: Dementia behavioral disturbance: without behavioral disturbance Qualified Code(s): F01.50 - Vascular dementia without behavioral disturbance Plan to address problem: For prompt, verbal redirection, benzodiazepine therapy as clinically indicated. (6) GERD (gastroesophageal reflux disease) Current Visit: Yes Status: Acute Qualifiers: Esophagitis presence: without esophagitis Qualified Code(s): K21.9 - Gastro-esophageal reflux disease without esophagitis Plan to address problem: PPI therapy, supportive care, continue medical management. (7) Systemic inflammatory response syndrome (8) Acute Cystitis with hematuria (9) Bladder Cancer (10) Acute Blood loss anemia secondary to Advanced Bladder CA (11) advance care planning Current Visit: No Status: Acute Plan to address problem: Disease education done, care plan discussed, diagnoses discussed, prognosis discussed, patient is full code. +30 minutes. (12) Preventative health care Current Visit: No Status: Acute Plan to address problem: Home safety discussed, patient structured to follow-up primary care physician for all age and risk factor appropriate screening test. +30 minutes. History Interval history: Patient seen and examined, no new complaints at this time no new clots noted in urine Hospitalist Physical - Physical exam Narrative exam: VITAL SIGNS: Reviewed. GENERAL: The patient appears normally developed, Vital signs as documented. HEAD: No signs of head trauma. EYES: Pupils are equal. Extraocular motions intact. EARS: Hearing grossly intact. MOUTH: Oropharynx is normal. NECK: No adenopathy, no JVD. CHEST: Chest with clear breath sounds bilaterally. No wheezes, rales, or rhonc hi. CARDIAC: Regular rate and rhythm. S1 and S2, without murmurs, gallops, or rubs. VASCULAR: No Edema. Peripheral pulses normal and equal in all extremities. ABDOMEN: Soft, non tender and non distended. No rebound or guarding, and no masses palpated. Bowel Sounds normal. : Castillo catheter in place MUSCULOSKELETAL: Good range of motion of all major joints. Extremities without clubbing, cyanosis or edema. NEUROLOGIC EXAM: Alert and oriented x 3 No focal sensory or strength defi cits. Speech normal. Follows commands. PSYCHIATRIC: Mood normal. SKIN: detail exam as documented in skin assessment - Constitutional Vitals: Temp Pulse Resp BP Pulse Ox 98.6 F 74 18 138/72 97 06/13/22 08:05 06/13/22 10:40 06/13/22 08:05 06/13/22 10:40 06/13/22 10:00 General appearance: Present: no acute distress Results - Labs CBC & Chem 7: 06/13/22 07:53 06/13/22 07:53 Labs: Laboratory Last Values WBC 8.9 K/mm3 (4.5-11.0) 06/13/22 07:53 RBC 3.33 M/mm3 (3.65-5.03) L 06/13/22 07:53 Hgb 9.6 gm/dl (11.8-15.2) L 06/13/22 07:53 Hct 29.5 % (35.5-45.6) L 06/13/22 07:53 MCV 88 fl (84-94) 06/13/22 07:53 MCH 29 pg (28-32) 06/13/22 07:53 MCHC 33 % (32-34) 06/13/22 07:53 RDW 14.7 % (13.2-15.2) 06/13/22 07:53 Plt Count 352 K/mm3 (140-440) 06/13/22 07:53 Lymph % (Auto) 15.3 % (13.4-35.0) 06/13/22 07:53 [place] % (Auto) 12.5 % (0.0-7.3) H 06/13/22 07:53 Eos % (Auto) 0.8 % (0.0-4.3) 06/13/22 07:53 Baso % (Auto) 0.2 % (0.0-1.8) 06/13/22 07:53 Lymph # (Auto) 1.4 K/mm3 (1.2-5.4) 06/13/22 07:53 [place] # (Auto) 1.1 K/mm3 (0.0-0.8) H 06/13/22 07:53 Eos # (Auto) 0.1 K/mm3 (0.0-0.4) 06/13/22 07:53 Baso # (Auto) 0.0 K/mm3 (0.0-0.1) 06/13/22 07:53 Seg Neutrophils % 71.2 % (40.0-70.0) H 06/13/22 07:53 Seg Neutrophils # 6.4 K/mm3 (1.8-7.7) 06/13/22 07:53 Sodium 136 mmol/L (137-145) L 06/13/22 07:53 Potassium 4.3 mmol/L (3.6-5.0) 06/13/22 07:53 Chloride 98.3 mmol/L (98-107) 06/13/22 07:53 Carbon Dioxide 26 mmol/L (22-30) 06/13/22 07:53 Anion Gap 16 mmol/L 06/13/22 07:53 BUN 7 mg/dL (9-20) L 06/13/22 07:53 Creatinine 0.8 mg/dL (0.8-1.3) 06/13/22 07:53 Estimated GFR > 60 ml/min 06/13/22 07:53 BUN/Creatinine Ratio 9 % 06/13/22 07:53 Glucose 138 mg/dL (75-100) H 06/13/22 07:53 POC Glucose 122 mg/dL (70-105) H 06/13/22 08:02 Calcium 8.6 mg/dL (8.4-10.2) 06/13/22 07:53 Urine Color Red (Yellow) 06/07/22 18:30 Urine Turbidity Cloudy (Clear) 06/07/22 18:30 Urine pH 6.0 (5.0-7.0) 06/07/22 18:30 Specific [place] (Man) 1.010 (1.003-1.030) 06/07/22 18:30 Urine Protein 30 mg/dl mg/dL (Negative) 06/07/22 18:30 Ur Protein (Man) 2+ mg/dL (Negative) 06/07/22 18:30 Urine Glucose (UA) Negative mg/dL (Negative) 06/07/22 18:30 Urine Ketones 5 mg/dL (Negative) 06/07/22 18:30 Ur Ketones (Man) 5 (Negative) 06/07/22 18:30 Urine Blood 4+ (Negative) 06/07/22 18:30 Urine Nitrite Negative (Negative) 06/07/22 18:30 Urine Bilirubin Negative (Negative) 06/07/22 18:30 Urine Bilirubin (Man) Negative (Negative) 06/07/22 18:30 Urine Urobilinogen 0.2 mg/dL (<2.0) 06/07/22 18:30 Ur Leukocyte Esterase 1+ (Negative) 06/07/22 18:30 Urine WBC (Auto) 94.0 /HPF (0.0-6.0) H 06/07/22 18:30 Urine RBC (Auto) > 182.0 /HPF (0.0-6.0) 06/07/22 18:30 Urine RBC (Manual) 5+ (Negative) 06/07/22 18:30 Blood Type O POSITIVE 06/06/22 Unknown Antibody Screen Negative 06/06/22 Unknown Crossmatch See Detail 06/06/22 Unknown Microbiology: Microbiology 06/07/22 20:42 Peripheral/Venous Blood Culture - Final NO GROWTH AFTER 5 DAYS 06/07/22 20:42 Peripheral/Venous Blood Culture - Final NO GROWTH AFTER 5 DAYS Castillo/IV: Voiding Method Indwelling Catheter Active Medications - Current Medications Current Medications: Generic Name Dose Route Start Last Admin Trade Name Freq PRN Reason Stop Dose Admin Acetaminophen 650 mg 06/06/22 15:00 Acetaminophen 325 Mg Tab PO Q4H PRN Pain, Mild (1-3)/Fever > 100.5 Dextrose 50 ml 06/06/22 22:30 Dextrose 50% In Water (25gm) 50 Ml Syringe IV Q30MIN PRN Hypoglycemia Protocol Ferrous Sulfate 325 mg 06/07/22 10:00 06/13/22 10:39 Ferrous Sulfate 325 Mg Tab PO 325 mg QDAY KARLA Administration Hydralazine HCl 10 mg 06/07/22 11:28 Hydralazine 20 Mg/1 Ml Inj IV Q4HR PRN Hypertension Hydralazine HCl 10 mg 06/09/22 18:34 06/09/22 18:35 Hydralazine 20 Mg/1 Ml Inj IV 10 mg Q20M PRN Administration Hypertension Hydromorphone HCl 0.5 mg 06/07/22 18:00 06/12/22 21:15 Hydromorphone 0.5 Mg/0.5 Ml Inj IV 0.5 mg Q3H PRN Administration Pain , Severe (7-10) Levofloxacin/Dextrose 500 mg in 100 mls @ 100 mls/hr 06/07/22 18:00 06/12/22 18:45 Levaquin 500mg/100ml IV 06/13/22 18:59 100 mls/hr Q24H KARLA Administration Protocol Insulin Human Lispro 0 unit 06/06/22 22:30 06/13/22 08:02 Insulin Lispro 100 Unit/Ml SUB-Q Not Given ACHS KARLA Protocol Lisinopril 40 mg 06/07/22 10:00 06/13/22 10:40 Lisinopril 20 Mg Tab PO 40 mg QDAY KARLA Administration Ondansetron HCl 4 mg 06/07/22 18:00 Ondansetron 4 Mg/2 Ml Inj IV Q4H PRN Nausea And Vomiting Oxycodone/Acetaminophen 1 tab 06/07/22 18:00 06/12/22 05:47 Oxycodone /Acetaminophen 5-325mg Tab PO 1 tab Q4H PRN Administration Pain, Moderate (4-6) Pantoprazole Sodium 20 mg 06/07/22 10:00 06/13/22 10:39 Pantoprazole 20 Mg Tab PO 20 mg QDAY KARLA Administration Sodium Chloride 2,000 ml 06/09/22 19:00 06/12/22 05:55 Sodium Chloride 0.9% Irrig Soln 2000 Ml IR 2,000 ml DIRECT KARLA Administration
[2022-06-13] MEDS: oxyCODONE /ACETAMINOPHEN 5-325MG TAB PO PRN (10:53)
[2022-06-13 11:52] VITALS: BP 141/74
--- NOTE | 2022-06-13 13:42 | Progress Note ---
Subjective Date of service: 06/13/22 Principal diagnosis: hematuria bladder cancer Interval history: s/p cysto, clot evacuation, & fulgeration (06-09-22)- tumor bed with irritation s/p Selection of the left internal iliac artery with angiography (06-07-22) s/p TURBT (06-06-22) 81 YO Male with Vascular Dementia, Cerebral Atherosclerosis, DM, HLD, HTN, GERD, Anemia of Chronic Disease, BPH with Chronic indwelling castillo catheter, Bladder Cancer admitted for cysto with Dr. Dean Patient resting comfortable. abd soft 24F 3way with clear urine (irrigated ---no clots) a/p bladder tumor---resected (tumor bed with irritation) continue zeinab colón monitor vitals & blood count josie arriola dc home with castillo Objective - Constitutional Vitals: Vital Signs - 12hr 06/13/22 06/13/22 06/13/22 04:00 08:05 10:00 Temperature 98.8 F 98.6 F Pulse Rate 86 74 Respiratory 18 18 Rate Blood Pressure 138/72 Blood Pressure 120/77 [Right] O2 Sat by Pulse 97 99 97 Oximetry 06/13/22 06/13/22 10:40 11:50 Temperature 98.4 F Pulse Rate 74 79 Respiratory 18 Rate Blood Pressure 138/72 141/74 Blood Pressure [Right] O2 Sat by Pulse 96 Oximetry - Labs CBC & Chem 7: 06/13/22 07:53 06/13/22 07:53 Labs: Abnormal lab results 06/12/22 06/12/22 06/12/22 Range/Units 11:21 16:14 21:05 RBC (3.65-5.03) M/mm3 Hgb (11.8-15.2) gm/dl Hct (35.5-45.6) % [place] % (Auto) (0.0-7.3) % [place] # (Auto) (0.0-0.8) K/mm3 Seg Neutrophils % (40.0-70.0) % Sodium (137-145) mmol/L BUN (9-20) mg/dL Glucose (75-100) mg/dL POC Glucose 187 H 165 H 157 H (70-105) mg/dL 06/13/22 06/13/22 06/13/22 Range/Units 05:31 07:53 07:53 RBC 3.33 L (3.65-5.03) M/mm3 Hgb 9.6 L (11.8-15.2) gm/dl Hct 29.5 L (35.5-45.6) % [place] % (Auto) 12.5 H (0.0-7.3) % [place] # (Auto) 1.1 H (0.0-0.8) K/mm3 Seg Neutrophils % 71.2 H (40.0-70.0) % Sodium 136 L (137-145) mmol/L BUN 7 L (9-20) mg/dL Glucose 138 H (75-100) mg/dL POC Glucose 144 H (70-105) mg/dL 06/13/22 Range/Units 08:02 RBC (3.65-5.03) M/mm3 Hgb (11.8-15.2) gm/dl Hct (35.5-45.6) % [place] % (Auto) (0.0-7.3) % [place] # (Auto) (0.0-0.8) K/mm3 Seg Neutrophils % (40.0-70.0) % Sodium (137-145) mmol/L BUN (9-20) mg/dL Glucose (75-100) mg/dL POC Glucose 122 H (70-105) mg/dL Medications & Allergies - Medications Allergies/Adverse Reactions: Allergies No Known Allergies Allergy (Verified 05/13/22 16:50) Home Medications: Home Medications Medication Instructions Recorded Confirmed Last Taken Type AtorvaSTATin [Lipitor] 80 mg PO QHS 05/13/22 06/02/22 06/05/22 History Cyanocobalamin (Vitamin B-12) 1,000 mcg PO QDAY 05/13/22 06/02/22 06/05/22 History [Vitamin B-12] Doxazosin [Cardura] 1 mg PO QHS 05/13/22 06/02/22 06/05/22 History Ferrous Sulfate [Iron 325 MG] 325 mg PO QDAY 05/13/22 06/02/22 06/05/22 History Metformin HCl [metFORMIN] 1,000 mg PO QDAY 05/13/22 06/02/22 06/05/22 History Omeprazole 20 mg PO QDAY 05/13/22 06/06/22 06/06/22 History amLODIPine [Norvasc] 5 mg PO DAILY 05/13/22 06/02/22 06/05/22 History lisinopriL [Lisinopril] 40 mg PO QDAY 05/13/22 06/02/22 06/05/22 History Active Medications: Generic Name Dose Route Start Last Admin Trade Name Freq PRN Reason Stop Dose Admin Acetaminophen 650 mg 06/06/22 15:00 Acetaminophen 325 Mg Tab PO Q4H PRN Pain, Mild (1-3)/Fever > 100.5 Dextrose 50 ml 06/06/22 22:30 Dextrose 50% In Water (25gm) 50 Ml Syringe IV Q30MIN PRN Hypoglycemia Protocol Ferrous Sulfate 325 mg 06/07/22 10:00 06/13/22 10:39 Ferrous Sulfate 325 Mg Tab PO 325 mg QDAY KARLA Administration Hydralazine HCl 10 mg 06/07/22 11:28 Hydralazine 20 Mg/1 Ml Inj IV Q4HR PRN Hypertension Hydralazine HCl 10 mg 06/09/22 18:34 06/09/22 18:35 Hydralazine 20 Mg/1 Ml Inj IV 10 mg Q20M PRN Administration Hypertension Hydromorphone HCl 0.5 mg 06/07/22 18:00 06/12/22 21:15 Hydromorphone 0.5 Mg/0.5 Ml Inj IV 0.5 mg Q3H PRN Administration Pain , Severe (7-10) Levofloxacin/Dextrose 500 mg in 100 mls @ 100 mls/hr 06/07/22 18:00 06/12/22 18:45 Levaquin 500mg/100ml IV 06/13/22 18:59 100 mls/hr Q24H KARLA Administration Protocol Insulin Human Lispro 0 unit 06/06/22 22:30 06/13/22 08:02 Insulin Lispro 100 Unit/Ml SUB-Q Not Given ACHS [facility] Protocol Lisinopril 40 mg 06/07/22 10:00 06/13/22 10:40 Lisinopril 20 Mg Tab PO 40 mg QDAY KARLA Administration Ondansetron HCl 4 mg 06/07/22 18:00 Ondansetron 4 Mg/2 Ml Inj IV Q4H PRN Nausea And Vomiting Oxycodone/Acetaminophen 1 tab 06/07/22 18:00 06/13/22 10:53 Oxycodone /Acetaminophen 5-325mg Tab PO 1 tab Q4H PRN Administration Pain, Moderate (4-6) Pantoprazole Sodium 20 mg 06/07/22 10:00 06/13/22 10:39 Pantoprazole 20 Mg Tab PO 20 mg QDAY KARLA Administration Sodium Chloride 2,000 ml 06/09/22 19:00 06/12/22 05:55 Sodium Chloride 0.9% Irrig Soln 2000 Ml IR 2,000 ml DIRECT KARLA Administration
== END 2022-06-13 15:10 | disposition home or self-care (01) | DRG 669 ==
LOC: OR 07:02 → 3A 14:19 → IMCU 21:28 → 4A 06-12 18:20
PROVIDERS: ADMIT Urology; ATTEND Urology
PROC: 30233N1 Transfusion of Nonautologous Red Blood Cells into Peripheral Vein, Percutaneous Approach (ICD-10-PCS; 2022-06-06)
PROC: 0TBB8ZZ Excision of Bladder, Via Natural or Artificial Opening Endoscopic (ICD-10-PCS; 2022-06-06)
PROC: 0T5B8ZZ Destruction of Bladder, Via Natural or Artificial Opening Endoscopic (ICD-10-PCS; 2022-06-06)
PROC: 0TCB8ZZ Extirpation of Matter from Bladder, Via Natural or Artificial Opening Endoscopic (ICD-10-PCS; 2022-06-06)
PROC: 04LF3DZ Occlusion of Left Internal Iliac Artery with Intraluminal Device, Percutaneous Approach (ICD-10-PCS; principal; 2022-06-07)
PROC: B41D1ZZ Fluoroscopy of Aorta and Bilateral Lower Extremity Arteries using Low Osmolar Contrast (ICD-10-PCS; 2022-06-07)
PROC: 0TCB8ZZ Extirpation of Matter from Bladder, Via Natural or Artificial Opening Endoscopic (ICD-10-PCS; 2022-06-09)
DX: C67.9 Malignant neoplasm of bladder, unspecified (principal); D62 Acute posthemorrhagic anemia; N30.01 Acute cystitis with hematuria; R65.10 Systemic inflammatory response syndrome (SIRS) of non-infectious origin without acute organ dysfunction; I67.2 Cerebral atherosclerosis; I10 Essential (primary) hypertension; I48.91 Unspecified atrial fibrillation; K21.9 Gastro-esophageal reflux disease without esophagitis; F01.50 Vascular dementia, unspecified severity, without behavioral disturbance, psychotic disturbance, mood disturbance, and anxiety; E11.9 Type 2 diabetes mellitus without complications; N40.0 Benign prostatic hyperplasia without lower urinary tract symptoms; D63.8 Anemia in other chronic diseases classified elsewhere; E78.2 Mixed hyperlipidemia; Z83.3 Family history of diabetes mellitus; Z82.49 Family history of ischemic heart disease and other diseases of the circulatory system; Z79.899 Other long term (current) drug therapy; Z79.84 Long term (current) use of oral hypoglycemic drugs
CPT/HCPCS: 36415; 37242; 74174; 74430; 80048; 81001; 82962; 85025; 85027; 86850; 86900; 86901; 86920; 87040; 87086; 88304; 88307; 88341; 88342; 94760; G0378; J1815; J3490; J7121; Q9967; C1751; C1760; C1769; C1887; C1894; J0360; J0690; J0692; J1170; J1644; J1956; J2250; J2370; J2405; J2704; J3010; J7030; J7120; P9016

== ENCOUNTER 2022-07-06 01:33 | Emergency (ER) | payer MEDICARE ==
[2022-07-06 03:00] LABS: Basophils % (Auto) 0.1 % (0.0-1.8); Eosinophils % (Auto) 0.2 % (0.0-4.3); Hematocrit 25.4 % (35.5-45.6); Hemoglobin 8.2 gm/dl (11.8-15.2); Lymphocytes % (Auto) 12.8 % (13.4-35.0); Mean Corpuscular HGB Conc 32 % (32-34); Mean Corpuscular Volume 86 fl (84-94); Monocytes # (Auto) 1.3 K/mm3 (0.0-0.8); Monocytes % (Auto) 8.4 % (0.0-7.3); Platelet Count 344 K/mm3 (140-440); Red Blood Count 2.95 M/mm3 (3.65-5.03); Red Cell Distribution Width 15.2 % (13.2-15.2)
[2022-07-06 03:09] LABS: INR 1.13 (0.87-1.13)
--- NOTE | 2022-07-06 03:15 | Cat Scan Report ---
CT HEAD WITHOUT CONTRAST INDICATION / CLINICAL INFORMATION: Weakness. TECHNIQUE: CT head was performed without administration of intravenous contrast. All CT scans at this location are performed using CT dose reduction for ALARA by means of automated exposure control. COMPARISON: CT head 05/14/2022 FINDINGS: CEREBRAL HEMISPHERES: Generalized atrophy and bilateral regions of periventricular white matter hypoa ttenuation compatible with microvascular ischemia are demonstrated. No midline shift. Basal cisterns patent. HEMORRHAGE: None. CEREBELLUM / BRAINSTEM: No significant abnormality. ORBITS: No significant abnormality. Bilateral cataract surgery. SOFT TISSUES: No significant abnormality. SKULL: No significant abnormality. PARANASAL SINUSES / MASTOID AIR CELLS: Normal as visualized. ADDITIONAL FINDINGS: None. IMPRESSION: 1. No acute intracranial abnormality. Signer Name: Don Gillespie II, MD Signed: 07/06/2022 3:12 AM Workstation Name: [id number]
--- NOTE | 2022-07-06 03:15 | XRay Report ---
CHEST 1 VIEW INDICATION / CLINICAL INFORMATION: Weakness. COMPARISON: Chest x-ray 05/14/2022 FINDINGS: SUPPORT DEVICES: None. HEART / MEDIASTINUM: Heart size is within normal limits. Mediastinal contour demonstrates no signific ant abnormality. LUNGS / PLEURA: Lungs are clear for degree of inspiration and technique utilized. BONES: No significant osseous abnormality. ADDITIONAL FINDINGS: No significant additional findings. IMPRESSION: 1. No active cardiopulmonary disease. Signer Name: Don Gillespie II, MD Signed: 07/06/2022 3:12 AM Workstation Name: [id number]
[2022-07-06 03:16] LABS: Alanine Aminotransferase 49 units/L (7-56); Albumin 2.4 g/dL (3.9-5); BUN/Creatinine Ratio 19; Blood Urea Nitrogen 19 mg/dL (9-20); Calcium 8.1 mg/dL (8.4-10.2); Hemolysis Index 20
[2022-07-06] MEDS ORDERED: MAGNESIUM OXIDE 400 MG TAB PO STA (03:51)
[2022-07-06] MEDS ORDERED: SODIUM CHLORIDE 0.9% 1000 ML 2,000 ML IV ONE (03:51)
--- NOTE | 2022-07-06 04:02 | Emergency Department Report ---
ED General Adult HPI - General Chief complaint: Weakness Stated complaint: WEAKNESS AND NOT EATING Time Seen by Provider: 07/06/22 03:32 Source: patient, family, EMS ( EMS documentation not available at time of chart dictation ), RN notes reviewed, old records reviewed Mode of arrival: Stretcher Limitations: No Limitations, Other (Patient is demented and a poor historian) - History of Present Illness Initial comments: This is a pleasant and cooperative 81-year-old gentleman. His past medical history includes vascular dementia, cerebral atherosclerosis, diabetes, hyperlipidemia, GERD, anemia of chronic disease, BPH and chronic indwelling Sprague catheter, and bladder cancer, recently admitted to this hospital for elective urologic surgery. Patient found to have anemia during his recent hospitalization, and was discharged. Patient was reportedly sent to the emergency room because of poor appetite and possible weakness. The patient denies all complaints to myself. He denies physical pain. He would like to drink something, and was able to drink orange juice without difficulty. Patient currently denies headache, neck pain, chest pain, abdominal pain, nausea, vomiting, diarrhea, fevers and chills. Jer Munoz [phone] (daughter) - Related Data Home Medications Medication Instructions Recorded Confirmed Last Taken AtorvaSTATin [Lipitor] 80 mg PO QHS 05/13/22 06/02/22 06/05/22 Cyanocobalamin (Vitamin B-12) 1,000 mcg PO QDAY 05/13/22 06/02/22 06/05/22 [Vitamin B-12] Doxazosin [Cardura] 1 mg PO QHS 05/13/22 06/02/22 06/05/22 Ferrous Sulfate [Iron 325 MG] 325 mg PO QDAY 05/13/22 06/02/22 06/05/22 Metformin HCl [metFORMIN] 1,000 mg PO QDAY 05/13/22 06/02/22 06/05/22 Omeprazole 20 mg PO QDAY 05/13/22 06/06/22 06/06/22 amLODIPine [Norvasc] 5 mg PO DAILY 05/13/22 06/02/22 06/05/22 lisinopriL [Lisinopril] 40 mg PO QDAY 05/13/22 06/02/22 06/05/22 Previous Rx's Medication Instructions Recorded Last Taken Type Magnesium Oxide [Mag-Ox] 400 mg PO QDAY #30 tab 07/06/22 Unknown Rx Ondansetron [Zofran Odt] 4 mg PO Q8HR PRN #20 tab.rapdis 07/06/22 Unknown Rx Allergies Allergy/AdvReac Type Severity Reaction Status Date / Time No Known Allergies Allergy Verified 05/13/22 16:50 ED Review of Systems ROS: Stated complaint: WEAKNESS AND NOT EATING Other details as noted in HPI Constitutional: denies: fever Eyes: denies: eye discharge Respiratory: denies: cough Cardiovascular: denies: chest pain Gastrointestinal: denies: abdominal pain, nausea, vomiting ED Past Medical Hx - Past Medical History Hx Hypertension: Yes (took antihypertensive today) Hx Heart Attack/AMI: No ( EF 50-55%) Hx Diabetes: Yes Hx GERD: Yes Hx Liver Disease: No Hx Renal Disease: No Hx Sickle Cell Disease: No Hx Seizures: No Hx Asthma: No Hx Dementia: Yes (VASCULAR DEMENTIA) Hx HIV: No Additional medical history: Prostate problems. High cholesterol - Surgical History Hx Pacemaker: No Hx Internal Defibrillator: No - Social History Smoking Status: Never Smoker - Medications Home Medications: Home Medications Medication Instructions Recorded Confirmed Last Taken Type AtorvaSTATin [Lipitor] 80 mg PO QHS 05/13/22 06/02/22 06/05/22 History Cyanocobalamin (Vitamin B-12) 1,000 mcg PO QDAY 05/13/22 06/02/22 06/05/22 History [Vitamin B-12] Doxazosin [Cardura] 1 mg PO QHS 05/13/22 06/02/22 06/05/22 History Ferrous Sulfate [Iron 325 MG] 325 mg PO QDAY 05/13/22 06/02/22 06/05/22 History Metformin HCl [metFORMIN] 1,000 mg PO QDAY 05/13/22 06/02/22 06/05/22 History Omeprazole 20 mg PO QDAY 05/13/22 06/06/22 06/06/22 History amLODIPine [Norvasc] 5 mg PO DAILY 05/13/22 06/02/22 06/05/22 History lisinopriL [Lisinopril] 40 mg PO QDAY 05/13/22 06/02/22 06/05/22 History Magnesium Oxide [Mag-Ox] 400 mg PO QDAY #30 tab 07/06/22 Unknown Rx Ondansetron [Zofran Odt] 4 mg PO Q8HR PRN #20 tab.crystal 07/06/22 Unknown Rx ED Physical Exam - General Limitations: Other (The patient is demented) General appearance: alert, in no apparent distress - Head Head exam: Present: atraumatic, normocephalic - Eye Eye exam: Present: normal appearance, EOMI. Absent: nystagmus - ENT ENT exam: Present: normal exam, normal orophraynx, mucous membranes moist, normal external ear exam - Neck Neck exam: Present: normal inspection, full ROM. Absent: tenderness, meningismus - Respiratory Respiratory exam: Present: normal lung sounds bilaterally. Absent: respiratory distress, wheezes, rales, rhonchi, stridor, decreased breath sounds - Cardiovascular Cardiovascular Exam: Present: regular rate, normal rhythm, normal heart sounds. Absent: bradycardia, tachycardia, irregular rhythm, systolic murmur, diastolic murmur, rubs, gallop - GI/Abdominal GI/Abdominal exam: Present: soft. Absent: distended, tenderness, guarding, rebound, rigid, pulsatile mass - Rectal Rectal exam: Present: deferred - Extremities Exam Extremities exam: Present: normal inspection, full ROM, other (2+ pulses noted in the bilateral upper and lower extremities. There is no palpable cord. negative Homans sign. Muscular compartments are soft. The pelvis is stable.). Absent: pedal edema, calf tenderness - Back Exam Back exam: Present: normal inspection. Absent: tenderness, CVA tenderness (R), CVA tenderness (L), paraspinal tenderness, vertebral tenderness - Neurological Exam Neurological exam: Present: alert, other (There is no facial droop. The tongue is midline. EOMI. 5 out of 5 strength in 4 extremities. Sensation is intact to light touch in 4 extremities). Absent: motor sensory deficit - Psychiatric Psychiatric exam: Present: normal affect, normal mood - Skin Skin exam: Present: warm, dry, intact, normal color. Absent: rash ED Course Vital Signs 07/06/22 07/06/22 07/06/22 03:55 03:59 04:00 Temperature 98.8 F Pulse Rate 71 Respiratory 16 Rate Blood Pressure 116/65 116/65 O2 Sat by Pulse 98 100 99 Oximetry 07/06/22 04:06 Temperature 98.8 F Pulse Rate Respiratory Rate Blood Pressure O2 Sat by Pulse Oximetry ED Medical Decision Making - Lab Data Result diagrams: 07/06/22 02:34 07/06/22 02:34 Vital Signs 07/06/22 07/06/22 07/06/22 03:55 03:59 04:00 Temperature 98.8 F Pulse Rate 71 Respiratory 16 Rate Blood Pressure 116/65 116/65 O2 Sat by Pulse 98 100 99 Oximetry 07/06/22 04:06 Temperature 98.8 F Pulse Rate Respiratory Rate Blood Pressure O2 Sat by Pulse Oximetry Lab Results 07/06/22 07/06/22 07/06/22 Range/Units 02:34 02:34 02:34 WBC 15.8 H (4.5-11.0) K/mm3 RBC 2.95 L (3.65-5.03) M/mm3 Hgb 8.2 L (11.8-15.2) gm/dl Hct 25.4 L (35.5-45.6) % MCV 86 (84-94) fl MCH 28 (28-32) pg MCHC 32 (32-34) % RDW 15.2 (13.2-15.2) % Plt Count 344 (140-440) K/mm3 Lymph % (Auto) 12.8 L (13.4-35.0) % Vernon % (Auto) 8.4 H (0.0-7.3) % Eos % (Auto) 0.2 (0.0-4.3) % Baso % (Auto) 0.1 (0.0-1.8) % Lymph # (Auto) 2.0 (1.2-5.4) K/mm3 Vernon # (Auto) 1.3 H (0.0-0.8) K/mm3 Eos # (Auto) 0.0 (0.0-0.4) K/mm3 Baso # (Auto) 0.0 (0.0-0.1) K/mm3 Seg Neutrophils % 78.5 H (40.0-70.0) % Seg Neutrophils # 12.4 H (1.8-7.7) K/mm3 PT 16.1 H (12.2-14.9) Sec. INR 1.13 (0.87-1.13) Sodium 133 L (137-145) mmol/L Potassium 4.2 (3.6-5.0) mmol/L Chloride 103.1 (98-107) mmol/L Carbon Dioxide 14 L (22-30) mmol/L Anion Gap 20 mmol/L BUN 19 (9-20) mg/dL Creatinine 1.0 (0.8-1.3) mg/dL Estimated GFR > 60 ml/min BUN/Creatinine Ratio 19 % Glucose 154 H (75-100) mg/dL Lactic Acid (0.7-2.0) mmol/L Calcium 8.1 L (8.4-10.2) mg/dL Magnesium (1.7-2.3) mg/dL Total Bilirubin 0.50 (0.1-1.2) mg/dL AST 52 H (5-40) units/L ALT 49 (7-56) units/L Alkaline Phosphatase 191 H (35-129) units/L Lactate Dehydrogenase (91-180) units/L Total Creatine Kinase 22 L (55-170) units/L Troponin T < 0.010 (0.00-0.029) ng/mL Total Protein 6.6 (6.3-8.2) g/dL Albumin 2.4 L (3.9-5) g/dL Albumin/Globulin Ratio 0.6 % TSH (0.270-4.200) mlU/mL 07/06/22 07/06/22 07/06/22 Range/Units 02:34 02:34 02:34 WBC (4.5-11.0) K/mm3 RBC (3.65-5.03) M/mm3 Hgb (11.8-15.2) gm/dl Hct (35.5-45.6) % MCV (84-94) fl MCH (28-32) pg MCHC (32-34) % RDW (13.2-15.2) % Plt Count (140-440) K/mm3 Lymph % (Auto) (13.4-35.0) % Vernon % (Auto) (0.0-7.3) % Eos % (Auto) (0.0-4.3) % Baso % (Auto) (0.0-1.8) % Lymph # (Auto) (1.2-5.4) K/mm3 Vernon # (Auto) (0.0-0.8) K/mm3 Eos # (Auto) (0.0-0.4) K/mm3 Baso # (Auto) (0.0-0.1) K/mm3 Seg Neutrophils % (40.0-70.0) % Seg Neutrophils # (1.8-7.7) K/mm3 PT (12.2-14.9) Sec. INR (0.87-1.13) Sodium (137-145) mmol/L Potassium (3.6-5.0) mmol/L Chloride (98-107) mmol/L Carbon Dioxide (22-30) mmol/L Anion Gap mmol/L BUN (9-20) mg/dL Creatinine (0.8-1.3) mg/dL Estimated GFR ml/min BUN/Creatinine Ratio % Glucose (75-100) mg/dL Lactic Acid 2.10 H* (0.7-2.0) mmol/L Calcium (8.4-10.2) mg/dL Magnesium 1.50 L (1.7-2.3) mg/dL Total Bilirubin (0.1-1.2) mg/dL AST (5-40) units/L ALT (7-56) units/L Alkaline Phosphatase (35-129) units/L Lactate Dehydrogenase 133 (91-180) units/L Total Creatine Kinase (55-170) units/L Troponin T (0.00-0.029) ng/mL Total Protein (6.3-8.2) g/dL Albumin (3.9-5) g/dL Albumin/Globulin Ratio % TSH 1.450 (0.270-4.200) mlU/mL - EKG Data -: EKG Interpreted by Oh EKG shows normal: sinus rhythm Rate: normal - EKG Data 07/06/22 04:47 The EKG is interpreted at 3: 45 Sinus rhythm, with a rate of 75 bpm. Normal axis, normal P wave axis, nonspecific T wave abnormalities. QTc 418 ms. Not a STEMI. Abnormal EKG - Radiology Data Radiology results: report reviewed, image reviewed CT HEAD WITHOUT CONTRAST INDICATION / CLINICAL INFORMATION: Weakness. TECHNIQ UE: CT head was performed without administration of intravenous contrast. All CT scans at this location are performed using CT dose reduction for ALARA by means of automated exposure control. COMPARISON: CT head 05/14/2022 FINDINGS: CEREBRAL HEMISPHERES: Generalized atrophy and bilateral regions of periventricular white matter hypoattenuation compatible with microvascular ischemia are demonstrated. No midline shift. Basal cisterns patent. HEMORRHAGE: None. CEREBELLUM / BRAINSTEM: No significant abnormality. ORBITS: No significant abnormality. Bilateral cataract surgery. SOFT TISSUES: No significant abnormality. SKULL: No significant abnormality. PARANASAL SINUSES / MASTOID AIR CELLS: Normal as visualized. ADDITIONAL FINDINGS: None. IMPRESSION: 1. No acute intracranial abnormality. Signer Name: Don Gillespie II, MD Signed: 07/06/2022 2:12 AM Workstation Name: [id number] CHEST 1 VIEW INDICATION / CLINICAL INFORMATION: Weakness. COMPARISON: Chest x- ray 05/14/2022 FINDINGS: SUPPORT DEVICES: None. HEART / MEDIASTINUM: Heart size is within normal limits. Mediastinal contour demonstrates no significant abnormality. LUNGS / PLEURA: Lungs are clear for degree of inspiration and technique utilized. BONES: No significant osseous abnormality. ADDITIONAL FINDINGS: No significant additional findings. IMPRESSION: 1. No active cardiopulmonary disease. Signer Name: Don Gillespie II, MD Signed: 07/06/2022 2:12 AM Workstation Name: [id number] - Medical Decision Making Differential diagnosis, including but not limited to: Dementia, bladder cancer, dehydration Assessment and plan: 81-year-old gentleman, who is afebrile, with reassuring vital signs, pleasant, calm and cooperative, in no acute distress, moving 4 extremities, with a soft benign abdomen. He has a chronic leukocytosis, and this is likely a stress reaction. He has a chronic anemia. His elevated lactic acid is likely a type II lactic acidosis, likely secondary to nausea, vomiting, dehydration, and reported chemotherapy agent. Mild hypomagnesemia reviewed and appreciated. Patient able to drink orange juice in this department without issue or complication. He is observed in this department for hours without clinical decompensation. I called up his daughter, and discussed our findings with the daughter. Discussed that patient most likely has nausea and vomiting secondary to bladder cancer, as well as possible chemotherapeutic agent. However, given that he is drinking, well-appearing, and in no acute distress, it is my opinion that he is suitable to be discharged on oral antiemetic medication. Discussed with the daughter, she articulates understanding, all questions answered. Critical care attestation.: If time is entered above; I have spent that time in minutes in the direct care of this critically ill patient, excluding procedure time. ED Disposition Clinical Impression: Dehydration, Hypomagnesemia, Anemia Disposition: 01 HOME / SELF CARE / HOMELESS Is pt being admited?: No Does the pt Need Aspirin: No Condition: Good Additional Instructions: Please advance diet as tolerated. Consume foods that have high potassium, magnesium, and calcium levels, such as banana, avocado, or potato. Please take a multivitamin [id number] as needed. Please continue current outpatient medications. Please take the nausea medication as needed and directed. Please follow-up with your outpatient primary care doctor or urologic specialist within the next 5 to 7 days. Please return to the emergency room right away with new pain, worsened pain, migration of pain, projectile vomiting, change in mental status, confusion, inability tolerate liquid feeds, new, worsened or different symptoms not present on the initial emergency room evaluation Referrals: MARCIO WASHINGTON MD [Staff Physician] - 3-5 Days [facility] [Provider Group] - 3-5 Days
[2022-07-06 04:05] VITALS: BP 116/65
--- NOTE | 2022-07-07 17:29 | Electrocardiograph Report ---
[facility] Test Date: 2022-07-06 Test Time: 03:45:28 Pat Name: GEORGIA LEA Department: Room: Gender: M Feeder/Folder: YAYA : 1940 Requested By: MING NICOLE Order Number: [id number] Reading MD: Nicki Robledo Measurements Intervals [place] Rate: 75 P: 45 ND: 180 QRS: 53 QRSD: 89 T: 67 QT: 373 QTc: 418 Interpretive Statements Sinus rhythm Nonspecific T abnrm, anterolateral leads Compared to ECG 05/14/2022 15:51:10 No significant change Electronically Signed On 07-07-2022 17:29:23 EDT by Nicki Robledo
== END 2022-07-06 07:11 | disposition home or self-care (01) ==
LOC: ED 01:33
DX: E86.0 Dehydration (principal); E83.42 Hypomagnesemia; D64.9 Anemia, unspecified; I10 Essential (primary) hypertension; K21.9 Gastro-esophageal reflux disease without esophagitis; E11.9 Type 2 diabetes mellitus without complications; R79.1 Abnormal coagulation profile; Z79.899 Other long term (current) drug therapy
CPT/HCPCS: 36415; 70450; 71045; 80053; 82140; 82550; 83615; 83735; 84443; 84484; 85025; 85610; 93005; 96360; 96361; 99285; J7030